=== PATIENT | female | born 1935 | race Caucasian/White ===

== ENCOUNTER → 2017-01-28 | Outpatient (CLI) | payer MEDICARE ==
[~2017-01-28] MED LIST: ALEN70TA39 PO; ASPI81 PO; COUM5TAB PO; CYAN1000P SQ; DILTCD120 PO; DUONSOL2 NEB; GLUCTAB PO; LIPI20TA PO; LISI-591 PO; METO50TA PO; MIRA33502 PO; MOBI7.5T PO; STOO100C PO; VENTAER INH; ZOLP5TAB3 PO
[2017-01-28 14:18] LABS: BLOOD GAS BASE EXCESS 1.3 mmol/L (-2-2); BLOOD GAS CARBOXYHEMOGLOBIN 1.7 % (0-4); BLOOD GAS HCO3 25 mmol/L (22-26); BLOOD GAS METHEMOGLOBIN 0.9 % (0-2); BLOOD GAS O2 HGB SATURATION 95 % (90-100); BLOOD GAS OXYGEN CONTENT 15.5 Vol % (12.0-20.0); BLOOD GAS PCO2 37 mmHg (38-42); BLOOD GAS PO2 93 mmHg (61-120); BLOOD GAS TOTAL HGB 11.5 G/DL (12.0-16.0); CRITICAL VALUE NO; DRAW SITE RT RADIAL; FIO2 21 %; NUMBER OF ARTERIAL PUNCTURES 1; STAT NO; TEMP CORR TO 98.6; ULNAR PULSE PRESENT
--- NOTE | 2017-01-29 09:50 | RSPPFT ---
DATE OF PROCEDURE: 01/28/17 COMMENTS: Spirometry shows FVC of 1.2 at 52% of predicted, FEV1 of 0.8 at 52%, FEV1/FVC ratio is decreased. Flow is decreased at FEF 25, FEF 50, FEF 75 and FEF 25-75. There is a mild response after bronchodilator treatment. Lung volumes show residual volume is increased. TLC is normal. Diffusion capacity is normal. Flow volume loop indicates an obstructive pattern. Blood gases show pH of 7.45, PCO2 of 37, PO2 of 93, BiCarb of 25 and O2 Saturation at 96%. 6-minute walk test shows no de-saturation. IMPRESSION: 1. Mild small airways obstructive lung disease. 2. Mild response after bronchodilator treatment. 3. Lung volumes show hyperinflation. 4. Diffusion capacity is normal. 5. Blood gases show normal oxygenation. 6. 6-minute walk test shows no-desaturation.
== END ==
LOC: HRSP 07:17
PROVIDERS: ATTEND Specialist
DX: R06.00 Dyspnea, unspecified (principal)
CPT/HCPCS: 36600; 82805; 94060; 94620; 94726; 94729

== ENCOUNTER 2017-05-09 17:30 | Inpatient (IN) | payer MEDICARE ==
[~2017-05-09] VITALS: Ht 160 cm; Wt 77.3 kg
[2017-05-09] VITALS (9 sets, daily range): BP systolic 92–114; BP diastolic 51–58; PULSE 48–72; RESP 17–24; TEMP 97.5; O2SAT 92–99
[2017-05-09] MEDS ORDERED: ATROPINE SULFATE 1 MG/ML VIAL IV PUSH ONE (18:15)
[2017-05-09] MEDS ORDERED: SODIUM CHLORIDE 0.9% FLUSH 10 ML FLUSH IVF PRN (18:15)
[2017-05-09] MEDS ORDERED: DOPamine INJ PREMIX 500 ML ONE (18:53)
[2017-05-09 18:54] LABS: AUTOMATED NEUTROPHIL # 13.7 TH/MM3 (1.8-7.7); BASOPHIL % 0.1 % (0.0-2.0); HEMATOCRIT 40.1 % (35.0-46.0); HEMO FLAGS DIFF FINAL; LYMPHOCYTE # 2.3 TH/MM3 (1.0-4.8); MEAN CELL VOLUME 88.8 FL (80.0-100.0); MEAN CORPUSCULAR HEMOGLOBIN 29.6 PG (27.0-34.0); MEAN CORPUSCULAR HGB CONC 33.3 % (32.0-36.0); MONO % 9.8 % (0.0-8.0); NEUT % 77.1 % (16.0-70.0); PLATELET COUNT 260 TH/MM3 (150-450); RED BLOOD COUNT 4.52 MIL/MM3 (4.00-5.30); RED CELL DISTRIBUTION WIDTH 19.8 % (11.6-17.2); WHITE BLOOD COUNT 17.8 TH/MM3 (4.0-11.0)
[2017-05-09] MEDS ORDERED: TERBUTALINE INJ 1 MG/ML AMP SQ PRN (19:00)
[2017-05-09] MEDS ORDERED: DOPamine INJ PREMIX 500 ML IV PRN (19:00)
--- NOTE | 2017-05-09 19:06 | PD ---
HPI Chief Complaint: Abnormal Results Time Seen by Provider: 17:54 Travel History International Travel<30 days: No Contact w/Intl Traveler<30days: No Traveled to known affect area: No History of Present Illness HPI 81-year-old female came to the emergency room with history of dizzy and not feeling good for past couple days. Patient got ready to go to eat some dinner with her sister and started feeling very dizzy at the restaurant. That's when her sister decided to take her to the urgent care. Urgent care did an INR since patient is on Coumadin and found out the DNR was 5 and hence decided to send her to the emergency room. ER patient was quite bradycardic. Blood pressure was 100 systolic. Patient is not complaining of any chest pain and she is awake and answering questions appropriately. She has history of atrial fibrillation and was admitted a month or 2 ago in this hospital for A. fib with RVR and to control her heart rate. No history of chest pain or syncopal episode. No history of GI bleed. [facility] Past Medical History Narrative Medical List of her past medical, surgical, social and family history is reviewed from the nursing note. Hx Anticoagulant Therapy: Yes Arthritis: Yes Cancer: No Cardiovascular Problems: Yes COPD: Yes Diabetes: Yes Patient Takes Glucophage: No Diminished Hearing: No Endocrine: Yes Genitourinary: No Hypertension: Yes Immune Disorder: No Implanted Vascular Access Dvce: Yes Musculoskeletal: Yes (OSTEOPOROSIS) Neurologic: No Psychiatric: No Reproductive: No Respiratory: Yes Immunizations Current: Yes Thyroid Disease: No Menopausal: Yes Past Surgical History AICD: No Arteriovenous Shunt: No Eye Surgery: Yes (BRET. CATARACT EXTRACT.) Genitourinary Surgery: Yes (BLADDER SUSP.) Hysterectomy: Yes Insulin Pump: No Joint Replacement: Yes Oral Surgery: Yes (T & A) Pacemaker: No Tonsillectomy: Yes (AND ADENOIDS ) Other Surgery: Yes (RIGHT LEG VEIN STRIPPING) Social History Alcohol Use: Yes (RARELY) Tobacco Use: No Substance Use: No Allergies-Medications (Allergen,Severity, Reaction): Coded Allergies: clarithromycin (Unverified Allergy, Severe, VOMITING, 03/30/17) Comments List of her allergies reviewed from the nursing note. Reported Meds & Prescriptions Reported Meds & Active Scripts Active Narrative Medication List of her home medications reviewed from the nursing note. Review of Systems Except as stated in HPI: all other systems reviewed are Neg Physical Exam Narrative GENERAL: Awake, alert, elderly, frail, mild distress SKIN: Focused skin assessment warm/dry. HEAD: Atraumatic. Normocephalic. EYES: Pupils equal and round. No scleral icterus. No injection or drainage. ENT: No nasal bleeding or discharge. Mucous membranes pink and moist. NECK: Trachea midline. No JVD. CARDIOVASCULAR: Regular rate and rhythm. Bradycardia. No murmur appreciated. RESPIRATORY: No accessory muscle use. Clear to auscultation. Breath sounds equal bilaterally. GASTROINTESTINAL: Abdomen soft, non-tender, nondistended. Hepatic and splenic margins not palpable. MUSCULOSKELETAL: No obvious deformities. No clubbing. No cyanosis. No edema. NEUROLOGICAL: Awake and alert. No obvious cranial nerve deficits. Motor grossly within normal limits. Normal speech. PSYCHIATRIC: Appropriate mood and affect; insight and judgment normal. Data Data Last Documented VS Orders Orders Electrocardiogram (05/09/17 18:13) Basic Metabolic Panel (Bmp) (05/09/17 18:13) B-Type Natriuretic Peptide (05/09/17 18:13) Ckmb (Isoenzyme) Profile (05/09/17 18:13) Complete Blood Count With Diff (05/09/17 18:13) Magnesium (Mg) (05/09/17 18:13) Prothrombin Time / Inr (Pt) (05/09/17 18:13) Act Partial Throm Time (Ptt) (05/09/17 18:13) Troponin I (05/09/17 18:13) Chest, Single Ap (05/09/17 18:13) Ecg Monitoring (05/09/17 18:13) Bilateral Bp Monitoring (05/09/17 18:13) Iv Access Insert/Monitor (05/09/17 18:13) Oximetry (05/09/17 18:13) Oxygen Administration (05/09/17 18:13) Sodium Chloride 0.9% Flush (Ns Flush) (05/09/17 18:15) Digoxin (05/09/17 18:13) Atropine Inj (Atropine Inj) (05/09/17 18:15) Dopamine Inj Premix (Dopamine Inj Premix (05/09/17 19:00) Terbutaline Inj (Brethine Inj) (05/09/17 19:00) Dopamine Inj Premix (Dopamine Inj Premix (05/09/17 18:53) Phosphorus (Po4) (05/09/17 19:00) Thyroid Stimulating Hormone (05/09/17 19:00) Admit Order (Ed Use Only) (05/09/17 19:07) Labs Laboratory Tests Test 05/09/17 18:23 White Blood Count 17.8 TH/MM3 Red Blood Count 4.52 MIL/MM3 Hemoglobin 13.4 GM/DL Hematocrit 40.1 % Mean Corpuscular Volume 88.8 FL Mean Corpuscular Hemoglobin 29.6 PG Mean Corpuscular Hemoglobin Concent 33.3 % Red Cell Distribution Width 19.8 % Platelet Count 260 TH/MM3 Mean Platelet Volume 9.2 FL Neutrophils (%) (Auto) 77.1 % Lymphocytes (%) (Auto) 13.0 % Monocytes (%) (Auto) 9.8 % Eosinophils (%) (Auto) 0.0 % Basophils (%) (Auto) 0.1 % Neutrophils # (Auto) 13.7 TH/MM3 Lymphocytes # (Auto) 2.3 TH/MM3 Monocytes # (Auto) 1.7 TH/MM3 Eosinophils # (Auto) 0.0 TH/MM3 Basophils # (Auto) 0.0 TH/MM3 CBC Comment DIFF FINAL Differential Comment Prothrombin Time 94.3 SEC Prothromb Time International Ratio 7.8 RATIO Activated Partial Thromboplast Time 52.7 SEC Blood Urea Nitrogen 38 MG/DL Creatinine 2.06 MG/DL Random Glucose 133 MG/DL Calcium Level 9.6 MG/DL Magnesium Level 1.5 MG/DL Sodium Level 135 MEQ/L Potassium Level 4.0 MEQ/L Chloride Level 97 MEQ/L Carbon Dioxide Level 27.0 MEQ/L Anion Gap 11 MEQ/L Estimat Glomerular Filtration Rate 23 ML/MIN Phosphorus Level 3.5 MG/DL Total Creatine Kinase 60 U/L Troponin I 0.03 NG/ML B-Type Natriuretic Peptide 371 PG/ML Thyroid Stimulating Hormone 3rd Gen 3.730 uIU/ML Digoxin Level 1.3 NG/ML [facility] Medical Decision Making Medical Screen Exam Complete: Yes Emergency Medical Condition: Yes Medical Record Reviewed: Yes Interpretation(s) Twelve-lead EKG was reviewed by me. Normal sinus rhythm, normal axis, left bundle branch block, bradycardia, first-degree AV block. EKG is unchanged from 02/2017. Heart rate of 48 bpm. Differential Diagnosis Medication related bradycardia, symptomatic bradycardia, electrolyte abnormality , questionable digitalis toxicity Narrative Course 7 PM patient does not recall any of her medications. I've ordered a digitalis level among other lab since the ST segment has depression typical for digitalis toxicity although it does not look much different from her old EKG. Patient was given 0.5 mg of atropine which has not changed the heart rate. I was just informed by the nurse that the blood pressure is down to 76 systolic. I have started her on dopamine drip. Patient is to be admitted to the [facility]. Awaiting for labs to come back. Chest x-rays within normal limits. Critical Care Narrative Aggregate critical care time was 45 minutes. Time to perform other separately billable procedures was not included in the critical care time. My time did not include minutes spent treating any other patients simultaneously or on activities that did not directly contribute to the patient's treatment. The services I provided to this patient were to treat and/or prevent clinically significant deterioration that could result in: Symptomatic bradycardia, dopamine drip I provided critical care services requiring my management, as noted below: Chart data review, documentation time, medication orders and management, vital sign assessments/reviewing monitor data, ordering and reviewing lab tests, ordering and interpreting/reviewing x-rays and diagnostic studies, care of the patient and discussion of the patient with the admitting physicians. Procedures EKG Prior to Arrival: No Physician Communication Physician Communication Dr. Guerra Diagnosis Primary Impression: Symptomatic bradycardia Additional Impressions: Hypotension Qualified Codes: I95.9 - Hypotension, unspecified Leukocytosis Qualified Codes: D72.829 - Elevated white blood cell count, unspecified Supratherapeutic INR Admitting Information Admitting Physician Requests: Admit Scripts Lisinopril (Lisinopril) 20 Mg Tab 20 MG PO Q12HR for htn, #60 TAB 0 Refills Prov: Jeb Funez DO 05/13/17 Metoprolol Tartrate (Metoprolol Tartrate) 50 Mg Tab 50 MG PO BID for afib, #60 TAB 0 Refills Prov: Jeb Funez DO 05/13/17 Temazepam (Temazepam) 15 Mg Cap 15 MG PO HS Y for INSOMNIA, #30 CAP 0 Refills Prov: Jeb Funez DO 05/13/17 Karol Suero MD May 09, 2017 19:06
[2017-05-09 19:07] LABS: APTT (PATIENT) 52.7 SEC (24.3-30.1); PROTHROMBIN TIME - PATIENT 94.3 SEC (9.8-11.6)
[2017-05-09 19:13] LABS: MAGNESIUM 1.5 MG/DL (1.5-2.5)
--- NOTE | 2017-05-09 19:20 | RADRPT ---
EXAM DATE/TIME: 05/09/2017 18:37 [facility] COMPARISON: CHEST SINGLE AP, March 13, 2016, 17:19. INDICATIONS : Chest pain. MEDICAL HISTORY : Chronic obstructive pulmonary disease. SURGICAL HISTORY : None. ENCOUNTER: Initial ACUITY: 1 day PAIN SCORE: 10 LOCATION: Bilateral chest FINDINGS: A single AP erect view of the chest was obtained and demonstrates mild thickening of the right minor fissure. The heart size remains enlarged with no new confluent infiltrates or effusions. The bony tho rax is intact. There are atherosclerotic changes in the aorta. Multiple overlying ctrocardiogram lead s are present. CONCLUSION: No acute disease. Judah Scott MD on May 09, 2017 at 19:17 Board Certified Radiologist. This report was verified electronically.
[2017-05-09 19:23] LABS: INTERNATIONAL NORMALIZED RATIO 7.8 RATIO
[2017-05-09 19:28] LABS: DIGOXIN 1.3 NG/ML (0.8-2.0)
[2017-05-09] MEDS ORDERED: SODIUM CHLOR 0.9% 1000 ML INJ 1,000 ML IV SCH (20:10)
--- NOTE | 2017-05-09 20:41 | HHI.HP ---
[facility] Service Critical Care Medicine Primary Care Physician Barrington Kruse MD Admission Diagnosis symptomatic bradycardia, hypotension Diagnosis: Travel History International Travel<30 Days: No Contact w/Intl Traveler <30 Da: No Traveled to Known Affected Are: No Sepsis Criteria SIRS Criteria (2 or more): Heart rate over 90 History of Present Illness 81-year-old female with past medical history of COPD, atrial fibrillation on chronic and regulation with warfarin, diabetes, hypertension who presents to [facility] emergency department with a 2 day history of dizziness. She states that about a week ago she was having a productive cough. She was diagnosed with COPD exacerbation and started on azithromycin and took about 4 doses. She has had a poor appetite, poor po intake, and some nausea. She says she has pain in her neck (trapezius) and low back. She feels unsteady when walking but has not fallen. She went out to dinner with her sister and began "feeling bad", dizzy and nauseated. She went to urgent care where her INR was 5 so she was referred to the ED. She vomited x1 at urgent care, nonbloody. When she arrived to the ED her heart rate was in the 40s with LBBB. (LBBB seen previously on EKG 03/14/16). She was given atropin 0.5 mg IV without much improvement. Then her systolic blood pressure was in the 70s that she was started on dopamine which is currently running at 8 g per KG per minute with heart rate 60-65 and blood pressure 97/52. She cannot recall any of the medications that she takes for hypertension or A. fib. She states she took all of her morning meds , not her nighttime meds. Her INR is 7.8. White blood cell count is 17.8. She is afebrile. Creatinine is 2 with baseline ~0.7-1. BUN is 38. Potassium is 4, digoxin level I.3. She denies chest pain or shortness of breath. She denies abdominal pain or dysuria. No hematemesis Last bowel movement was 3 days ago. She states that tonight she developed headache at the base of her skull. Denies head trauma. Remainder review of systems negative Review of Systems Gastrointestinal: COMPLAINS OF: Nausea, Vomiting Past Family Social History Allergies: Coded Allergies: clarithromycin (Unverified Allergy, Severe, VOMITING, 03/30/17) Past Medical History Atrial fibrillation on chronic adequate ventilation with warfarin COPD. She is not on home oxygen. Diabetes mellitus Hypertension Osteoporosis Past Surgical History Bilateral lens implants Ladder suspension Hysterectomy Tonsillectomy and adenoidectomy Left vein stripping Reported Medications Patient is not able to provide a a current medication list. She states that Dr. Adorno is her food assembler kitchen in that he will have access to her current list. Active Ordered Medications Dopamine drip Family History Her father had diabetes and lived to age 96 Mother of tuberculosis at age 29 Grandmother lived to 106 years of age Social History She is a lifetime nonsmoker. Rarely drinks alcohol. Denies illicit drug use She used to work with [employer] in [place]. 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 She has 3 daughters who live near her in [place]. Physical Exam Vital Signs Vital Signs Date Time Temp Pulse Resp B/P (MAP) Pulse Ox O2 Delivery O2 Flow Rate FiO2 05/09/17 19:45 69 20 101/58 (72) 99 Nasal Cannula 2.00 05/09/17 19:06 48 80/49 05/09/17 18:19 50 18 92/53 (66) 97 Nasal Cannula 2.00 05/09/17 18:19 50 18 92/53 (66) 99 Room Air 05/09/17 18:19 100 2.00 05/09/17 18:04 50 20 95 Nasal Cannula 2.00 05/09/17 17:35 97.5 48 24 96/51 (66) 92 Room Air Physical Exam GENERAL: Very pleasant female who is laying in ED [place] under numerous blankets stating that she is cold. SKIN: Warm and dry, adequately perfused. HEAD: Atraumatic. Normocephalic. EYES: Pupils equal and round, 3 mm and reactive bilaterally.. No scleral icterus. No injection or drainage. ENT: No nasal bleeding or discharge. Mucous membranes pink, dry.. NECK: Trachea midline. No JVD. CARDIOVASCULAR: Irregularly irregular with a 3/6 systolic murmur left sternal border. No rubs or gallops. RESPIRATORY: Breathing comfortably on 2 L nasal cannula without accessory muscle use. Clear to auscultation bilaterally without wheezes Rales or rhonchi. GASTROINTESTINAL: Abdomen soft, non-tender, nondistended. Bowel sounds are present. MUSCULOSKELETAL: Extremities without clubbing, cyanosis, or edema. No obvious deformities. NEUROLOGICAL: Awake and alert. Normal speech. Oriented to person, place, circumstances. 4 beat horizontal nystagmus, 3 beat vertical does nystagmus with upward gaze. Five out of 5 muscle strength in the arms and legs. Sensation intact. Normal [id number] nose and normal rapid alternating movements bilaterally.. Normal [id number] bilaterally. No pronator drift. No clonus Laboratory Laboratory Tests Test 05/09/17 18:23 White Blood Count 17.8 Red Blood Count 4.52 Hemoglobin 13.4 Hematocrit 40.1 Mean Corpuscular Volume 88.8 Mean Corpuscular Hemoglobin 29.6 Mean Corpuscular Hemoglobin Concent 33.3 Red Cell Distribution Width 19.8 Platelet Count 260 Mean Platelet Volume 9.2 Neutrophils (%) (Auto) 77.1 Lymphocytes (%) (Auto) 13.0 Monocytes (%) (Auto) 9.8 Eosinophils (%) (Auto) 0.0 Basophils (%) (Auto) 0.1 Neutrophils # (Auto) 13.7 Lymphocytes # (Auto) 2.3 Monocytes # (Auto) 1.7 Eosinophils # (Auto) 0.0 Basophils # (Auto) 0.0 CBC Comment DIFF FINAL Differential Comment Prothrombin Time 94.3 Prothromb Time International Ratio 7.8 Activated Partial Thromboplast Time 52.7 Blood Urea Nitrogen 38 Creatinine 2.06 Random Glucose 133 Calcium Level 9.6 Magnesium Level 1.5 Sodium Level 135 Potassium Level 4.0 Chloride Level 97 Carbon Dioxide Level 27.0 Anion Gap 11 Estimat Glomerular Filtration Rate 23 Total Creatine Kinase 60 Troponin I 0.03 B-Type Natriuretic Peptide 371 Digoxin Level 1.3 Result Diagram: 05/09/17182205/09/171822 Caprini VTE Risk Assessment Caprini VTE Risk Assessment: Mod/High Risk (score >= 2) Caprini Risk Assessment Model Point Value = 1 Point Value = 2 Point Value = 3 Point Value = 5 Age 41-60 Minor surgery BMI > 25 kg/m2 Swollen legs Varicose veins or History of unexplained or recurrent spontaneous Oral contraceptives or hormone replacement Sepsis (< 1 month) Serious lung disease, including pneumonia (< 1 month) Abnormal pulmonary function Acute myocardial infarction Congestive heart failure (< 1 month) History of inflammatory bowel disease Medical patient at bed rest Age 61-74 Arthroscopic surgery Major open surgery (> 45 min) Laparoscopic surgery (> 45 min) Malignancy Confined to bed (> 72 hours) Immobilizing plaster cast Central venous access Age >= 75 History of VTE Family history of VTE Factor V Leiden Prothrombin [id number] Lupus anticoagulant Anticardiolipin antibodies Elevated serum homocysteine Heparin-induced thrombocytopenia Other congenital or acquired thrombophilia Stroke (< 1 month) Elective arthroplasty Hip, pelvis, or leg fracture Acute spinal cord injury (< 1 month) Prophylaxis Regimen Total Risk Factor Score Risk Level Prophylaxis Regimen 0-1 Low Early ambulation 2 Moderate Order ONE of the following: *Sequential Compression Device (SCD) *Heparin 5000 units SQ BID 3-4 Higher Order ONE of the following medications: *Heparin 5000 units SQ TID *Enoxaparin/Lovenox 40 mg SQ daily (WT < 150 kg, CrCl > 30 mL/min) *Enoxaparin/Lovenox 30 mg SQ daily (WT < 150 kg, CrCl > 10-29 mL/min) *Enoxaparin/Lovenox 30 mg SQ BID (WT < 150 kg, CrCl > 30 mL/min) AND/OR *Sequential Compression Device (SCD) 5 or more Highest Order ONE of the following medications: *Heparin 5000 units SQ TID (Preferred with Epidurals) *Enoxaparin/Lovenox 40 mg SQ daily (WT < 150 kg, CrCl > 30 mL/min) *Enoxaparin/Lovenox 30 mg SQ daily (WT < 150 kg, CrCl > 10-29 mL/min) *Enoxaparin/Lovenox 30 mg SQ BID (WT < 150 kg, CrCl > 30 mL/min) AND *Sequential Compression Device (SCD) Assessment and Plan Problem List: (1) Headache ICD Code: R51 - Headache Status: Acute (2) COPD (chronic obstructive pulmonary disease) ICD Code: J44.9 - Chronic obstructive pulmonary disease, unspecified Status: Chronic (3) Dehydration ICD Code: E86.0 - Dehydration Status: Acute (4) Hyperlipidemia ICD Code: E78.5 - Hyperlipidemia, unspecified Status: Chronic (5) HTN (hypertension) ICD Code: I10 - Essential (primary) hypertension Status: Chronic (6) Atrial fibrillation with RVR ICD Code: I48.91 - Unspecified atrial fibrillation Status: Acute (7) Supratherapeutic INR ICD Code: R79.1 - Abnormal coagulation profile Status: Acute (8) Symptomatic bradycardia ICD Code: R00.1 - Bradycardia, unspecified Status: Acute Assessment and Plan NEURO: Headache CT brain 05/09no acute hemorrhage. Decreased attenuation right frontal lobe white matter, chronic small vessel ischemic changes. Tylenol/Lortab as needed for pain RESP: COPD Nasal cannula wean as tolerated CV: Atrial fibrillation Hypertension Unclear what meds patient was on for rate control but this is likely the cause of bradycardia. Now on dopamine to maintain a heart rate greater than 50 and mean arterial pressure greater than 65. Digoxin level 1.3. Hold dig. Cardiology consult, Dr. Adorno GI: Nausea/vomiting Nausea and vomiting may be secondary to medication effect from azithromycin. She has previously had that response to clarithromycin in the past. Nothing by mouth overnight. FEN/RENAL: Acute kidney injury She appears volume depleted with elevated BUN/creatinine. She has had very poor by mouth intake for couple of days. 0.9 NaCl with 20 mEq of KCl per liter at 100 mL per hour. ID: Leukocytosis Has completed about 4-5 days of azithromycin due to COPD. From the standpoint of her COPD she feels like she is back to baseline so I will hold off on further azithromycin at this time.. Chest x-ray is clear. We'll check UA and reflex culture. HEME: Coagulopathy secondary to warfarin INR is 7.8. She has been on recent antibiotics which may have contributed to her coagulopathy. She does not appear to have active GI bleeding and her hemoglobin is normal so will simply hold warfarin for now. ENDO: Diabetes mellitus Bedside glucose ac/hs with low-dose sliding scale as indicated. Follow-up TSH PROPH: Protonix 40 mg by mouth daily for stress ulcer prophylaxis. She is anticoagulated with warfarin which will provide DVT prophylaxis. ACCESS: Peripheral IV providing adequate access at this time. Will place central venous line if needed. Level III H&P Coral Guerra MD May 09, 2017 20:41
[2017-05-09] MEDS ORDERED: MORPHINE SULFATE 4 MG/ML INJ IV PUSH PRN (20:45)
[2017-05-09] MEDS ORDERED: MAGNESIUM HYDROXIDE SUSP 30 ML CUP PO PRN (20:45)
[2017-05-09] MEDS ORDERED: SODIUM CHLORIDE 0.9% FLUSH 10 ML FLUSH IV FLUSH PRN (20:45)
[2017-05-09] MEDS ORDERED: ACETAMINOPHEN 325 MG TAB PO PRN (20:45)
[2017-05-09] MEDS ORDERED: SENNOSIDES 8.6 MG TAB PO PRN (20:45)
[2017-05-09] MEDS ORDERED: BISACODYL 10 MG SUPP RECTAL PRN (20:45)
[2017-05-09] MEDS ORDERED: CHLORHEXIDINE GLUCONATE 2 % 1 PACK (2 CLOTHS) TOP PRN (20:45)
[2017-05-09] MEDS ORDERED: LACTULOSE SYRUP 20 GM/30 ML CUP PO PRN (20:45)
[2017-05-09] MEDS ORDERED: MISCELLANEOUS NURSING INFORMATION XX SCH (20:45)
[2017-05-09] MEDS ORDERED: RESP: ALBUTEROL 2.5 MG/3 ML NEB (PRN) INH (20:45)
[2017-05-09] MEDS ORDERED: ACETAMINOPHEN/HYDROcodone 325 MG/5 MG TAB PO PRN ×2 (20:45→21:00)
[2017-05-09] MEDS: SODIUM CHLORIDE 0.9% FLUSH 10 ML FLUSH IV FLUSH SCH (21:00)
[2017-05-09] MEDS: DOCUSATE SODIUM 50 MG/SENNA 8.6 MG TAB PO SCH (21:00)
[2017-05-09] MEDS ORDERED: MAGNESIUM SULFATE 1 GM PREMIX 100 ML IV ONE (21:00)
[2017-05-09] MEDS: NS + KCL 20 MEQ INJ 1,000 ML IV SCH (22:30)
[2017-05-09] MEDS: RESP: ALBUTEROL 2.5 MG/IPRATROPIUM 0.5 MG NEB (SCH) INH (22:46)
--- NOTE | 2017-05-09 22:46 | RADRPT ---
EXAM DATE/TIME: 05/09/2017 22:26 [facility] COMPARISON: No previous studies available for comparison. INDICATIONS : Dizziness. RADIATION DOSE: 56.35 CTDIvol (mGy) MEDICAL HISTORY : Cardiovascular disease. Hypertension. Diabetes. SURGICAL HISTORY : Hysterectomy. ENCOUNTER: Initial ACUITY: 1 day PAIN SCALE: 0/10 LOCATION: cranial TECHNIQUE: Multiple contiguous axial images were obtained of the head. Using automated exposure control and adj ustment of the mA and/or kV according to patient size, radiation dose was kept as low as reasonably a chievable to obtain optimal diagnostic quality images. DICOM format image data is available electro nically for review and comparison. FINDINGS: CEREBRUM: There's diffuse mild to moderate atrophic change with sulcal and ventricular prominence. Periventricu lar white matter lucencies are noted. There is a more focal area of decreased attenuation involving t he white matter of the right frontal lobe best seen on axial images #13 and 14. No evidence of midlin e shift, mass lesion, hemorrhage or acute infarction. No extra-axial fluid collections are seen. POSTERIOR FOSSA: The cerebellum and brainstem are intact. The 4th ventricle is midline. The cerebellopontine angle i s unremarkable. EXTRACRANIAL: The visualized portion of the orbits is intact. SKULL: The calvaria is intact. No evidence of skull fracture. There is an air-fluid level in left maxillary sinus. There is mucosal thickening in the right maxillary sinus. CONCLUSION: 1. No acute hemorrhage or mass effect. 2. Chronic small vessel ischemic changes as well as a more focal area of decreased attenuation involv ing the white matter of the right frontal lobe which is more nonspecific but likely related to prior insult. Judah Scott MD on May 09, 2017 at 22:42 Board Certified Radiologist. This report was verified electronically.
[2017-05-10] VITALS (28 sets, daily range): BP systolic 107–150; BP diastolic 51–68; PULSE 70–94; RESP 16–50; TEMP 97.5–98.8; O2SAT 90–100
[2017-05-10 02:17] LABS: AUTOMATED NEUTROPHIL # 9.6 TH/MM3 (1.8-7.7); BASOPHIL % 0.2 % (0.0-2.0); EOSINOPHIL % 0.2 % (0.0-4.0); HEMATOCRIT 38.4 % (35.0-46.0); HEMO FLAGS DIFF FINAL; LYMPH % 15.9 % (9.0-44.0); LYMPHOCYTE # 2.1 TH/MM3 (1.0-4.8); MEAN CELL VOLUME 87.9 FL (80.0-100.0); MEAN CORPUSCULAR HEMOGLOBIN 28.6 PG (27.0-34.0); MEAN CORPUSCULAR HGB CONC 32.6 % (32.0-36.0); MONO % 9.3 % (0.0-8.0); NEUT % 74.4 % (16.0-70.0); PLATELET COUNT 229 TH/MM3 (150-450); RED BLOOD COUNT 4.37 MIL/MM3 (4.00-5.30); RED CELL DISTRIBUTION WIDTH 19.9 % (11.6-17.2)
[2017-05-10] MEDS: CHLORHEXIDINE GLUCONATE 2 % 1 PACK (2 CLOTHS) TOP SCH (04:00)
[2017-05-10 04:05] LABS: BICARBONATE 24.9 MEQ/L (21.0-32.0); MAGNESIUM 1.8 MG/DL (1.5-2.5); POTASSIUM 3.4 MEQ/L (3.5-5.1)
[2017-05-10] MEDS: RESP: ALBUTEROL 2.5 MG/IPRATROPIUM 0.5 MG NEB (SCH) INH ×4 (05:30→19:32)
[2017-05-10 05:38] LABS: BLOOD, URINE TRACE (NEG); COMMENT (UR) CULT NOT INDICATED; CULTURE IF INDICATED CULT NOT INDICATED; GLUCOSE,URINE NEG (NEG); KETONE, URINE NEG (NEG); MUCUS URINE FEW /lpf (OCC); NITRITE,URINE NEG (NEG); SQUAMOUS EPITHELIAL CELL URINE <1 /hpf (0-5); URINE COLOR LIGHT-YELLOW (YELLW/STRAW)
[2017-05-10] MEDS: NS + KCL 20 MEQ INJ 1,000 ML IV SCH ×2 (05:56→11:57)
[2017-05-10] MEDS ORDERED: SODIUM CHLOR 0.9% 250 ML INJ 250 ML IV ONE (06:30)
[2017-05-10] MEDS ORDERED: DOPamine INJ PREMIX 500 ML IV PRN (06:30)
--- NOTE | 2017-05-10 08:13 | PD.CONS ---
HPI Service CV Consult Requested By Reason for Consult symptomatic bradycardia Primary Care Physician Barrington Kruse MD History of Present Illness Here with COPD, atrial fibrillation, diabetes, hypertension admitt for dizziness. She states that about a week ago she was having a productive cough. She recently experienced an exacerbation of her COPD and was placed on a Z markus. Then her INR became eleavated. She was experiencing intermittent dizziness. She eventually went to urgent care where her INR was 5. She was then sent to the ER and heart rate there was in the 40's she was given atropine. She was also hypotensive and placed on a dopamine drip. She denies chest pain or palpitation Review of Systems Consitutional: DENIES: Fatigue, Fever, Chills, Weight gain, Weight loss Eyes: DENIES: Amaurosis Fugax, Change in vision HEENT: COMPLAINS OF: Lightheadedness Respiratory: DENIES: See HPI, Cough, Snoring, Shortness of breath, Wheezing, Sputum production Cardiovascular: COMPLAINS OF: See HPI, DENIES: Chest pain, Palpitations, Syncope, Tachycardia Gastrointestinal: DENIES: Nausea, Vomiting, Change in bowel habits, Reflux, Bloody stools, Melena Genitourinary: DENIES: Urinary incontinence, Difficulty voiding Integumentary: DENIES: Rash Neurologic: DENIES: Tingling or numbness, Memory problems, Poor Balance, Stroke symptoms Musculoskeletal: DENIES: Joint pain, Muscle pain, Limited range of motion, Back pain Psychiatric: DENIES: Anxiety, Depression, Sleep disturbances Hematologic: DENIES: Bruising tendencies, Bleeding tendencies Endocrine: DENIES: Weight gain, Weight loss, Thyroid disease Past Family Social History Allergies: Coded Allergies: clarithromycin (Unverified Allergy, Severe, VOMITING, 03/30/17) Past Medical History see HPI Osteoporosis Past Surgical History Bilateral lens implants Ladder suspension Hysterectomy Tonsillectomy and adenoidectomy Left vein stripping Reported Medications Reported Meds & Active Scripts Active Active Ordered Medications Current Medications Medications (Trade) Dose Ordered Sig/Ozzie Route Start Time Stop Time Status Last Admin (Brethine Inj) 1 mg UNSCH PRN SQ 05/09/17 19:00 Potassium Chloride/Sodium Chloride 1,000 ml @ 100 mls/hr Q10H IV 05/09/17 21:00 05/10/17 05:56 (NS Flush) 2 ml UNSCH PRN IV FLUSH 05/09/17 20:45 (NS Flush) 2 ml BID IV FLUSH 05/09/17 21:00 (Tylenol) 650 mg Q6H PRN PO 05/09/17 20:45 ([place] 5-325 Mg) 1 tab Q4H PRN PO 05/09/17 20:45 (Protonix) 40 mg DAILY PO 05/10/17 09:00 (Zofran Inj) 4 mg Q6H PRN IV PUSH 05/09/17 20:45 (Duoneb Neb) 1 ampule Q6HR NEB INH 05/09/17 22:00 05/10/17 07:39 (Albuterol Neb) 2.5 mg Q2HR NEB PRN INH 05/09/17 20:45 Miscellaneous Information 1 Q361D XX 05/09/17 20:45 05/09/17 20:45 (Chlorhexidine 2% Cloth) 3 pack Taper DAILY@04 TOP 05/10/17 04:00 05/06/18 03:59 05/10/17 04:00 (Chlorhexidine 2% Cloth) 3 pack UNSCH PRN TOP 05/09/17 20:45 (Nadira-Colace) 1 tab BID PO 05/09/17 21:00 (Milk Of Magnesia Liq) 30 ml Q12H PRN PO 05/09/17 20:45 (Senokot) 17.2 mg Q12H PRN PO 05/09/17 20:45 (Dulcolax Supp) 10 mg DAILY PRN RECTAL 05/09/17 20:45 (Lactulose Liq) 30 ml DAILY PRN PO 05/09/17 20:45 ([place] 5-325 Mg) 2 tab Q6H PRN PO 05/09/17 21:00 Dopamine HCl/ Dextrose 500 ml @ 8.438 mls/ hr TITRATE PRN IV 05/10/17 06:30 Family History noncontributory Social History Never smoker. Rare EtOH. Denies illicit drug use Physical Exam Vital Signs Vital Signs Date Time Temp Pulse Resp B/P (MAP) Pulse Ox O2 Delivery O2 Flow Rate FiO2 05/10/17 07:40 97 Venturi Mask 6.00 35 05/10/17 06:20 96 Venturi Mask 3.00 28 05/10/17 06:00 98.5 79 17 114/56 (75) 92 05/10/17 05:00 98.4 79 18 114/57 (76) 98 05/10/17 04:00 98.7 74 20 107/52 (70) 98 05/10/17 03:00 98.1 75 16 121/58 (79) 93 05/10/17 02:00 98.2 73 18 108/52 (70) 90 05/10/17 01:00 98.0 70 20 113/52 (72) 95 05/10/17 00:56 98.0 70 20 113/52 (72) 95 05/10/17 00:19 68 16 108/55 (72) 97 Nasal Cannula 2.00 05/09/17 23:00 67 18 108/55 (72) 98 Nasal Cannula 2.00 05/09/17 22:15 72 18 111/56 (74) 98 Nasal Cannula 2.00 05/09/17 21:45 68 20 112/57 (75) 96 Nasal Cannula 2.00 05/09/17 21:15 70 18 113/55 (74) 97 Nasal Cannula 2.00 05/09/17 20:45 64 114/55 (74) 05/09/17 20:15 68 17 104/55 (71) 98 Nasal Cannula 2.00 05/09/17 19:45 69 20 101/58 (72) 99 Nasal Cannula 2.00 05/09/17 19:06 48 80/49 05/09/17 18:19 50 18 92/53 (66) 97 Nasal Cannula 2.00 05/09/17 18:19 50 18 92/53 (66) 99 Room Air 05/09/17 18:19 100 2.00 05/09/17 18:04 50 20 95 Nasal Cannula 2.00 05/09/17 17:35 97.5 48 24 96/51 (66) 92 Room Air Physical Exam GENERAL: Well-nourished, well-developed patient in no apparent distress. NECK: No JVD. No carotid bruit. CARDIOVASCULAR: IR IR S1/S2 no murmur, rub, or gallop. RESPIRATORY: No accessory muscle use. wheezing to auscultation. Breath sounds equal bilaterally. GASTROINTESTINAL: Abdomen soft, non-tender, nondistended. MUSCULOSKELETAL: Extremities without clubbing, cyanosis, or edema. Laboratory Laboratory Tests Test 05/09/17 18:23 05/10/17 00:20 05/10/17 01:52 05/10/17 05:22 White Blood Count 17.8 13.0 Red Blood Count 4.52 4.37 Hemoglobin 13.4 12.5 Hematocrit 40.1 38.4 Mean Corpuscular Volume 88.8 87.9 Mean Corpuscular Hemoglobin 29.6 28.6 Mean Corpuscular Hemoglobin Concent 33.3 32.6 Red Cell Distribution Width 19.8 19.9 Platelet Count 260 229 Mean Platelet Volume 9.2 8.4 Neutrophils (%) (Auto) 77.1 74.4 Lymphocytes (%) (Auto) 13.0 15.9 Monocytes (%) (Auto) 9.8 9.3 Eosinophils (%) (Auto) 0.0 0.2 Basophils (%) (Auto) 0.1 0.2 Neutrophils # (Auto) 13.7 9.6 Lymphocytes # (Auto) 2.3 2.1 Monocytes # (Auto) 1.7 1.2 Eosinophils # (Auto) 0.0 0.0 Basophils # (Auto) 0.0 0.0 CBC Comment DIFF FINAL DIFF FINAL Differential Comment Prothrombin Time 94.3 Prothromb Time International Ratio 7.8 Activated Partial Thromboplast Time 52.7 Blood Urea Nitrogen 38 43 Creatinine 2.06 2.04 Random Glucose 133 169 Calcium Level 9.6 8.5 Magnesium Level 1.5 1.8 Sodium Level 135 136 Potassium Level 4.0 3.4 Chloride Level 97 100 Carbon Dioxide Level 27.0 24.9 Anion Gap 11 11 Estimat Glomerular Filtration Rate 23 23 Phosphorus Level 3.5 Total Creatine Kinase 60 Troponin I 0.03 0.03 B-Type Natriuretic Peptide 371 Thyroid Stimulating Hormone 3rd Gen 3.730 Digoxin Level 1.3 Nasal Screen MRSA (PCR) MRSA NOT DETECTED Urine Color LIGHT-YELLOW Urine Turbidity CLEAR Urine pH 5.0 Urine Specific [place] 1.007 Urine Protein NEG Urine Glucose (UA) NEG Urine Ketones NEG Urine Occult Blood TRACE Urine Nitrite NEG Urine Bilirubin NEG Urine Urobilinogen LESS THAN 2.0 Urine Leukocyte Esterase NEG Urine RBC 2 Urine WBC 1 Urine Squamous Epithelial Cells <1 Urine Mucus FEW Microscopic Urinalysis Comment CULT NOT INDICATED Result Diagram: 05/10/1715105/10/17151 Assessment and Plan Problem List: (1) Supratherapeutic INR ICD Codes: R79.1 - Abnormal coagulation profile Status: Acute (2) Hypotension ICD Codes: I95.9 - Hypotension, unspecified Status: Acute (3) Atrial fibrillation with RVR ICD Codes: I48.91 - Unspecified atrial fibrillation Status: Acute Assessment and Plan HR and blood pressure much improved, will try to wean dopamine gtt. Okay to start feeding. Check daily INR Problem Qualifiers (1) Hypotension: Qualified Codes: I95.9 - Hypotension, unspecified Tushar Polk May 10, 2017 08:13
[2017-05-10] MEDS: DOCUSATE SODIUM 50 MG/SENNA 8.6 MG TAB PO SCH ×2 (09:38→20:53)
[2017-05-10] MEDS: PANTOPRAZOLE SOD 40 MG DELAYED RELEASE TAB PO SCH (09:38)
[2017-05-10] MEDS: SODIUM CHLORIDE 0.9% FLUSH 10 ML FLUSH IV FLUSH SCH ×2 (09:39→20:53)
--- NOTE | 2017-05-10 10:03 | HHI.CCPN ---
Subjective Remarks/Hospital Course 81-year-old female with past medical history of COPD, atrial fibrillation on chronic and regulation with warfarin, diabetes, hypertension who presents to [facility] emergency department with a 2 day history of dizziness. She states that about a week ago she was having a productive cough. She was diagnosed with COPD exacerbation and started on azithromycin and took about 4 doses. She has had a poor appetite, poor po intake, and some nausea. She says she has pain in her neck (trapezius) and low back. She feels unsteady when walking but has not fallen. She went out to dinner with her sister and began "feeling bad", dizzy and nauseated. She went to urgent care where her INR was 5 so she was referred to the ED. She vomited x1 at urgent care, nonbloody. When she arrived to the ED her heart rate was in the 40s with LBBB. (LBBB seen previously on EKG 03/14/16). She was given atropin 0.5 mg IV without much improvement. Then her systolic blood pressure was in the 70s that she was started on dopamine which is currently running at 8 g per KG per minute with heart rate 60-65 and blood pressure 97/52. She cannot recall any of the medications that she takes for hypertension or A. fib. She states she took all of her morning meds , not her nighttime meds. Her INR is 7.8. White blood cell count is 17.8. She is afebrile. Creatinine is 2 with baseline ~0.7-1. BUN is 38. Potassium is 4, digoxin level I.3. She denies chest pain or shortness of breath. She denies abdominal pain or dysuria. No hematemesis Last bowel movement was 3 days ago. She states that tonight she developed headache at the base of her skull. Denies head trauma. Remainder review of systems negative 05/10 Patient is awake and alert lying in bed in NAD. On Dopamine 3 mics. Afebrile requesting something to eat. Objective Vital Signs Date Time Temp Pulse Resp B/P (MAP) Pulse Ox O2 Delivery O2 Flow Rate FiO2 05/10/17 07:40 97 Venturi Mask 6.00 35 05/10/17 07:00 79 35 122/57 (78) 05/10/17 06:00 98.5 Intake and Output 05/10/17 05/10/17 05/11/17 08:00 16:00 00:00 Intake Total 250 ml Output Total 600 ml Balance -350 ml Result Diagram: 05/10/17 0152 05/10/17 0152 Other Results Laboratory Tests Test 05/09/17 18:23 05/10/17 00:20 05/10/17 01:52 05/10/17 05:22 White Blood Count 17.8 TH/MM3 13.0 TH/MM3 Red Blood Count 4.52 MIL/MM3 4.37 MIL/MM3 Hemoglobin 13.4 GM/DL 12.5 GM/DL Hematocrit 40.1 % 38.4 % Mean Corpuscular Volume 88.8 FL 87.9 FL Mean Corpuscular Hemoglobin 29.6 PG 28.6 PG Mean Corpuscular Hemoglobin Concent 33.3 % 32.6 % Red Cell Distribution Width 19.8 % 19.9 % Platelet Count 260 TH/MM3 229 TH/MM3 Mean Platelet Volume 9.2 FL 8.4 FL Neutrophils (%) (Auto) 77.1 % 74.4 % Lymphocytes (%) (Auto) 13.0 % 15.9 % Monocytes (%) (Auto) 9.8 % 9.3 % Eosinophils (%) (Auto) 0.0 % 0.2 % Basophils (%) (Auto) 0.1 % 0.2 % Neutrophils # (Auto) 13.7 TH/MM3 9.6 TH/MM3 Lymphocytes # (Auto) 2.3 TH/MM3 2.1 TH/MM3 Monocytes # (Auto) 1.7 TH/MM3 1.2 TH/MM3 Eosinophils # (Auto) 0.0 TH/MM3 0.0 TH/MM3 Basophils # (Auto) 0.0 TH/MM3 0.0 TH/MM3 CBC Comment DIFF FINAL DIFF FINAL Differential Comment Prothrombin Time 94.3 SEC Prothromb Time International Ratio 7.8 RATIO Activated Partial Thromboplast Time 52.7 SEC Blood Urea Nitrogen 38 MG/DL 43 MG/DL Creatinine 2.06 MG/DL 2.04 MG/DL Random Glucose 133 MG/DL 169 MG/DL Calcium Level 9.6 MG/DL 8.5 MG/DL Magnesium Level 1.5 MG/DL 1.8 MG/DL Sodium Level 135 MEQ/L 136 MEQ/L Potassium Level 4.0 MEQ/L 3.4 MEQ/L Chloride Level 97 MEQ/L 100 MEQ/L Carbon Dioxide Level 27.0 MEQ/L 24.9 MEQ/L Anion Gap 11 MEQ/L 11 MEQ/L Estimat Glomerular Filtration Rate 23 ML/MIN 23 ML/MIN Phosphorus Level 3.5 MG/DL Total Creatine Kinase 60 U/L Troponin I 0.03 NG/ML 0.03 NG/ML B-Type Natriuretic Peptide 371 PG/ML Thyroid Stimulating Hormone 3rd Gen 3.730 uIU/ML Digoxin Level 1.3 NG/ML Nasal Screen MRSA (PCR) MRSA NOT DETECTED Urine Color LIGHT-YELLOW Urine Turbidity CLEAR Urine pH 5.0 Urine Specific [place] 1.007 Urine Protein NEG mg/dL Urine Glucose (UA) NEG mg/dL Urine Ketones NEG mg/dL Urine Occult Blood TRACE Urine Nitrite NEG Urine Bilirubin NEG Urine Urobilinogen LESS THAN 2.0 MG/DL Urine Leukocyte Esterase NEG Urine RBC 2 /hpf Urine WBC 1 /hpf Urine Squamous Epithelial Cells <1 /hpf Urine Mucus FEW /lpf Microscopic Urinalysis Comment CULT NOT INDICATED Imaging Last Impressions Chest X-Ray 05/09/17 1813 Signed Impressions: Service Date/Time: Tuesday, May 09, 2017 18:37 - CONCLUSION: No acute disease. Judah Scott MD Head CT 05/09/17 0000 Signed Impressions: Service Date/Time: Tuesday, May 09, 2017 22:26 - CONCLUSION: 1. No acute hemorrhage or mass effect. 2. Chronic small vessel ischemic changes as well as a more focal area of decreased attenuation involving the white matter of the right frontal lobe which is more nonspecific but likely related to prior insult. Judah Scott MD Objective Remarks GENERAL: Very pleasant female who is laying in [employer] under numerous blankets stating that she is cold. SKIN: Warm and dry, adequately perfused. HEAD: Atraumatic. Normocephalic. EYES: Pupils equal and round, 3 mm and reactive bilaterally.. No scleral icterus. No injection or drainage. ENT: No nasal bleeding or discharge. Mucous membranes pink, dry.. NECK: Trachea midline. No JVD. CARDIOVASCULAR: Irregularly irregular with a 3/6 systolic murmur left sternal border. No rubs or gallops. RESPIRATORY: Breathing comfortably on 2 L nasal cannula without accessory muscle use. Clear to auscultation bilaterally without wheezes Rales or rhonchi. GASTROINTESTINAL: Abdomen soft, non-tender, nondistended. Bowel sounds are present. MUSCULOSKELETAL: Extremities without clubbing, cyanosis, or edema. No obvious deformities. NEUROLOGICAL: Awake and alert. Normal speech. Oriented to person, place, circumstances. 4 beat horizontal nystagmus, 3 beat vertical does nystagmus with upward gaze. Five out of 5 muscle strength in the arms and legs. Sensation intact. Normal [id number] nose and normal rapid alternating movements bilaterally.. Normal [id number] bilaterally. No pronator drift. No clonus A/P Problem List: (1) Headache ICD Code: R51 - Headache Status: Acute (2) COPD (chronic obstructive pulmonary disease) ICD Code: J44.9 - Chronic obstructive pulmonary disease, unspecified Status: Chronic (3) Dehydration ICD Code: E86.0 - Dehydration Status: Acute (4) Hyperlipidemia ICD Code: E78.5 - Hyperlipidemia, unspecified Status: Chronic (5) HTN (hypertension) ICD Code: I10 - Essential (primary) hypertension Status: Chronic (6) Atrial fibrillation with RVR ICD Code: I48.91 - Unspecified atrial fibrillation Status: Acute (7) Supratherapeutic INR ICD Code: R79.1 - Abnormal coagulation profile Status: Acute (8) Symptomatic bradycardia ICD Code: R00.1 - Bradycardia, unspecified Status: Acute Assessment and Plan NEURO: Headache Awake and alert. CT brain 05/09no acute hemorrhage. Decreased attenuation right frontal lobe white matter, chronic small vessel ischemic changes. Tylenol/Lortab as needed for pain RESP: COPD Continue with oxygen keep sat >92% Bronchodilators. CXR 05/09: No acute disease. CV: Atrial fibrillation Hypertension Wean off Dopamine maintain aHR> 50 and MAP>65mmHg. Digoxin level 1.3. Digoxin on hold. Seen by cards this morning-Dr. Adorno GI: Start PO heart healthy diet FEN/RENAL: Acute kidney injury On NS+20 mEq of KCl per liter at 100 mL per hour. Monitor renal function, I/O's, avoid nephrotoxins Check renal US ID: Leukocytosis...trending down Has completed about 4-5 days of azithromycin due to COPD. CXR: No acute disease, UA: neg for UTI HEME: Coagulopathy secondary to warfarin INR 7.8 05/09. Monitor INR/PT daily ENDO: Diabetes mellitus SSI with accuchecks TSH:3.7 PROPH: Protonix 40 mg by mouth daily for stress ulcer prophylaxis. She is anticoagulated with warfarin which will provide DVT prophylaxis. ACCESS: Peripheral IV providing adequate access at this time. Addendum: Patient is off Dopamine will sign off and transfer care to [facility] Level III Xochitl Eduardo MD May 10, 2017 10:03
[2017-05-10] MEDS ORDERED: GLUCAGON 1 MG/ML VIAL OTHER PRN (10:15)
[2017-05-10] MEDS ORDERED: DEXTROSE 50% IN WATER 50 ML VIAL(D50) IV PUSH PRN (10:15)
--- NOTE | 2017-05-10 11:32 | RADRPT ---
EXAM DATE/TIME: 05/10/2017 10:05 [place] COMPARISON: No previous studies available for comparison. INDICATIONS : Acute renal failure. MEDICAL HISTORY : Arthritis. Osteoporosis. HTN. COPD. Diabetes. SURGICAL HISTORY : Tonsillectomy. Hysterectomy. Bilateral cataract extraction with prosthesis. Adenoidectomy. Left kne e. Bladder suspension. Right leg vein stripping. Hip surgery. ENCOUNTER: Initial ACUITY: 1 day PAIN SCORE: 0/10 LOCATION: Bilateral flank MEASUREMENTS: RIGHT KIDNEY: 9.7 x 5.2 x 4.8 cm LEFT KIDNEY: 10.0 x 6.1 x 6.0 cm FINDINGS: RIGHT KIDNEY: Renal cortex is normal in thickness and echotexture. No hydronephrosis, stone, or mass. Small anech oic cyst in the midpole measuring 1.7 x 1.6 x 1.3 cm. LEFT KIDNEY: Renal cortex is normal in thickness and echotexture. No hydronephrosis, stone, or mass. Large anech oic simple appearing cyst measuring 6.6 x 7.0 x 7.2 cm. BLADDER: Within normal limits given the degree of distension. CONCLUSION: 1. No evidence for obstructive uropathy as questioned. 2. Bilateral renal cysts, as above. Jose Rodriguez MD on May 10, 2017 at 11:28 Board Certified Radiologist. This report was verified electronically.
[2017-05-10] MEDS: INSULIN NovoLIN REGULAR SUPPLEMENTAL SCALE SQ SCH ×3 (11:56→23:00)
[2017-05-10 12:40] LABS: INTERNATIONAL NORMALIZED RATIO 5.8 RATIO; PROTHROMBIN TIME - PATIENT 68.9 SEC (9.8-11.6)
--- NOTE | 2017-05-10 14:27 | EKG ---
Date Performed: 05/09/2017 Time Performed: 18:00:21 PTAGE: 81 years EKG: ECTOPIC ATRIAL BRADYCARDIA WITH FIRST DEGREE AV BLOCK WITH OCCASIONAL SUPRAVENTRICULAR KAYLYN ATURE COMPLEXES LEFT BUNDLE BRANCH BLOCK ABNORMAL ECG First degree heart block appears to be more pro nounced and rate has slowed, otherwise largely unchanged PREVIOUS TRACING : 03/14/2016 17.59 DOCTOR: Kevin Lara Interpretating Date/Time 05/10/2017 14:26:29
--- NOTE | 2017-05-10 14:29 | EKG ---
Date Performed: 05/10/2017 Time Performed: 03:56:10 PTAGE: 81 years EKG: Sinus rhythm with borderline 1st degree A-V block. Left bundle branch block Compared to previous tracing first de gree heart block is less pronounced, rate has increased. Abnormal ECG PREVIOUS TRACING : 05/09/2017 18.00 DOCTOR: Kevin Lara Interpretating Date/Time 05/10/2017 14:27:50
[2017-05-11] VITALS (18 sets, daily range): BP systolic 147–191; BP diastolic 66–102; PULSE 71–112; RESP 19–28; TEMP 97–98.9; O2SAT 94–99
[2017-05-11] MEDS: CHLORHEXIDINE GLUCONATE 2 % 1 PACK (2 CLOTHS) TOP SCH (04:00)
[2017-05-11] MEDS: RESP: ALBUTEROL 2.5 MG/IPRATROPIUM 0.5 MG NEB (SCH) INH ×4 (04:00→22:10)
[2017-05-11] MEDS: INSULIN NovoLIN REGULAR SUPPLEMENTAL SCALE SQ SCH ×4 (05:00→21:13)
[2017-05-11 06:06] LABS: INTERNATIONAL NORMALIZED RATIO 3.6 RATIO; PROTHROMBIN TIME - PATIENT 41.6 SEC (9.8-11.6)
[2017-05-11 06:07] LABS: AUTOMATED NEUTROPHIL # 7.8 TH/MM3 (1.8-7.7); BASOPHIL % 0.3 % (0.0-2.0); EOSINOPHIL # 0.1 TH/MM3 (0-0.4); EOSINOPHIL % 0.7 % (0.0-4.0); HEMATOCRIT 36.3 % (35.0-46.0); HEMO FLAGS DIFF FINAL; LYMPH % 12.3 % (9.0-44.0); LYMPHOCYTE # 1.2 TH/MM3 (1.0-4.8); MEAN CELL VOLUME 88.5 FL (80.0-100.0); MEAN CORPUSCULAR HEMOGLOBIN 29.7 PG (27.0-34.0); MEAN CORPUSCULAR HGB CONC 33.6 % (32.0-36.0); NEUT % 78.7 % (16.0-70.0); PLATELET COUNT 166 TH/MM3 (150-450); RED CELL DISTRIBUTION WIDTH 19.5 % (11.6-17.2); WHITE BLOOD COUNT 9.8 TH/MM3 (4.0-11.0)
[2017-05-11 06:26] LABS: BICARBONATE 26.2 MEQ/L (21.0-32.0); MAGNESIUM 1.4 MG/DL (1.5-2.5); POTASSIUM 4.1 MEQ/L (3.5-5.1)
[2017-05-11] MEDS: NS + KCL 20 MEQ INJ 1,000 ML IV SCH ×2 (07:15→21:45)
--- NOTE | 2017-05-11 07:49 | PD.CARD.PN ---
Subjective Subjective Remarks Denies CV complaints Objective Vital Signs / I&O Vital Signs Date Time Temp Pulse Resp B/P (MAP) Pulse Ox O2 Delivery O2 Flow Rate FiO2 05/11/17 07:00 96 28 178/79 (112) 97 05/11/17 06:00 96 05/11/17 06:00 98.0 96 22 178/92 (120) 97 05/11/17 05:00 98.2 100 22 157/102 (120) 97 05/11/17 04:00 100 05/11/17 04:00 97.0 100 22 176/80 (112) 98 05/11/17 03:00 97.0 98 28 164/75 (104) 96 05/11/17 02:00 102 05/11/17 02:00 97.5 102 24 166/76 (106) 94 05/11/17 01:00 97 27 157/79 (105) 98 05/11/17 00:00 96 05/11/17 00:00 97.5 96 22 151/67 (95) 98 05/10/17 23:00 98.8 93 20 145/65 (91) 96 05/10/17 22:00 97.5 94 20 150/68 (95) 97 05/10/17 22:00 94 05/10/17 21:00 97.6 88 18 138/63 (88) 98 05/10/17 20:00 87 05/10/17 20:00 97.6 87 50 137/65 (89) 97 05/10/17 19:34 98 Nasal Cannula 6.00 05/10/17 19:00 97.8 82 19 138/64 (88) 99 05/10/17 18:00 86 05/10/17 18:00 86 22 146/66 (92) 99 05/10/17 17:00 83 16 146/67 (93) 93 05/10/17 16:00 98.7 84 20 141/63 (89) 99 05/10/17 16:00 84 05/10/17 15:00 81 19 133/64 (87) 100 05/10/17 14:00 83 26 133/62 (85) 100 05/10/17 14:00 83 05/10/17 13:00 80 19 118/59 (78) 98 05/10/17 12:00 97.7 78 24 112/51 (71) 98 05/10/17 12:00 78 05/10/17 11:02 79 113/53 05/10/17 11:00 79 19 113/53 (73) 92 05/10/17 10:00 78 05/10/17 10:00 78 19 112/53 (72) 96 05/10/17 09:00 84 25 113/54 (73) 97 05/10/17 08:00 81 05/10/17 08:00 98.7 81 26 112/54 (73) 98 05/10/17 07:54 80 117/58 I/O 05/10/17 05/10/17 05/10/17 05/11/17 05/11/17 05/11/17 07:00 15:00 23:00 07:00 15:00 23:00 Intake Total 250 ml 375 ml 720 ml 1250 ml Output Total 600 ml 400 ml Balance -350 ml 375 ml 320 ml 1250 ml Intake Oral 0 ml 720 ml 250 ml IV Total 250 ml 375 ml 1000 ml Output Urine Total 600 ml 400 ml # Voids 3 5 # Bowel Movements 0 2 Physical Exam GENERAL: Well-nourished, well-developed patient in no apparent distress. NECK: No JVD. No carotid bruit. CARDIOVASCULAR: Regularly irregular S1/S2 no murmur, rub, or gallop. RESPIRATORY: No accessory muscle use. Clear to auscultation. Breath sounds equal bilaterally. GASTROINTESTINAL: Abdomen soft, non-tender, nondistended. MUSCULOSKELETAL: Extremities without clubbing, cyanosis, or edema. Laboratory Laboratory Tests Test 05/10/17 11:40 05/10/17 20:51 05/11/17 05:28 Prothrombin Time 68.9 SEC 41.6 SEC Prothromb Time International Ratio 5.8 RATIO 3.6 RATIO Troponin I 0.02 NG/ML Potassium Level 3.8 MEQ/L 4.1 MEQ/L White Blood Count 9.8 TH/MM3 Red Blood Count 4.10 MIL/MM3 Hemoglobin 12.2 GM/DL Hematocrit 36.3 % Mean Corpuscular Volume 88.5 FL Mean Corpuscular Hemoglobin 29.7 PG Mean Corpuscular Hemoglobin Concent 33.6 % Red Cell Distribution Width 19.5 % Platelet Count 166 TH/MM3 Mean Platelet Volume 8.7 FL Neutrophils (%) (Auto) 78.7 % Lymphocytes (%) (Auto) 12.3 % Monocytes (%) (Auto) 8.0 % Eosinophils (%) (Auto) 0.7 % Basophils (%) (Auto) 0.3 % Neutrophils # (Auto) 7.8 TH/MM3 Lymphocytes # (Auto) 1.2 TH/MM3 Monocytes # (Auto) 0.8 TH/MM3 Eosinophils # (Auto) 0.1 TH/MM3 Basophils # (Auto) 0.0 TH/MM3 CBC Comment DIFF FINAL Differential Comment Blood Urea Nitrogen 25 MG/DL Creatinine 1.09 MG/DL Random Glucose 192 MG/DL Calcium Level 8.9 MG/DL Phosphorus Level 2.6 MG/DL Magnesium Level 1.4 MG/DL Sodium Level 136 MEQ/L Chloride Level 102 MEQ/L Carbon Dioxide Level 26.2 MEQ/L Anion Gap 8 MEQ/L Estimat Glomerular Filtration Rate 48 ML/MIN Assessment and Plan Problem List: (1) Supratherapeutic INR ICD Codes: R79.1 - Abnormal coagulation profile Status: Acute (2) Hypotension ICD Codes: I95.9 - Hypotension, unspecified Status: Acute (3) Atrial fibrillation with RVR ICD Codes: I48.91 - Unspecified atrial fibrillation Status: Acute Assessment and Plan HR well controlled warfarin trending down BP elevated, start lisinopril 20 mg daily Renal function improved Problem Qualifiers (1) Hypotension: Qualified Codes: I95.9 - Hypotension, unspecified Tushar Polk May 11, 2017 07:49
[2017-05-11] MEDS: DOCUSATE SODIUM 50 MG/SENNA 8.6 MG TAB PO SCH ×2 (07:59→21:00)
[2017-05-11] MEDS: PANTOPRAZOLE SOD 40 MG DELAYED RELEASE TAB PO SCH (08:33)
[2017-05-11] MEDS: SODIUM CHLORIDE 0.9% FLUSH 10 ML FLUSH IV FLUSH SCH ×2 (08:34→21:12)
[2017-05-11] MEDS: ONDANSETRON HCL 4 MG/2 ML VIAL IV PUSH PRN ×2 (11:47→23:00)
[2017-05-11] MEDS ORDERED: ENALAPRILAT 1.25 MG/ML VIAL IV PRN (14:30)
[2017-05-11] MEDS ORDERED: cloNIDine HCL 0.2 MG TAB PO PRN (14:30)
[2017-05-11] MEDS ORDERED: IPRASOL INH (14:31)
[2017-05-11] MEDS ORDERED: ATOR20TA15 PO (14:31)
[2017-05-11] MEDS ORDERED: GABA100C4 PO (14:31)
[2017-05-11] MEDS ORDERED: DILT1TAB4 PO (14:31)
[2017-05-11] MEDS ORDERED: TEMA15CA PO (14:31)
[2017-05-11] MEDS ORDERED: MIRA3350 PO (14:31)
[2017-05-11] MEDS ORDERED: FURO40TA PO (14:31)
[2017-05-11] MEDS ORDERED: ASPI81CH CHEW (14:31)
[2017-05-11] MEDS ORDERED: WARF-23 PO (14:31)
[2017-05-11] MEDS ORDERED: METO100T PO (14:31)
[2017-05-11] MEDS ORDERED: POTA8TAB PO (14:31)
[2017-05-11] MEDS ORDERED: DIGO0.12 PO (14:31)
[2017-05-11] MEDS ORDERED: METF500T PO (14:31)
[2017-05-11] MEDS ORDERED: WARF-18 PO (14:31)
[2017-05-11] MEDS ORDERED: UMEC1INH INH (14:31)
[2017-05-11] MEDS ORDERED: VENTAER INH (14:31)
[2017-05-11] MEDS: DILTIAZEM-CD 240 MG CAP ER PO SCH (15:39)
--- NOTE | 2017-05-11 17:43 | HHI.PR ---
Subjective Remarks Pt admitted with copd exacerbation Pt was bradycardic on medications for Afib Pt was on dopamine gtt, now stopped. Objective Vitals Vital Signs Date Time Temp Pulse Resp B/P (MAP) Pulse Ox O2 Delivery O2 Flow Rate FiO2 05/11/17 16:00 112 05/11/17 16:00 98.7 112 26 183/95 (124) 97 05/11/17 14:00 103 05/11/17 12:00 95 05/11/17 12:00 98.7 95 19 176/83 (114) 99 05/11/17 10:00 101 05/11/17 08:12 99 Nasal Cannula 3.00 05/11/17 08:00 98 05/11/17 08:00 98.1 98 22 179/86 (117) 98 05/11/17 07:00 96 28 178/79 (112) 97 05/11/17 06:00 96 05/11/17 06:00 98.0 96 22 178/92 (120) 97 05/11/17 05:00 98.2 100 22 157/102 (120) 97 05/11/17 04:00 100 05/11/17 04:00 97.0 100 22 176/80 (112) 98 05/11/17 03:00 97.0 98 28 164/75 (104) 96 05/11/17 02:00 102 05/11/17 02:00 97.5 102 24 166/76 (106) 94 05/11/17 01:00 97 27 157/79 (105) 98 05/11/17 00:00 96 05/11/17 00:00 97.5 96 22 151/67 (95) 98 05/10/17 23:00 98.8 93 20 145/65 (91) 96 05/10/17 22:00 97.5 94 20 150/68 (95) 97 05/10/17 22:00 94 05/10/17 21:00 97.6 88 18 138/63 (88) 98 05/10/17 20:00 87 05/10/17 20:00 97.6 87 50 137/65 (89) 97 05/10/17 19:34 98 Nasal Cannula 6.00 05/10/17 19:00 97.8 82 19 138/64 (88) 99 05/10/17 18:00 86 05/10/17 18:00 86 22 146/66 (92) 99 Result Diagram: 05/11/17 0528 05/11/17 0528 Imaging Last Impressions Renal Ultrasound 05/10/17 0000 Signed Impressions: Service Date/Time: Wednesday, May 10, 2017 10:05 - CONCLUSION: 1. No evidence for obstructive uropathy as questioned. 2. Bilateral renal cysts, as above. Jose Rodriguez MD Chest X-Ray 05/09/171812 Signed Impressions: Service Date/Time: Tuesday, May 09, 2017 18:37 - CONCLUSION: No acute disease. Judah Scott MD Head CT 05/09/17 0000 Signed Impressions: Service Date/Time: Tuesday, May 09, 2017 22:26 - CONCLUSION: 1. No acute hemorrhage or mass effect. 2. Chronic small vessel ischemic changes as well as a more focal area of decreased attenuation involving the white matter of the right frontal lobe which is more nonspecific but likely related to prior insult. Judah Scott MD Objective Remarks GENERAL: This is a well-nourished, well-developed patient, in no apparent distress. CARDIOVASCULAR: Regular rate and rhythm without murmurs, gallops, or rubs. RESPIRATORY: Clear to auscultation. Breath sounds equal bilaterally. No wheezes , rales, or rhonchi. GASTROINTESTINAL: Abdomen soft, non-tender, nondistended. Normal active bowel sounds MUSCULOSKELETAL: Extremities without clubbing, cyanosis, or edema. NEURO: Alert & Oriented x4 to person, place, time, situation. Moves all ext x4 A/P Problem List: (1) Symptomatic bradycardia ICD Codes: R00.1 - Bradycardia, unspecified Status: Acute Plan: - dopamine gtt weaned to off (2) Atrial fibrillation, chronic ICD Codes: I48.2 - Chronic atrial fibrillation Plan: - cardizem 240mg daily resumed - resume metoprolol at 50mg BID (100mg BID at home) - digoxin stopped - observe (3) HTN (hypertension) ICD Codes: I10 - Essential (primary) hypertension Status: Chronic Plan: - cardizem resumed - start lisinopril - prn vasotec, prn Catapres (4) COPD (chronic obstructive pulmonary disease) ICD Codes: J44.9 - Chronic obstructive pulmonary disease, unspecified Status: [facility] Problem Qualifiers (1) HTN (hypertension): Qualified Codes: I10 - Essential (primary) hypertension (2) COPD (chronic obstructive pulmonary disease): Qualified Codes: J44.9 - Chronic obstructive pulmonary disease, unspecified Jeb Funez DO May 11, 2017 17:43
[2017-05-11] MEDS: METOPROLOL TARTRATE 50 MG TAB PO SCH (17:54)
[2017-05-11] MEDS: LISINOPRIL 20 MG TAB PO SCH (21:12)
[2017-05-11] MEDS ORDERED: MAGNESIUM SULFATE 1 GM PREMIX 100 ML IV ONE (21:45)
[2017-05-12] VITALS (14 sets, daily range): BP systolic 114–161; BP diastolic 55–65; PULSE 65–86; RESP 22–60; TEMP 97.9–98.9; O2SAT 92–98
[2017-05-12] MEDS: RESP: ALBUTEROL 2.5 MG/IPRATROPIUM 0.5 MG NEB (SCH) INH ×4 (03:34→19:59)
[2017-05-12] MEDS: CHLORHEXIDINE GLUCONATE 2 % 1 PACK (2 CLOTHS) TOP SCH (04:00)
[2017-05-12] MEDS: INSULIN NovoLIN REGULAR SUPPLEMENTAL SCALE SQ SCH ×4 (04:31→22:36)
[2017-05-12] MEDS: METOPROLOL TARTRATE 50 MG TAB PO SCH ×2 (04:31→17:47)
[2017-05-12] MEDS: SODIUM CHLORIDE 0.9% FLUSH 10 ML FLUSH IV FLUSH SCH ×2 (10:50→21:36)
[2017-05-12] MEDS: LISINOPRIL 20 MG TAB PO SCH ×2 (10:51→21:36)
[2017-05-12] MEDS: PANTOPRAZOLE SOD 40 MG DELAYED RELEASE TAB PO SCH (10:51)
[2017-05-12] MEDS: DOCUSATE SODIUM 50 MG/SENNA 8.6 MG TAB PO SCH ×2 (10:51→21:36)
[2017-05-12] MEDS: DILTIAZEM-CD 240 MG CAP ER PO SCH (10:51)
[2017-05-12] MEDS: NS + KCL 20 MEQ INJ 1,000 ML IV SCH ×2 (11:44→22:36)
--- NOTE | 2017-05-12 18:32 | HHI.PR ---
Subjective Remarks No new complaints. Objective Vitals Vital Signs Date Time Temp Pulse Resp B/P (MAP) Pulse Ox O2 Delivery O2 Flow Rate FiO2 05/12/17 16:00 98.3 73 60 114/55 (74) 95 05/12/17 16:00 73 05/12/17 14:00 80 05/12/17 12:00 98.3 77 31 138/65 (89) 98 05/12/17 12:00 77 05/12/17 10:00 83 05/12/17 08:17 98 Nasal Cannula 2.00 05/12/17 08:00 97.9 73 22 129/59 (82) 95 05/12/17 08:00 73 05/12/17 06:00 73 05/12/17 04:00 98.9 83 24 161/65 (97) 92 05/12/17 04:00 83 05/12/17 02:00 84 05/12/17 00:00 86 05/12/17 00:00 98.7 86 25 138/61 (86) 96 05/11/17 22:10 98 Nasal Cannula 1.50 05/11/17 22:00 77 05/11/17 20:00 98.9 71 25 147/66 (93) 96 05/11/17 20:00 71 05/12/17 05/12/17 05/13/17 14:59 22:59 06:59 Intake Total 1080 ml 500 ml Balance 1080 ml 500 ml Intake Oral 500 ml IV Total 1080 ml # Voids 2 # Bowel Movements 1 Result Diagram: 05/11/17 0528 05/11/17 05 Imaging Last Impressions Renal Ultrasound 05/10/17 0000 Signed Impressions: Service Date/Time: Wednesday, May 10, 2017 10:05 - CONCLUSION: 1. No evidence for obstructive uropathy as questioned. 2. Bilateral renal cysts, as above. Jose Rodriguez MD Chest X-Ray 05/09/173 Signed Impressions: Service Date/Time: Tuesday, May 09, 2017 18:37 - CONCLUSION: No acute disease. Judah Scott MD Head CT 05/09/17 0000 Signed Impressions: Service Date/Time: Tuesday, May 09, 2017 22:26 - CONCLUSION: 1. No acute hemorrhage or mass effect. 2. Chronic small vessel ischemic changes as well as a more focal area of decreased attenuation involving the white matter of the right frontal lobe which is more nonspecific but likely related to prior insult. Judah Scott MD Objective Remarks GENERAL: This is a well-nourished, well-developed patient, in no apparent distress. CARDIOVASCULAR: Regular rate and rhythm without murmurs, gallops, or rubs. RESPIRATORY: Clear to auscultation. Breath sounds equal bilaterally. No wheezes , rales, or rhonchi. GASTROINTESTINAL: Abdomen soft, non-tender, nondistended. Normal active bowel sounds MUSCULOSKELETAL: Extremities without clubbing, cyanosis, or edema. NEURO: Alert & Oriented x4 to person, place, time, situation. Moves all ext x4 A/P Problem List: (1) Symptomatic bradycardia ICD Codes: R00.1 - Bradycardia, unspecified Status: Acute Plan: - dopamine gtt weaned to off (2) Atrial fibrillation, chronic ICD Codes: I48.2 - Chronic atrial fibrillation Plan: - cardizem 240mg daily resumed - resume metoprolol at 50mg BID (100mg BID at home) - digoxin stopped - observe - continue current treatment plan as outlined above - transfer to general medical floor - anticipate d/c in next 1-2 days - request PT evaluation (3) HTN (hypertension) ICD Codes: I10 - Essential (primary) hypertension Status: Chronic Plan: - cardizem resumed - start lisinopril - prn vasotec, prn Catapres (4) COPD (chronic obstructive pulmonary disease) ICD Codes: J44.9 - Chronic obstructive pulmonary disease, unspecified Status: Chronic Plan: - duonebs Problem Qualifiers (1) HTN (hypertension): Qualified Codes: I10 - Essential (primary) hypertension (2) COPD (chronic obstructive pulmonary disease): Qualified Codes: J44.9 - Chronic obstructive pulmonary disease, unspecified Jeb Funez DO May 12, 2017 18:32
[2017-05-12] MEDS: BUDESONIDE-FORMOTEROL 160/4.5 MCG INHALER INH SCH (21:00)
[2017-05-12] MEDS ORDERED: METOPROLOL TARTRATE 25 MG TAB PO SCH (21:00)
[2017-05-13] VITALS (9 sets, daily range): BP systolic 119–158; BP diastolic 58–72; PULSE 56–85; RESP 24–59; TEMP 98.4–98.7; O2SAT 90–98
[2017-05-13] MEDS: RESP: ALBUTEROL 2.5 MG/IPRATROPIUM 0.5 MG NEB (SCH) INH ×3 (02:58→17:07)
[2017-05-13] MEDS: CHLORHEXIDINE GLUCONATE 2 % 1 PACK (2 CLOTHS) TOP SCH (04:00)
[2017-05-13] MEDS: INSULIN NovoLIN REGULAR SUPPLEMENTAL SCALE SQ SCH (05:00)
[2017-05-13 05:42] LABS: AUTOMATED NEUTROPHIL # 6.7 TH/MM3 (1.8-7.7); BASOPHIL # 0.1 TH/MM3 (0-0.2); BASOPHIL % 0.5 % (0.0-2.0); EOSINOPHIL # 0.3 TH/MM3 (0-0.4); EOSINOPHIL % 2.9 % (0.0-4.0); HEMATOCRIT 32.8 % (35.0-46.0); HEMO FLAGS DIFF FINAL; LYMPHOCYTE # 1.6 TH/MM3 (1.0-4.8); MEAN CELL VOLUME 88.8 FL (80.0-100.0); MEAN CORPUSCULAR HEMOGLOBIN 29.6 PG (27.0-34.0); MEAN CORPUSCULAR HGB CONC 33.4 % (32.0-36.0); MONO % 8.5 % (0.0-8.0); NEUT % 71.1 % (16.0-70.0); PLATELET COUNT 159 TH/MM3 (150-450); RED BLOOD COUNT 3.69 MIL/MM3 (4.00-5.30); RED CELL DISTRIBUTION WIDTH 18.7 % (11.6-17.2); WHITE BLOOD COUNT 9.4 TH/MM3 (4.0-11.0)
[2017-05-13] MEDS: METOPROLOL TARTRATE 50 MG TAB PO SCH ×2 (06:03→09:19)
[2017-05-13 06:24] LABS: ALKALINE PHOSPHATASE 46 U/L (45-117); ALT (GPT) LESS THAN 6 U/L (10-53); ANION GAP 6 MEQ/L (5-15); AST (GOT) 9 U/L (15-37); BICARBONATE 25.5 MEQ/L (21.0-32.0); BLOOD UREA NITROGEN 18 MG/DL (7-18); CHLORIDE 107 MEQ/L (98-107); GLOMERULAR FILTRATION RATE 71 ML/MIN (>89); SODIUM (NA) 138 MEQ/L (136-145); TOTAL BILIRUBIN ADULT 0.5 MG/DL (0.2-1.0)
--- NOTE | 2017-05-13 08:29 | PD.CARD.PN ---
Subjective Subjective Remarks denies CV complaints Objective Vital Signs / I&O Vital Signs Date Time Temp Pulse Resp B/P (MAP) Pulse Ox O2 Delivery O2 Flow Rate FiO2 05/13/17 06:00 85 05/13/17 04:00 78 05/13/17 04:00 98.5 78 59 119/59 (79) 90 05/13/17 02:00 78 05/13/17 00:00 80 05/13/17 00:00 98.6 80 27 125/58 (80) 93 05/12/17 22:00 74 05/12/17 20:01 98.8 65 31 135/63 (87) 95 05/12/17 20:00 98 05/12/17 20:00 66 05/12/17 18:00 79 05/12/17 16:00 98.3 73 60 114/55 (74) 95 05/12/17 16:00 73 05/12/17 14:00 80 05/12/17 12:00 98.3 77 31 138/65 (89) 98 05/12/17 12:00 77 05/12/17 10:00 83 I/O 05/12/17 05/12/17 05/12/17 05/13/17 05/13/17 05/13/17 07:00 15:00 23:00 07:00 15:00 23:00 Intake Total 500 ml 1080 ml 1500 ml 240 ml Output Total 950 ml Balance -450 ml 1080 ml 1500 ml 240 ml Intake Oral 500 ml 500 ml 240 ml IV Total 1080 ml 1000 ml Output Urine Total 950 ml # Voids 2 5 # Bowel Movements 0 1 1 Physical Exam GENERAL: Well-nourished, well-developed patient in no apparent distress. NECK: No JVD. No carotid bruit. CARDIOVASCULAR: Regularly irregular S1/S2 no murmur, rub, or gallop. RESPIRATORY: No accessory muscle use. Clear to auscultation. Breath sounds equal bilaterally. GASTROINTESTINAL: Abdomen soft, non-tender, nondistended. MUSCULOSKELETAL: Extremities without clubbing, cyanosis, or edema. Laboratory Laboratory Tests Test 05/13/17 05:00 White Blood Count 9.4 TH/MM3 Red Blood Count 3.69 MIL/MM3 Hemoglobin 11.0 GM/DL Hematocrit 32.8 % Mean Corpuscular Volume 88.8 FL Mean Corpuscular Hemoglobin 29.6 PG Mean Corpuscular Hemoglobin Concent 33.4 % Red Cell Distribution Width 18.7 % Platelet Count 159 TH/MM3 Mean Platelet Volume 8.5 FL Neutrophils (%) (Auto) 71.1 % Lymphocytes (%) (Auto) 17.0 % Monocytes (%) (Auto) 8.5 % Eosinophils (%) (Auto) 2.9 % Basophils (%) (Auto) 0.5 % Neutrophils # (Auto) 6.7 TH/MM3 Lymphocytes # (Auto) 1.6 TH/MM3 Monocytes # (Auto) 0.8 TH/MM3 Eosinophils # (Auto) 0.3 TH/MM3 Basophils # (Auto) 0.1 TH/MM3 CBC Comment DIFF FINAL Differential Comment Blood Urea Nitrogen 18 MG/DL Creatinine 0.78 MG/DL Random Glucose 121 MG/DL Total Protein 5.8 GM/DL Albumin 2.3 GM/DL Calcium Level 8.7 MG/DL Alkaline Phosphatase 46 U/L Aspartate Amino Transf (AST/SGOT) 9 U/L Alanine Aminotransferase (ALT/SGPT) LESS THAN 6 U/L Total Bilirubin 0.5 MG/DL Sodium Level 138 MEQ/L Potassium Level 5.0 MEQ/L Chloride Level 107 MEQ/L Carbon Dioxide Level 25.5 MEQ/L Anion Gap 6 MEQ/L Estimat Glomerular Filtration Rate 71 ML/MIN Assessment and Plan Problem List: (1) Supratherapeutic INR ICD Codes: R79.1 - Abnormal coagulation profile Status: Acute (2) Hypotension ICD Codes: I95.9 - Hypotension, unspecified Status: Acute (3) Atrial fibrillation with RVR ICD Codes: I48.91 - Unspecified atrial fibrillation Status: Acute Assessment and Plan HR well controlled warfarin trending down BP controlled Renal function normal sign off call with further questions Problem Qualifiers (1) Hypotension: Qualified Codes: I95.9 - Hypotension, unspecified Tushar Polk May 13, 2017 08:29
[2017-05-13] MEDS: BUDESONIDE-FORMOTEROL 160/4.5 MCG INHALER INH SCH (09:18)
[2017-05-13] MEDS: DOCUSATE SODIUM 50 MG/SENNA 8.6 MG TAB PO SCH (09:18)
[2017-05-13] MEDS: DILTIAZEM-CD 240 MG CAP ER PO SCH (09:18)
[2017-05-13] MEDS: LISINOPRIL 20 MG TAB PO SCH (09:19)
[2017-05-13] MEDS: SODIUM CHLORIDE 0.9% FLUSH 10 ML FLUSH IV FLUSH SCH (09:19)
[2017-05-13] MEDS: PANTOPRAZOLE SOD 40 MG DELAYED RELEASE TAB PO SCH (09:19)
[2017-05-13] MEDS ORDERED: TEMA15CA PO (13:19)
[2017-05-13] MEDS ORDERED: METO50TA PO (13:19)
[2017-05-13] MEDS ORDERED: LISI-515 PO (13:19)
--- NOTE | 2017-05-13 13:29 | HHI.DS ---
Discharge Summary Admission Date May 09, 2017 at 19:10 Discharge Date: May 13, 2017 Admitting Diagnosis symptomatic bradycardia, hypotension (1) Symptomatic bradycardia Diagnosis: Principal ICD Codes: R00.1 - Bradycardia, unspecified Status: Acute (2) Atrial fibrillation, chronic Diagnosis: Principal ICD Codes: I48.2 - Chronic atrial fibrillation (3) HTN (hypertension) Diagnosis: Secondary ICD Codes: I10 - Essential (primary) hypertension Status: Chronic (4) COPD (chronic obstructive pulmonary disease) Diagnosis: Secondary ICD Codes: J44.9 - Chronic obstructive pulmonary disease, unspecified Status: Chronic Consultants Dr. Mike Adorno, Cardiology Brief History 81-year-old female with past medical history of COPD, atrial fibrillation on chronic and regulation with warfarin, diabetes, hypertension who presents to [facility] emergency department with a 2 day history of dizziness. She states that about a week ago she was having a productive cough. She was diagnosed with COPD exacerbation and started on azithromycin and took about 4 doses. She has had a poor appetite, poor po intake, and some nausea. She says she has pain in her neck (trapezius) and low back. She feels unsteady when walking but has not fallen. She went out to dinner with her sister and began "feeling bad", dizzy and nauseated. She went to urgent care where her INR was 5 so she was referred to the ED. She vomited x1 at urgent care, nonbloody. When she arrived to the ED her heart rate was in the 40s with LBBB. (LBBB seen previously on EKG 03/14/16). She was given atropin 0.5 mg IV without much improvement. Then her systolic blood pressure was in the 70s that she was started on dopamine which is currently running at 8 g per KG per minute with heart rate 60-65 and blood pressure 97/52. She cannot recall any of the medications that she takes for hypertension or A. fib. She states she took all of her morning meds , not her nighttime meds. Her INR is 7.8. White blood cell count is 17.8. She is afebrile. Creatinine is 2 with baseline ~0.7-1. BUN is 38. Potassium is 4, digoxin level I.3. She denies chest pain or shortness of breath. She denies abdominal pain or dysuria. No hematemesis Last bowel movement was 3 days ago. She states that tonight she developed headache at the base of her skull. Denies head trauma. Remainder review of systems negative CBC/BMP: 05/13/17 0500 05/13/17 0500 Significant Findings Laboratory Tests Test 05/10/17 20:51 05/11/17 05:28 05/13/17 05:00 Red Cell Distribution Width 19.5 % (11.6-17.2) 18.7 % (11.6-17.2) Neutrophils (%) (Auto) 78.7 % (16.0-70.0) 71.1 % (16.0-70.0) Neutrophils # (Auto) 7.8 TH/MM3 (1.8-7.7) Prothrombin Time 41.6 SEC (9.8-11.6) Blood Urea Nitrogen 25 MG/DL (7-18) Creatinine 1.09 MG/DL (0.50-1.00) Random Glucose 192 MG/DL (74-106) 121 MG/DL (74-106) Magnesium Level 1.4 MG/DL (1.5-2.5) Estimat Glomerular Filtration Rate 48 ML/MIN (>89) 71 ML/MIN (>89) Red Blood Count 3.69 MIL/MM3 (4.00-5.30) Hemoglobin 11.0 GM/DL (11.6-15.3) Hematocrit 32.8 % (35.0-46.0) Monocytes (%) (Auto) 8.5 % (0.0-8.0) Total Protein 5.8 GM/DL (6.4-8.2) Albumin 2.3 GM/DL (3.4-5.0) Aspartate Amino Transf (AST/SGOT) 9 U/L (15-37) Alanine Aminotransferase (ALT/SGPT) LESS THAN 6 U/L (10-53) PE at Discharge GENERAL: This is a well-nourished, well-developed patient, in no apparent distress. CARDIOVASCULAR: Regular rate and rhythm without murmurs, gallops, or rubs. RESPIRATORY: Clear to auscultation. Breath sounds equal bilaterally. No wheezes , rales, or rhonchi. GASTROINTESTINAL: Abdomen soft, non-tender, nondistended. Normal active bowel sounds MUSCULOSKELETAL: Extremities without clubbing, cyanosis, or edema. NEURO: Alert & Oriented x4 to person, place, time, situation. Moves all ext x4 Hospital Course (1) Symptomatic bradycardia ICD Codes: R00.1 - Bradycardia, unspecified Status: Acute Plan: - dopamine gtt weaned to off (2) Atrial fibrillation, chronic ICD Codes: I48.2 - Chronic atrial fibrillation Plan: - cardizem 240mg daily resumed - resumed metoprolol at 50mg BID (100mg BID at home) - digoxin stopped - Pt with generalized weakness - Discharge to [facility], [place] for continued PT and Rehabilitation (3) HTN (hypertension) ICD Codes: I10 - Essential (primary) hypertension Status: Chronic Plan: - cardizem resumed - start lisinopril (4) COPD (chronic obstructive pulmonary disease) ICD Codes: J44.9 - Chronic obstructive pulmonary disease, unspecified Status: Chronic Plan: - duonebs Pt Condition on Discharge: Stable Discharge Disposition: Discharge to SNF Discharge Instructions DIET: Follow Instructions for: Heart Healthy Diet, Diabetic Diet Activities you can perform: Weight Bearing as Diya Activities to Avoid: Strenuous Activity Follow up Referrals: Cardiology - [address] Vincent Ruiz PCP Follow-up - [address] Barrington Kruse f/u with Dr. Barrington Kruse, 1 week after discharge from SNF New Medications: Metoprolol Tartrate (Metoprolol Tartrate) 50 Mg Tab 50 MG PO BID for afib, #60 TAB 0 Refills Lisinopril (Lisinopril) 20 Mg Tab 20 MG PO Q12HR for htn, #60 TAB 0 Refills Continued Medications: Albuterol 18 GM Inh (Ventolin Hfa 18 GM Inh) 90 Mcg/Act Aer 2 PUFF INH Q4-6H PRN for SHORTNESS OF BREATH, #1 INHALER 0 Refills Aspirin (Aspirin) 81 Mg Chew 81 MG CHEW DAILY, TAB 0 Refills Atorvastatin (Atorvastatin) 20 Mg Tab 20 MG PO HS for Cholesterol Management, #30 TAB 0 Refills Diltiazem ER 24 HR (Diltiazem ER 24 HR) 240 Mg Janae 240 MG PO DAILY, #30 TAB 0 Refills Gabapentin (Gabapentin) 100 Mg Cap 100 MG PO TID, #90 CAP 0 Refills Ipratropium-Albuterol Neb (Duoneb) 0.5-2.5 Mg/3 Ml Neb 1 NEBULE INH BID for Breathing Treatment, #30 NEBULE 0 Refills Metformin (Metformin) 500 Mg Tab 500 MG PO BIDPC for Blood Sugar Management, #60 TAB 0 Refills With meals Polyethylene Glycol 3350 Powder (Miralax Powder) 17 Gm Powd 17 GM PO DAILY for Constipation, #1 CAN 0 Refills Mix and dissolve one measuring cap-ful (17 grams) in water or juice. Temazepam (Temazepam) 15 Mg Cap 15 MG PO HS PRN for INSOMNIA, #30 CAP 0 Refills (This prescription has been renewed) Umeclidinium Welch Inh (Incruse Ellipta Inh) 0.0625 Mg/Act Inh 62.5 MCG INH DAILY for Treat COPD, #1 INHALER 0 Refills Discontinued Medications: Digoxin (Digoxin) 0.125 Mg Tab 0.125 MG PO DAILY for Regulate Heart Beat, #30 TAB 0 Refills Furosemide (Furosemide) 40 Mg Tab 40 MG PO DAILY, #30 TAB 0 Refills Metoprolol Tartrate (Metoprolol Tartrate) 100 Mg Tab 100 MG PO BID, #60 TAB 0 Refills Potassium Chloride ER (Potassium Chloride ER) 8 Meq Tab 8 MEQ PO DAILY for Electrolyte Replacement, #30 TAB 0 Refills Warfarin (Warfarin) 2.5 Mg Tab 2.5 MG PO ,,, for Blood Clot Prevention, #30 TAB 0 Refills Warfarin (Warfarin) 5 Mg Tab 5 MG PO for Blood Clot Prevention, #30 TAB 0 Refills Jeb Funez DO May 13, 2017 13:29
--- NOTE | 2017-05-13 13:29 | HHI.DCPOC ---
Discharge Care Plan Diagnosis: (1) Atrial fibrillation with RVR (2) HTN (hypertension) (3) COPD (chronic obstructive pulmonary disease) Goals to Promote Your Health * To prevent worsening of your condition and complications * To maintain your health at the optimal level Directions to Meet Your Goals Take your medications as prescribed Follow your dietary instruction Follow activity as directed Keep your appointments as scheduled Take your immunizations and boosters as scheduled If your symptoms worsen call your PCP, if no PCP go to Urgent Care Center or Emergency Room Smoking is Dangerous to Your Health. Avoid second hand smoke Call the 24-hour hour crisis hotline for domestic abuse at Jeb Funez DO May 13, 2017 13:29
[2017-05-18] MEDS ORDERED: ETOMIDATE 40 MG/20 ML VIAL ONE (16:02)
[2017-05-18] MEDS ORDERED: ROCURONIUM INJ 50 MG/5 ML VIAL ONE (16:03)
[2017-05-18] MEDS ORDERED: PROPOFOL 1000 MG/100 ML INJ 100 ML ONE (16:04)
== END 2017-05-13 17:25 | DRG 309 ==
LOC: NEPE 17:30 → NEDA 19:10 → HIMN 05-10 00:15
PROVIDERS: ADMIT Emergency Medicine; ATTEND Emergency Medicine
DX: R00.1 Bradycardia, unspecified (principal); J44.1 Chronic obstructive pulmonary disease with (acute) exacerbation; N17.9 Acute kidney failure, unspecified; E11.9 Type 2 diabetes mellitus without complications; E86.0 Dehydration; I10 Essential (primary) hypertension; I48.2 Chronic atrial fibrillation; E78.5 Hyperlipidemia, unspecified; I44.7 Left bundle-branch block, unspecified; M81.0 Age-related osteoporosis without current pathological fracture; T45.515A Adverse effect of anticoagulants, initial encounter; Z66 Do not resuscitate; Z79.01 Long term (current) use of anticoagulants; F32.9 Major depressive disorder, single episode, unspecified; M19.90 Unspecified osteoarthritis, unspecified site; Z90.710 Acquired absence of both cervix and uterus; T46.0X5A Adverse effect of cardiac-stimulant glycosides and drugs of similar action, initial encounter
CPT/HCPCS: 70450; 71010; 76775; 80048; 80053; 80162; 81001; 82550; 82948; 83735; 83880; 84100; 84132; 84443; 84484; 85025; 85610; 85730; 87641; 93005; 94640; 94664; 96374; 96375; J0461; J1265; J2405; J3475; J3480; J7050

== ENCOUNTER 2017-08-17 13:16 | Inpatient (IN) | payer MEDICARE ==
[~2017-08-17] VITALS: Ht 160 cm; Wt 76.0 kg
[2017-08-17] VITALS (7 sets, daily range): BP systolic 110–136; BP diastolic 64–92; PULSE 68–130; RESP 18–22; TEMP 97.6–97.7; O2SAT 95–97
[~2017-08-17 13:16] MED LIST changes: -ALEN70TA39 PO; +ASPI-516 CHEW; -ASPI81 PO; +ATOR20TA15 PO; -COUM5TAB PO; -CYAN1000P SQ; +DILT1TAB4 PO; -DILTCD120 PO; -DUONSOL2 NEB; +GABA100C4 PO; -GLUCTAB PO; +IPRASOL INH; -LIPI20TA PO; +LISI-515 PO; -LISI-591 PO; +METF500T PO; +MIRA3350 PO; -MIRA33502 PO; -MOBI7.5T PO; -STOO100C PO; +TEMA15CA PO; +UMEC1INH INH; -ZOLP5TAB3 PO
--- NOTE | 2017-08-17 13:42 | PD ---
HPI Chief Complaint: Respiratory Distress Time Seen by Provider: 13:40 Travel History International Travel<30 days: No Contact w/Intl Traveler<30days: No Traveled to known affect area: No History of Present Illness HPI C/O PALPITATIONS, WORSENING OVER PAST 2 DAYS, WORSENING SOB FOR PAST WEEK AND A HALF WELL. 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 ALL:BIAXIN PMHX: CHF, COPD, AFIB, DM PFSH Past Medical History Hx Anticoagulant Therapy: Yes Arthritis: Yes Asthma: No Anxiety: No Depression: No Heart Rhythm Problems: No Cancer: No Cardiovascular Problems: Yes (CHF, atrial fibrillation) Chest Pain: No Congestive Heart Failure: No COPD: Yes Cerebrovascular Accident: No Diabetes: Yes Diminished Hearing: No Endocrine: Yes Genitourinary: No Hypertension: Yes Immune Disorder: No Implanted Vascular Access Dvce: Yes Musculoskeletal: Yes (OSTEOPOROSIS) Neurologic: No Psychiatric: No Reproductive: No Respiratory: Yes (COPD) Immunizations Current: Yes Migraines: No Seizures: No Thyroid Disease: No Menopausal: Yes Past Surgical History Abdominal Surgery: No AICD: No Arteriovenous Shunt: No Cardiac Surgery: No Ear Surgery: No Endocrine Surgery: No Eye Surgery: Yes (BRET. CATARACT EXTRACT.) Genitourinary Surgery: Yes (BLADDER SUSP.) Gynecologic Surgery: Yes (hysterectomy) Hysterectomy: Yes Insulin Pump: No Joint Replacement: Yes Oral Surgery: Yes (T & A) Pacemaker: No Tonsillectomy: Yes (AND ADENOIDS ) Other Surgery: Yes (RIGHT LEG VEIN STRIPPING) Social History Alcohol Use: Yes (RARELY) Tobacco Use: No Substance Use: No Allergies-Medications (Allergen,Severity, Reaction): Coded Allergies: clarithromycin (Unverified Allergy, Severe, VOMITING, 03/30/17) Reported Meds & Prescriptions Reported Meds & Active Scripts Active Lisinopril 20 Mg Tab 20 Mg PO Q12HR Temazepam 15 Mg Cap 15 Mg PO HS PRN Reported Eliquis (Apixaban) 5 Mg Tab 5 Mg PO BID Ventolin Hfa 18 GM Inh (Albuterol Sulfate) 90 Mcg/Act Aer 2 Puff INH Q4-6H PRN Miralax Powder (Polyethylene Glycol 3350 Powder) 17 Gm Powd 17 Gm PO DAILY Mix and dissolve one measuring cap-ful (17 grams) in water or juice. Metformin (Metformin HCl) 500 Mg Tab 500 Mg PO BIDPC With meals Incruse Ellipta Inh (Umeclidinium [place] Inh) 0.0625 Mg/Act Inh 1 Puff INH DAILY Diltiazem ER 24 HR 240 Mg Janae 240 Mg PO DAILY Duoneb (Ipratropium-Albuterol Neb) 0.5-2.5 Mg/3 Ml Neb 1 Nebule INH BID Atorvastatin (Atorvastatin Calcium) 20 Mg Tab 20 Mg PO HS Aspirin 81 Mg Chew 81 Mg CHEW DAILY Review of Systems General / Constitutional: No: Fever Eyes: No: Visual changes HENT: No: Headaches Cardiovascular: Positive: Palpitations Respiratory: Positive: Shortness of Breath Gastrointestinal: No: Abdominal Pain Genitourinary: No: Dysuria Musculoskeletal: No: Pain Skin: No Rash Neurologic: No: Weakness Psychiatric: No: Depression Endocrine: No: Polydipsia Hematologic/Lymphatic: No: Easy Bruising Physical Exam Narrative GENERAL: SKIN: Warm and dry. HEAD: Atraumatic. Normocephalic. EYES: Pupils equal and round. No scleral icterus. No injection or drainage. ENT: No nasal bleeding or discharge. Mucous membranes pink and moist. NECK: Trachea midline. No JVD. CARDIOVASCULAR: IRREGULARLY IRREGULAR, TACHY RESPIRATORY: No accessory muscle use. BIBASILAR CRACKLES WITH GOOD TV GASTROINTESTINAL: Abdomen soft, non-tender, nondistended. Hepatic and splenic margins not palpable. MUSCULOSKELETAL: Extremities without clubbing, cyanosis, or edema. No obvious deformities. NEUROLOGICAL: Awake and alert. No obvious cranial nerve deficits. Motor grossly within normal limits. Five out of 5 muscle strength in the arms and legs. Normal speech. PSYCHIATRIC: Appropriate mood and affect; insight and judgment normal. Data Data Last Documented VS Vital Signs Date Time Temp Pulse Resp B/P (MAP) Pulse Ox O2 Delivery O2 Flow Rate FiO2 08/17/17 13:52 130 20 136/86 (103) 97 Nasal Cannula 2.00 Orders Orders Electrocardiogram (08/17/17 13:40) B-Type Natriuretic Peptide (08/17/17 13:40) Ckmb (Isoenzyme) Profile (08/17/17 13:40) Complete Blood Count With Diff (08/17/17 13:40) Comprehensive Metabolic Panel (08/17/17 13:40) Prothrombin Time / Inr (Pt) (08/17/17 13:40) Act Partial Throm Time (Ptt) (08/17/17 13:40) Troponin I (08/17/17 13:40) Lipase (08/17/17 13:40) Chest, Single Ap (08/17/17 13:40) Ecg Monitoring (08/17/17 13:40) Bilateral Bp Monitoring (08/17/17 13:40) Iv Access Insert/Monitor (08/17/17 13:40) Oximetry (08/17/17 13:40) Oxygen Administration (08/17/17 13:40) Sodium Chloride 0.9% Flush (Ns Flush) (08/17/17 13:45) Diltiazem Inj (Cardizem Inj) (08/17/17 13:45) Furosemide Inj (Lasix Inj) (08/17/17 14:15) Nitroglycerin 2% Oint (Nitroglycerin 2% (08/17/17 14:15) Admit Order (Ed Use Only) (08/17/17 14:16) Labs Laboratory Tests Test 08/17/17 13:45 White Blood Count 7.5 TH/MM3 Red Blood Count 3.64 MIL/MM3 Hemoglobin 10.9 GM/DL Hematocrit 33.3 % Mean Corpuscular Volume 91.5 FL Mean Corpuscular Hemoglobin 29.9 PG Mean Corpuscular Hemoglobin Concent 32.7 % Red Cell Distribution Width 14.9 % Platelet Count 279 TH/MM3 Mean Platelet Volume 8.6 FL Neutrophils (%) (Auto) 81.6 % Lymphocytes (%) (Auto) 11.0 % Monocytes (%) (Auto) 6.3 % Eosinophils (%) (Auto) 0.6 % Basophils (%) (Auto) 0.5 % Neutrophils # (Auto) 6.1 TH/MM3 Lymphocytes # (Auto) 0.8 TH/MM3 Monocytes # (Auto) 0.5 TH/MM3 Eosinophils # (Auto) 0.0 TH/MM3 Basophils # (Auto) 0.0 TH/MM3 CBC Comment DIFF FINAL Differential Comment Prothrombin Time 12.7 SEC Prothromb Time International Ratio 1.3 RATIO Activated Partial Thromboplast Time 25.5 SEC Blood Urea Nitrogen 15 MG/DL Creatinine 1.06 MG/DL Random Glucose 119 MG/DL Total Protein 6.9 GM/DL Albumin 3.5 GM/DL Calcium Level 9.0 MG/DL Alkaline Phosphatase 56 U/L Aspartate Amino Transf (AST/SGOT) 26 U/L Alanine Aminotransferase (ALT/SGPT) 44 U/L Total Bilirubin 0.5 MG/DL Sodium Level 139 MEQ/L Potassium Level 4.6 MEQ/L Chloride Level 105 MEQ/L Carbon Dioxide Level 24.9 MEQ/L Anion Gap 9 MEQ/L Estimat Glomerular Filtration Rate 50 ML/MIN Total Creatine Kinase 58 U/L Troponin I 0.04 NG/ML B-Type Natriuretic Peptide 1070 PG/ML Lipase 161 U/L MDM Medical Decision Making Medical Screen Exam Complete: Yes Emergency Medical Condition: Yes Medical Record Reviewed: Yes Interpretation(s) AFIB WITH RVR, Differential Diagnosis COPD EXAC V CHF EXAC V AFIB WITH RVR Critical Care Narrative CRITICAL CARE NOTE: With evaluation of the patient, labs, EKG, receipt of radiologic studies, administration of medications, reevaluation the patient and discussion of the patient with the admitting physicians, the total critical care time was [30] minutes. Time to perform other separately billable procedures was not included in the critical care time. Diagnosis Primary Impression: Acute decompensated heart failure Additional Impression: AFIB WITH RVR Admitting Information Admitting Physician Requests: Admit Higinio Rapp MD Aug 17, 2017 13:42
[2017-08-17] MEDS ORDERED: SODIUM CHLORIDE 0.9% FLUSH 10 ML FLUSH IVF PRN (13:45)
[2017-08-17] MEDS ORDERED: DILTIAZEM HCL 25 MG/5 ML VIAL IV PUSH ONE (13:45)
[2017-08-17 14:02] LABS: AUTOMATED NEUTROPHIL # 6.1 TH/MM3 (1.8-7.7); BASOPHIL % 0.5 % (0.0-2.0); EOSINOPHIL % 0.6 % (0.0-4.0); HEMATOCRIT 33.3 % (35.0-46.0); HEMOGLOBIN 10.9 GM/DL (11.6-15.3); LYMPHOCYTE # 0.8 TH/MM3 (1.0-4.8); MEAN CELL VOLUME 91.5 FL (80.0-100.0); MEAN CORPUSCULAR HEMOGLOBIN 29.9 PG (27.0-34.0); MEAN CORPUSCULAR HGB CONC 32.7 % (32.0-36.0); MEAN PLATELET VOLUME 8.6 FL (7.0-11.0); MONO % 6.3 % (0.0-8.0); MONOCYTE # 0.5 TH/MM3 (0-0.9); NEUT % 81.6 % (16.0-70.0); PLATELET COUNT 279 TH/MM3 (150-450); RED BLOOD COUNT 3.64 MIL/MM3 (4.00-5.30); RED CELL DISTRIBUTION WIDTH 14.9 % (11.6-17.2); WHITE BLOOD COUNT 7.5 TH/MM3 (4.0-11.0)
[2017-08-17 14:11] LABS: INTERNATIONAL NORMALIZED RATIO 1.3 RATIO; PROTHROMBIN TIME - PATIENT 12.7 SEC (9.8-11.6)
[2017-08-17] MEDS ORDERED: NITROGLYCERIN 2% OINT 1 GM PACKET TOP ONE (14:15)
[2017-08-17] MEDS ORDERED: FUROSEMIDE 40 MG/4 ML VIAL IVP ONE (14:15)
[2017-08-17] MEDS ORDERED: APIX5TAB PO (14:18)
[2017-08-17 14:24] LABS: ALBUMIN 3.5 GM/DL (3.4-5.0); ALT (GPT) 44 U/L (10-53); AST (GOT) 26 U/L (15-37); BICARBONATE 24.9 MEQ/L (21.0-32.0); BLOOD UREA NITROGEN 15 MG/DL (7-18); CHLORIDE 105 MEQ/L (98-107); CREATININE 1.06 MG/DL (0.50-1.00); GLOMERULAR FILTRATION RATE 50 ML/MIN (>89); GLUCOSE,RANDOM 119 MG/DL (74-106); LIPASE 161 U/L (73-393); SODIUM (NA) 139 MEQ/L (136-145)
[2017-08-17 14:29] LABS: ALKALINE PHOSPHATASE 56 U/L (45-117); TOTAL BILIRUBIN ADULT 0.5 MG/DL (0.2-1.0); TOTAL PROTEIN 6.9 GM/DL (6.4-8.2); TROPONIN I 0.04 NG/ML (0.02-0.05)
--- NOTE | 2017-08-17 14:33 | RADRPT ---
EXAM DATE/TIME: 08/17/2017 13:54 [place] COMPARISON: CHEST SINGLE AP, May 09, 2017, 18:37. INDICATIONS : Dyspnea. MEDICAL HISTORY : Arthritis. Osteoporosis. HTN. COPD. Diabetes. SURGICAL HISTORY : Tonsillectomy. Hysterectomy. Bilateral cataract extraction with prosthesis. Adenoidectomy. Left knee . Bladder suspension. Right leg vein stripping. Hip surgery. ENCOUNTER: Initial ACUITY: 1 day PAIN SCORE: 1/10 LOCATION: Bilateral chest FINDINGS: The heart is enlarged. Scattered atelectasis and/or scarring is again noted bilaterally. No acute foc al alveolar consolidation is noted. CONCLUSION: 1. Cardiomegaly. 2. Scattered atelectasis and/or scarring bilaterally. Álvaro Massey MD on August 17, 2017 at 14:29 Board Certified Radiologist. This report was verified electronically.
[2017-08-17] MEDS ORDERED: ONDANSETRON HCL 4 MG/2 ML VIAL IV PRN (14:45)
[2017-08-17] MEDS ORDERED: ACETAMINOPHEN 325 MG TAB PO PRN (14:45)
[2017-08-17] MEDS ORDERED: DEXTROSE 50% IN WATER 50 ML VIAL(D50) IV PUSH PRN (15:00)
[2017-08-17] MEDS ORDERED: GLUCAGON 1 MG/ML VIAL OTHER PRN (15:00)
[2017-08-17] MEDS: INSULIN ASPART SUPPLEMENTAL SCALE SQ SCH ×2 (17:00→20:39)
[2017-08-17] MEDS ORDERED: SODIUM CHLORIDE 0.9% FLUSH 10 ML FLUSH IV FLUSH PRN (17:45)
[2017-08-17] MEDS ORDERED: DILTIAZEM INJ 125 MG in SODIUM CHLORIDE 0.9% INJ 100 ML IV PRN (17:45)
--- NOTE | 2017-08-17 17:52 | HHI.HP ---
HPI Service [facility] Hospitalists Primary Care Physician Barrington Kruse MD Admission Diagnosis CHF EXACERBATION , AFIB WITH RVR Chief Complaint: SOB Travel History International Travel<30 Days: No Contact w/Intl Traveler <30 Da: No Traveled to Known Affected Are: No History of Present Illness Mrs. Evangelista is a pleasant 81 y/o WF with atrial fibrillation on chronic anticoagulation with Eliquis, diabetes, hypertension, and COPD who presented to [facility] emergency department with complaints of progressive SOB for about 10-14 days. Pt was seen as an outpt at [facility] on 07/31/17 with complaints of a cough. Pt was prescribed Doxycycline 100mg po BID x 10 days. She was seen in followup by her PCP, Dr. Barrington Kruse today and complained of continued intermittent cough, fatigue, SOB, and some LE edema. Pts EKG noted A. fib RVR with HR of 119. When the pt presented to the ED she was in A. fib RVR with HR in the 130's. Pt was given one dose of IV Cardizem with some improvement. CXR in the ED noted cardiomegaly and scattered atelectasis and/or scarring bilaterally. Pt admits that she has not been taking her Metoprolol at home since because "the medicine got lost in all the presents." When pt arrived to the floor her HR became elevated again into the 130's with very little exertion. Pt to be started on Cardizem gtt. She denies any chest pain, palpitations, dizziness, abd pain, nausea/vomiting, fevers or chills. Review of Systems Constitutional: DENIES: Fever, Chills Eyes: DENIES: Vision loss Ears, nose, mouth, throat: DENIES: Hearing loss Respiratory: COMPLAINS OF: Cough, Shortness of breath Cardiovascular: COMPLAINS OF: Palpitations, Lower Extremity Edema, DENIES: Chest pain Gastrointestinal: DENIES: Abdominal pain, Constipation, Diarrhea, Nausea, Vomiting Genitourinary: DENIES: Hematuria, Dysuria Musculoskeletal: DENIES: Neck pain Integumentary: DENIES: Rash Immunologic/allergic: DENIES: Urticaria Neurologic: DENIES: Headache Psychiatric: DENIES: Confusion Past Family Social History Past Medical History Atrial fibrillation on chronic anticoagulation with Eliquis COPD. She is not on home oxygen. No hx tob but had occupational chemical exposure. Diabetes mellitus, Hgb A1C 6.5% in 05/2017 Hypertension Osteoporosis Past Surgical History Bilateral cataract lens implants Ladder suspension Hysterectomy Tonsillectomy and adenoidectomy Left vein stripping Reported Medications Lisinopril 20 Mg Tab 20 Mg PO Q12HR Temazepam 15 Mg Cap 15 Mg PO HS PRN Eliquis (Apixaban) 5 Mg Tab 5 Mg PO BID Ventolin Hfa 18 GM Inh (Albuterol Sulfate) 90 Mcg/Act Aer 2 Puff INH Q4-6H PRN Miralax Powder (Polyethylene Glycol 3350 Powder) 17 Gm Powd 17 Gm PO DAILY Mix and dissolve one measuring cap-ful (17 grams) in water or juice. Metformin (Metformin HCl) 500 Mg Tab 500 Mg PO BIDPC With meals Incruse Ellipta Inh (Umeclidinium [place] Inh) 0.0625 Mg/Act Inh 1 Puff INH DAILY Diltiazem ER 24 HR 240 Mg Janae 240 Mg PO DAILY Duoneb (Ipratropium-Albuterol Neb) 0.5-2.5 Mg/3 Ml Neb 1 Nebule INH BID Atorvastatin (Atorvastatin Calcium) 20 Mg Tab 20 Mg PO HS Aspirin 81 Mg Chew 81 Mg CHEW DAILY Allergies: Coded Allergies: clarithromycin (Unverified Allergy, Severe, VOMITING, 03/30/17) Family History Her father had diabetes and lived to age 96 Mother of tuberculosis at age 29 Grandmother lived to 106 years of age Social History No hx of tobacco use. Rarely drinks alcohol. Denies illicit drug use She used to work with [employer] in [place]. 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 She has 3 daughters who live near her in [place]. Physical Exam Vital Signs Vital Signs Date Time Temp Pulse Resp B/P (MAP) Pulse Ox O2 Delivery O2 Flow Rate FiO2 08/17/17 16:00 104 08/17/17 15:42 08/17/17 13:52 130 20 136/86 (103) 97 Nasal Cannula 2.00 08/17/17 13:51 97 Nasal Cannula 2.00 08/17/17 13:35 20 98 Room Air Physical Exam GENERAL: This is a well-nourished, well-developed patient, in no apparent distress. HEENT: Atraumatic. Normocephalic. No temporal or scalp tenderness. No scleral icterus. Airway patent. NECK: Trachea midline. No JVD or lymphadenopathy. Supple, nontender, no meningeal signs. CARDIOVASCULAR: Regular rate and rhythm without murmurs, gallops, or rubs. RESPIRATORY: Clear to auscultation. Breath sounds equal bilaterally. No wheezes , rales, or rhonchi. GASTROINTESTINAL: Abdomen soft, non-tender, nondistended. No hepato-splenomegaly , or palpable masses. No guarding. MUSCULOSKELETAL: Extremities without clubbing, cyanosis, or edema. No joint tenderness, effusion, or edema noted. No calf tenderness. Negative Homans sign bilaterally. NEUROLOGICAL: Awake and alert. Cranial nerves II through XII intact. Motor and sensory grossly within normal limits. Five out of 5 muscle strength in all muscle groups. Normal speech. Laboratory Laboratory Tests Test 08/17/17 13:45 White Blood Count 7.5 Red Blood Count 3.64 Hemoglobin 10.9 Hematocrit 33.3 Mean Corpuscular Volume 91.5 Mean Corpuscular Hemoglobin 29.9 Mean Corpuscular Hemoglobin Concent 32.7 Red Cell Distribution Width 14.9 Platelet Count 279 Mean Platelet Volume 8.6 Neutrophils (%) (Auto) 81.6 Lymphocytes (%) (Auto) 11.0 Monocytes (%) (Auto) 6.3 Eosinophils (%) (Auto) 0.6 Basophils (%) (Auto) 0.5 Neutrophils # (Auto) 6.1 Lymphocytes # (Auto) 0.8 Monocytes # (Auto) 0.5 Eosinophils # (Auto) 0.0 Basophils # (Auto) 0.0 CBC Comment DIFF FINAL Differential Comment Prothrombin Time 12.7 Prothromb Time International Ratio 1.3 Activated Partial Thromboplast Time 25.5 Blood Urea Nitrogen 15 Creatinine 1.06 Random Glucose 119 Total Protein 6.9 Albumin 3.5 Calcium Level 9.0 Alkaline Phosphatase 56 Aspartate Amino Transf (AST/SGOT) 26 Alanine Aminotransferase (ALT/SGPT) 44 Total Bilirubin 0.5 Sodium Level 139 Potassium Level 4.6 Chloride Level 105 Carbon Dioxide Level 24.9 Anion Gap 9 Estimat Glomerular Filtration Rate 50 Total Creatine Kinase 58 Troponin I 0.04 B-Type Natriuretic Peptide 1070 Lipase 161 Result Diagram: 08/17/17 1345 08/17/17 1345 Imaging Last Impressions Chest X-Ray 08/17/17 1340 Signed Impressions: Service Date/Time: Thursday, August 17, 2017 13:54 - CONCLUSION: 1. Cardiomegaly. 2. Scattered atelectasis and/or scarring bilaterally. MD Sarkis Davison VTE Risk Assessment Caprini VTE Risk Assessment: Mod/High Risk (score >= 2) Caprini Risk Assessment Model Point Value = 1 Point Value = 2 Point Value = 3 Point Value = 5 Age 41-60 Minor surgery BMI > 25 kg/m2 Swollen legs Varicose veins or History of unexplained or recurrent spontaneous Oral contraceptives or hormone replacement Sepsis (< 1 month) Serious lung disease, including pneumonia (< 1 month) Abnormal pulmonary function Acute myocardial infarction Congestive heart failure (< 1 month) History of inflammatory bowel disease Medical patient at bed rest Age 61-74 Arthroscopic surgery Major open surgery (> 45 min) Laparoscopic surgery (> 45 min) Malignancy Confined to bed (> 72 hours) Immobilizing plaster cast Central venous access Age >= 75 History of VTE Family history of VTE Factor V Leiden Prothrombin [id number] Lupus anticoagulant Anticardiolipin antibodies Elevated serum homocysteine Heparin-induced thrombocytopenia Other congenital or acquired thrombophilia Stroke (< 1 month) Elective arthroplasty Hip, pelvis, or leg fracture Acute spinal cord injury (< 1 month) Prophylaxis Regimen Total Risk Factor Score Risk Level Prophylaxis Regimen 0-1 Low Early ambulation 2 Moderate Order ONE of the following: *Sequential Compression Device (SCD) *Heparin 5000 units SQ BID 3-4 Higher Order ONE of the following medications: *Heparin 5000 units SQ TID *Enoxaparin/Lovenox 40 mg SQ daily (WT < 150 kg, CrCl > 30 mL/min) *Enoxaparin/Lovenox 30 mg SQ daily (WT < 150 kg, CrCl > 10-29 mL/min) *Enoxaparin/Lovenox 30 mg SQ BID (WT < 150 kg, CrCl > 30 mL/min) AND/OR *Sequential Compression Device (SCD) 5 or more Highest Order ONE of the following medications: *Heparin 5000 units SQ TID (Preferred with Epidurals) *Enoxaparin/Lovenox 40 mg SQ daily (WT < 150 kg, CrCl > 30 mL/min) *Enoxaparin/Lovenox 30 mg SQ daily (WT < 150 kg, CrCl > 10-29 mL/min) *Enoxaparin/Lovenox 30 mg SQ BID (WT < 150 kg, CrCl > 30 mL/min) AND *Sequential Compression Device (SCD) Assessment and Plan Problem List: (1) Atrial fibrillation with RVR ICD Codes: I48.91 - Unspecified atrial fibrillation Status: Acute Plan: - Pt is an 81 y/o WF with atrial fibrillation on chronic anticoagulation with Eliquis, diabetes, hypertension, and COPD who presented to [facility] emergency department with complaints of progressive SOB for about 10-14 days. - Pt was seen as an outpt at [facility] on 07/31/17 with complaints of a cough. Pt was prescribed Doxycycline 100mg po BID x 10 days. - She was seen in followup by her PCP, Dr. Barrington Kruse, today and complained of continued intermittent cough, fatigue, SOB, and some LE edema. Pts EKG noted A. fib RVR with HR of 119. - When the pt presented to the ED she was in A. fib RVR with HR in the 130's. - Pt was given one dose of IV Cardizem with some improvement. - CXR in the ED noted cardiomegaly and scattered atelectasis and/or scarring bilaterally. - Pt admits that she has not been taking her Metoprolol at home since [place] - When pt arrived to the floor her HR became elevated again into the 130's with very little exertion. - Start Cardizem gtt and titrate off as HR improves. - Resume home meds, including Metoprolol 50mg po BID and Cardizem 240mg po daily - Telemetry - Supportive care - Pt resumed on Eliquis (2) HTN (hypertension) ICD Codes: I10 - Essential (primary) hypertension Status: Chronic Plan: - Home meds resumed - Monitor (3) Hyperlipidemia ICD Codes: E78.5 - Hyperlipidemia, unspecified Status: Chronic Plan: - Cont. home meds (4) COPD (chronic obstructive pulmonary disease) ICD Codes: J44.9 - Chronic obstructive pulmonary disease, unspecified Status: Acute Plan: - Duonebs BID and PRN Assessment and Plan Patient examined. Assessment and plan formulated with Camilla Edmonds PA-C. Nadja agree with the above. Physician Certification 2 Midnight Certification Type: Admission for Inpatient Services Order for Inpatient Services The services are ordered in accordance with Medicare regulations or non- Medicare payer requirements, as applicable. In the case of services not specified as inpatient-only, they are appropriately provided as inpatient services in accordance with the 2-midnight benchmark. Estimated LOS (days): 3 3 days is the estimated time the patient will need to remain in the hospital, assuming treatment plan goals are met and no additional complications. Post-Hospital Plan: Not yet determined Camilla Edmonds Aug 17, 2017 17:52 Jeb Funez DO Aug 25, 2017 23:26
[2017-08-17] MEDS: APIXABAN 5 MG TABLET PO SCH (20:39)
[2017-08-17] MEDS: SODIUM CHLORIDE 0.9% FLUSH 10 ML FLUSH IV FLUSH SCH (20:39)
[2017-08-17] MEDS: ATORVASTATIN 20 MG TAB PO SCH (20:39)
[2017-08-17] MEDS: METOPROLOL TARTRATE 50 MG TAB PO SCH (20:39)
[2017-08-17] MEDS: TEMAZEPAM 15 MG CAP PO PRN (20:46)
[2017-08-17] MEDS: RESP: ALBUTEROL 2.5 MG/IPRATROPIUM 0.5 MG NEB (SCH) INH (21:14)
[2017-08-18] VITALS (11 sets, daily range): BP systolic 100–125; BP diastolic 60–88; PULSE 54–141; RESP 18–22; TEMP 97.2–97.5; O2SAT 94–96
[2017-08-18 06:47] LABS: AUTOMATED NEUTROPHIL # 4.7 TH/MM3 (1.8-7.7); BASOPHIL # 0.1 TH/MM3 (0-0.2); BASOPHIL % 0.8 % (0.0-2.0); EOSINOPHIL # 0.2 TH/MM3 (0-0.4); EOSINOPHIL % 2.6 % (0.0-4.0); HEMATOCRIT 34.7 % (35.0-46.0); HEMOGLOBIN 11.5 GM/DL (11.6-15.3); LYMPH % 17.6 % (9.0-44.0); LYMPHOCYTE # 1.2 TH/MM3 (1.0-4.8); MEAN CELL VOLUME 91.7 FL (80.0-100.0); MEAN CORPUSCULAR HEMOGLOBIN 30.3 PG (27.0-34.0); MEAN PLATELET VOLUME 9.3 FL (7.0-11.0); MONO % 8.8 % (0.0-8.0); MONOCYTE # 0.6 TH/MM3 (0-0.9); NEUT % 70.2 % (16.0-70.0); PLATELET COUNT 275 TH/MM3 (150-450); RED BLOOD COUNT 3.78 MIL/MM3 (4.00-5.30); RED CELL DISTRIBUTION WIDTH 14.9 % (11.6-17.2); WHITE BLOOD COUNT 6.7 TH/MM3 (4.0-11.0)
[2017-08-18 07:07] LABS: BICARBONATE 29.2 MEQ/L (21.0-32.0); CALCIUM 9.7 MG/DL (8.5-10.1); CREATININE 1.08 MG/DL (0.50-1.00); MAGNESIUM 1.8 MG/DL (1.5-2.5)
[2017-08-18] MEDS: RESP: ALBUTEROL 2.5 MG/IPRATROPIUM 0.5 MG NEB (SCH) INH ×2 (07:52→19:20)
[2017-08-18] MEDS: INSULIN ASPART SUPPLEMENTAL SCALE SQ SCH ×3 (08:00→21:29)
[2017-08-18] MEDS: DILTIAZEM-CD 240 MG CAP ER PO SCH (08:44)
[2017-08-18] MEDS: ASPIRIN 81 MG CHEW TAB CHEW SCH (08:45)
[2017-08-18] MEDS: APIXABAN 5 MG TABLET PO SCH ×2 (08:45→21:27)
[2017-08-18] MEDS: METOPROLOL TARTRATE 50 MG TAB PO SCH ×2 (08:45→21:26)
[2017-08-18] MEDS: POLYETHYLENE GLYCOL 17 GM PKG PO SCH (08:45)
[2017-08-18] MEDS: SODIUM CHLORIDE 0.9% FLUSH 10 ML FLUSH IV FLUSH SCH ×2 (08:45→21:28)
[2017-08-18] MEDS ORDERED: UMECLIDINIUM BROMIDE INH SCH (09:00)
--- NOTE | 2017-08-18 12:35 | EKG ---
Date Performed: 08/17/2017 Time Performed: 13:36:51 PTAGE: 81 years EKG: ATRIAL FIBRILLATION WITH RAPID VENTRICULAR RESPONSE MARKED LEFT AXIS DEVIATION LEFT BUNDLE BRANCH BLOCK ABNORMAL ECG PREVIOUS TRACING : 05/10/2017 03.56 DOCTOR: Vincent Ruiz Interpretating Date/Time 08/18/2017 12:34:43
--- NOTE | 2017-08-18 17:42 | HHI.PR ---
Subjective Remarks No new complaints. No chest pain, palpitations, or SOB. Objective Vitals Vital Signs Date Time Temp Pulse Resp B/P (MAP) Pulse Ox O2 Delivery O2 Flow Rate FiO2 08/18/17 16:00 97.3 75 22 117/64 (81) 95 08/18/17 12:00 97.5 110 20 125/83 (97) 95 08/18/17 08:09 141 08/18/17 08:00 Room Air 08/18/17 08:00 97.3 113 20 125/73 (90) 94 08/18/17 04:15 90 08/18/17 04:00 Room Air 08/18/17 04:00 97.4 96 18 112/80 (91) 96 08/18/17 00:06 114 08/18/17 00:00 97.3 63 18 117/88 (98) 95 08/18/17 00:00 Room Air 08/17/17 20:05 110 08/17/17 20:00 97.7 68 18 110/64 (79) 95 08/17/17 18:30 110 08/17/17 18:17 122 158/91 08/17/17 17:49 112 08/18/17 08/18/17 08/19/17 15:00 23:00 07:00 Intake Total 960 ml Output Total 800 ml Balance 160 ml Intake Oral 960 ml Output Urine Total 800 ml # Bowel Movements 0 Result Diagram: 08/18/17 0438 08/18/17 0438 Imaging Last Impressions Chest X-Ray 08/17/17 1340 Signed Impressions: Service Date/Time: Thursday, August 17, 2017 13:54 - CONCLUSION: 1. Cardiomegaly. 2. Scattered atelectasis and/or scarring bilaterally. Álvaro Massey MD Objective Remarks GENERAL: This is a well-nourished, well-developed patient, in no apparent distress. CARDIOVASCULAR: irregular RESPIRATORY: Clear to auscultation. Breath sounds equal bilaterally. No wheezes , rales, or rhonchi. GASTROINTESTINAL: Abdomen soft, non-tender, nondistended. Normal active bowel sounds MUSCULOSKELETAL: Extremities without clubbing, cyanosis, or edema. NEURO: Alert & Oriented x4 to person, place, time, situation. Moves all ext x4 A/P Problem List: (1) Atrial fibrillation with RVR ICD Codes: I48.91 - Unspecified atrial fibrillation Status: Acute Plan: - Pt is an 81 y/o WF with atrial fibrillation on chronic anticoagulation with Eliquis, diabetes, hypertension, and COPD who presented to [facility] emergency department with complaints of progressive SOB for about 10-14 days. - Pt was seen as an out[facility] at [facility] on [facility]17 with complaints of a cough. Pt was prescribed Doxycycline 100mg po BID x 10 days. - She was seen in followup by her PCP, Dr. Barrington Kruse, today and complained of continued intermittent cough, fatigue, SOB, and some LE edema. Pts EKG noted A. fib RVR with HR of 119. - When the pt presented to the ED she was in A. fib RVR with HR in the 130's. - Pt was given one dose of IV Cardizem with some improvement. - CXR in the ED noted cardiomegaly and scattered atelectasis and/or scarring bilaterally. - Pt admits that she has not been taking her Metoprolol at home since - When pt arrived to the floor her HR became elevated again into the 130's with very little exertion. - Start Cardizem gtt and titrate off as HR improves. - Resume home meds, including Metoprolol 50mg po BID and Cardizem 240mg po daily - Telemetry - Supportive care - Pt resumed on Eliquis (2) HTN (hypertension) ICD Codes: I10 - Essential (primary) hypertension Status: Chronic Plan: - Home meds resumed - Monitor (3) Hyperlipidemia ICD Codes: E78.5 - Hyperlipidemia, unspecified Status: Chronic Plan: - Cont. home meds (4) COPD (chronic obstructive pulmonary disease) ICD Codes: J44.9 - Chronic obstructive pulmonary disease, unspecified Status: Acute Plan: - Duonebs BID and PRN Jeb Funez DO Aug 18, 2017 17:42
--- NOTE | 2017-08-18 18:16 | HHI.FF ---
Face to Face Verification Diagnosis: (1) Atrial fibrillation with RVR (2) HTN (hypertension) (3) COPD (chronic obstructive pulmonary disease) Physical Therapy Order: Evaluate and Treat, Strength and gait training Home Health Nursing Order: Medical education Signs/symptoms of disease process Medication education-adverse effect Nursing assessment with vital signs Paint Stockman Order: To Evaluate: Living conditions/environment Order: To Provide: Long range planning I have seen patient Juliana Evangelista on 08/18/17. My clinical findings support the need for the requested home health care services because: Med compliance is questionable Limited ability to care for self I certify that my clinical findings support that this patient is homebound because: Hx COPD- exertion dyspnea/weakness Need for psychosocial assistance Sharla Zapata Aug 18, 2017 18:16
[2017-08-18] MEDS ORDERED: RESP: ALBUTEROL 2.5 MG/IPRATROPIUM 0.5 MG NEB (PRN) NEB (20:00)
[2017-08-18] MEDS: TEMAZEPAM 15 MG CAP PO PRN (21:26)
[2017-08-18] MEDS: ATORVASTATIN 20 MG TAB PO SCH (21:27)
[2017-08-19] VITALS (7 sets, daily range): BP systolic 116–155; BP diastolic 73–83; PULSE 85–126; RESP 18–20; TEMP 97.1–97.9; O2SAT 95–96
[2017-08-19] MEDS: INSULIN ASPART SUPPLEMENTAL SCALE SQ SCH ×4 (08:00→21:22)
[2017-08-19] MEDS: SODIUM CHLORIDE 0.9% FLUSH 10 ML FLUSH IV FLUSH SCH ×2 (09:00→21:19)
[2017-08-19] MEDS: METOPROLOL TARTRATE 50 MG TAB PO SCH (09:17)
[2017-08-19] MEDS: APIXABAN 5 MG TABLET PO SCH ×2 (09:17→21:20)
[2017-08-19] MEDS: DILTIAZEM-CD 240 MG CAP ER PO SCH (09:17)
[2017-08-19] MEDS: POLYETHYLENE GLYCOL 17 GM PKG PO SCH (09:18)
[2017-08-19] MEDS: ASPIRIN 81 MG CHEW TAB CHEW SCH (09:18)
[2017-08-19] MEDS: RESP: ALBUTEROL 2.5 MG/IPRATROPIUM 0.5 MG NEB (SCH) INH ×2 (09:31→20:11)
--- NOTE | 2017-08-19 14:27 | MB ---
cc: KALEIGH SUMNER MD DATE OF CONSULTATION 08/19/2017 HISTORY OF PRESENT ILLNESS This is an 81-year-old woman who has a history of atrial fibrillation. She had formerly been well-controlled on diltiazem and metoprolol for rate control as well as Eliquis for thromboembolic protection. She notes that approximately a month ago she forgot to take her metoprolol and over the past 2-3 weeks has noted increasing fatigue, tiredness and dyspnea on exertion. No orthopnea or PND has been present. She has had no chest pain and no palpitations have been present. She came to her primary care doctor's office who found her to have atrial fibrillation and a rapid response. She was sent to the emergency room where she has subsequently been admitted. We have been asked to see her to help control rate. She has been restarted on her diltiazem at 300 mg daily and metoprolol 50 mg twice a day. Her heart rate still runs approximately 120-130. She is otherwise awake and alert and in no acute distress. Blood pressure has been well-maintained with systolic blood pressures of 150 over the last several days and 120 today. PHYSICAL EXAMINATION VITAL SIGNS: On physical exam her blood pressure is 120/70. CARDIOVASCULAR: Exam reveals an irregularly irregular rhythm. No murmur was present. LUNGS: Clear. EXTREMITIES: No edema. LABORATORY Laboratory examination is essentially unremarkable. IMAGING A chest x-ray reveals no evidence for congestive failure. ASSESSMENT AND RECOMMENDATIONS The patient has atrial fibrillation with a rapid response. Will increase her metoprolol to 100 mg twice a day to better control her heart rate. In view of her increased symptoms of dyspnea on exertion I will repeat her echocardiogram to rule out any decrease in LV function because of her rather prolonged episodes of medical noncompliance. Eliquis will be continued. MD LAUREEN Sofia/ANIBAL /1:25 PM /2:04 PM
--- NOTE | 2017-08-19 18:54 | HHI.PR ---
Subjective Remarks Patient endorses palpations this AM while ambulating to the bathroom Objective Vitals Vital Signs Date Time Temp Pulse Resp B/P (MAP) Pulse Ox O2 Delivery O2 Flow Rate FiO2 08/19/17 16:00 97.9 115 20 131/73 (92) 96 08/19/17 12:00 97.8 118 20 120/83 (95) 96 08/19/17 09:00 Room Air 08/19/17 08:00 97.1 121 18 150/82 (104) 96 08/19/17 04:00 97.2 99 18 155/75 (101) 96 08/19/17 04:00 96 08/19/17 00:00 97.2 94 18 116/74 (88) 95 08/19/17 00:00 85 08/18/17 21:30 Room Air 08/18/17 20:19 82 08/18/17 20:00 97.2 54 18 100/60 (73) 96 08/19/17 08/19/17 08/20/17 14:59 22:59 06:59 Intake Total 840 ml Output Total 600 ml Balance 240 ml Intake Oral 840 ml Output Urine Total 600 ml # Bowel Movements 0 Result Diagram: 08/18/17 0438 08/18/17 0438 Other Results Laboratory Tests Test 08/17/17 13:45 08/18/17 04:38 White Blood Count 7.5 TH/MM3 6.7 TH/MM3 Red Blood Count 3.64 MIL/MM3 3.78 MIL/MM3 Hemoglobin 10.9 GM/DL 11.5 GM/DL Hematocrit 33.3 % 34.7 % Mean Corpuscular Volume 91.5 FL 91.7 FL Mean Corpuscular Hemoglobin 29.9 PG 30.3 PG Mean Corpuscular Hemoglobin Concent 32.7 % 33.0 % Red Cell Distribution Width 14.9 % 14.9 % Platelet Count 279 TH/MM3 275 TH/MM3 Mean Platelet Volume 8.6 FL 9.3 FL Neutrophils (%) (Auto) 81.6 % 70.2 % Lymphocytes (%) (Auto) 11.0 % 17.6 % Monocytes (%) (Auto) 6.3 % 8.8 % Eosinophils (%) (Auto) 0.6 % 2.6 % Basophils (%) (Auto) 0.5 % 0.8 % Neutrophils # (Auto) 6.1 TH/MM3 4.7 TH/MM3 Lymphocytes # (Auto) 0.8 TH/MM3 1.2 TH/MM3 Monocytes # (Auto) 0.5 TH/MM3 0.6 TH/MM3 Eosinophils # (Auto) 0.0 TH/MM3 0.2 TH/MM3 Basophils # (Auto) 0.0 TH/MM3 0.1 TH/MM3 CBC Comment DIFF FINAL DIFF FINAL Differential Comment Prothrombin Time 12.7 SEC Prothromb Time International Ratio 1.3 RATIO Activated Partial Thromboplast Time 25.5 SEC Blood Urea Nitrogen 15 MG/DL 20 MG/DL Creatinine 1.06 MG/DL 1.08 MG/DL Random Glucose 119 MG/DL 88 MG/DL Total Protein 6.9 GM/DL Albumin 3.5 GM/DL Calcium Level 9.0 MG/DL 9.7 MG/DL Alkaline Phosphatase 56 U/L Aspartate Amino Transf (AST/SGOT) 26 U/L Alanine Aminotransferase (ALT/SGPT) 44 U/L Total Bilirubin 0.5 MG/DL Sodium Level 139 MEQ/L 138 MEQ/L Potassium Level 4.6 MEQ/L 4.0 MEQ/L Chloride Level 105 MEQ/L 100 MEQ/L Carbon Dioxide Level 24.9 MEQ/L 29.2 MEQ/L Anion Gap 9 MEQ/L 9 MEQ/L Estimat Glomerular Filtration Rate 50 ML/MIN 49 ML/MIN Total Creatine Kinase 58 U/L Troponin I 0.04 NG/ML B-Type Natriuretic Peptide 1070 PG/ML Lipase 161 U/L Magnesium Level 1.8 MG/DL Imaging Last Impressions Chest X-Ray 08/17/17 1340 Signed Impressions: Service Date/Time: Thursday, August 17, 2017 13:54 - CONCLUSION: 1. Cardiomegaly. 2. Scattered atelectasis and/or scarring bilaterally. Álvaro Massey MD Objective Remarks GENERAL: This is a well-nourished, well-developed patient, in no apparent distress. CARDIOVASCULAR: irregular RESPIRATORY: Clear to auscultation. Breath sounds equal bilaterally. No wheezes , rales, or rhonchi. GASTROINTESTINAL: Abdomen soft, non-tender, nondistended. Normal active bowel sounds MUSCULOSKELETAL: Extremities without clubbing, cyanosis, or edema. NEURO: Alert & Oriented x4 to person, place, time, situation. Moves all ext x4 A/P Problem List: (1) Atrial fibrillation with RVR ICD Codes: I48.91 - Unspecified atrial fibrillation Status: Acute Plan: - Pt is an 81 y/o WF with atrial fibrillation on chronic anticoagulation with Eliquis, diabetes, hypertension, and COPD who presented to [facility] emergency department with complaints of progressive SOB for about 10-14 days. - Pt was seen as an outpt at [facility] on 07/31/17 with complaints of a cough. Pt was prescribed Doxycycline 100mg po BID x 10 days. - She was seen in followup by her PCP, Dr. Barrington Kruse, today and complained of continued intermittent cough, fatigue, SOB, and some LE edema. Pts EKG noted A. fib RVR with HR of 119. - When the pt presented to the ED she was in A. fib RVR with HR in the 130's. - Pt was given one dose of IV Cardizem with some improvement. - CXR in the ED noted cardiomegaly and scattered atelectasis and/or scarring bilaterally. - Pt admits that she has not been taking her Metoprolol at home since - When pt arrived to the floor her HR became elevated again into the 130's with very little exertion. - Cardizem gtt initially then DC'd - Resume home meds, including Metoprolol 50mg po BID and Cardizem 240mg po daily - Telemetry - Supportive care - Pt resumed on Eliquis - cardiology consulted increase metoprolol 100 mg PO BID - echocardiogram pending (2) HTN (hypertension) ICD Codes: I10 - Essential (primary) hypertension Status: Chronic Plan: - Home meds resumed - Monitor (3) Hyperlipidemia ICD Codes: E78.5 - Hyperlipidemia, unspecified Status: Chronic Plan: - Cont. home meds (4) COPD (chronic obstructive pulmonary disease) ICD Codes: J44.9 - Chronic obstructive pulmonary disease, unspecified Status: Acute Plan: - Duonebs BID and PRN Assessment and Plan Patient examined. Assessment and plan formulated with Sharla Zapata PA-C. I agree with the above. Sharla Zapata Aug 19, 2017 18:54 Jeb Funez DO Aug 25, 2017 23:24
--- NOTE | 2017-08-19 19:01 | ECHRPT ---
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 Wall thickness is normal. The left ventricular systolic function is severely reduced with an estimated ejection fraction in th e range of 20%. There is global left ventricular dysfunction. The right ventricular systoilc function is moderately decreased. The left atrial size is mildly dilated. The right atrial size is kzlq-sd-nuyhiorssl dilated. Mitral annular calcification is present. Mild mitral valve regurgitation. Aortic valve sclerosis is present. Trace aortic valve regurgitation. There is adwb-mn-lyyxejpo tricuspid valve regurgitation. There is estimated evacoglh-fh-hwrcgm pulmonary hypertension present (60 mmHg). The inferior vena cava is dilated. BP: 125 / 83 HR: 110 Rhythm: MEASUREMENTS (Male / Female) Normal Values Technical Quality:Good 2D ECHO LV Diastolic Diameter PLAX 4.4 cm 4.2 - 5.9 / 3.9 - 5.3 cm LV Systolic Diameter PLAX 4.2 cm IVS Diastolic Thickness 1.0 cm 0.6 - 1.0 / 0.6 - 0.9 cm LVPW Diastolic Thickness 0.8 cm 0.6 - 1.0 / 0.6 - 0.9 cm LV Relative Wall Thickness 0.4 RV Internal Dim ED PLAX 2.6 cm LA Systolic Diameter LX 4.1 cm 3.0 - 4.0 / 2.7 - 3.8 cm DOPPLER MV Peak Velocity 117.0 cm/s MV Peak Gradient 5.5 mmHg MV Mean Velocity 57.9 cm/s MV Mean Gradient 2.0 mmHg MR Peak Velocity 496.0 cm/s MR Peak Gradient 98.4 mmHg Mitral E Point Velocity 90.3 cm/s Mitral A Point Velocity 28.1 cm/s Mitral E to A Ratio 3.2 TR Peak Velocity 316.0 cm/s TR Peak Gradient 39.9 mmHg Right Atrial Pressure 20.0 mmHg Pulmonary Artery Systolic Pressu 59.9 mmHg Right Ventricular Systolic Press 59.9 mmHg FINDINGS LEFT VENTRICLE Normal left ventricular size. Wall thickness is normal. The left ventricular systolic function is severely reduced with an estimated ejection fraction in th e range of 20%. There is global left ventricular dysfunction. RIGHT VENTRICLE The right ventricular systoilc function is moderately decreased. LEFT ATRIUM The left atrial size is mildly dilated. RIGHT ATRIUM The right atrial size is qjku-iq-djqlfxxdpc dilated. ATRIAL SEPTUM Normal atrial septal thickness without atrial level shunting by limited color doppler interrogation. AORTA The aortic root and proximal ascending aorta are normal in size on limited imaging. MITRAL VALVE Mitral annular calcification is present. Mild mitral valve regurgitation. AORTIC VALVE Aortic valve sclerosis is present. Trace aortic valve regurgitation. TRICUSPID VALVE There is kjit-dq-afjtcxwn tricuspid valve regurgitation. There is estimated yuzasmea-en-zuvvdq pulmonary hypertension present (60 mmHg). PULMONARY VALVE No pulmonary valve regurgitation or stenosis. VESSELS The inferior vena cava is dilated. PERICARDIUM No pericardial effusion. Devante Jackson MD (Electronically Signed) Final Date:19 August 2017 19:00
[2017-08-19] MEDS: METOPROLOL TARTRATE 100 MG TAB PO SCH (21:19)
[2017-08-19] MEDS: ATORVASTATIN 20 MG TAB PO SCH (21:20)
[2017-08-20] VITALS (11 sets, daily range): BP systolic 111–139; BP diastolic 83–96; PULSE 95–125; RESP 16–20; TEMP 97.3–97.9; O2SAT 93–97
[2017-08-20] MEDS: SODIUM CHLORIDE 0.9% FLUSH 10 ML FLUSH IV FLUSH SCH ×2 (07:54→21:30)
[2017-08-20] MEDS: INSULIN ASPART SUPPLEMENTAL SCALE SQ SCH ×4 (07:54→21:00)
[2017-08-20] MEDS: RESP: ALBUTEROL 2.5 MG/IPRATROPIUM 0.5 MG NEB (SCH) INH ×2 (08:00→20:37)
--- NOTE | 2017-08-20 08:10 | PD.CARD.PN ---
Subjective Subjective Remarks Patient remains in A. fib with RVR today. The patient states she feels more fatigued and tired today. She denies any chest pain, shortness of breath, palpitations. No new orthopnea. Objective Medications Current Medications Medications (Trade) Dose Ordered Sig/Ozzie Route Start Time Stop Time Status Last Admin (NS Flush) 2 ml UNSCH PRN IVF 08/17/17 13:45 (Eliquis) 5 mg BID PO 08/17/17 21:00 08/19/17 21:20 (Aspirin Chew) 81 mg DAILY CHEW 08/18/17 09:00 08/19/17 09:18 (Lipitor) 20 mg HS PO 08/17/17 21:00 08/19/17 21:20 (Duoneb Neb) 1 ampule BID NEB INH 08/17/17 21:00 08/19/17 20:11 (Miralax) 17 gm DAILY PO 08/18/17 09:00 08/19/17 09:18 (Restoril) 15 mg HS PRN PO 08/17/17 14:45 08/18/17 21:26 Patient Own Medication PT OWN MED: Umeclidinium Brom... DAILY INH 08/18/17 09:00 Future Hold (Tylenol) 650 mg Q4H PRN PO 08/17/17 14:45 (Zofran Inj) 4 mg Q6H PRN IV 08/17/17 14:45 (NovoLOG SUPPLEMENTAL SCALE) 1 ACHS SLIDING SCALE SQ 08/17/17 17:00 08/19/17 21:22 (D50w (Vial) Inj) 50 ml UNSCH PRN IV PUSH 08/17/17 15:00 (Glucagon Inj) 1 mg UNSCH PRN OTHER 08/17/17 15:00 (Cardizem Cd) 240 mg DAILY PO 08/18/17 09:00 08/19/17 09:17 (NS Flush) 2 ml UNSCH PRN IV FLUSH 08/17/17 17:45 (NS Flush) 2 ml BID IV FLUSH 08/17/17 21:00 08/20/17 07:54 (Duoneb Neb) 1 ampule Q4HR NEB PRN NEB 08/18/17 20:00 (Lopressor) 100 mg Q12HR PO 08/19/17 21:00 08/19/17 21:19 Vital Signs / I&O Vital Signs Date Time Temp Pulse Resp B/P (MAP) Pulse Ox O2 Delivery O2 Flow Rate FiO2 08/20/17 04:00 97.5 112 16 125/84 (98) 95 08/20/17 00:00 97.6 112 17 111/83 (92) 97 08/20/17 00:00 95 08/19/17 20:00 100 08/19/17 20:00 Room Air 08/19/17 20:00 97.3 122 20 125/82 (96) 95 08/19/17 16:00 97.9 115 20 131/73 (92) 96 08/19/17 12:04 126 08/19/17 12:00 97.8 118 20 120/83 (95) 96 08/19/17 09:00 Room Air I/O 08/19/17 08/19/17 08/19/17 08/20/17 08/20/17 08/20/17 07:00 15:00 23:00 07:00 15:00 23:00 Intake Total 240 ml 840 ml 400 ml Output Total 800 ml 600 ml 600 ml Balance -560 ml 240 ml -200 ml Intake Oral 240 ml 840 ml 400 ml Output Urine Total 800 ml 600 ml 600 ml # Bowel Movements 0 0 Physical Exam GENERAL: Well-developed well-nourished. In no acute distress. NECK: No carotid bruits. No JVD. CARDIOVASCULAR: Rapid irregular rate and irregular rhythm. No murmur appreciated. RESPIRATORY: No accessory muscle use. Clear to auscultation. Breath sounds equal bilaterally. MUSCULOSKELETAL: No clubbing or cyanosis. No edema. NEUROLOGICAL: Awake and alert. Normal speech. Imaging Last Impressions Chest X-Ray 08/17/17 1340 Signed Impressions: Service Date/Time: Thursday, August 17, 2017 13:54 - CONCLUSION: 1. Cardiomegaly. 2. Scattered atelectasis and/or scarring bilaterally. Álvaro Massey MD Assessment and Plan Assessment and Plan HEENT all female with a past medical history of atrial fibrillation who was sent by PCP for RVR Atrial fibrillation with rapid ventricular response: Metoprolol was increased from 50 mg to 100 mg twice daily. Her rate remains uncontrolled. Increase Cardizem to 300 mg daily. Continue Eliquis. Cardiomyopathy: Echo with reduced systolic function, EF 20%. Possibly rate related. No signs of exacerbation. Blaine Quiroz Aug 20, 2017 08:10
[2017-08-20] MEDS: DILTIAZEM-CD 300 MG CAP ER PO SCH (09:13)
[2017-08-20] MEDS: APIXABAN 5 MG TABLET PO SCH ×2 (09:14→21:32)
[2017-08-20] MEDS: METOPROLOL TARTRATE 100 MG TAB PO SCH ×2 (09:14→21:32)
[2017-08-20] MEDS: ASPIRIN 81 MG CHEW TAB CHEW SCH (09:14)
[2017-08-20] MEDS: POLYETHYLENE GLYCOL 17 GM PKG PO SCH (09:14)
--- NOTE | 2017-08-20 14:18 | PD.CARD.PN ---
Subjective Subjective Remarks Rate now controlled. Started Lisinopril 5mg daily due to low EF. Will check BMP tomorrow. Objective Medications Current Medications Medications (Trade) Dose Ordered Sig/Ozzie Route Start Time Stop Time Status Last Admin (NS Flush) 2 ml UNSCH PRN IVF 08/17/17 13:45 (Eliquis) 5 mg BID PO 08/17/17 21:00 08/20/17 09:14 (Aspirin Chew) 81 mg DAILY CHEW 08/18/17 09:00 08/20/17 09:14 (Lipitor) 20 mg HS PO 08/17/17 21:00 08/19/17 21:20 (Duoneb Neb) 1 ampule BID NEB INH 08/17/17 21:00 08/19/17 20:11 (Miralax) 17 gm DAILY PO 08/18/17 09:00 08/20/17 09:14 (Restoril) 15 mg HS PRN PO 08/17/17 14:45 08/18/17 21:26 Patient Own Medication PT OWN MED: Umeclidinium Brom... DAILY INH 08/18/17 09:00 Future Hold (Tylenol) 650 mg Q4H PRN PO 08/17/17 14:45 (Zofran Inj) 4 mg Q6H PRN IV 08/17/17 14:45 (NovoLOG SUPPLEMENTAL SCALE) 1 ACHS SLIDING SCALE SQ 08/17/17 17:00 08/19/17 21:22 (D50w (Vial) Inj) 50 ml UNSCH PRN IV PUSH 08/17/17 15:00 (Glucagon Inj) 1 mg UNSCH PRN OTHER 08/17/17 15:00 (NS Flush) 2 ml UNSCH PRN IV FLUSH 08/17/17 17:45 (NS Flush) 2 ml BID IV FLUSH 08/17/17 21:00 08/20/17 07:54 (Duoneb Neb) 1 ampule Q4HR NEB PRN NEB 08/18/17 20:00 (Lopressor) 100 mg Q12HR PO 08/19/17 21:00 08/20/17 09:14 (Cardizem Cd) 300 mg DAILY PO 08/20/17 09:00 08/20/17 09:13 Vital Signs / I&O Vital Signs Date Time Temp Pulse Resp B/P (MAP) Pulse Ox O2 Delivery O2 Flow Rate FiO2 08/20/17 12:32 97.3 119 19 124/92 (103) 97 08/20/17 08:24 97.9 97 20 133/96 (108) 96 08/20/17 04:00 97.5 112 16 125/84 (98) 95 08/20/17 00:00 97.6 112 17 111/83 (92) 97 08/20/17 00:00 95 08/19/17 20:00 100 08/19/17 20:00 Room Air 08/19/17 20:00 97.3 122 20 125/82 (96) 95 08/19/17 16:00 97.9 115 20 131/73 (92) 96 I/O 08/19/17 08/19/17 08/19/17 08/20/17 08/20/17 08/20/17 07:00 15:00 23:00 07:00 15:00 23:00 Intake Total 240 ml 840 ml 400 ml Output Total 800 ml 600 ml 600 ml Balance -560 ml 240 ml -200 ml Intake Oral 240 ml 840 ml 400 ml Output Urine Total 800 ml 600 ml 600 ml # Bowel Movements 0 0 Mike Adorno MD Aug 20, 2017 14:18
[2017-08-20] MEDS: LISINOPRIL 5 MG TAB PO SCH (14:46)
--- NOTE | 2017-08-20 18:26 | HHI.PR ---
Subjective Remarks Heart rate remains elevated high 1teen-120s Patient reports feeling fatigued Patient has cough Objective Vitals Vital Signs Date Time Temp Pulse Resp B/P (MAP) Pulse Ox O2 Delivery O2 Flow Rate FiO2 08/20/17 16:05 97.4 100 18 136/94 (108) 96 08/20/17 12:32 97.3 119 19 124/92 (103) 97 08/20/17 12:00 117 08/20/17 08:24 97.9 97 20 133/96 (108) 96 08/20/17 08:00 116 08/20/17 04:00 97.5 112 16 125/84 (98) 95 08/20/17 00:00 97.6 112 17 111/83 (92) 97 08/20/17 00:00 95 08/19/17 20:00 100 08/19/17 20:00 Room Air 08/19/17 20:00 97.3 122 20 125/82 (96) 95 08/20/17 08/20/17 08/21/17 15:00 23:00 07:00 Intake Total 360 ml Output Total 3 ml Balance 357 ml Intake Oral 360 ml Output Urine Total 3 ml # Bowel Movements 1 Result Diagram: 08/18/17 0438 08/18/17 0438 Other Results Laboratory Tests Test 08/18/17 04:38 White Blood Count 6.7 TH/MM3 Red Blood Count 3.78 MIL/MM3 Hemoglobin 11.5 GM/DL Hematocrit 34.7 % Mean Corpuscular Volume 91.7 FL Mean Corpuscular Hemoglobin 30.3 PG Mean Corpuscular Hemoglobin Concent 33.0 % Red Cell Distribution Width 14.9 % Platelet Count 275 TH/MM3 Mean Platelet Volume 9.3 FL Neutrophils (%) (Auto) 70.2 % Lymphocytes (%) (Auto) 17.6 % Monocytes (%) (Auto) 8.8 % Eosinophils (%) (Auto) 2.6 % Basophils (%) (Auto) 0.8 % Neutrophils # (Auto) 4.7 TH/MM3 Lymphocytes # (Auto) 1.2 TH/MM3 Monocytes # (Auto) 0.6 TH/MM3 Eosinophils # (Auto) 0.2 TH/MM3 Basophils # (Auto) 0.1 TH/MM3 CBC Comment DIFF FINAL Differential Comment Blood Urea Nitrogen 20 MG/DL Creatinine 1.08 MG/DL Random Glucose 88 MG/DL Calcium Level 9.7 MG/DL Magnesium Level 1.8 MG/DL Sodium Level 138 MEQ/L Potassium Level 4.0 MEQ/L Chloride Level 100 MEQ/L Carbon Dioxide Level 29.2 MEQ/L Anion Gap 9 MEQ/L Estimat Glomerular Filtration Rate 49 ML/MIN Imaging Last Impressions Chest X-Ray 08/17/17 1340 Signed Impressions: Service Date/Time: Thursday, August 17, 2017 13:54 - CONCLUSION: 1. Cardiomegaly. 2. Scattered atelectasis and/or scarring bilaterally. Álvaro Massey MD Objective Remarks GENERAL: This is a well-nourished, well-developed patient, in no apparent distress. CARDIOVASCULAR: irregularly irregular and tachycardic RESPIRATORY: Poor air entry with scattered wheezing GASTROINTESTINAL: Abdomen soft, non-tender, nondistended. Normal active bowel sounds MUSCULOSKELETAL: Extremities without clubbing, cyanosis, or edema. NEURO: Alert & Oriented x4 to person, place, time, situation. Moves all ext x4 A/P Problem List: (1) Atrial fibrillation with RVR ICD Codes: I48.91 - Unspecified atrial fibrillation Status: Acute Plan: - Pt is an 81 y/o WF with atrial fibrillation on chronic anticoagulation with Eliquis, diabetes, hypertension, and COPD who [place] [facility] [place] with complaints of progressive SOB for about 10-14 days. - Pt was seen as an outpt at [facility] on 07/31/17 with complaints of a cough. Pt was prescribed Doxycycline 100mg po BID x 10 days. - She was seen in followup by her PCP, Dr. Barrington Kruse, today and complained of continued intermittent cough, fatigue, SOB, and some LE edema. Pts EKG noted A. fib RVR with HR of 119. - When the pt presented to the ED she was in A. fib RVR with HR in the 130's. - Pt was given one dose of IV Cardizem with some improvement. - CXR in the ED noted cardiomegaly and scattered atelectasis and/or scarring bilaterally. - Pt admits that she has not been taking her Metoprolol at home since [place] - When pt arrived to the floor her HR became elevated again into the 130's with very little exertion. - Cardizem gtt initially then DC'd - Resume home meds, including Metoprolol 50mg po BID and Cardizem 240mg po daily , increased per cardiology to metoprolol 100 mg BID and Cardizem 300mg daily - 08/20/17 Dr. Funez discussed the case with Dr. Adorno, plan if rate remains uncontrolled to start digoxin - digoxin 0.5 mg IV now then digoxin 0.25 mg in 6 hours - dig level in AM - Telemetry - Supportive care - Pt resumed on Eliquis - echocardiogram 08/20/17 reviewed and reveals: Normal left ventricular size. Wall thickness is normal. The left ventricular systolic function is severely reduced with an estimated ejection fraction in the range of 20%. There is global left ventricular dysfunction. The right ventricular systolic function is moderately decreased. The left atrial size is mildly dilated. The right atrial size is axsw-sg-hpschtmfin dilated. Mitral annular calcification is present. Mild mitral valve regurgitation. Aortic valve sclerosis is present. Trace aortic valve regurgitation. There is qosq-rp-nkfaxpjz tricuspid valve regurgitation. There is estimated mnsuewxl-wf-qonyct pulmonary hypertension present (60 mmHg ). The inferior vena cava is dilated. - TSH (2) HTN (hypertension) ICD Codes: I10 - Essential (primary) hypertension Status: Chronic Plan: - Home meds resumed - Monitor (3) Hyperlipidemia ICD Codes: E78.5 - Hyperlipidemia, unspecified Status: Chronic Plan: - Cont. home meds (4) COPD (chronic obstructive pulmonary disease) ICD Codes: J44.9 - Chronic obstructive pulmonary disease, unspecified Status: Acute Plan: - Duonebs Q6H while awake and PRN Start solumedrol 60 mg IV BID (5) Cough ICD Codes: R05 - Cough Plan: cough since 05/02 hx of [employer] work CT chest in AM Assessment and Plan Patient examined. Assessment and plan formulated with Sharla Zapata PA-C. I agree with the above. Sharla Zapata Aug 20, 2017 18:26 Jeb Funez DO Aug 25, 2017 23:24
[2017-08-20] MEDS ORDERED: DIGOXIN 0.5 MG/2 ML VIAL IVS ONE (18:45)
[2017-08-20] MEDS ORDERED: RESP: ALBUTEROL 2.5 MG/IPRATROPIUM 0.5 MG NEB (PRN) NEB (19:15)
--- NOTE | 2017-08-20 19:15 | EKG ---
Date Performed: 08/19/2017 Time Performed: 07:37:36 PTAGE: 81 years EKG: Atrial fibrillation with rapid ventricular response. Left bundle branch block Abnormal ECG PREVIOUS TRACING : 08/17/2017 13.36 DOCTOR: Sophy Vigil Interpretating Date/Time 08/20/2017 19:14:59
[2017-08-20] MEDS: ATORVASTATIN 20 MG TAB PO SCH (21:32)
[2017-08-20] MEDS: methylPREDNISolone SOD SUCC 125 MG/2 ML VIAL IV PUSH SCH (21:32)
[2017-08-20] MEDS: TEMAZEPAM 15 MG CAP PO PRN (21:37)
[2017-08-21] VITALS (11 sets, daily range): BP systolic 117–149; BP diastolic 60–80; PULSE 62–117; RESP 18–20; TEMP 97.2–98.1; O2SAT 93–98
[2017-08-21] MEDS ORDERED: DIGOXIN 0.5 MG/2 ML VIAL IVS SCH (00:45)
[2017-08-21] MEDS: INSULIN ASPART SUPPLEMENTAL SCALE SQ SCH ×4 (08:00→20:10)
[2017-08-21] MEDS: POLYETHYLENE GLYCOL 17 GM PKG PO SCH (09:00)
--- NOTE | 2017-08-21 09:02 | PD.CARD.PN ---
Subjective Subjective Remarks Rate now controlled. Feels well. Objective Medications Current Medications Medications (Trade) Dose Ordered Sig/Ozzie Route Start Time Stop Time Status Last Admin (Eliquis) 5 mg BID PO 08/17/17 21:00 08/20/17 21:32 (Aspirin Chew) 81 mg DAILY CHEW 08/18/17 09:00 08/20/17 09:14 (Lipitor) 20 mg HS PO 08/17/17 21:00 08/20/17 21:32 (Miralax) 17 gm DAILY PO 08/18/17 09:00 08/20/17 09:14 (Restoril) 15 mg HS PRN PO 08/17/17 14:45 08/20/17 21:37 Patient Own Medication PT OWN MED: Umeclidinium Brom... DAILY INH 08/18/17 09:00 Future Hold (Tylenol) 650 mg Q4H PRN PO 08/17/17 14:45 (Zofran Inj) 4 mg Q6H PRN IV 08/17/17 14:45 08/20/17 18:57 (NovoLOG SUPPLEMENTAL SCALE) 1 ACHS SLIDING SCALE SQ 08/17/17 17:00 08/20/17 18:41 (D50w (Vial) Inj) 50 ml UNSCH PRN IV PUSH 08/17/17 15:00 (Glucagon Inj) 1 mg UNSCH PRN OTHER 08/17/17 15:00 (NS Flush) 2 ml UNSCH PRN IV FLUSH 08/17/17 17:45 (NS Flush) 2 ml BID IV FLUSH 08/17/17 21:00 08/20/17 21:30 (Lopressor) 100 mg Q12HR PO 08/19/17 21:00 08/20/17 21:32 (Cardizem Cd) 300 mg DAILY PO 08/20/17 09:00 08/20/17 09:13 (Prinivil) 5 mg DAILY PO 08/20/17 14:45 08/20/17 14:46 (Duoneb Neb) 1 ampule Q6HR WHILE AWAKE NEB INH 08/20/17 20:00 08/20/17 20:37 (Duoneb Neb) 1 ampule Q2HR NEB PRN NEB 08/20/17 19:15 (SoluMEDROL INJ) 60 mg Q12HR IV PUSH 08/20/17 21:00 08/20/17 21:32 Vital Signs / I&O Vital Signs Date Time Temp Pulse Resp B/P (MAP) Pulse Ox O2 Delivery O2 Flow Rate FiO2 08/21/17 04:00 98.1 83 18 117/67 (84) 93 08/20/17 23:54 97.8 106 18 139/96 (110) 94 08/20/17 20:48 97.6 125 18 131/91 (104) 93 08/20/17 20:00 125 08/20/17 16:05 97.4 100 18 136/94 (108) 96 08/20/17 16:00 110 08/20/17 12:32 97.3 119 19 124/92 (103) 97 08/20/17 12:00 117 I/O 08/20/17 08/20/17 08/20/17 08/21/17 08/21/17 08/21/17 07:00 15:00 23:00 07:00 15:00 23:00 Intake Total 400 ml 360 ml Output Total 600 ml 3 ml 600 ml Balance -200 ml 357 ml -600 ml Intake Oral 400 ml 360 ml Output Urine Total 600 ml 3 ml 600 ml # Voids 2 # Bowel Movements 1 Physical Exam Lungs clear irregular HR 70-80 Assessment and Plan Assessment and Plan Stable CV. OK to D/C home on present regimen. F/u 1 week in office Mike Adorno MD Aug 21, 2017 09:02
[2017-08-21 09:24] LABS: AUTOMATED NEUTROPHIL # 5.2 TH/MM3 (1.8-7.7); BASOPHIL % 0.1 % (0.0-2.0); EOSINOPHIL % 0.1 % (0.0-4.0); HEMATOCRIT 33.6 % (35.0-46.0); HEMOGLOBIN 11.1 GM/DL (11.6-15.3); LYMPH % 8.6 % (9.0-44.0); LYMPHOCYTE # 0.5 TH/MM3 (1.0-4.8); MEAN CELL VOLUME 91.5 FL (80.0-100.0); MEAN CORPUSCULAR HEMOGLOBIN 30.2 PG (27.0-34.0); MONO % 1.9 % (0.0-8.0); MONOCYTE # 0.1 TH/MM3 (0-0.9); NEUT % 89.3 % (16.0-70.0); PLATELET COUNT 253 TH/MM3 (150-450); RED BLOOD COUNT 3.67 MIL/MM3 (4.00-5.30); RED CELL DISTRIBUTION WIDTH 14.8 % (11.6-17.2); WHITE BLOOD COUNT 5.8 TH/MM3 (4.0-11.0)
[2017-08-21 09:47] LABS: BICARBONATE 26.8 MEQ/L (21.0-32.0); CALCIUM 9.2 MG/DL (8.5-10.1); CREATININE 0.92 MG/DL (0.50-1.00)
[2017-08-21 10:02] LABS: DIGOXIN 1.8 NG/ML (0.8-2.0); FREE T4 1.09 NG/DL (0.76-1.46)
[2017-08-21] MEDS: METOPROLOL TARTRATE 100 MG TAB PO SCH ×2 (10:19→20:09)
[2017-08-21] MEDS: LISINOPRIL 5 MG TAB PO SCH (10:19)
[2017-08-21] MEDS: DILTIAZEM-CD 300 MG CAP ER PO SCH (10:19)
[2017-08-21] MEDS: APIXABAN 5 MG TABLET PO SCH ×2 (10:20→20:09)
[2017-08-21] MEDS: ASPIRIN 81 MG CHEW TAB CHEW SCH (10:20)
[2017-08-21] MEDS: methylPREDNISolone SOD SUCC 125 MG/2 ML VIAL IV PUSH SCH ×2 (10:21→20:10)
--- NOTE | 2017-08-21 11:06 | RADRPT ---
EXAM DATE/TIME: 08/21/2017 09:59 [place] COMPARISON: No previous studies available for comparison. INDICATIONS : Shortness of breath, cough. RADIATION DOSE: 8.80 CTDIvol (mGy) MEDICAL HISTORY : Congestive hearrt failure. Chronic obstructive pulmonary disease. Cardiovascular disease diabetes SURGICAL HISTORY : Tonsillectomy. Hysterectomy. ENCOUNTER: Initial ACUITY: 1 day PAIN SCALE: 0/10 LOCATION: Bilateral chest TECHNIQUE: Volumetric scanning of the chest was performed. Using automated exposure control and adjustment of t he mA and/or kV according to patient size, radiation dose was kept as low as reasonably achievable to obtain optimal diagnostic quality images. DICOM format image data is available electronically for r eview and comparison. Follow-up recommendations for detected pulmonary nodules are based at a minimum on nodule size and pa tient risk factors according to Fleischner Society Guidelines. FINDINGS: LUNGS: There is no consolidation or pneumothorax. No concerning pulmonary nodule is visualized. Minimal sca ttered fibrotic scarring is noted bilaterally. PLEURAE: Tiny bilateral pleural effusions are noted. MEDIASTINUM: The heart and great vessels demonstrate no acute abnormality. There is no mediastinal or hilar lymph adenopathy. Cardiomegaly is noted. Coronary artery calcifications are noted. AXILLAE: Within normal limits. No lymphadenopathy. MUSCULOSKELETAL: Degenerative changes are noted throughout the thoracic spine. MISCELLANEOUS: The visualized upper abdominal organs demonstrate no acute abnormality. CONCLUSION: 1. Tiny bilateral pleural effusions. 2. Minimal scattered fibrotic scarring. 3. Cardiomegaly and coronary artery calcifications. Álvaro Massey MD on August 21, 2017 at 11:01 Board Certified Radiologist. This report was verified electronically.
[2017-08-21] MEDS: RESP: ALBUTEROL 2.5 MG/IPRATROPIUM 0.5 MG NEB (SCH) INH ×3 (12:58→20:00)
[2017-08-21] MEDS ORDERED: SODIUM CHLORIDE 0.9% FLUSH 10 ML FLUSH IVF PRN (14:00)
--- NOTE | 2017-08-21 14:23 | HHI.PR ---
Subjective Remarks Patient reports feeling well Denies palpitations Objective Vitals Vital Signs Date Time Temp Pulse Resp B/P (MAP) Pulse Ox O2 Delivery O2 Flow Rate FiO2 08/21/17 09:11 98 08/21/17 08:00 97.2 83 20 137/76 (96) 94 08/21/17 08:00 98 08/21/17 04:00 98.1 83 18 117/67 (84) 93 08/20/17 23:54 97.8 106 18 139/96 (110) 94 08/20/17 20:48 97.6 125 18 131/91 (104) 93 08/20/17 20:00 125 08/20/17 16:05 97.4 100 18 136/94 (108) 96 08/20/17 16:00 110 Result Diagram: 08/21/17 0858 08/21/17 0858 Other Results Laboratory Tests Test 08/21/17 08:58 White Blood Count 5.8 TH/MM3 Red Blood Count 3.67 MIL/MM3 Hemoglobin 11.1 GM/DL Hematocrit 33.6 % Mean Corpuscular Volume 91.5 FL Mean Corpuscular Hemoglobin 30.2 PG Mean Corpuscular Hemoglobin Concent 33.0 % Red Cell Distribution Width 14.8 % Platelet Count 253 TH/MM3 Mean Platelet Volume 9.0 FL Neutrophils (%) (Auto) 89.3 % Lymphocytes (%) (Auto) 8.6 % Monocytes (%) (Auto) 1.9 % Eosinophils (%) (Auto) 0.1 % Basophils (%) (Auto) 0.1 % Neutrophils # (Auto) 5.2 TH/MM3 Lymphocytes # (Auto) 0.5 TH/MM3 Monocytes # (Auto) 0.1 TH/MM3 Eosinophils # (Auto) 0.0 TH/MM3 Basophils # (Auto) 0.0 TH/MM3 CBC Comment DIFF FINAL Differential Comment Blood Urea Nitrogen 19 MG/DL Creatinine 0.92 MG/DL Random Glucose 177 MG/DL Calcium Level 9.2 MG/DL Sodium Level 136 MEQ/L Potassium Level 4.6 MEQ/L Chloride Level 102 MEQ/L Carbon Dioxide Level 26.8 MEQ/L Anion Gap 7 MEQ/L Estimat Glomerular Filtration Rate 58 ML/MIN Free Thyroxine 1.09 NG/DL Thyroid Stimulating Hormone 3rd Gen 0.401 uIU/ML Digoxin Level 1.8 NG/ML Imaging Last Impressions Chest X-Ray 1/2/18 1340 Signed Impressions: Service Date/Time: Thursday, August 17, 2017 13:54 - CONCLUSION: 1. Cardiomegaly. 2. Scattered atelectasis and/or scarring bilaterally. Álvaro Massey MD Objective Remarks GENERAL: This is a well-nourished, well-developed patient, in no apparent distress. CARDIOVASCULAR: irregularly irregular and tachycardic RESPIRATORY: few scattered wheezes GASTROINTESTINAL: Abdomen soft, non-tender, nondistended. Normal active bowel sounds MUSCULOSKELETAL: Extremities without clubbing, cyanosis, or edema. NEURO: Alert & Oriented x4 to person, place, time, situation. Moves all ext x4 A/P Problem List: (1) Atrial fibrillation with RVR ICD Codes: I48.91 - Unspecified atrial fibrillation Status: Acute Plan: - Pt is an 81 y/o WF with atrial fibrillation on chronic anticoagulation with Eliquis, diabetes, hypertension, and COPD who presented to [facility] emergency department with complaints of progressive SOB for about 10-14 days. - Pt was seen as an outpt at [facility] on 07/31/17 with complaints of a cough. Pt was prescribed Doxycycline 100mg po BID x 10 days. - She was seen in followup by her PCP, Dr. Barrington Kruse, today and complained of continued intermittent cough, fatigue, SOB, and some LE edema. Pts EKG noted A. fib RVR with HR of 119. - When the pt presented to the ED she was in A. fib RVR with HR in the 130's. - Pt was given one dose of IV Cardizem with some improvement. - CXR in the ED noted cardiomegaly and scattered atelectasis and/or scarring bilaterally. - Pt admits that she has not been taking her Metoprolol at home since [place] - When pt arrived to the floor her HR became elevated again into the 130's with very little exertion. - Cardizem gtt initially then DC'd - Resume home meds, including Metoprolol 50mg po BID and Cardizem 240mg po daily , increased per cardiology to metoprolol 100 mg BID and Cardizem 300mg daily - 08/20/17 Dr. Funez discussed the case with Dr. Adorno, plan if rate remains uncontrolled to start digoxin - 08/20/17 digoxin 0.5 mg IV now then digoxin 0.25 mg in 6 hours - dig level (08/21) - HR remains elevated 1teens to 120s. Dr. Funez discussed the case again with Dr. Adorno. - will start amiodarone IV per protocol 08/21/17 - Telemetry - Supportive care - Continue Eliquis - echocardiogram 08/20/17 reviewed and reveals: Normal left ventricular size. Wall thickness is normal. The left ventricular systolic function is severely reduced with an estimated ejection fraction in the range of 20%. There is global left ventricular dysfunction. The right ventricular systolic function is moderately decreased. The left atrial size is mildly dilated. The right atrial size is jbbt-ss-sapdouumss dilated. Mitral annular calcification is present. Mild mitral valve regurgitation. Aortic valve sclerosis is present. Trace aortic valve regurgitation. There is uchw-fn-caiavvfj tricuspid valve regurgitation. There is estimated gpwhfexm-hz-hikgja pulmonary hypertension present (60 mmHg ). The inferior vena cava is dilated. - TSH (2) HTN (hypertension) ICD Codes: I10 - Essential (primary) hypertension Status: Chronic Plan: - Home meds resumed - Monitor (3) Hyperlipidemia ICD Codes: E78.5 - Hyperlipidemia, unspecified Status: Chronic Plan: - Cont. home meds (4) COPD (chronic obstructive pulmonary disease) ICD Codes: J44.9 - Chronic obstructive pulmonary disease, unspecified Status: Acute Plan: - Duonebs Q6H while awake and PRN Continue solumedrol 60 mg IV BID (5) Cough ICD Codes: R05 - Cough Plan: cough since 05/02 hx of [employer] work CT chest 08/21/17 reveals tiny bilateral pleural effusions with scattered fibrosis , cardiomegaly and coronary artery calcifications Assessment and Plan Patient examined. Assessment and plan formulated with Sharla Zapata PA-C. I agree with the above. Sharla Zapata Aug 21, 2017 14:23 Jeb Funez DO Aug 25, 2017 23:25
[2017-08-21] MEDS: BENZONATATE 100 MG CAP PO PRN (15:00)
[2017-08-21] MEDS ORDERED: AMIODARONE INJ 150 MG in DEXTROSE 5% IN WATER 100ML INJ 97 ML IV ONE ×2 (15:00)
[2017-08-21] MEDS: SODIUM CHLORIDE 0.9% FLUSH 10 ML FLUSH IV FLUSH SCH ×2 (15:59→20:10)
[2017-08-21] MEDS: AMIODARONE INJ 450 MG in DEXTROSE 5% IN WATE(EXCEL) INJ 241 ML IV SCH ×2 (15:59)
[2017-08-21] MEDS: ATORVASTATIN 20 MG TAB PO SCH (20:09)
[2017-08-21] MEDS: TEMAZEPAM 15 MG CAP PO PRN (20:09)
[2017-08-22] VITALS (11 sets, daily range): BP systolic 121–135; BP diastolic 63–90; PULSE 56–106; RESP 18–20; TEMP 97.2–98.4; O2SAT 94–98
[2017-08-22] MEDS: AMIODARONE INJ 450 MG in DEXTROSE 5% IN WATE(EXCEL) INJ 241 ML IV SCH ×8 (00:19→21:20)
--- NOTE | 2017-08-22 08:06 | PD.CARD.PN ---
Subjective Subjective Remarks Rate now controlled. Feels well. Objective Medications Current Medications Medications (Trade) Dose Ordered Sig/Ozzie Route Start Time Stop Time Status Last Admin (Eliquis) 5 mg BID PO 08/17/17 21:00 08/21/17 20:09 (Aspirin Chew) 81 mg DAILY CHEW 08/18/17 09:00 08/21/17 10:20 (Lipitor) 20 mg HS PO 08/17/17 21:00 08/21/17 20:09 (Miralax) 17 gm DAILY PO 08/18/17 09:00 08/21/17 09:00 (Restoril) 15 mg HS PRN PO 08/17/17 14:45 08/21/17 20:09 Patient Own Medication PT OWN MED: Umeclidinium Brom... DAILY INH 08/18/17 09:00 Future Hold (Tylenol) 650 mg Q4H PRN PO 08/17/17 14:45 (Zofran Inj) 4 mg Q6H PRN IV 08/17/17 14:45 08/20/17 18:57 (NovoLOG SUPPLEMENTAL SCALE) 1 ACHS SLIDING SCALE SQ 08/17/17 17:00 08/21/17 20:10 (D50w (Vial) Inj) 50 ml UNSCH PRN IV PUSH 08/17/17 15:00 (Glucagon Inj) 1 mg UNSCH PRN OTHER 08/17/17 15:00 (NS Flush) 2 ml UNSCH PRN IV FLUSH 08/17/17 17:45 (NS Flush) 2 ml BID IV FLUSH 08/17/17 21:00 08/21/17 20:10 (Lopressor) 100 mg Q12HR PO 08/19/17 21:00 08/21/17 20:09 (Cardizem Cd) 300 mg DAILY PO 08/20/17 09:00 08/21/17 10:19 (Prinivil) 5 mg DAILY PO 08/20/17 14:45 08/21/17 10:19 (Duoneb Neb) 1 ampule Q6HR WHILE AWAKE NEB INH 08/20/17 20:00 08/21/17 20:00 (Duoneb Neb) 1 ampule Q2HR NEB PRN NEB 08/20/17 19:15 (SoluMEDROL INJ) 60 mg Q12HR IV PUSH 08/20/17 21:00 08/21/17 20:10 Amiodarone HCl 450 mg/Dextrose 250 ml @ 33 mls/hr Q7H35M IV 08/21/17 15:00 08/22/17 00:19 (NS Flush) 2 ml UNSCH PRN IVF 08/21/17 14:00 (Tessalon) 200 mg TID PRN PO 08/21/17 14:30 08/21/17 15:00 Vital Signs / I&O Vital Signs Date Time Temp Pulse Resp B/P (MAP) Pulse Ox O2 Delivery O2 Flow Rate FiO2 08/22/17 04:00 97.7 70 18 129/75 (93) 94 08/22/17 04:00 80 08/22/17 00:19 80 142/72 08/22/17 00:00 97.8 78 18 121/63 (82) 98 08/22/17 00:00 63 08/21/17 20:17 98 08/21/17 20:00 97.3 69 18 128/61 (83) 96 08/21/17 20:00 74 08/21/17 17:45 62 121/62 (81) 08/21/17 17:00 83 131/68 (89) 08/21/17 16:30 97.2 73 20 149/60 (89) 95 08/21/17 16:11 117 128/72 (90) 08/21/17 15:59 108 127/80 08/21/17 15:59 108 127/80 08/21/17 14:35 108 18 127/80 (96) 08/21/17 12:00 97.3 93 20 147/65 (92) 95 08/21/17 09:11 98 I/O 08/21/17 08/21/17 08/21/17 08/22/17 08/22/17 08/22/17 07:00 15:00 23:00 07:00 15:00 23:00 Intake Total 1200 ml Output Total 600 ml 400 ml Balance -600 ml 800 ml Intake Oral 1200 ml Output Urine Total 600 ml 400 ml # Voids 2 # Bowel Movements 1 Physical Exam Lungs clear irregular HR 70-80 Laboratory Laboratory Tests Test 08/21/17 08:58 White Blood Count 5.8 TH/MM3 Red Blood Count 3.67 MIL/MM3 Hemoglobin 11.1 GM/DL Hematocrit 33.6 % Mean Corpuscular Volume 91.5 FL Mean Corpuscular Hemoglobin 30.2 PG Mean Corpuscular Hemoglobin Concent 33.0 % Red Cell Distribution Width 14.8 % Platelet Count 253 TH/MM3 Mean Platelet Volume 9.0 FL Neutrophils (%) (Auto) 89.3 % Lymphocytes (%) (Auto) 8.6 % Monocytes (%) (Auto) 1.9 % Eosinophils (%) (Auto) 0.1 % Basophils (%) (Auto) 0.1 % Neutrophils # (Auto) 5.2 TH/MM3 Lymphocytes # (Auto) 0.5 TH/MM3 Monocytes # (Auto) 0.1 TH/MM3 Eosinophils # (Auto) 0.0 TH/MM3 Basophils # (Auto) 0.0 TH/MM3 CBC Comment DIFF FINAL Differential Comment Blood Urea Nitrogen 19 MG/DL Creatinine 0.92 MG/DL Random Glucose 177 MG/DL Calcium Level 9.2 MG/DL Sodium Level 136 MEQ/L Potassium Level 4.6 MEQ/L Chloride Level 102 MEQ/L Carbon Dioxide Level 26.8 MEQ/L Anion Gap 7 MEQ/L Estimat Glomerular Filtration Rate 58 ML/MIN Free Thyroxine 1.09 NG/DL Thyroid Stimulating Hormone 3rd Gen 0.401 uIU/ML Digoxin Level 1.8 NG/ML Assessment and Plan Assessment and Plan Stable CV. Switch to p.o. amio 200 mg daily once IV loading completed Mike Adorno MD Aug 22, 2017 08:06
[2017-08-22] MEDS: SODIUM CHLORIDE 0.9% FLUSH 10 ML FLUSH IV FLUSH SCH ×2 (08:29→21:35)
[2017-08-22] MEDS: INSULIN ASPART SUPPLEMENTAL SCALE SQ SCH ×4 (08:29→21:33)
[2017-08-22] MEDS: ASPIRIN 81 MG CHEW TAB CHEW SCH (08:29)
[2017-08-22] MEDS: POLYETHYLENE GLYCOL 17 GM PKG PO SCH (08:30)
[2017-08-22] MEDS: METOPROLOL TARTRATE 100 MG TAB PO SCH ×2 (08:30→21:34)
[2017-08-22] MEDS: APIXABAN 5 MG TABLET PO SCH ×2 (08:30→21:34)
[2017-08-22] MEDS: methylPREDNISolone SOD SUCC 125 MG/2 ML VIAL IV PUSH SCH (08:30)
[2017-08-22] MEDS: DILTIAZEM-CD 300 MG CAP ER PO SCH (08:30)
[2017-08-22] MEDS: LISINOPRIL 5 MG TAB PO SCH (08:30)
[2017-08-22] MEDS: BENZONATATE 100 MG CAP PO PRN ×2 (08:31→17:28)
[2017-08-22] MEDS: RESP: ALBUTEROL 2.5 MG/IPRATROPIUM 0.5 MG NEB (SCH) INH ×3 (08:41→21:30)
--- NOTE | 2017-08-22 16:16 | HHI.PR ---
Subjective Remarks Patient reports feeling well telemetry showed multiple 3 sec to 4 sec pauses between 1330 and 1430 Objective Vitals Vital Signs Date Time Temp Pulse Resp B/P (MAP) Pulse Ox O2 Delivery O2 Flow Rate FiO2 08/22/17 15:24 72 08/22/17 13:45 45 08/22/17 12:00 97.4 94 20 133/77 (95) 97 08/22/17 08:44 95 21 08/22/17 08:28 103 122/83 08/22/17 08:00 98.4 103 20 122/83 (96) 96 08/22/17 08:00 104 08/22/17 04:00 97.7 70 18 129/75 (93) 94 08/22/17 04:00 80 08/22/17 00:19 80 142/72 08/22/17 00:00 97.8 78 18 121/63 (82) 98 08/22/17 00:00 63 08/21/17 20:17 98 08/21/17 20:00 97.3 69 18 128/61 (83) 96 08/21/17 20:00 74 08/21/17 17:45 62 121/62 (81) 08/21/17 17:00 83 131/68 (89) 08/21/17 16:30 97.2 73 20 149/60 (89) 95 Result Diagram: 08/21/17 0858 08/21/17 0858 Other Results Laboratory Tests Test 08/21/17 08:58 White Blood Count 5.8 TH/MM3 Red Blood Count 3.67 MIL/MM3 Hemoglobin 11.1 GM/DL Hematocrit 33.6 % Mean Corpuscular Volume 91.5 FL Mean Corpuscular Hemoglobin 30.2 PG Mean Corpuscular Hemoglobin Concent 33.0 % Red Cell Distribution Width 14.8 % Platelet Count 253 TH/MM3 Mean Platelet Volume 9.0 FL Neutrophils (%) (Auto) 89.3 % Lymphocytes (%) (Auto) 8.6 % Monocytes (%) (Auto) 1.9 % Eosinophils (%) (Auto) 0.1 % Basophils (%) (Auto) 0.1 % Neutrophils # (Auto) 5.2 TH/MM3 Lymphocytes # (Auto) 0.5 TH/MM3 Monocytes # (Auto) 0.1 TH/MM3 Eosinophils # (Auto) 0.0 TH/MM3 Basophils # (Auto) 0.0 TH/MM3 CBC Comment DIFF FINAL Differential Comment Blood Urea Nitrogen 19 MG/DL Creatinine 0.92 MG/DL Random Glucose 177 MG/DL Calcium Level 9.2 MG/DL Sodium Level 136 MEQ/L Potassium Level 4.6 MEQ/L Chloride Level 102 MEQ/L Carbon Dioxide Level 26.8 MEQ/L Anion Gap 7 MEQ/L Estimat Glomerular Filtration Rate 58 ML/MIN Free Thyroxine 1.09 NG/DL Thyroid Stimulating Hormone 3rd Gen 0.401 uIU/ML Digoxin Level 1.8 NG/ML Imaging Last Impressions Chest X-Ray 08/17/17 1340 Signed Impressions: Service Date/Time: Thursday, August 17, 2017 13:54 - CONCLUSION: 1. Cardiomegaly. 2. Scattered atelectasis and/or scarring bilaterally. Álvaor Massey MD Objective Remarks GENERAL: This is a well-nourished, well-developed patient, in no apparent distress. CARDIOVASCULAR: irregularly irregular RESPIRATORY: Poor air entry with scattered wheezing GASTROINTESTINAL: Abdomen soft, non-tender, nondistended. Normal active bowel sounds MUSCULOSKELETAL: Extremities without clubbing, cyanosis, or edema. NEURO: Alert & Oriented x4 to person, place, time, situation. Moves all ext x4 A/P Problem List: (1) Atrial fibrillation with RVR ICD Codes: I48.91 - Unspecified atrial fibrillation Status: Acute Plan: - Pt is an 81 y/o WF with atrial fibrillation on chronic anticoagulation with Eliquis, diabetes, hypertension, and COPD who presented to [facility] emergency department with complaints of progressive SOB for about 10-14 days. - Pt was seen as an outpt at [facility] on 07/31/17 with complaints of a cough. Pt was prescribed Doxycycline 100mg po BID x 10 days. - She was seen in followup by her PCP, Dr. Barrington Kruse, today and complained of continued intermittent cough, fatigue, SOB, and some LE edema. Pts EKG noted A. fib RVR with HR of 119. - When the pt presented to the ED she was in A. fib RVR with HR in the 130's. - Pt was given one dose of IV Cardizem with some improvement. - CXR in the ED noted cardiomegaly and scattered atelectasis and/or scarring bilaterally. - Pt admits that she has not been taking her Metoprolol at home since - When pt arrived to the floor her HR became elevated again into the 130's with very little exertion. - Cardizem gtt initially then DC'd - Resume home meds, including Metoprolol 50mg po BID and Cardizem 240mg po daily , increased per cardiology to metoprolol 100 mg BID and Cardizem 300mg daily - 08/20/17 Dr. Funez discussed the case with Dr. Adorno, plan if rate remains uncontrolled to start digoxin - 08/20/17 digoxin 0.5 mg IV now then digoxin 0.25 mg in 6 hours - dig level (08/21) - HR remains elevated 1teens to 120s. Dr. Funez discussed the case again with Dr. Adorno. - amiodarone IV per protocol 08/21/17 - 08/22/17 patient has had 5 3 sec to 4 sec pauses between 1330 -1430. Patient asymptomatic Amiodarone stopped - Dr. Adorno notified - consult placed to Dr. Vigil - Telemetry - Supportive care - Continue Eliquis - echocardiogram 08/20/17 reviewed and reveals: Normal left ventricular size. Wall thickness is normal. The left ventricular systolic function is severely reduced with an estimated ejection fraction in the range of 20%. There is global left ventricular dysfunction. The right ventricular systolic function is moderately decreased. The left atrial size is mildly dilated. The right atrial size is glps-ke-qcmhaqjhid dilated. Mitral annular calcification is present. Mild mitral valve regurgitation. Aortic valve sclerosis is present. Trace aortic valve regurgitation. There is gbvi-zl-oblnmkbf tricuspid valve regurgitation. There is estimated pmpvwnec-di-fgmxyu pulmonary hypertension present (60 mmHg ). The inferior vena cava is dilated. - TSH 0.401 (2) HTN (hypertension) ICD Codes: I10 - Essential (primary) hypertension Status: Chronic Plan: - Home meds resumed - Monitor (3) Hyperlipidemia ICD Codes: E78.5 - Hyperlipidemia, unspecified Status: Chronic Plan: - Cont. home meds (4) COPD (chronic obstructive pulmonary disease) ICD Codes: J44.9 - Chronic obstructive pulmonary disease, unspecified Status: Acute Plan: - Duonebs Q6H while awake and PRN - Continue solumedrol 60 mg IV BID 08/20 - 08/22 - prednisone 30 mg PO BID 08/22 (5) Cough ICD Codes: R05 - Cough Plan: cough since 05/02 hx of [employer] work CT chest 08/21/17 reveals tiny bilateral pleural effusions with scattered fibrosis , cardiomegaly and coronary artery calcifications Assessment and Plan Patient examined. Assessment and plan formulated with Sharla Zapata PA-C. I agree with the above. Sharla Zapata Aug 22, 2017 16:15 Jeb Funez DO Aug 25, 2017 23:25
[2017-08-22] MEDS: ATORVASTATIN 20 MG TAB PO SCH (21:34)
[2017-08-22] MEDS: predniSONE 10 MG TAB PO SCH (21:34)
[2017-08-22] MEDS: TEMAZEPAM 15 MG CAP PO PRN (21:40)
[2017-08-23] VITALS (8 sets, daily range): BP systolic 127–149; BP diastolic 63–86; PULSE 58–105; RESP 16–20; TEMP 97.2–97.7; O2SAT 93–98
[2017-08-23] MEDS: AMIODARONE INJ 450 MG in DEXTROSE 5% IN WATE(EXCEL) INJ 241 ML IV SCH ×6 (04:55→20:05)
--- NOTE | 2017-08-23 07:53 | PD.CARD.PN ---
Subjective Subjective Remarks Rate controlled atrial fibrillation today. The patient had episode of pauses yesterday. With the episode she states it felt like a "twitch", and felt that if she wasn't lying down she might have passed out with these. Electrophysiology has been consulted. No chest pain or shortness of breath. Objective Medications Current Medications Medications (Trade) Dose Ordered Sig/Ozzie Route Start Time Stop Time Status Last Admin (Eliquis) 5 mg BID PO 08/17/17 21:00 08/22/17 21:34 (Aspirin Chew) 81 mg DAILY CHEW 08/18/17 09:00 08/22/17 08:29 (Lipitor) 20 mg HS PO 08/17/17 21:00 08/22/17 21:34 (Miralax) 17 gm DAILY PO 08/18/17 09:00 08/22/17 08:30 (Restoril) 15 mg HS PRN PO 08/17/17 14:45 08/22/17 21:40 Patient Own Medication PT OWN MED: Umeclidinium Brom... DAILY INH 08/18/17 09:00 Future Hold (Tylenol) 650 mg Q4H PRN PO 08/17/17 14:45 (Zofran Inj) 4 mg Q6H PRN IV 08/17/17 14:45 08/20/17 18:57 (NovoLOG SUPPLEMENTAL SCALE) 1 ACHS SLIDING SCALE SQ 08/17/17 17:00 08/22/17 21:33 (D50w (Vial) Inj) 50 ml UNSCH PRN IV PUSH 08/17/17 15:00 (Glucagon Inj) 1 mg UNSCH PRN OTHER 08/17/17 15:00 (NS Flush) 2 ml UNSCH PRN IV FLUSH 08/17/17 17:45 (NS Flush) 2 ml BID IV FLUSH 08/17/17 21:00 08/22/17 21:35 (Lopressor) 100 mg Q12HR PO 08/19/17 21:00 08/22/17 21:34 (Cardizem Cd) 300 mg DAILY PO 08/20/17 09:00 08/22/17 08:30 (Prinivil) 5 mg DAILY PO 08/20/17 14:45 08/22/17 08:30 (Duoneb Neb) 1 ampule Q6HR WHILE AWAKE NEB INH 08/20/17 20:00 08/22/17 21:30 (Duoneb Neb) 1 ampule Q2HR NEB PRN NEB 08/20/17 19:15 Amiodarone HCl 450 mg/Dextrose 250 ml @ 33 mls/hr Q7H35M IV 08/21/17 15:00 08/22/17 08:28 (NS Flush) 2 ml UNSCH PRN IVF 08/21/17 14:00 (Tessalon) 200 mg TID PRN PO 08/21/17 14:30 08/22/17 17:28 (Deltasone) 30 mg BID PO 08/22/17 21:00 08/22/17 21:34 Vital Signs / I&O Vital Signs Date Time Temp Pulse Resp B/P (MAP) Pulse Ox O2 Delivery O2 Flow Rate FiO2 08/23/17 04:00 97.2 105 18 131/86 (101) 96 08/23/17 04:00 74 08/23/17 00:00 97.4 77 16 131/82 (98) 96 08/23/17 00:00 81 08/22/17 21:32 97 08/22/17 20:45 85 08/22/17 20:18 97.4 106 18 135/90 (105) 97 08/22/17 19:25 56 08/22/17 16:00 97.2 58 20 125/72 (89) 98 08/22/17 15:24 72 08/22/17 13:45 45 08/22/17 12:00 97.4 94 20 133/77 (95) 97 08/22/17 08:44 95 21 08/22/17 08:28 103 122/83 08/22/17 08:00 98.4 103 20 122/83 (96) 96 08/22/17 08:00 104 I/O 08/22/17 08/22/17 08/22/17 08/23/17 08/23/17 08/23/17 07:00 15:00 23:00 07:00 15:00 23:00 Intake Total 2400 ml Output Total 700 ml Balance 1700 ml Intake Oral 2400 ml Output Urine Total 700 ml # Bowel Movements 1 Physical Exam GENERAL: Well-developed well-nourished. In no acute distress. NECK: No carotid bruits. No JVD. CARDIOVASCULAR: irregular rate and irregular rhythm. No murmur appreciated. RESPIRATORY: No accessory muscle use. Clear to auscultation. Breath sounds equal bilaterally. MUSCULOSKELETAL: No clubbing or cyanosis. No edema. NEUROLOGICAL: Awake and alert. Normal speech. Imaging Last Impressions Chest CT 08/21/17 0600 Signed Impressions: Service Date/Time: Monday, August 21, 2017 09:59 - CONCLUSION: 1. Tiny bilateral pleural effusions. 2. Minimal scattered fibrotic scarring. 3. Cardiomegaly and coronary artery calcifications. Álvaro Massey MD Chest X-Ray 08/17/17 1340 Signed Impressions: Service Date/Time: Thursday, August 17, 2017 13:54 - CONCLUSION: 1. Cardiomegaly. 2. Scattered atelectasis and/or scarring bilaterally. Álvaro Massey MD Assessment and Plan Assessment and Plan 81-year-old female with a past medical history of atrial fibrillation who was sent by PCP for RVR Atrial fibrillation with rapid ventricular response: Metoprolol 100 mg twice daily, Cardizem 300 mg daily. Loaded with amiodarone IV. Developed pauses. EP consulted. May need pacer, hold ASA/Eliquis. Cardiomyopathy: Echo with reduced systolic function, EF 20%. Possibly rate related. No signs of exacerbation. Lisinopril 5 mg. Blaine Quiroz Aug 23, 2017 07:53
[2017-08-23] MEDS: INSULIN ASPART SUPPLEMENTAL SCALE SQ SCH ×4 (08:00→22:50)
[2017-08-23] MEDS: RESP: ALBUTEROL 2.5 MG/IPRATROPIUM 0.5 MG NEB (SCH) INH ×3 (08:13→21:28)
[2017-08-23] MEDS ORDERED: AMIODARONE 200 MG TAB PO SCH (09:00)
[2017-08-23] MEDS: LISINOPRIL 5 MG TAB PO SCH (09:18)
[2017-08-23] MEDS: predniSONE 10 MG TAB PO SCH ×2 (09:18→22:49)
[2017-08-23] MEDS: DILTIAZEM-CD 300 MG CAP ER PO SCH (09:18)
[2017-08-23] MEDS: POLYETHYLENE GLYCOL 17 GM PKG PO SCH (09:18)
[2017-08-23] MEDS: METOPROLOL TARTRATE 100 MG TAB PO SCH ×2 (09:18→22:48)
[2017-08-23] MEDS: SODIUM CHLORIDE 0.9% FLUSH 10 ML FLUSH IV FLUSH SCH ×2 (09:24→22:47)
--- NOTE | 2017-08-23 09:27 | HHI.PR ---
Subjective Remarks doing ok no complaints Objective Vitals heart reg lungscattered wheeze abd s/nt ext no edema Vital Signs Date Time Temp Pulse Resp B/P (MAP) Pulse Ox O2 Delivery O2 Flow Rate FiO2 08/23/17 08:15 98 08/23/17 04:00 97.2 105 18 131/86 (101) 96 08/23/17 04:00 74 08/23/17 00:00 97.4 77 16 131/82 (98) 96 08/23/17 00:00 81 08/22/17 21:32 97 08/22/17 20:45 85 08/22/17 20:18 97.4 106 18 135/90 (105) 97 08/22/17 19:25 56 08/22/17 16:00 97.2 58 20 125/72 (89) 98 08/22/17 15:24 72 08/22/17 13:45 45 08/22/17 12:00 97.4 94 20 133/77 (95) 97 Result Diagram: 08/21/17 0858 08/21/17 0858 Imaging Last Impressions Chest X-Ray 08/17/17 1340 Signed Impressions: Service Date/Time: Thursday, August 17, 2017 13:54 - CONCLUSION: 1. Cardiomegaly. 2. Scattered atelectasis and/or scarring bilaterally. Álvaro Massey MD Objective Remarks G A/P Problem List: (1) Atrial fibrillation with RVR ICD Codes: I48.91 - Unspecified atrial fibrillation Status: Acute Plan: - Pt is an 81 y/o WF with atrial fibrillation on chronic anticoagulation with Eliquis, diabetes, hypertension, and COPD who presented to [facility] emergency department with complaints of progressive SOB for about 10-14 days. - Pt was seen as an outpt at [facility] on 07/31/17 with complaints of a cough. Pt was prescribed Doxycycline 100mg po BID x 10 days. - She was seen in followup by her PCP, Dr. Barrington Kruse, today and complained of continued intermittent cough, fatigue, SOB, and some LE edema. Pts EKG noted A. fib RVR with HR of 119. - When the pt presented to the ED she was in A. fib RVR with HR in the 130's. - Pt was given one dose of IV Cardizem with some improvement. - CXR in the ED noted cardiomegaly and scattered atelectasis and/or scarring bilaterally. - Pt admits that she has not been taking her Metoprolol at home since - When pt arrived to the floor her HR became elevated again into the 130's with very little exertion. - echocardiogram 08/20/17 reviewed and reveals: Normal left ventricular size. Wall thickness is normal. The left ventricular systolic function is severely reduced with an estimated ejection fraction in the range of 20%. There is global left ventricular dysfunction. The right ventricular systolic function is moderately decreased. The left atrial size is mildly dilated. The right atrial size is xxdm-mh-roqnhixrxv dilated. Mitral annular calcification is present. Mild mitral valve regurgitation. Aortic valve sclerosis is present. Trace aortic valve regurgitation. There is wdbf-ri-wdkgsyyr tricuspid valve regurgitation. There is estimated qqrszabg-eg-sdbiam pulmonary hypertension present (60 mmHg ). The inferior vena cava is dilated. - TSH 0.401 - Cardizem gtt initially then DC'd - Resume home meds, including Metoprolol 50mg po BID and Cardizem 240mg po daily , increased per cardiology to metoprolol 100 mg BID and Cardizem 300mg daily - 08/20/17 Dr. Funez discussed the case with Dr. Adorno, plan if rate remains uncontrolled to start digoxin - 08/20/17 digoxin 0.5 mg IV now then digoxin 0.25 mg in 6 hours - dig level (08/21) - HR remains elevated 1teens to 120s. Dr. Funez discussed the case again with Dr. Adorno. - amiodarone IV per protocol 08/21/17 - 08/22/17 patient has had 5 3 sec to 4 sec pauses between 1330 -1430 - Dr. Adorno notified- consult placed to Dr. Vigil - Await possible ablation per Dr Vigil (2) COPD (chronic obstructive pulmonary disease) ICD Codes: J44.9 - Chronic obstructive pulmonary disease, unspecified Status: Acute Plan: - Duonebs Q6H while awake and PRN - Continue solumedrol 60 mg IV BID 08/20 - 08/22 - prednisone 30 mg PO BID 08/22 (3) HTN (hypertension) ICD Codes: I10 - Essential (primary) hypertension Status: Chronic Plan: - Home meds resumed - Monitor (4) Hyperlipidemia ICD Codes: E78.5 - Hyperlipidemia, unspecified Status: Chronic Plan: - Cont. home meds (5) Cough ICD Codes: R05 - Cough Plan: cough since 05/02 hx of fiberg[employer] work CT chest 08/21/17 reveals tiny bilateral pleural effusions with scattered fibrosis , cardiomegaly and coronary artery calcifications Jimenez Cuellar MD Aug 23, 2017 09:27
[2017-08-23] MEDS: ATORVASTATIN 20 MG TAB PO SCH (22:49)
[2017-08-23] MEDS: TEMAZEPAM 15 MG CAP PO PRN (23:00)
[2017-08-24] VITALS: BP 140/70; PULSE 58; PULSE 74; RESP 18; TEMP 97.3; O2SAT 94
[2017-08-24 04:00] VITALS: PULSE 74
[2017-08-24 04:53] VITALS: BP 133/67; PULSE 84; RESP 18; TEMP 97.8; O2SAT 96
[2017-08-24] MEDS: RESP: ALBUTEROL 2.5 MG/IPRATROPIUM 0.5 MG NEB (SCH) INH (08:00)
[2017-08-24] MEDS: INSULIN ASPART SUPPLEMENTAL SCALE SQ SCH (08:00)
--- NOTE | 2017-08-24 08:14 | PD.CARD.PN ---
Subjective Subjective Remarks Rate now controlled. Feels well. Objective Medications Current Medications Medications (Trade) Dose Ordered Sig/Ozzie Route Start Time Stop Time Status Last Admin (Eliquis) 5 mg BID PO 08/17/17 21:00 Future Hold 08/22/17 21:34 (Aspirin Chew) 81 mg DAILY CHEW 08/18/17 09:00 Future Hold 08/22/17 08:29 (Lipitor) 20 mg HS PO 08/17/17 21:00 08/23/17 22:49 (Miralax) 17 gm DAILY PO 08/18/17 09:00 08/23/17 09:18 (Restoril) 15 mg HS PRN PO 08/17/17 14:45 08/23/17 23:00 Patient Own Medication PT OWN MED: Umeclidinium Brom... DAILY INH 08/18/17 09:00 Future Hold (Tylenol) 650 mg Q4H PRN PO 08/17/17 14:45 (Zofran Inj) 4 mg Q6H PRN IV 08/17/17 14:45 08/20/17 18:57 (NovoLOG SUPPLEMENTAL SCALE) 1 ACHS SLIDING SCALE SQ 08/17/17 17:00 08/23/17 22:50 (D50w (Vial) Inj) 50 ml UNSCH PRN IV PUSH 08/17/17 15:00 (Glucagon Inj) 1 mg UNSCH PRN OTHER 08/17/17 15:00 (NS Flush) 2 ml UNSCH PRN IV FLUSH 08/17/17 17:45 (NS Flush) 2 ml BID IV FLUSH 08/17/17 21:00 08/23/17 22:47 (Lopressor) 100 mg Q12HR PO 08/19/17 21:00 08/23/17 22:48 (Cardizem Cd) 300 mg DAILY PO 08/20/17 09:00 08/23/17 09:18 (Prinivil) 5 mg DAILY PO 08/20/17 14:45 08/23/17 09:18 (Duoneb Neb) 1 ampule Q6HR WHILE AWAKE NEB INH 08/20/17 20:00 08/23/17 21:28 (Duoneb Neb) 1 ampule Q2HR NEB PRN NEB 08/20/17 19:15 Amiodarone HCl 450 mg/Dextrose 250 ml @ 33 mls/hr Q7H35M IV 08/21/17 15:00 08/22/17 08:28 (NS Flush) 2 ml UNSCH PRN IVF 08/21/17 14:00 (Tessalon) 200 mg TID PRN PO 08/21/17 14:30 08/22/17 17:28 (Deltasone) 30 mg BID PO 08/22/17 21:00 08/23/17 22:49 Vital Signs / I&O Vital Signs Date Time Temp Pulse Resp B/P (MAP) Pulse Ox O2 Delivery O2 Flow Rate FiO2 08/24/17 04:53 97.8 84 18 133/67 (89) 96 08/24/17 04:00 74 08/24/17 00:00 58 08/24/17 00:00 97.3 74 18 140/70 (93) 94 08/23/17 21:29 96 21 08/23/17 20:05 61 132/63 08/23/17 20:00 97.5 61 18 132/63 (86) 93 08/23/17 20:00 58 08/23/17 16:00 97.4 63 18 127/73 (91) 95 08/23/17 12:00 97.3 83 20 138/75 (96) 95 08/23/17 08:15 98 I/O 08/23/17 08/23/17 08/23/17 08/24/17 08/24/17 08/24/17 07:00 15:00 23:00 07:00 15:00 23:00 Intake Total 1800 ml 360 ml Output Total 500 ml Balance 1300 ml 360 ml Intake Oral 1800 ml 360 ml Output Urine Total 500 ml # Voids 1 # Bowel Movements 1 0 Physical Exam Lungs clear irregular HR 70-80 Assessment and Plan Assessment and Plan Stable CV. HR well controlled. OK to go home Mike Adorno MD Aug 24, 2017 08:14
[2017-08-24] MEDS: SODIUM CHLORIDE 0.9% FLUSH 10 ML FLUSH IV FLUSH SCH (08:25)
[2017-08-24 08:29] VITALS: BP 156/109; PULSE 99; RESP 20; TEMP 98.1; O2SAT 97
[2017-08-24] MEDS: DILTIAZEM-CD 300 MG CAP ER PO SCH (08:48)
[2017-08-24] MEDS: METOPROLOL TARTRATE 100 MG TAB PO SCH (08:49)
[2017-08-24] MEDS: POLYETHYLENE GLYCOL 17 GM PKG PO SCH (08:49)
[2017-08-24] MEDS: predniSONE 10 MG TAB PO SCH (08:49)
[2017-08-24] MEDS: LISINOPRIL 5 MG TAB PO SCH (08:49)
--- NOTE | 2017-08-24 09:04 | MB ---
cc: MIKE ADORNO MD, HANSCY M.D. DATE OF CONSULTATION 08/24/2017 REASON FOR CONSULTATION Atrial fibrillation unable to control with medication. M HISTORY OF PRESENT ILLNESS Mrs. Evangelista is an 81-year-old female with history of atrial fibrillation. She has had multiple hospitalization, the last one was in June. She came to the emergency room due to atrial fibrillation and fast ventricular response. Heart rate very difficult to control. She is on Cardizem, metoprolol, digoxin. Rate still high. I was consulted for further evaluation and management. The chart was reviewed. The patient was evaluated. ALLERGIES ERYTHROMYCIN. SOCIAL HISTORY Negative for smoking and drinking. FAMILY HISTORY Noncontributory to her current medical condition. MEDICATIONS Mrs. Evangelista is on - 1. amiodarone. 2. Eliquis 500 mg twice a day. 3. Aspirin. 4. Lipitor 20 mg at bedtime. 5. Cardizem 200 mg a day. 6. Prinivil. 7. Metoprolol 100 mg q.8 hours. 8. Prednisone. 9. Temazepam. REVIEW OF SYSTEMS Currently the patient refers no chest pain. Shortness of breath and palpitations with minimal activity. No fever. PHYSICAL EXAMINATION GENERAL: On physical exam, alert, fully oriented. VITAL SIGNS: Blood pressure on evaluation was 127/73, pulse 63, respiratory rate 18. LUNGS: Ventilated. CARDIOVASCULAR: S1-S2, irregular. No gallop. ABDOMEN: Soft. No mass. No bruit. EXTREMITIES: No edema. ELECTROCARDIOGRAM Atrial fibrillation and left bundle-branch block. TELEMETRY Atrial fibrillation with controlled rate at this point. LABORATORY DATA Hemoglobin 11.1, white blood cell 5.8. Potassium 4.6, creatinine 0.92. INR 1.3. ASSESSMENT AND RECOMMENDATIONS Mrs. Evangelista has atrial fibrillation. She has multiple hospitalizations. She is on amiodarone. She is on Cardizem. She is on metoprolol. Despite that on movement she has tachyarrhythmia and shortness of breath. She is on anticoagulation. She was previously on Coumadin that was very difficult to control. Apparently that was switched to Eliquis. I had a long conversation with her. Electrophysiology study and ablation were discussed with her. The risks, the nature and the benefit of the procedure are clearly stated to her. The risks include pneumothorax, cardiac perforation, stroke and even . The patient understood and agreed to proceed. The procedure will be performed during hospitalization. ADDENDUM TO THE CONSULT This morning I got a call from Dr. Mike Adorno. Heart rate controlled. He believes at this point the best approach is to send the patient home and if the heart rate cannot be controlled again I will be consulted again for ablation. I will follow the patient if necessary. Sophy Vigil MD HS/SSB /8:26 AM /8:38 AM
[2017-08-24] MEDS ORDERED: METO-338 PO (09:52)
[2017-08-24] MEDS ORDERED: LISI-519 PO (09:52)
[2017-08-24] MEDS ORDERED: DILT300C3 PO (09:52)
[2017-08-24] MEDS ORDERED: PRED10 PO (09:54)
[2017-08-24] MEDS ORDERED: BENZ100 PO (09:54)
--- NOTE | 2017-08-24 09:55 | HHI.DCPOC ---
Discharge Care Plan Diagnosis: (1) Atrial fibrillation with RVR (2) COPD (chronic obstructive pulmonary disease) Goals to Promote Your Health * To prevent worsening of your condition and complications * To maintain your health at the optimal level Directions to Meet Your Goals Take your medications as prescribed Follow your dietary instruction Follow activity as directed Keep your appointments as scheduled Take your immunizations and boosters as scheduled If your symptoms worsen call your PCP, if no PCP go to Urgent Care Center or Emergency Room Smoking is Dangerous to Your Health. Avoid second hand smoke Call the 24-hour hour crisis hotline for domestic abuse at Jimenez Cuellar MD Aug 24, 2017 09:55
--- NOTE | 2017-08-24 09:58 | HHI.DS ---
Discharge Summary Admission Date Aug 17, 2017 at 14:34 Discharge Date: Aug 24, 2017 Admitting Diagnosis CHF EXACERBATION , AFIB WITH RVR (1) Atrial fibrillation with RVR Diagnosis: Principal ICD Codes: I48.91 - Unspecified atrial fibrillation Status: Acute (2) COPD (chronic obstructive pulmonary disease) Diagnosis: Principal ICD Codes: J44.9 - Chronic obstructive pulmonary disease, unspecified Status: Acute (3) HTN (hypertension) Diagnosis: Secondary ICD Codes: I10 - Essential (primary) hypertension Status: Chronic (4) Hyperlipidemia Diagnosis: Secondary ICD Codes: E78.5 - Hyperlipidemia, unspecified Status: Chronic (5) Cough Diagnosis: Secondary ICD Codes: R05 - Cough Brief History Mrs. Evangelista is a pleasant 81 y/o WF with atrial fibrillation on chronic anticoagulation with Eliquis, diabetes, hypertension, and COPD who presented to [facility] emergency department with complaints of progressive SOB for about 10-14 days. Pt was seen as an outpt at [facility] on 07/31/17 with complaints of a cough. Pt was prescribed Doxycycline 100mg po BID x 10 days. She was seen in followup by her PCP, Dr. Barrington Kruse today and complained of continued intermittent cough, fatigue, SOB, and some LE edema. Pts EKG noted A. fib RVR with HR of 119. When the pt presented to the ED she was in A. fib RVR with HR in the 130's. Pt was given one dose of IV Cardizem with some improvement. CXR in the ED noted cardiomegaly and scattered atelectasis and/or scarring bilaterally. Pt admits that she has not been taking her Metoprolol at home since because "the medicine got lost in all the presents." When pt arrived to the floor her HR became elevated again into the 130's with very little exertion. Pt to be started on Cardizem gtt. She denies any chest pain, palpitations, dizziness, abd pain, nausea/vomiting, fevers or chills. CBC/BMP: 08/21/17 0858 08/21/17 0858 PE at Discharge G Hospital Course (1) Atrial fibrillation with RVR - Pt is an 81 y/o WF with atrial fibrillation on chronic anticoagulation with Eliquis, diabetes, hypertension, and COPD who presented to [facility] emergency department with complaints of progressive SOB for about 10-14 days. - Pt was seen as an outpt at [facility] on 07/31/17 with complaints of a cough. Pt was prescribed Doxycycline 100mg po BID x 10 days. - She was seen in followup by her PCP, Dr. Barrington Kruse, today and complained of continued intermittent cough, fatigue, SOB, and some LE edema. Pts EKG noted A. fib RVR with HR of 119. - When the pt presented to the ED she was in A. fib RVR with HR in the 130's. - Pt was given one dose of IV Cardizem with some improvement. - CXR in the ED noted cardiomegaly and scattered atelectasis and/or scarring bilaterally. - Pt admits that she has not been taking her Metoprolol at home since [place] - When pt arrived to the floor her HR became elevated again into the 130's with very little exertion. - echocardiogram 08/20/17 reviewed and reveals: Normal left ventricular size. Wall thickness is normal. The left ventricular systolic function is severely reduced with an estimated ejection fraction in the range of 20%. There is global left ventricular dysfunction. The right ventricular systolic function is moderately decreased. The left atrial size is mildly dilated. The right atrial size is jahv-nh-iksgatocpx dilated. Mitral annular calcification is present. Mild mitral valve regurgitation. Aortic valve sclerosis is present. Trace aortic valve regurgitation. There is capu-tn-yuslfngd tricuspid valve regurgitation. There is estimated tpilwabj-ja-vvaspl pulmonary hypertension present (60 mmHg ). The inferior vena cava is dilated. - TSH 0.401 - Cardizem gtt initially then DC'd - Resume home meds, including Metoprolol 50mg po BID and Cardizem 240mg po daily , increased per cardiology to metoprolol 100 mg BID and Cardizem 300mg daily - 08/20/17 Dr. Funez discussed the case with Dr. Adorno, plan if rate remains uncontrolled to start digoxin - 08/20/17 digoxin 0.5 mg IV now then digoxin 0.25 mg in 6 hours - dig level (08/21) - HR remains elevated 1teens to 120s. Dr. Funez discussed the case again with Dr. Adorno. - amiodarone IV per protocol 08/21/17 - 08/22/17 patient has had 5 3 sec to 4 sec pauses between 1330 -1430 - Dr. Adorno notified- consult placed to Dr. Vigil. EPS with ablation contemplated today I saw pt with dr Adorno. HR controlled and he advised hold off on ablation and d/c home with close f/u. (2) COPD (chronic obstructive pulmonary disease) - Duonebs Q6H while awake and PRN -steroid taper (3) HTN (hypertension) -sara lowered (4) Hyperlipidemia - Cont. home meds ( Pt Condition on Discharge: Stable Discharge Disposition: Disch w/ Home Health Serv Discharge Instructions DIET: Follow Instructions for: Diabetic Diet Activities you can perform: Regular-No Restrictions Follow up Referrals: Cardiology - [address] Adorno PCP Follow-up - [address] Kruse New Medications: Prednisone (Prednisone) 10 Mg Tab 10 MG PO DIRECTED for COPD for 10 Days, TAB 0 Refills 20MG PO BID X 3 DAYS, 10MG PO BID X 3 DAYS, 10MG PO DAILY X 4 DAYS Benzonatate (Tessalon Perles) 100 Mg Cap 200 MG PO TID PRN for COUGH, #20 CAP Diltiazem CD 24 HR (Diltiazem CD 24 HR) 300 Mg Caper 300 MG PO DAILY for AFIB, #30 CAP Lisinopril (Lisinopril) 5 Mg Tab 5 MG PO DAILY for HTN, #30 TAB Metoprolol Tartrate (Lopressor) 100 Mg Tab 100 MG PO Q12HR for AFIB, #60 TAB Continued Medications: Albuterol 18 GM Inh (Ventolin Hfa 18 GM Inh) 90 Mcg/Act Aer 2 PUFF INH Q4-6H PRN for SHORTNESS OF BREATH, #1 INHALER 0 Refills Apixaban (Eliquis) 5 Mg Tab 5 MG PO BID for Blood Clot Prevention, #60 TAB 0 Refills Aspirin (Aspirin) 81 Mg Chew 81 MG CHEW DAILY, TAB 0 Refills Atorvastatin (Atorvastatin) 20 Mg Tab 20 MG PO HS for Cholesterol Management, #30 TAB 0 Refills Ipratropium-Albuterol Neb (Duoneb) 0.5-2.5 Mg/3 Ml Neb 1 NEBULE INH BID for Breathing Treatment, #30 NEBULE 0 Refills Metformin (Metformin) 500 Mg Tab 500 MG PO BIDPC for Blood Sugar Management, #60 TAB 0 Refills With meals Polyethylene Glycol 3350 Powder (Miralax Powder) 17 Gm Powd 17 GM PO DAILY for Constipation, #1 CAN 0 Refills Mix and dissolve one measuring cap-ful (17 grams) in water or juice. Temazepam (Temazepam) 15 Mg Cap 15 MG PO HS PRN for INSOMNIA, #30 CAP 0 Refills Umeclidinium [place] Inh (Incruse Ellipta Inh) 0.0625 Mg/Act Inh 1 PUFF INH DAILY for Treat COPD, #1 INHALER 0 Refills Discontinued Medications: Diltiazem ER 24 HR (Diltiazem ER 24 HR) 240 Mg Janae 240 MG PO DAILY, #30 TAB 0 Refills Lisinopril (Lisinopril) 20 Mg Tab 20 MG PO Q12HR for htn, #60 TAB 0 Refills Jimenez Cuellar MD Aug 24, 2017 09:58
[2017-08-24 12:03] VITALS: BP 138/102; PULSE 100; RESP 20; TEMP 97.9; O2SAT 95
[2017-08-24 14:00] VITALS: BP 138/63; PULSE 70; RESP 20; TEMP 98.7; O2SAT 98
== END 2017-08-24 13:50 | disposition home health service (06) | DRG 310 ==
LOC: NEPE 13:16 → NEDA 14:17 → OBSVTOIN 14:34 → N04B 15:10
PROVIDERS: ADMIT Hospitalist; ATTEND Hospitalist
DX: I48.91 Unspecified atrial fibrillation (principal); R06.09 Other forms of dyspnea; I11.0 Hypertensive heart disease with heart failure; I42.9 Cardiomyopathy, unspecified; I27.20 Pulmonary hypertension, unspecified; I50.9 Heart failure, unspecified; J44.9 Chronic obstructive pulmonary disease, unspecified; E11.9 Type 2 diabetes mellitus without complications; M81.0 Age-related osteoporosis without current pathological fracture; E78.5 Hyperlipidemia, unspecified; I08.3 Combined rheumatic disorders of mitral, aortic and tricuspid valves; M19.90 Unspecified osteoarthritis, unspecified site; Z91.14 Patient's other noncompliance with medication regimen; Z79.84 Long term (current) use of oral hypoglycemic drugs; Z79.01 Long term (current) use of anticoagulants
CPT/HCPCS: 71045; 71250; 80048; 80053; 80162; 82550; 82948; 83690; 83735; 83880; 84439; 84443; 84484; 85025; 85610; 85730; 93005; 93306; 94640; 94664; 96374; J0282; J1160; J1815; J1940; J2405; J2930; J7060; J7512

== ENCOUNTER 2017-08-31 16:45 | Inpatient (IN) | payer MEDICARE ==
[~2017-08-31] VITALS: Ht 160 cm; Wt 74.8 kg
[2017-08-31] VITALS (10 sets, daily range): BP systolic 132–178; BP diastolic 69–85; PULSE 47–90; RESP 16–20; TEMP 98.1–98.4; O2SAT 97–100
[~2017-08-31 16:45] MED LIST changes: +APIX5TAB PO; +BENZ100 PO; -DILT1TAB4 PO; +DILT300C3 PO; -GABA100C4 PO; -LISI-515 PO; +LISI-519 PO; +METO-338 PO; -METO50TA PO; +PRED10 PO
[2017-08-31] MEDS ORDERED: SODIUM CHLORIDE 0.9% FLUSH 10 ML FLUSH IVF PRN (17:15)
--- NOTE | 2017-08-31 17:17 | PD ---
HPI Chief Complaint: Syncope/Near-Syncope Time Seen by Provider: 17:00 Travel History International Travel<30 days: No Contact w/Intl Traveler<30days: No Traveled to known affect area: No History of Present Illness HPI This was an 81-year-old female with a history of atrial fibrillation who presents to the emergency department having multiple episodes of syncope today. She was at a [employer] restaurant when she felt lightheaded in loss consciousness in went down to her knees. She is not sure if she hit her head but she was found on the ground. She went to her daughter's house where her daughter witnessed her slumping over multiple times in not responding to her lasting for several seconds, with no associated bowel or bladder incontinence, no associated chest pain or trouble breathing, in no preceding illness. Patient was recently hospitalized in the setting of rate control problems with atrial fibrillation. She was noted during that hospitalization to have long pauses in she was evaluated by Dr. Vigil but ultimately no intervention was warranted in the patient heart rate was thought to be controlled on medication. PFSH Past Medical History Hx Anticoagulant Therapy: Yes Arthritis: Yes Asthma: No Atrial Fibrillation: Yes Anxiety: No Depression: No Heart Rhythm Problems: No Cancer: Yes (Left eye tumor removal (skin cancer)) Cardiovascular Problems: No Chemotherapy: No Chest Pain: No Congestive Heart Failure: No COPD: Yes Cerebrovascular Accident: No Diabetes: Yes Patient Takes Glucophage: Yes Diminished Hearing: No Endocrine: Yes Gastrointestinal Disorders: Yes (Takes mirilax everyday for chronic constipation ) Genitourinary: No Hypertension: Yes Immune Disorder: No Implanted Vascular Access Dvce: Yes Musculoskeletal: Yes Neurologic: No Psychiatric: No Reproductive: No Respiratory: Yes Immunizations Current: Yes Migraines: No Radiation Therapy: No Seizures: No Thyroid Disease: No Tetanus Vaccination: > 5 Years Influenza Vaccination: Yes Menopausal: Yes Past Surgical History Abdominal Surgery: No AICD: No Arteriovenous Shunt: No Cardiac Surgery: No Ear Surgery: No Endocrine Surgery: No Eye Surgery: Yes (Cancer surgery removal of tumor, left eye ) Genitourinary Surgery: Yes (BLADDER SUSP.) Gynecologic Surgery: Yes (Historectomy) Hysterectomy: Yes Insulin Pump: No Joint Replacement: Yes Oral Surgery: Yes (Tonsillectomy) Pacemaker: No Thoracic Surgery: No Tonsillectomy: Yes (AND ADENOIDS ) Other Surgery: Yes (RIGHT LEG VEIN STRIPPING) Social History Alcohol Use: Yes (RARELY) Tobacco Use: No Substance Use: No Allergies-Medications (Allergen,Severity, Reaction): Coded Allergies: clarithromycin (Unverified Allergy, Severe, VOMITING, 08/31/17) Reported Meds & Prescriptions Reported Meds & Active Scripts Active Prednisone 10 Mg Tab 10 Mg PO DIRECTED 10 Days 20MG PO BID X 3 DAYS, 10MG PO BID X 3 DAYS, 10MG PO DAILY X 4 DAYS Tessalon Perles (Benzonatate) 100 Mg Cap 200 Mg PO TID PRN Lisinopril 5 Mg Tab 5 Mg PO DAILY Diltiazem CD 24 HR 300 Mg Caper 300 Mg PO DAILY Lopressor (Metoprolol Tartrate) 100 Mg Tab 100 Mg PO Q12HR Temazepam 15 Mg Cap 15 Mg PO HS PRN Reported Eliquis (Apixaban) 5 Mg Tab 5 Mg PO BID Ventolin Hfa 18 GM Inh (Albuterol Sulfate) 90 Mcg/Act Aer 2 Puff INH Q4-6H PRN Miralax Powder (Polyethylene Glycol 3350 Powder) 17 Gm Powd 17 Gm PO DAILY Mix and dissolve one measuring cap-ful (17 grams) in water or juice. Metformin (Metformin HCl) 500 Mg Tab 500 Mg PO BIDPC With meals Incruse Ellipta Inh (Umeclidinium Nixon Inh) 0.0625 Mg/Act Inh 1 Puff INH DAILY Duoneb (Ipratropium-Albuterol Neb) 0.5-2.5 Mg/3 Ml Neb 1 Nebule INH BID Atorvastatin (Atorvastatin Calcium) 20 Mg Tab 20 Mg PO HS Aspirin 81 Mg Chew 81 Mg CHEW DAILY Review of Systems Except as stated in HPI: all other systems reviewed are Neg Physical Exam Narrative GENERAL:Frail elderly female in no acute distress SKIN: Focused skin assessment warm and dry. HEAD: Atraumatic. Normocephalic. EYES: Pupils equal and round. No injection or drainage. ENT: Moist mucous membranes NECK: Trachea midline. CARDIOVASCULAR: Regular rate and rhythm. No murmur appreciated. RESPIRATORY: Clear to auscultation. Breath sounds equal bilaterally. GASTROINTESTINAL: Abdomen soft, non-tender, nondistended. MUSCULOSKELETAL: No obvious deformities. NEUROLOGICAL: Awake and alert. No obvious cranial nerve deficits. Moving all extremities. PSYCHIATRIC: Appropriate mood and affect; insight and judgment normal. Data Data Last Documented VS Vital Signs Date Time Temp Pulse Resp B/P (MAP) Pulse Ox O2 Delivery O2 Flow Rate FiO2 08/31/17 17:20 83 18 178/70 (106) 97 Room Air 08/31/17 16:59 2.00 08/31/17 16:54 98.2 Orders Orders Complete Blood Count With Diff (08/31/17 17:07) Comprehensive Metabolic Panel (08/31/17 17:07) Troponin I (08/31/17 17:07) Act Partial Throm Time (Ptt) (08/31/17 17:07) Prothrombin Time / Inr (Pt) (08/31/17 17:07) Ct Brain W/O Iv Contrast(Rout) (08/31/17 17:07) Ecg Monitoring (08/31/17 17:07) Iv Access Insert/Monitor (08/31/17 17:07) Oximetry (08/31/17 17:07) Sodium Chloride 0.9% Flush (Ns Flush) (08/31/17 17:15) Electrocardiogram (08/31/17 ) Admit Order (Ed Use Only) (08/31/17 18:28) Labs Laboratory Tests Test 08/31/17 17:15 White Blood Count 8.8 TH/MM3 Red Blood Count 3.99 MIL/MM3 Hemoglobin 11.8 GM/DL Hematocrit 36.8 % Mean Corpuscular Volume 92.4 FL Mean Corpuscular Hemoglobin 29.5 PG Mean Corpuscular Hemoglobin Concent 31.9 % Red Cell Distribution Width 15.6 % Platelet Count 220 TH/MM3 Mean Platelet Volume 8.3 FL Neutrophils (%) (Auto) 75.7 % Lymphocytes (%) (Auto) 13.9 % Monocytes (%) (Auto) 8.3 % Eosinophils (%) (Auto) 1.5 % Basophils (%) (Auto) 0.6 % Neutrophils # (Auto) 6.7 TH/MM3 Lymphocytes # (Auto) 1.2 TH/MM3 Monocytes # (Auto) 0.7 TH/MM3 Eosinophils # (Auto) 0.1 TH/MM3 Basophils # (Auto) 0.1 TH/MM3 CBC Comment DIFF FINAL Differential Comment Prothrombin Time 11.1 SEC Prothromb Time International Ratio 1.1 RATIO Activated Partial Thromboplast Time 24.2 SEC Total Protein 6.4 GM/DL Alkaline Phosphatase 52 U/L Alanine Aminotransferase (ALT/SGPT) 31 U/L Total Bilirubin 0.3 MG/DL Troponin I 0.02 NG/ML MDM Medical Decision Making Medical Screen Exam Complete: Yes Emergency Medical Condition: Yes Interpretation(s) EKG: atrial fibrillation, lbbb no leukocytosis troponin normal ct head: no acute process EKG strips from EMS demonstrate multiple 2-3 second pauses. Differential Diagnosis Symptomatic bradycardia, atrial fibrillation, intracranial hemorrhage, myocardial infarction Narrative Course This ends an 81-year-old female who presents to the emergency department with several episodes of syncope today. On EVAC monitor they noted multiple 2-3 second pauses. While she was admitted in early August similar pauses were noted. She was placed on a monitor here in an IV was established. Labs were obtained which were reassuring. I think she requires admission for evaluation for possible pacemaker placement or further medication titration in the setting of symptomatic bradycardia. Physician Communication Physician Communication Discussed with Dr. dover Diagnosis Primary Impression: Symptomatic bradycardia Admitting Information Admitting Physician Requests: Admit Tarsha Summers MD Aug 31, 2017 17:16
[2017-08-31 17:35] LABS: AUTOMATED NEUTROPHIL # 6.7 TH/MM3 (1.8-7.7); BASOPHIL # 0.1 TH/MM3 (0-0.2); BASOPHIL % 0.6 % (0.0-2.0); EOSINOPHIL # 0.1 TH/MM3 (0-0.4); EOSINOPHIL % 1.5 % (0.0-4.0); HEMATOCRIT 36.8 % (35.0-46.0); HEMOGLOBIN 11.8 GM/DL (11.6-15.3); LYMPH % 13.9 % (9.0-44.0); LYMPHOCYTE # 1.2 TH/MM3 (1.0-4.8); MEAN CELL VOLUME 92.4 FL (80.0-100.0); MEAN CORPUSCULAR HEMOGLOBIN 29.5 PG (27.0-34.0); MEAN CORPUSCULAR HGB CONC 31.9 % (32.0-36.0); MEAN PLATELET VOLUME 8.3 FL (7.0-11.0); MONO % 8.3 % (0.0-8.0); MONOCYTE # 0.7 TH/MM3 (0-0.9); NEUT % 75.7 % (16.0-70.0); PLATELET COUNT 220 TH/MM3 (150-450); RED BLOOD COUNT 3.99 MIL/MM3 (4.00-5.30); RED CELL DISTRIBUTION WIDTH 15.6 % (11.6-17.2); WHITE BLOOD COUNT 8.8 TH/MM3 (4.0-11.0)
[2017-08-31 17:52] LABS: INTERNATIONAL NORMALIZED RATIO 1.1 RATIO; PROTHROMBIN TIME - PATIENT 11.1 SEC (9.8-11.6)
--- NOTE | 2017-08-31 17:54 | RADRPT ---
EXAM DATE/TIME: 08/31/2017 17:41 [facility] COMPARISON: CT BRAIN W/O CONTRAST, May 09, 2017, 22:26. INDICATIONS : Dizziness and mulitple syncopal episodes for one day. RADIATION DOSE: 33.92 CTDIvol (mGy) MEDICAL HISTORY : Diabetes mellitus type 2. Hypertension. Cardiovascular disease SURGICAL HISTORY : Hysterectomy. Left eye removed ENCOUNTER: Initial ACUITY: 1 day PAIN SCALE: 3/10 LOCATION: Bilateral cranial TECHNIQUE: Multiple contiguous axial images were obtained of the head. Using automated exposure control and adj ustment of the mA and/or kV according to patient size, radiation dose was kept as low as reasonably a chievable to obtain optimal diagnostic quality images. DICOM format image data is available electro nically for review and comparison. FINDINGS: CEREBRUM: The ventricles are normal for age. No evidence of midline shift, mass lesion, hemorrhage or acute in farction. No extra-axial fluid collections are seen. There is stable persistent chronic small vessel microvascular ischemic change and deep white matter more prominent in the right frontal region which is unchanged. POSTERIOR FOSSA: The cerebellum and brainstem are intact. The 4th ventricle is midline. The cerebellopontine angle i s unremarkable. EXTRACRANIAL: The visualized portion of the orbits is intact. SKULL: The calvaria is intact. No evidence of skull fracture. CONCLUSION: Stable CT brain scan. No acute intracranial abnormality. Valentino Wilson MD on August 31, 2017 at 17:47 Board Certified Radiologist. This report was verified electronically.
[2017-08-31 18:10] LABS: ALKALINE PHOSPHATASE 52 U/L (45-117); ALT (GPT) 31 U/L (10-53); TOTAL BILIRUBIN ADULT 0.3 MG/DL (0.2-1.0); TOTAL PROTEIN 6.4 GM/DL (6.4-8.2); TROPONIN I 0.02 NG/ML (0.02-0.05)
[2017-08-31 19:02] LABS: ALBUMIN 3.3 GM/DL (3.4-5.0); AST (GOT) 18 U/L (15-37); BICARBONATE 26.5 MEQ/L (21.0-32.0); BLOOD UREA NITROGEN 19 MG/DL (7-18); CHLORIDE 107 MEQ/L (98-107); CREATININE 1.02 MG/DL (0.50-1.00); GLOMERULAR FILTRATION RATE 52 ML/MIN (>89); GLUCOSE,RANDOM 125 MG/DL (74-106); SODIUM (NA) 140 MEQ/L (136-145)
[2017-08-31] MEDS ORDERED: RESP: ALBUTEROL 2.5 MG/IPRATROPIUM 0.5 MG NEB (PRN) NEB (20:15)
[2017-08-31] MEDS ORDERED: PILL SPLITTER OTHER PRN (20:15)
--- NOTE | 2017-08-31 20:53 | HHI.HP ---
HPI Service [facility] Hospitalists Primary Care Physician Barrington Kruse MD Admission Diagnosis symptomatic bradycardia Chief Complaint: syncope Travel History International Travel<30 Days: No Contact w/Intl Traveler <30 Da: No Traveled to Known Affected Are: No History of Present Illness This was an 81-year-old female with a history of atrial fibrillation and COPD who presents to the emergency department having multiple episodes of syncope today. 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 She is not sure if she hit her head but she was found on the ground. She subsequently drove to her daughter's shop and reported that she had been dizzy and may have passed out. Her daughter was going to transport patient to the ER but witnessed her slumping over multiple times and slowly responding to her lasting for several seconds, with no associated bowel or bladder incontinence, no associated chest pain or trouble breathing, in no preceding illness. No palpitations. [facility] was notified and transported patient to the hospital. Portably her rhythm had remained stable in transport. ER provider notes that she's had a few pauses but that seems to have stabilized well.. Patient was recently hospitalized in the setting of rate control problems with atrial fibrillation and possible failure with EF around 20%. She was noted during that hospitalization to have long pauses and she was evaluated by Dr. Vigil but ultimately medical intervention was entertained and thought to be controlling her rate. Ablation and possible pacer placement were discussed with the patient at that time, but again medical management was elected as heart rate seems controlled. 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 Her monitor was planned. Repeat echo was planned in 3 months but given her current symptomatology, we'll have Dr. Vigil see the patient again. Review of Systems Constitutional: COMPLAINS OF: Dizziness Eyes: DENIES: Blurred vision, Diplopia, Eye inflammation, Eye pain, Vision loss , Photosensitivity, Double Vision Ears, nose, mouth, throat: DENIES: Tinnitus, Hearing loss, Vertigo, Nasal discharge, Oral lesions, Throat pain, Hoarseness, Ear Pain, Running Nose, Epistaxis, Sinus Pain, Toothache, Odynophagia Respiratory: COMPLAINS OF: Shortness of breath, DENIES: Apneas, Cough, Snoring , Wheezing, Hemoptysis, Sputum production Cardiovascular: COMPLAINS OF: Dyspnea on Exertion, DENIES: Chest pain, Palpitations, Syncope, PND, Lower Extremity Edema, Orthopnea, Claudication Gastrointestinal: DENIES: Abdominal pain, Black stools, Bloody stools, BRB per rectum, Constipation, Diarrhea, GERD, Nausea, Reflux, Vomiting, Difficulty Swallowing, Anorexia, See HPI Musculoskeletal: COMPLAINS OF: Joint pain Hematologic/lymphatic: COMPLAINS OF: Bruising Neurologic: DENIES: Abnormal gait, Headache, Localized weakness, Paresthesias, Seizures, Speech Problems, Tremor, Poor Balance Psychiatric: COMPLAINS OF: Anxiety Other Loss of consciousness Past Family Social History Past Medical History Atrial fibrillation on chronic anticoagulation with Eliquis COPD. She is not on home oxygen. No hx tob but had occupational chemical exposure. Diabetes mellitus, Hgb A1C 6.5% in 05/2017 Hypertension Osteoporosis CHF with EF of 20% on recent echo Past Surgical History Bilateral cataract lens implants Ladder suspension Hysterectomy Tonsillectomy and adenoidectomy Left vein stripping Reported Medications Prednisone 10 Mg Tab 10 Mg PO DIRECTED 10 Days 20MG PO BID X 3 DAYS, 10MG PO BID X 3 DAYS, 10MG PO DAILY X 4 DAYS Tessalon Perles (Benzonatate) 100 Mg Cap 200 Mg PO TID PRN Lisinopril 5 Mg Tab 5 Mg PO DAILY Diltiazem CD 24 HR 300 Mg Caper 300 Mg PO DAILY Lopressor (Metoprolol Tartrate) 100 Mg Tab 100 Mg PO Q12HR Temazepam 15 Mg Cap 15 Mg PO HS PRN Eliquis (Apixaban) 5 Mg Tab 5 Mg PO BID Ventolin Hfa 18 GM Inh (Albuterol Sulfate) 90 Mcg/Act Aer 2 Puff INH Q4-6H PRN Miralax Powder (Polyethylene Glycol 3350 Powder) 17 Gm Powd 17 Gm PO DAILY Mix and dissolve one measuring cap-ful (17 grams) in water or juice. Metformin (Metformin HCl) 500 Mg Tab 500 Mg PO BIDPC With meals Incruse Ellipta Inh (Umeclidinium Mutual Inh) 0.0625 Mg/Act Inh 1 Puff INH DAILY Duoneb (Ipratropium-Albuterol Neb) 0.5-2.5 Mg/3 Ml Neb 1 Nebule INH BID Atorvastatin (Atorvastatin Calcium) 20 Mg Tab 20 Mg PO HS Aspirin 81 Mg Chew 81 Mg CHEW DAILY Allergies: Coded Allergies: clarithromycin (Unverified Allergy, Severe, VOMITING, 08/31/17) Family History [place] Social History No hx of tobacco use. Rarely drinks alcohol. Denies illicit drug use She used to work with [employer]. 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 She has 3 daughters who live near her in [place]. Physical Exam Vital Signs Vital Signs Date Time Temp Pulse Resp B/P (MAP) Pulse Ox O2 Delivery O2 Flow Rate FiO2 08/31/17 20:31 82 18 161/77 (105) 97 08/31/17 19:35 73 18 143/69 (93) 98 Room Air 08/31/17 18:38 71 18 147/70 (95) 100 Room Air 08/31/17 17:20 83 18 178/70 (106) 97 Room Air 08/31/17 16:59 65 20 97 Nasal Cannula 2.00 08/31/17 16:54 98.2 47 20 132/85 (101) 97 Physical Exam GENERAL: This is a well-nourished, well-developed patient, in no apparent distress. SKIN: Right knee would surface abrasion. Cool and dry. HEAD: Atraumatic. Normocephalic. No temporal or scalp tenderness. EYES: Pupils equal round and reactive. Extraocular motions intact. No scleral icterus. No injection or drainage. ENT: Nose without bleeding, purulent drainage or septal hematoma.. Airway patent. NECK: Trachea midline. No JVD or lymphadenopathy. Supple, nontender, no meningeal signs. CARDIOVASCULAR: Irregularly irregular, rate in 70s to 80s on my exam. Did not appreciate significant murmur. RESPIRATORY: Clear to auscultation. Breath sounds equal bilaterally. No wheezes , rales, or rhonchi. GASTROINTESTINAL: Abdomen soft, non-tender, nondistended. No hepato-splenomegaly , or palpable masses. No guarding. MUSCULOSKELETAL: Extremities without clubbing, cyanosis, or edema. Slight tenderness over right knee, but no effusion or significant deformity. Full range of motion.. No calf tenderness. NEUROLOGICAL: Awake and alert. Cranial nerves II through XII intact. Motor and sensory grossly within normal limits. Five out of 5 muscle strength in all muscle groups. Normal speech. Laboratory Laboratory Tests Test 08/31/17 17:15 White Blood Count 8.8 Red Blood Count 3.99 Hemoglobin 11.8 Hematocrit 36.8 Mean Corpuscular Volume 92.4 Mean Corpuscular Hemoglobin 29.5 Mean Corpuscular Hemoglobin Concent 31.9 Red Cell Distribution Width 15.6 Platelet Count 220 Mean Platelet Volume 8.3 Neutrophils (%) (Auto) 75.7 Lymphocytes (%) (Auto) 13.9 Monocytes (%) (Auto) 8.3 Eosinophils (%) (Auto) 1.5 Basophils (%) (Auto) 0.6 Neutrophils # (Auto) 6.7 Lymphocytes # (Auto) 1.2 Monocytes # (Auto) 0.7 Eosinophils # (Auto) 0.1 Basophils # (Auto) 0.1 CBC Comment DIFF FINAL Differential Comment Prothrombin Time 11.1 Prothromb Time International Ratio 1.1 Activated Partial Thromboplast Time 24.2 Blood Urea Nitrogen 19 Creatinine 1.02 Random Glucose 125 Total Protein 6.4 Albumin 3.3 Calcium Level 9.0 Alkaline Phosphatase 52 Aspartate Amino Transf (AST/SGOT) 18 Alanine Aminotransferase (ALT/SGPT) 31 Total Bilirubin 0.3 Sodium Level 140 Potassium Level 4.6 Chloride Level 107 Carbon Dioxide Level 26.5 Anion Gap 7 Estimat Glomerular Filtration Rate 52 Troponin I 0.02 Result Diagram: 08/31/175 08/31/17 171 Imaging Last [address] 08/31/17 170 Signed Impressions: Service Date/Time: Thursday, August 31, 2017 17:41 - CONCLUSION: Stable CT brain scan. No acute intracranial abnormality. Valentino Wilson MD Caprini VTE Risk Assessment Caprini VTE Risk Assessment: Mod/High Risk (score >= 2) Caprini Risk Assessment Model Point Value = 1 Point Value = 2 Point Value = 3 Point Value = 5 Age 41-60 Minor surgery BMI > 25 kg/m2 Swollen legs Varicose veins or History of unexplained or recurrent spontaneous Oral contraceptives or hormone replacement Sepsis (< 1 month) Serious lung disease, including pneumonia (< 1 month) Abnormal pulmonary function Acute myocardial infarction Congestive heart failure (< 1 month) History of inflammatory bowel disease Medical patient at bed rest Age 61-74 Arthroscopic surgery Major open surgery (> 45 min) Laparoscopic surgery (> 45 min) Malignancy Confined to bed (> 72 hours) Immobilizing plaster cast Central venous access Age >= 75 History of VTE Family history of VTE Factor V Leiden Prothrombin [id number] Lupus anticoagulant Anticardiolipin antibodies Elevated serum homocysteine Heparin-induced thrombocytopenia Other congenital or acquired thrombophilia Stroke (< 1 month) Elective arthroplasty Hip, pelvis, or leg fracture Acute spinal cord injury (< 1 month) Prophylaxis Regimen Total Risk Factor Score Risk Level Prophylaxis Regimen 0-1 Low Early ambulation 2 Moderate Order ONE of the following: *Sequential Compression Device (SCD) *Heparin 5000 units SQ BID 3-4 Higher Order ONE of the following medications: *Heparin 5000 units SQ TID *Enoxaparin/Lovenox 40 mg SQ daily (WT < 150 kg, CrCl > 30 mL/min) *Enoxaparin/Lovenox 30 mg SQ daily (WT < 150 kg, CrCl > 10-29 mL/min) *Enoxaparin/Lovenox 30 mg SQ BID (WT < 150 kg, CrCl > 30 mL/min) AND/OR *Sequential Compression Device (SCD) 5 or more Highest Order ONE of the following medications: *Heparin 5000 units SQ TID (Preferred with Epidurals) *Enoxaparin/Lovenox 40 mg SQ daily (WT < 150 kg, CrCl > 30 mL/min) *Enoxaparin/Lovenox 30 mg SQ daily (WT < 150 kg, CrCl > 10-29 mL/min) *Enoxaparin/Lovenox 30 mg SQ BID (WT < 150 kg, CrCl > 30 mL/min) AND *Sequential Compression Device (SCD) Assessment and Plan Problem List: (1) Syncope ICD Codes: R55 - Syncope and collapse Status: Acute Plan: Possible cardiac mediated given her ejection fraction and arrhythmia. We'll have cardiology evaluation. We'll not repeat echocardiogram at this point. We'll have topical wound care to the right knee. (2) Atrial fibrillation, chronic ICD Codes: I48.2 - Chronic atrial fibrillation Status: Chronic Plan: As noted above. (3) HTN (hypertension) ICD Codes: I10 - Essential (primary) hypertension Status: Chronic Plan: Continue medication at modified doses. We will hold off on the diltiazem and use lower dose of beta eduard given the occasional pause noted. (4) Hyperlipidemia ICD Codes: E78.5 - Hyperlipidemia, unspecified Status: Chronic Plan: Continue statin (5) COPD (chronic obstructive pulmonary disease) ICD Codes: J44.9 - Chronic obstructive pulmonary disease, unspecified Status: Chronic Plan: DuoNeb as needed. (6) DM2 (diabetes mellitus, type 2) ICD Codes: E11.9 - Type 2 diabetes mellitus without complications Status: Chronic Plan: Accu-Cheks and sliding scale insulin will be used. A1c was 6.5 in May 2017 and has been relatively well controlled in the preceding few years. Code Status Full Discussed Condition With Patient, her 3 daughters and ER provider Physician Certification 2 Midnight Certification Type: Admission for Inpatient Services Order for Inpatient Services The services are ordered in accordance with Medicare regulations or non- Medicare payer requirements, as applicable. In the case of services not specified as inpatient-only, they are appropriately provided as inpatient services in accordance with the 2-midnight benchmark. Estimated LOS (days): 2 days is the estimated time the patient will need to remain in the hospital, assuming treatment plan goals are met and no additional complications. Post-Hospital Plan: Home Problem Qualifiers (1) HTN (hypertension): Qualified Codes: I10 - Essential (primary) hypertension (2) Hyperlipidemia: Qualified Codes: E78.00 - Pure hypercholesterolemia, unspecified Montana Davis MD PhD Aug 31, 2017 20:53
[2017-08-31] MEDS: INSULIN ASPART SUPPLEMENTAL SCALE SQ SCH (21:00)
[2017-08-31] MEDS: METOPROLOL TARTRATE 25 MG TAB PO SCH (21:46)
[2017-08-31] MEDS: APIXABAN 5 MG TABLET PO SCH (21:46)
[2017-08-31] MEDS: ATORVASTATIN 20 MG TAB PO SCH (21:46)
[2017-08-31] MEDS: TEMAZEPAM 15 MG CAP PO PRN (23:51)
[2017-09-01] VITALS (28 sets, daily range): BP systolic 99–145; BP diastolic 60–81; PULSE 78–126; RESP 16–18; TEMP 97.7–98.3; O2SAT 94–98
[2017-09-01] MEDS: INSULIN ASPART SUPPLEMENTAL SCALE SQ SCH ×4 (08:00→22:06)
[2017-09-01] MEDS: LISINOPRIL 5 MG TAB PO SCH (09:00)
[2017-09-01] MEDS: APIXABAN 5 MG TABLET PO SCH ×2 (09:00→19:58)
[2017-09-01] MEDS: METOPROLOL TARTRATE 25 MG TAB PO SCH ×2 (09:00→19:58)
[2017-09-01] MEDS: ASPIRIN 81 MG CHEW TAB CHEW SCH (09:00)
--- NOTE | 2017-09-01 10:13 | EKG ---
Date Performed: 08/31/2017 Time Performed: 17:12:21 PTAGE: 81 years EKG: ATRIAL FIBRILLATION WITH ABERRANT CONDUCTION OR VENTRICULAR PREMATURE COMPLEXES LEFT BUNDLE BRANCH BLOCK ABNORMAL ECG PREVIOUS TRACING : 08/19/2017 07.37 DOCTOR: Vincent Ruiz Interpretating Date/Time 09/01/2017 10:11:57
--- NOTE | 2017-09-01 17:24 | HHI.PR ---
Subjective Remarks Patient frustrated that she is back in the hospital Objective Vitals Vital Signs Date Time Temp Pulse Resp B/P (MAP) Pulse Ox O2 Delivery O2 Flow Rate FiO2 09/01/17 17:05 111 09/01/17 16:00 107 09/01/17 15:00 97 09/01/17 15:00 114 16 110/78 (89) 98 09/01/17 14:06 111 09/01/17 13:00 103 09/01/17 12:23 101 09/01/17 11:00 93 09/01/17 11:00 97.8 105 17 112/77 (89) 98 09/01/17 10:00 91 09/01/17 09:00 115 09/01/17 08:59 109/81 (90) 09/01/17 08:00 116 09/01/17 07:15 90 09/01/17 07:15 98.0 104 17 99/67 (78) 98 09/01/17 06:00 90 09/01/17 05:00 90 09/01/17 04:00 90 09/01/17 03:30 97.7 97 16 145/75 (98) 97 09/01/17 03:00 85 09/01/17 02:00 85 09/01/17 01:00 80 09/01/17 00:00 78 08/31/17 23:00 84 08/31/17 23:00 98.4 74 16 146/69 (94) 97 08/31/17 22:00 82 08/31/17 21:30 84 148/72 (97) 08/31/17 21:02 98 21 08/31/17 21:00 98.1 69 16 173/84 (113) 97 08/31/17 21:00 90 08/31/17 20:31 82 18 161/77 (105) 97 08/31/17 19:35 73 18 143/69 (93) 98 Room Air 08/31/17 18:38 71 18 147/70 (95) 100 Room Air 08/31/17 17:20 83 18 178/70 (106) 97 Room Air 09/01/17 09/01/17 09/02/17 15:00 23:00 07:00 Output Total 400 ml Balance -400 ml Output Urine Total 400 ml # Voids 3 Result Diagram: 08/31/17 1715 08/31/17 1715 Other Results Laboratory Tests Test 08/31/17 17:15 White Blood Count 8.8 TH/MM3 Red Blood Count 3.99 MIL/MM3 Hemoglobin 11.8 GM/DL Hematocrit 36.8 % Mean Corpuscular Volume 92.4 FL Mean Corpuscular Hemoglobin 29.5 PG Mean Corpuscular Hemoglobin Concent 31.9 % Red Cell Distribution Width 15.6 % Platelet Count 220 TH/MM3 Mean Platelet Volume 8.3 FL Neutrophils (%) (Auto) 75.7 % Lymphocytes (%) (Auto) 13.9 % Monocytes (%) (Auto) 8.3 % Eosinophils (%) (Auto) 1.5 % Basophils (%) (Auto) 0.6 % Neutrophils # (Auto) 6.7 TH/MM3 Lymphocytes # (Auto) 1.2 TH/MM3 Monocytes # (Auto) 0.7 TH/MM3 Eosinophils # (Auto) 0.1 TH/MM3 Basophils # (Auto) 0.1 TH/MM3 CBC Comment DIFF FINAL Differential Comment Prothrombin Time 11.1 SEC Prothromb Time International Ratio 1.1 RATIO Activated Partial Thromboplast Time 24.2 SEC Blood Urea Nitrogen 19 MG/DL Creatinine 1.02 MG/DL Random Glucose 125 MG/DL Total Protein 6.4 GM/DL Albumin 3.3 GM/DL Calcium Level 9.0 MG/DL Alkaline Phosphatase 52 U/L Aspartate Amino Transf (AST/SGOT) 18 U/L Alanine Aminotransferase (ALT/SGPT) 31 U/L Total Bilirubin 0.3 MG/DL Sodium Level 140 MEQ/L Potassium Level 4.6 MEQ/L Chloride Level 107 MEQ/L Carbon Dioxide Level 26.5 MEQ/L Anion Gap 7 MEQ/L Estimat Glomerular Filtration Rate 52 ML/MIN Troponin I 0.02 NG/ML Imaging Last [address] 08/31/17 1707 Signed Impressions: Service Date/Time: Thursday, August 31, 2017 17:41 - CONCLUSION: Stable CT brain scan. No acute intracranial abnormality. Valentino Wilson MD Objective Remarks GENERAL: This is a well-nourished, well-developed patient, in no apparent distress. CARDIOVASCULAR: Irregularly irregular tachycardia RESPIRATORY: Clear to auscultation. Breath sounds equal bilaterally. GASTROINTESTINAL: Abdomen soft, non-tender, nondistended. Normal active bowel sounds MUSCULOSKELETAL: Extremities without clubbing, cyanosis, or edema. NEURO: Alert & Oriented. Moves all ext x4 A/P Problem List: (1) Syncope ICD Codes: R55 - Syncope and collapse Status: Acute Plan: Possible cardiac mediated given her ejection fraction and arrhythmia. cardiology consulted, Dr Vigil We'll not repeat echocardiogram at this point. right knee abrasion, Bactroban topically BID with wound care consult (2) Atrial fibrillation, chronic ICD Codes: I48.2 - Chronic atrial fibrillation Status: Chronic Plan: -As noted above - Patient has been previously hospitalized x 2 recently for A fib RVR. Patient was DC on metoprolol 100 mg PO BID and Cardizem 300 mg PO daily. She returned after having syncopal episodes -Patient currently tachycardic -will start Cardizem 60 mg PO Q6H -continue Eliquis 5 mg PO BID -continuous telemetry -consult placed to Dr. Vigil who has seen this patient on previous hospitalization - echocardiogram 08/20/17 reviewed and reveals: Normal left ventricular size. Wall thickness is normal. The left ventricular systolic function is severely reduced with an estimated ejection fraction in the range of 20%. There is global left ventricular dysfunction. The right ventricular systolic function is moderately decreased. The left atrial size is mildly dilated. The right atrial size is wnhk-jh-wrssxrkexg dilated. Mitral annular calcification is present. Mild mitral valve regurgitation. Aortic valve sclerosis is present. Trace aortic valve regurgitation. There is mcxy-dt-afwrvxun tricuspid valve regurgitation. There is estimated xjjyjxlj-zn-jcmaxr pulmonary hypertension present (60 mmHg ). The inferior vena cava is dilated. - TSH 0.401 (3) HTN (hypertension) ICD Codes: I10 - Essential (primary) hypertension Status: Chronic Plan: Continue medication at modified doses. We will resume diltiazem at 60 mg PO Q6H and use lower dose of beta eduard given the occasional pause noted. (4) Hyperlipidemia ICD Codes: E78.5 - Hyperlipidemia, unspecified Status: Chronic Plan: Continue statin (5) COPD (chronic obstructive pulmonary disease) ICD Codes: J44.9 - Chronic obstructive pulmonary disease, unspecified Status: Chronic Plan: DuoNeb as needed. (6) DM2 (diabetes mellitus, type 2) ICD Codes: E11.9 - Type 2 diabetes mellitus without complications Status: Chronic Plan: Accu-Cheks and sliding scale insulin will be used. A1c was 6.5 in May 2017 and has been relatively well controlled in the preceding few years. Assessment and Plan Patient examined. Assessment and plan formulated with Sharla Zapata PA-C. I agree with the above. Problem Qualifiers (1) HTN (hypertension): Qualified Codes: I10 - Essential (primary) hypertension (2) Hyperlipidemia: Qualified Codes: E78.00 - Pure hypercholesterolemia, unspecified Sharla Zapata Sep 01, 2017 17:24 Jeb Funez DO Sep 02, 2017 23:15
[2017-09-01] MEDS: DILTIAZEM HCL 60 MG TAB PO SCH ×2 (17:48→23:11)
[2017-09-01] MEDS: MUPIROCIN 2% OINT 22 GM TUBE TOPICAL SCH ×2 (17:49→19:58)
[2017-09-01] MEDS: ATORVASTATIN 20 MG TAB PO SCH (19:58)
[2017-09-01] MEDS: TEMAZEPAM 15 MG CAP PO PRN (22:03)
[2017-09-02] VITALS (25 sets, daily range): BP systolic 124–149; BP diastolic 62–84; PULSE 63–136; RESP 16–18; TEMP 97.5–98.1; O2SAT 94–100
[2017-09-02] MEDS: DILTIAZEM HCL 60 MG TAB PO SCH ×2 (05:40→12:59)
--- NOTE | 2017-09-02 07:59 | MB ---
cc: MELLO ALEXIS HANSCY M.D. SCHWARTZ,RICHA COLUNGA DATE OF CONSULTATION 09/02/2017 REASON FOR CONSULTATION Syncopal episode, atrial fibrillation with fast ventricular response. HISTORY OF PRESENT ILLNESS Mrs. Evangelista is an 81-year-old female with a history of atrial fibrillation, congestive heart failure, cardiomyopathy, ejection around 20%, previous hospitalization due to atrial fibrillation unable to control with medication. The patient is on multiple medications, was at [facility] and passed out. She was brought to the emergency room. Heart rate was high. I was consulted for evaluation and management. The chart was reviewed. The patient was evaluated. ALLERGIES CLARITHROMYCIN SOCIAL HISTORY Negative for smoking and drinking. FAMILY HISTORY Noncontributory to her current medical condition. MEDICATIONS She is on: 1. Prednisone 2. Lisinopril 3. Cardizem 4. Lopressor 5. Eliquis 6. Ventolin 7. MiraLax 8. Metformin 9. Atorvastatin 10. Aspirin REVIEW OF SYSTEMS The patient refers no chest pain, dizziness, and shortness of breath, or fever. PHYSICAL EXAM Alert, fully oriented. VITAL SIGNS: Blood pressure is 110/78, pulse around 120, respiratory rate 18. LUNGS: Ventilated. CARDIOVASCULAR: S1-S2, irregular, tachycardia. ABDOMEN: Soft. No mass. No bruit. EXTREMITIES: With no edema. Electrocardiogram shows atrial fibrillation, left bundle-branch block, diffuse ST changes. LABORATORY DATA Hemoglobin is 11.8, white blood cell 8.8, potassium is 4.6, creatinine 1.02, troponin 0.02, INR 1.1. ASSESSMENT AND RECOMMENDATIONS Mr. Evangelista has atrial fibrillation with a fast ventricular response. She has previous hospitalization. She is on multiple medications. She had a syncopal episode. She has heart failure. 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 I had a long conversation with her. The last hospitalization apparently heart rate was controlled. She was discharged home. Electrophysiology study and ablation discussed again with her. The risks, the nature and the benefit of the procedure are clearly stated to her. These risks include pneumothorax, cardiac perforation, stroke and even . She and her daughter understand and agreed to proceed. I did answer all their questions to the best of my knowledge. MD MICHELE Cruz/WILLY /11:57 PM /7:47 AM
[2017-09-02] MEDS: INSULIN ASPART SUPPLEMENTAL SCALE SQ SCH ×4 (08:00→20:17)
[2017-09-02] MEDS: LISINOPRIL 5 MG TAB PO SCH (08:31)
[2017-09-02] MEDS: ASPIRIN 81 MG CHEW TAB CHEW SCH (08:31)
[2017-09-02] MEDS: METOPROLOL TARTRATE 25 MG TAB PO SCH (08:32)
[2017-09-02] MEDS ORDERED: GLYCOPYRROLATE 1 MG/5 ML SYRINGE IV PUSH ONE (12:00)
[2017-09-02] MEDS ORDERED: PROPOFOL 200 MG/20 ML AMP IV ONE (12:00)
[2017-09-02] MEDS ORDERED: ESMOLOL HCL 100 MG/10 ML VIAL IV ONE (12:00)
[2017-09-02] MEDS ORDERED: NEOSTIGMINE 5 MG/5 ML SYRINGE IV PUSH ONE (12:00)
[2017-09-02] MEDS ORDERED: ROCURONIUM INJ 50 MG/5 ML SYRINGE IV PUSH ONE (12:00)
[2017-09-02] MEDS ORDERED: PHENYLEPH/NS 1000 MCG/10 ML SYR IV ONE (12:00)
--- NOTE | 2017-09-02 12:52 | HHI.PR ---
Subjective Remarks patient offers no specific complaints at this time plan for EP study with Dr. Vigil this afternoon Objective Vitals Vital Signs Date Time Temp Pulse Resp B/P (MAP) Pulse Ox O2 Delivery O2 Flow Rate FiO2 09/02/17 08:15 97.9 81 18 133/80 (97) 99 09/02/17 07:01 68 09/02/17 06:00 108 09/02/17 05:00 72 09/02/17 04:00 77 09/02/17 03:20 97.7 73 18 124/62 (82) 97 09/02/17 03:00 90 09/02/17 02:00 79 09/02/17 01:00 94 09/02/17 00:00 87 09/01/17 23:10 98.3 96 18 108/61 (77) 94 09/01/17 23:00 83 09/01/17 22:00 84 09/01/17 21:00 80 09/01/17 20:00 108 09/01/17 19:30 97.9 110 18 99/60 (73) 97 09/01/17 19:00 126 09/01/17 18:00 117 09/01/17 17:05 111 09/01/17 16:00 107 09/01/17 15:00 97 09/01/17 15:00 114 16 110/78 (89) 98 09/01/17 14:06 111 09/01/17 13:00 103 Result Diagram: 08/31/17 1715 08/31/17 1715 Other Results Laboratory Tests Test 08/31/17 17:15 White Blood Count 8.8 TH/MM3 Red Blood Count 3.99 MIL/MM3 Hemoglobin 11.8 GM/DL Hematocrit 36.8 % Mean Corpuscular Volume 92.4 FL Mean Corpuscular Hemoglobin 29.5 PG Mean Corpuscular Hemoglobin Concent 31.9 % Red Cell Distribution Width 15.6 % Platelet Count 220 TH/MM3 Mean Platelet Volume 8.3 FL Neutrophils (%) (Auto) 75.7 % Lymphocytes (%) (Auto) 13.9 % Monocytes (%) (Auto) 8.3 % Eosinophils (%) (Auto) 1.5 % Basophils (%) (Auto) 0.6 % Neutrophils # (Auto) 6.7 TH/MM3 Lymphocytes # (Auto) 1.2 TH/MM3 Monocytes # (Auto) 0.7 TH/MM3 Eosinophils # (Auto) 0.1 TH/MM3 Basophils # (Auto) 0.1 TH/MM3 CBC Comment DIFF FINAL Differential Comment Prothrombin Time 11.1 SEC Prothromb Time International Ratio 1.1 RATIO Activated Partial Thromboplast Time 24.2 SEC Blood Urea Nitrogen 19 MG/DL Creatinine 1.02 MG/DL Random Glucose 125 MG/DL Total Protein 6.4 GM/DL Albumin 3.3 GM/DL Calcium Level 9.0 MG/DL Alkaline Phosphatase 52 U/L Aspartate Amino Transf (AST/SGOT) 18 U/L Alanine Aminotransferase (ALT/SGPT) 31 U/L Total Bilirubin 0.3 MG/DL Sodium Level 140 MEQ/L Potassium Level 4.6 MEQ/L Chloride Level 107 MEQ/L Carbon Dioxide Level 26.5 MEQ/L Anion Gap 7 MEQ/L Estimat Glomerular Filtration Rate 52 ML/MIN Troponin I 0.02 NG/ML Imaging Last [address] 08/31/17 1707 Signed Impressions: Service Date/Time: Thursday, August 31, 2017 17:41 - CONCLUSION: Stable CT brain scan. No acute intracranial abnormality. Valentino Wilson MD Objective Remarks GENERAL: This is a well-nourished, well-developed patient, in no apparent distress. SKIN: abrasion right elbow and right knee CARDIOVASCULAR: Irregularly irregular RESPIRATORY: Clear to auscultation. Breath sounds equal bilaterally. GASTROINTESTINAL: Abdomen soft, non-tender, nondistended. Normal active bowel sounds MUSCULOSKELETAL: Extremities without clubbing, cyanosis, or edema. NEURO: Alert & Oriented. Moves all ext x4 A/P Problem List: (1) Syncope ICD Codes: R55 - Syncope and collapse Status: Acute Plan: Possible cardiac mediated given her ejection fraction and arrhythmia. cardiology consulted, Dr Vigil plan for EP study/ablation this afternoon 09/02/17 We'll not repeat echocardiogram at this point. right knee abrasion, Bactroban topically BID with wound care consult (2) Atrial fibrillation, chronic ICD Codes: I48.2 - Chronic atrial fibrillation Status: Chronic Plan: -As noted above - Patient has been previously hospitalized x 2 recently for A fib RVR. Patient was DC on metoprolol 100 mg PO BID and Cardizem 300 mg PO daily. She returned after having syncopal episodes -Patient currently tachycardic -will start Cardizem 60 mg PO Q6H -continue Eliquis 5 mg PO BID -continuous telemetry -consult placed to Dr. Vigil who has seen this patient on previous hospitalization - echocardiogram 08/20/17 reviewed and reveals: Normal left ventricular size. Wall thickness is normal. The left ventricular systolic function is severely reduced with an estimated ejection fraction in the range of 20%. There is global left ventricular dysfunction. The right ventricular systolic function is moderately decreased. The left atrial size is mildly dilated. The right atrial size is ynou-iq-qirrpyprkc dilated. Mitral annular calcification is present. Mild mitral valve regurgitation. Aortic valve sclerosis is present. Trace aortic valve regurgitation. There is varf-nd-igaxwcgd tricuspid valve regurgitation. There is estimated bivjhggk-lo-sdqmso pulmonary hypertension present (60 mmHg ). The inferior vena cava is dilated. - TSH 0.401 (3) HTN (hypertension) ICD Codes: I10 - Essential (primary) hypertension Status: Chronic Plan: Continue medication at modified doses. We will resume diltiazem at 60 mg PO Q6H and use lower dose of beta eduard given the occasional pause noted. (4) Hyperlipidemia ICD Codes: E78.5 - Hyperlipidemia, unspecified Status: Chronic Plan: Continue statin (5) COPD (chronic obstructive pulmonary disease) ICD Codes: J44.9 - Chronic obstructive pulmonary disease, unspecified Status: Chronic Plan: DuoNeb as needed. (6) DM2 (diabetes mellitus, type 2) ICD Codes: E11.9 - Type 2 diabetes mellitus without complications Status: Chronic Plan: Accu-Cheks and sliding scale insulin will be used. A1c was 6.5 in May 2017 and has been relatively well controlled in the preceding few years. Assessment and Plan Patient examined. Assessment and plan formulated with Sharla Zapata PA-C. I agree with the above. - Pt underwent EPS study with ablation - observe on telemetry - PT to evaluate - anticipate d/c in 1-2 days Problem Qualifiers (1) HTN (hypertension): Qualified Codes: I10 - Essential (primary) hypertension (2) Hyperlipidemia: Qualified Codes: E78.00 - Pure hypercholesterolemia, unspecified Sharla Zapata Sep 02, 2017 12:52 Jeb Funez DO Sep 02, 2017 23:17
[2017-09-02] MEDS ORDERED: LORazepam 1 MG TAB SL SCH (15:15)
[2017-09-02] MEDS ORDERED: LEVOFLOXACIN 500 MG PREMIX INJ 100 ML IV ONE (16:30)
[2017-09-02] MEDS ORDERED: HEPARIN-NS/PF INJ 1,000 ML ONE (16:46)
[2017-09-02] MEDS ORDERED: HEPARIN SODIUM - IV 10,000 UNITS/10 ML VIAL ONE (17:47)
[2017-09-02] MEDS ORDERED: ISOPROTERENOL HCL 1 MG/5 ML AMP ONE (17:47)
[2017-09-02] MEDS ORDERED: HEPARIN-D5W 25,000 U/250 ML 250 ML ONE (17:47)
[2017-09-02] MEDS ORDERED: PROTAMINE SULFATE 50 MG/5 ML VIAL ONE (17:47)
[2017-09-02] MEDS ORDERED: SODIUM CHLOR 0.9% 250 ML INJ 250 ML IV PRN (19:30)
[2017-09-02] MEDS ORDERED: oxyCODONE/ACETAMINOPHEN 5 MG/325 MG TAB PO PRN ×2 (19:30)
[2017-09-02] MEDS ORDERED: LIDOCAINE HCL 1% 30 ML VIAL INFIL PRN (19:30)
[2017-09-02] MEDS ORDERED: LORazepam 2 MG/ML VIAL IV PUSH PRN (19:30)
[2017-09-02] MEDS ORDERED: BACITRACIN OINT 0.9 GM PKT TOP ONE (19:30)
[2017-09-02] MEDS ORDERED: ONDANSETRON HCL 4 MG/2 ML VIAL IV PUSH PRN (19:30)
[2017-09-02] MEDS ORDERED: ATROPINE SULFATE 1 MG/ML VIAL IV PUSH PRN (19:30)
--- NOTE | 2017-09-02 20:05 | CATHPROC ---
Patient Name: COSME BASURTO Study #: [id number] Initial MD: Sophy Vigil Date of : 1935 Study Date: 09/02/2017 Cardiac Catheterization Report 09/02/2017 8:05:35 PM Financial #: [id number] 1 of 10 Patient Name: COSME BASURTO Study #: [id number] Initial MD: Sophy Vigil Date of : 1935 Study Date: 09/02/2017 Entire Case Report Patient Information Patient Name COSME BASURTO Date of 1935 Age 81 years Financial # [id number] Gender F AlternateID Lab Number 2 Room Number 460 Height (in) 63.0 Height (cm) 160.0 BSA 1.79 Weight (lbs) 165.9 Weight (kg) 75.4 Patient Address/Phone Number Home Address [facility] Home Phone Number [phone] [phone] Study Information Study Number Admission Scheduled Start Study Start [id number] Aug 31 2017 6:30PM 09/02/2017 Sep 02 2017 4:46PM [place] Service Electrophysiology Study Admit Source Facility Department Other [facility] Physician and Clinical Staff Initial Sophy Acosta Mail Processor Fernando Mckeon,RT(R) Other Anesthesia, CAD PROGRAMMER Recorder Laverne Galvez,RN Recorder Kylee Bella,LAYA Scrub Nemo Cantrell,PAINT TINTER Procedures Performed Procedure Location (Site) Vessel Name Cardioversion ICE CATHETER INSERT RA Atruim 09/02/2017 8:05:35 PM Financial #: [id number] 2 of 10 Patient Name: COSME BASURTO Study #: [id number] Initial MD: Sophy Vigil Date of : 1935 Study Date: 09/02/2017 Equipment Time 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 [employer] Used 65 BUNDLE *[id number]- BUNDLE [id number] CATHETER, FR7 OPTIMA SPIRAL 17:05 B[employer] FR7 *[id number]- Used BUNDLE BUNDLE [id number] 17:05 BUN[employer] CATHETER, JSN, QUAD BUNDLE FR 5 *[id number]- Used BUNDLE [id number] 17:05 BUND[employer] CATHETER, JSN, QUAD BUNDLE FR 5 *[id number]- Used BUNDLE [id number]-FXLZUM SET, COOL POINT TUBING 17:05 BUNDLE-[employer] *[id number]- Used BUNDLE BUNDLE SHEATH, FR8.5 STEERABLE SM 17:05 BUNDLE-[employer] 71CM [id number] Used 71CM BUNDLE COVER, TRANSDUCER CABLE 612-113 17:05 [employer] Used ACUNAV *[id number] 17:05 CORDIS/PACER SHEATH, FR10 AMAYA 11CM FR 10 Used *[id number] 17:05 CORDIS/PACER SHEATH, FR9 AMAYA 11CM FR 9 [id number] Used [id number] 17:05 [employer] INDUSTRIES PACK, CCL CUSTOM * Used *[id number] 17:05 [employer] PACER HOLDEN, LIMB * 2530 *[id number] Used [id number] 17:05 [employer] MEDICAL SHEATH, FR4.5 PRELUDE 11CM FR 4.5 Used [id number] 17:05 NAMIC TUBING, HIGH PRESSURE 48" 48" Used *[id number] 17:05 NAMIC TUBING, HIGH PRESSURE 48" 48" Used *[id number] 17:05 [employer] MEDICAL BLANKET,WARM AIR CCL * Used *[id number] 17:05 [facility] MEDICAL ELECTRODE KIT, CONRAD X SURFACE * Used *[id number] [id number] 17:05 [employer] MEDICAL SHEATH, EPS, FR6 FAST CATH FR 6 Used *[id number] 17:05 [employer] MEDICAL SHEATH, EPS, FR7 FAST CATH FR 7 [id number] Used [id number] 17:05 [employer] MEDICAL SHEATH, EPS, FR8 FAST CATH FR 8 Used *[id number] [facility] PAD, ELECTROSURGICAL 17:05 * [id number] *[id number] Used SURGICAL GROUNDING (BLUE) 09/02/2017 8:05:35 PM Financial #: [id number] 3 of 10 Patient Name: COSME BASURTO Study #: [id number] Initial MD: Sophy Vigil Date of : 1935 Study Date: 09/02/2017 Insurance Information Insurance Payor Private Health Insurance Third Green Party Third Green Party Number [facility] MCR O [id number] History: Allergies Allergy Reaction clarithromycin VOMITING History: Risk Factors Hypertension Dyslipidemia Yes Yes Chronic Lung Disease Labs Hgb (g/dl) Hct (%) RBC (MIL/MM3) WBC (l/cumm) Platelets (thousands) 11.60-17.00 35.00-51.00 4.00-5.90 4.00-11.00 150.00-450.00 11.0 36 4 8.8 220 Glucose (mg/dl) BUN (mg/dl) Creatinine (mg/dl) BUN:Creatinine (1:x) 74.00-106.00 7.00-18.00 0.50-1.30 10.00-20.00 125 19 1.0 19 Na (meq/l) K (meq/l) 136.00-145.00 3.50-5.10 140 4.6 INR (PTT:PT) 0.90-1.10 1.1 Medication Medication Total Dose (Bolus/Oral) Medication Total Dosage/Unit 1% XYLOCAINE 40 mL HEPARIN 52205 units PROTAMINE 40 mg 09/02/2017 8:05:35 PM Financial #: [id number] 4 of 10 Patient Name: COSME BASURTO Study #: [id number] Initial MD: Sophy Vigil Date of : 1935 Study Date: 09/02/2017 Medications (Bolus/Oral) Medication Time Given Dosage/Unit Administered By Reason 1% XYLOCAINE 09/02/2017 5:50:34 PM 20 mL Sophy Vigil 20 mL 1% XYLOCAINE given in lab by Sophy Vigil in Left Groin via Subcutaneous. 1% XYLOCAINE 09/02/2017 5:53:45 PM 20 mL Sophy Vigil 20 mL 1% XYLOCAINE given in lab by Sophy Vigil in Right Groin via Subcutaneous. HEPARIN 09/02/2017 6:01:57 PM 48506 units Anesthesia, CAD PROGRAMMER As per physicians v erbal order 65846 units HEPARIN given in lab by Anesthesia, CAD PROGRAMMER via Peripheral IV. Ordered by Sophy Vgiil. Betzy son: As per physicians verbal order. HEPARIN 09/02/2017 6:56:00 PM 1000 units Anesthesia, CAD PROGRAMMER As per physicians ve rbal order 1000 units HEPARIN given in lab by Anesthesia, CAD PROGRAMMER via Peripheral IV. Ordered by Sophy Vigil. Reas on: As per physicians verbal order. PROTAMINE 09/02/2017 7:23:09 PM 40 mg Anesthesia, CAD PROGRAMMER As per physicians ofe bal order 40 mg PROTAMINE given in lab by Anesthesia, CAD PROGRAMMER via Peripheral IV. Ordered by Sophy Vigil. Reason: As per physicians verbal order. Medication (Drip) Medication Time Given Dosage/Unit Concentration/Unit Diluent (ml) Solution HEPARIN DRIP 09/02/2017 6:11:50 PM 1000 units/hr 00634 units 250 D5W 1000 units/hr HEPARIN DRIP given in lab by Anesthesia, CAD PROGRAMMER via Peripheral IV. Pump/Drip Flow = 10 ml /hr [place] [address] units in 250 ml. Ordered by Sophy Vigil. Reason: As per physicians verbal order. ISUPREL 09/02/2017 7:10:22 PM 10 mcg/min 1 mg 250 NaCl .9 10 mcg/min ISUPREL given in lab by Anesthesia, CAD PROGRAMMER via Peripheral IV. Pump/Drip Flow = 150 ml/hr usi ng NaCl .9 with a concentration of 1 mg in 250 ml. Ordered by Sophy Vigil. Reason: As per physicians verbal order. 09/02/2017 8:05:35 PM Financial #: [id number] 5 of 10 Patient Name: COSME BASURTO Study #: [id number] Initial MD: Sophy Vigil Date of : 1935 Study Date: 09/02/2017 Initial Case Assessment Cardiovascular HR Rhythm NIBP Chest Pain 77 afib 137/95 0 Edema Present Skin color Skin None Normal Warm Dry Circulatory - Right Pulses Dorsalis Pedis 2 Scale (0,1,2,3,4,d) Circulatory - Left Pulses Dorsalis Pedis 2 Scale (0,1,2,3,4,d) Neurological State Oriented to time-place- Alert Moves all extremities person Respiration - General Respiration Rate SpO2 (%) (B/min) 18 98 09/02/2017 8:05:35 PM Financial #: [id number] 6 of 10 Patient Name: COSME BASURTO Study #: [id number] Initial MD: Sophy Vigil Date of : 1935 Study Date: 09/02/2017 Final Case Assessment Cardiovascular HR Rhythm NIBP 78 sr 99/56 Edema Present Skin color Skin None Normal Warm Dry Circulatory - Right Pulses Dorsalis Pedis 2 Scale (0,1,2,3,4,d) Circulatory - Left Pulses Dorsalis Pedis 2 Scale (0,1,2,3,4,d) Circulatory - Lower Extremities Color Lower Right Color Lower Left Normal Normal Neurological State Drowsy Respiration - General SpO2 (%) 100 Chronological Log Time Study Chronological Log 17:02:41 Patient arrived via Bed. 17:02:41 Patient Name, D.O.B, / Armband Verified By R.N. 17:02:42 Consent signed by the physician and the patient and verified by the [facility] staff. 17:02:51 Pre-op and post- op instructions given; patient acknowledges understanding of instructions. 17:03:12 Verbal Stimulation=2 Physical Stimulation=2 Airway=2 Respiration=2 TOTAL=8. (0=absent, 1=li mited, 2=present) 17:05:06 Patient has been NPO for More than 6Hrs. 17:05:07 Skin Breakdown-Generalized bruising, right knee w drsg c/d/i and r elbow w scab 17:05:22 Anesthesia at bedside. Assumes care of patient. see records for all meds and vitals during procedure 17:05:53 Patient Warmer Placed on the Table. 17:05:54 Disposable Defibrillator Pads Placed On Patient. 09/02/2017 8:05:35 PM Financial #: [id number] 7 of 10 Patient Name: COSME BASURTO Study #: [id number] Initial MD: Sophy Vigil Date of : 1935 Study Date: 09/02/2017 17:05:55 Binh Prominences Protected 17:05:56 A # 20 IV was noted in the Antecubital (left). Grade = 0 0.9ns kvo 17:05:57 A # 20 IV was noted in the Hand (right). Grade = 0 0.9ns kvo 17:06:26 History and physical on the chart. Assessment: Initial Case, HR=77 BPM, Rhythm=afib, ECIA=360/95 mmhg, Chest Pain=0, Edema=None, Color=Normal, Skin = Warm, Dry Right Pulses: Homer Ped=2 17:20:29 Left Pulses: Homer Ped=2 Neurological: State=Alert, Ox3, THOMPSON Respiration: Resp=18 B/min, SpO2=98 % 17:20:32 Table restraints applied according to hospital policy 17:20:41 Bilateral groins prepped with 2% chlorhexidine, and draped after a 3 minute waiting time. 17:30:34 Anesthesiologist present for intubation. 17:34:19 Reference ECG taken 17:42:34 MD arrived. Time Out. Correct patient, procedure, procedure equipment, site and side verified with physicia n present. Time 17:45:06 concurred by MD, individual staff and CAD PROGRAMMER. Time Out #2 - Consents verified, patient in correct position, all results are labled and displa yed, safety precautions 17:45:30 taken, antibiotics administered. Time out concurred by MD, individual staff and CAD PROGRAMMER in procedu re 17:45:49 Case Start 17:45:50 Lamonte in progress. 17:48:43 Lamonte complete 17:50:00 Lamonte complete. 17:50:34 20 mL 1% XYLOCAINE given in lab by Sophy Vigil in Left Groin via Subcutaneous. 17:51:45 Vascular access was obtained in the Fem Art (left). A SHEATH, FR4.5 PRELUDE 11CM FR 4.5 was advanced into the Fem Art (left) using the Modified Nasrin miya technique. 17:51:56 0.9ns presure bag connected. 17:52:24 Vascular access was obtained in the Fem Vein (left). 17:52:26 Vascular access was obtained in the Fem Vein (left). 17:52:29 Vascular access was obtained in the Fem Vein (left). 17:52:34 Vascular access was obtained in the Fem Vein (left). 17:52:36 A SHEATH, EPS, FR7 FAST CATH FR 7 was advanced into the Fem Vein (left) using the Modified Seldinger technique. 17:52:49 A SHEATH, FR10 AMAYA 11CM FR 10 was advanced into the Fem Vein (left) using the Modified S eldinger technique. 17:53:45 20 mL 1% XYLOCAINE given in lab by Sophy Vigil in Right Groin via Subcutaneous. 17:53:53 Vascular access was obtained in the Fem Vein (right). 17:54:00 A SHEATH, EPS, FR8 FAST CATH FR 8 was advanced into the Fem Art (right) using the Modified Seldinger technique. A CATHETER, JSN, QUAD BUNDLE FR 5 was advanced vis Fem Vein (right) and placed in the CS. Place ment was 17:56:00 visually confirmed under fluoroscopy. A CATHETER, JSN, QUAD BUNDLE FR 5 was advanced vis Fem Vein (right) and placed in the HIS. Plac ement was 17:56:34 visually confirmed under fluoroscopy. 17:56:55 Ice catheter Was Postioned. 17:58:29 Beginning of case Body Temp 35.9. A SHEATH, FR8.5 STEERABLE SM 71CM BUNDLE 71CM was exchanged in the Fem Vein (right). This was n ecessary in 17:58:58 order for catheter support. 09/02/2017 8:05:35 PM Financial #: [id number] 8 of 10 Patient Name: COSME BASURTO Study #: [id number] Initial MD: Sophy Vigil Date of : 1935 Study Date: 09/02/2017 17:59:14 [place] in. 18:01:00 A eps was advanced to the right atrium and passed through the septal wall to the left atriu m. 18:01:12 [place] out A CATHETER, FR7 OPTIMA SPIRAL BUNDLE FR7 was advanced vis Fem Vein (right) and placed in the LA . Placement 18:01:45 was visually confirmed under fluoroscopy. Mapping in progress. 54093 units HEPARIN given in lab by Anesthesia, CAD PROGRAMMER via Peripheral IV. Ordered by Nnamdi Vigil Reason: As per 18:01:57 physicians verbal order. 18:07:00 Activated Clotting Time Drawn 18:11:40 ACT (Normal Range 90-180) = 351 1000 units/hr HEPARIN DRIP given in lab by Anesthesia, CAD PROGRAMMER via Peripheral IV. Pump/Drip Flow = 10 ml/hr using 18:11:50 D[place] [address] units in 250 ml. Ordered by Sophy Vigil. Reason: As per manuel trammell verbal order. 18:13:54 Mapping complete. Catheter was removed A CATHETER, TACTICATH ABLAT 65 BUNDLE was advanced vis Fem Vein (right) and placed in the LA. P lacement was 18:14:04 visually confirmed under fluoroscopy. ablation in progress 18:34:03 18:49:00 Activated Clotting Time Drawn 18:55:17 ACT (Normal Range 90-180) = 339 1000 units HEPARIN given in lab by Anesthesia, CAD PROGRAMMER via Peripheral IV. Ordered by Sophy Vigil . Reason: As per 18:56:00 physicians verbal order. 19:04:50 ECG rhythm of AF noted. Patient cardioverted at 200 joules. Success synch 19:05:19 Sr noted on monitor. 19:05:30 Ablation catheter removed without difficulty. 10 mcg/min ISUPREL given in lab by Anesthesia, CAD PROGRAMMER via Peripheral IV. Pump/Drip Flow = 150 ml/ hr using NaCl .9 19:10:22 with a concentration of 1 mg in 250 ml. Ordered by Sophy Vigil. Reason: As per physicians ofe bal order. 19:12:17 Activated Clotting Time Drawn 19:18:34 ACT (Normal Range 90-180) = 323 19:19:00 Isuprel and heparin off. 19:19:28 All catheter(s) removed without difficulty. A SHEATH, FR9 AMAYA 11CM FR 9 was exchanged in the Fem Vein (right). This was necessary in ord er to minimize 19:19:50 site leakage. 19:22:59 PACU called. Spoke to Oziel. 40 mg PROTAMINE given in lab by Anesthesia, CAD PROGRAMMER via Peripheral IV. Ordered by Sophy Vigil. R odin: As per 19:23:09 physicians verbal order. 19:23:13 Bedside Report will be given. 19:23:25 Defibrillator and ground pads removed. Skin intact. 19:30:00 Activated Clotting Time Drawn 19:31:25 Sheath removed; pressure applied to access site.9fr rfv by nemo titus 19:31:59 ACT (Normal Range 90-180) = 134 19:33:53 Sheath removed; pressure applied to access site. 4fr lfa by angelia 19:45:34 Sheath removed; pressure applied to access site.6, 7, and 10fr lfv pullled otng wilson 20:02:46 patient exhaubated by kailyn 09/02/2017 8:05:35 PM Financial #: [id number] Patient Name: COSME BASURTO Study #: [id number] Initial MD: Sophy Vigil Date of : 1935 Study Date: 09/02/2017 Assessment: Final Case, HR=78 BPM, Rhythm=sr, NIBP=99/56 mmhg, Edema=None, Color=Normal, Skin = Warm, Dry Right Pulses: Homer Ped=2 Left Pulses: Homer Ped=2 20:03:10 Lower Right Extremities: Color=Normal Lower Left Extremities: Color=Normal Neurological: State=Drowsy Respiration: JnC7=513 % 20:03:57 Case End 20:04:33 Sterile dressing applied to site 20:04:36 No case complications noted. 20:05:21 PACU called. Spoke to 20:05:29 Patient moved to stretcher End Study - Contrast Media Used In Study Contrast Total Opened (mL) Total Used (mL) Total Wasted (mL) Unspecified 0 0 0 End Study - Maximum Contrast Load Max Contrast Load (mL) 377.0 End Study - Radiation Exposure Fluoro Time (minutes) 2.4 End Study - Patient Disposition Complications Transferred To Interventional Outcome No Telemetry Bed successful 09/02/2017 8:05:35 PM Financial #: [id number]
[2017-09-02] MEDS ORDERED: MIDAZOLAM HCL 2 MG/2 ML VIAL ONE (20:22)
[2017-09-02] MEDS: MUPIROCIN 2% OINT 22 GM TUBE TOPICAL SCH (21:00)
[2017-09-02] MEDS: METOPROLOL TARTRATE 50 MG TAB PO SCH (21:39)
[2017-09-02] MEDS: AMIODARONE 200 MG TAB PO SCH (21:39)
[2017-09-02] MEDS: ATORVASTATIN 20 MG TAB PO SCH (21:39)
--- NOTE | 2017-09-02 21:42 | EKG ---
Date Performed: 09/02/2017 Time Performed: 20:35:58 PTAGE: 81 years EKG: Sinus rhythm WITH FIRST DEGREE AV BLOCK INTRAVENTRICULAR CONDUCTION DELAY SEPTAL MYOCARDIAL INFARCTION , OF INDET ERMINATE AGE ABNORMAL ECG Compared to prior electrocardiogram, Normal sinus rhythm has replaced atri al fibrillation PREVIOUS TRACING : 08/31/2017 17.12 DOCTOR: Hari Perkins Interpretating Date/Time 09/02/2017 21:42:05
[2017-09-02] MEDS ORDERED: DO NOT ADM ANY ANTICOAGULANT DRUGS PRN (22:00)
[2017-09-03] VITALS (13 sets, daily range): BP systolic 109–130; BP diastolic 64–70; PULSE 64–82; RESP 16–20; TEMP 97.8–98.8; O2SAT 95–98
[2017-09-03 05:05] LABS: AUTOMATED NEUTROPHIL # 5.7 TH/MM3 (1.8-7.7); BASOPHIL % 0.7 % (0.0-2.0); EOSINOPHIL # 0.1 TH/MM3 (0-0.4); EOSINOPHIL % 1.1 % (0.0-4.0); LYMPH % 12.9 % (9.0-44.0); LYMPHOCYTE # 0.9 TH/MM3 (1.0-4.8); MEAN CELL VOLUME 90.8 FL (80.0-100.0); MEAN CORPUSCULAR HEMOGLOBIN 30.2 PG (27.0-34.0); MEAN CORPUSCULAR HGB CONC 33.3 % (32.0-36.0); MEAN PLATELET VOLUME 8.6 FL (7.0-11.0); MONO % 7.4 % (0.0-8.0); MONOCYTE # 0.5 TH/MM3 (0-0.9); NEUT % 77.9 % (16.0-70.0); PLATELET COUNT 170 TH/MM3 (150-450); RED BLOOD COUNT 3.64 MIL/MM3 (4.00-5.30); RED CELL DISTRIBUTION WIDTH 15.3 % (11.6-17.2); WHITE BLOOD COUNT 7.3 TH/MM3 (4.0-11.0)
[2017-09-03 05:09] LABS: INTERNATIONAL NORMALIZED RATIO 1.1 RATIO; PROTHROMBIN TIME - PATIENT 11.6 SEC (9.8-11.6)
[2017-09-03 05:32] LABS: BICARBONATE 27.7 MEQ/L (21.0-32.0); CALCIUM 8.3 MG/DL (8.5-10.1); CREATININE 0.98 MG/DL (0.50-1.00)
[2017-09-03] MEDS: INSULIN ASPART SUPPLEMENTAL SCALE SQ SCH (08:00)
[2017-09-03] MEDS: MUPIROCIN 2% OINT 22 GM TUBE TOPICAL SCH (08:28)
[2017-09-03] MEDS: ASPIRIN 81 MG CHEW TAB CHEW SCH (08:28)
[2017-09-03] MEDS: METOPROLOL TARTRATE 50 MG TAB PO SCH (08:29)
[2017-09-03] MEDS: LISINOPRIL 5 MG TAB PO SCH (08:29)
[2017-09-03] MEDS: AMIODARONE 200 MG TAB PO SCH (08:29)
[2017-09-03] MEDS ORDERED: APIXABAN 5 MG TABLET PO SCH ×2 (09:00)
[2017-09-03] MEDS ORDERED: AMIO200T PO ×2 (09:02)
[2017-09-03] MEDS ORDERED: METO-309 PO (09:02)
--- NOTE | 2017-09-03 09:11 | HHI.DS ---
Discharge Summary Admission Date Aug 31, 2017 at 18:30 Discharge Date: Sep 03, 2017 Admitting Diagnosis symptomatic bradycardia (1) Syncope Diagnosis: Principal ICD Codes: R55 - Syncope and collapse Status: Acute (2) Atrial fibrillation, chronic Diagnosis: Principal ICD Codes: I48.2 - Chronic atrial fibrillation Status: Acute (3) HTN (hypertension) Diagnosis: Secondary ICD Codes: I10 - Essential (primary) hypertension Status: Chronic (4) Hyperlipidemia Diagnosis: Secondary ICD Codes: E78.5 - Hyperlipidemia, unspecified Status: Chronic (5) COPD (chronic obstructive pulmonary disease) Diagnosis: Secondary ICD Codes: J44.9 - Chronic obstructive pulmonary disease, unspecified Status: Chronic (6) DM2 (diabetes mellitus, type 2) Diagnosis: Secondary ICD Codes: E11.9 - Type 2 diabetes mellitus without complications Status: Chronic Consultants Dr. Vigil Procedures 09/03/[address] Vigil Brief History This was an 81-year-old female with a history of atrial fibrillation and COPD who presents to the emergency department having multiple episodes of syncope today. 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 She is not sure if she hit her head but she was found on the ground. She subsequently drove to her daughter's shop and reported that she had been dizzy and may have passed out. Her daughter was going to transport patient to the ER but witnessed her slumping over multiple times and slowly responding to her lasting for several seconds, with no associated bowel or bladder incontinence, no associated chest pain or trouble breathing, in no preceding illness. No palpitations. [facility] was notified and transported patient to the hospital. Portably her rhythm had remained stable in transport. ER provider notes that she's had a few pauses but that seems to have stabilized well.. Patient was recently hospitalized in the setting of rate control problems with atrial fibrillation and possible failure with EF around 20%. She was noted during that hospitalization to have long pauses and she was evaluated by Dr. Vigil but ultimately medical intervention was entertained and thought to be controlling her rate. Ablation and possible pacer placement were discussed with the patient at that time, but again medical management was elected as heart rate seems controlled. 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 Her monitor was planned. Repeat echo was planned in 3 months but given her current symptomatology, we'll have Dr. Vigil see the patient again. CBC/BMP: 09/03/17 0439 09/03/17 0439 Significant Findings Laboratory Tests Test 08/31/17 17:15 09/03/17 04:39 Red Blood Count 3.99 MIL/MM3 (4.00-5.30) 3.64 MIL/MM3 (4.00-5.30) Mean Corpuscular Hemoglobin Concent 31.9 % (32.0-36.0) Neutrophils (%) (Auto) 75.7 % (16.0-70.0) 77.9 % (16.0-70.0) Monocytes (%) (Auto) 8.3 % (0.0-8.0) Activated Partial Thromboplast Time 24.2 SEC (24.3-30.1) Blood Urea Nitrogen 19 MG/DL (7-18) Creatinine 1.02 MG/DL (0.50-1.00) Random Glucose 125 MG/DL (74-106) 146 MG/DL (74-106) Albumin 3.3 GM/DL (3.4-5.0) Estimat Glomerular Filtration Rate 52 ML/MIN (>89) 54 ML/MIN (>89) Hemoglobin 11.0 GM/DL (11.6-15.3) Hematocrit 33.0 % (35.0-46.0) Lymphocytes # (Auto) 0.9 TH/MM3 (1.0-4.8) Calcium Level 8.3 MG/DL (8.5-10.1) Imaging Last Impressions Head CT 08/31/17 1707 Signed Impressions: Service Date/Time: Thursday, August 31, 2017 17:41 - CONCLUSION: Stable CT brain scan. No acute intracranial abnormality. Valentino Wilson MD PE at Discharge GENERAL: This is a well-nourished, well-developed patient, in no apparent distress. SKIN: abrasion right elbow and right knee CARDIOVASCULAR: Irregularly irregular RESPIRATORY: Clear to auscultation. Breath sounds equal bilaterally. GASTROINTESTINAL: Abdomen soft, non-tender, nondistended. Normal active bowel sounds MUSCULOSKELETAL: Extremities without clubbing, cyanosis, or edema. NEURO: Alert & Oriented. Moves all ext x4 Hospital Course Syncope Possible cardiac mediated given her ejection fraction and arrhythmia. cardiology consulted, Dr Vigil s/p EP cardiac ablation 09/02/[address] Vigil We'll not repeat echocardiogram at this point. right knee abrasion, Bactroban topically BID with wound care consult Atrial fibrillation, chronic -As noted above - Patient has been previously hospitalized x 2 recently for A fib RVR. Patient was DC on metoprolol 100 mg PO BID and Cardizem 300 mg PO daily. She returned after having syncopal episodes -Patient currently tachycardic -will start Cardizem 60 mg PO Q6H -continue Eliquis 5 mg PO BID -continuous telemetry -consult placed to Dr. Vigil who has seen this patient on previous hospitalization - echocardiogram 08/20/17 reviewed and reveals: Normal left ventricular size. Wall thickness is normal. The left ventricular systolic function is severely reduced with an estimated ejection fraction in the range of 20%. There is global left ventricular dysfunction. The right ventricular systolic function is moderately decreased. The left atrial size is mildly dilated. The right atrial size is bmra-ko-ezcermcgya dilated. Mitral annular calcification is present. Mild mitral valve regurgitation. Aortic valve sclerosis is present. Trace aortic valve regurgitation. There is wyhr-oh-ammkdqld tricuspid valve regurgitation. There is estimated erjkuijb-qh-sorums pulmonary hypertension present (60 mmHg ). The inferior vena cava is dilated. - TSH 0.401 - s/p EP cardiac ablation 09/02/[address] Vigil. Per cardiology recommending Amiodarone 400 mg PO BID for total of 7 days then Amiodarone 200 mg PO daily, metoprolol 50 mg PO BID and Eliquis 5 mg PO BID - discussed case with Dr. Vigil patient cleared for DC with lifevest in place - patient to wear lifevest at all times HTN (hypertension) Lisinopril 5 mg PO daily and metoprolol 50 mg PO BID Hyperlipidemia Continue statin COPD (chronic obstructive pulmonary disease) DuoNeb as needed. DM2 (diabetes mellitus, type 2) Accu-Cheks and sliding scale insulin will be used. A1c was 6.5 in May 2017 and has been relatively well controlled in the preceding few years. Pt Condition on Discharge: Stable Discharge Instructions DIET: Follow Instructions for: Heart Healthy Diet, Diabetic Diet Activities you can perform: See Additionl Instruction Other Activity Instructions: activity and wound care per Dr. Vigil instructions Follow up Referrals: Cardiology - [address] Vigil PCP Follow-up - [address] Kruse New Medications: Amiodarone (Amiodarone) 200 Mg Tab 400 MG PO BID for heart rate/Rhythm, #24 TAB 0 Refills Stop date 09/09/17 Amiodarone (Amiodarone) 200 Mg Tab 200 MG PO DAILY for Heart rate/rhythm, #30 TAB 0 Refills Start date 09/10/17 Metoprolol Tartrate (Lopressor) 50 Mg Tab 50 MG PO Q12HR for blood pressure/heart rate, #60 TAB 0 Refills Continued Medications: Albuterol 18 GM Inh (Ventolin Hfa 18 GM Inh) 90 Mcg/Act Aer 2 PUFF INH Q4-6H PRN for SHORTNESS OF BREATH, #1 INHALER 0 Refills Apixaban (Eliquis) 5 Mg Tab 5 MG PO BID for Blood Clot Prevention, #60 TAB 0 Refills Aspirin (Aspirin) 81 Mg Chew 81 MG CHEW DAILY, TAB 0 Refills Atorvastatin (Atorvastatin) 20 Mg Tab 20 MG PO HS for Cholesterol Management, #30 TAB 0 Refills Ipratropium-Albuterol Neb (Duoneb) 0.5-2.5 Mg/3 Ml Neb 1 NEBULE INH BID for Breathing Treatment, #30 NEBULE 0 Refills Lisinopril (Lisinopril) 5 Mg Tab 5 MG PO DAILY for HTN, #30 TAB Metformin (Metformin) 500 Mg Tab 500 MG PO BIDPC for Blood Sugar Management, #60 TAB 0 Refills With meals Polyethylene Glycol 3350 Powder (Miralax Powder) 17 Gm Powd 17 GM PO DAILY for Constipation, #1 CAN 0 Refills Mix and dissolve one measuring cap-ful (17 grams) in water or juice. Temazepam (Temazepam) 15 Mg Cap 15 MG PO HS PRN for INSOMNIA, #30 CAP 0 Refills Umeclidinium [place] Inh (Incruse Ellipta Inh) 0.0625 Mg/Act Inh 1 PUFF INH DAILY for Treat COPD, #1 INHALER 0 Refills Discontinued Medications: Diltiazem CD 24 HR (Diltiazem CD 24 HR) 300 Mg Caper 300 MG PO DAILY for AFIB, #30 CAP Metoprolol Tartrate (Lopressor) 100 Mg Tab 100 MG PO Q12HR for AFIB, #60 TAB Additional Information Patient examined. Assessment and plan formulated with Sharla Zapata PA-C. I agree with the above. Sharla Zapata Sep 03, 2017 09:11 Jeb Funez DO Sep 07, 2017 22:39
[2017-09-03] MEDS ORDERED: DEFIB EXTERNAL (11:20)
--- NOTE | 2017-09-03 11:23 | HHI.FF ---
Face to Face Verification Diagnosis: (1) Atrial fibrillation with RVR (2) Symptomatic bradycardia (3) Syncope (4) CHF (congestive heart failure) Home Health Nursing Order: Medical education Signs/symptoms of disease process Diabetic education CHF education Medication education-adverse effect Nursing assessment with vital signs I have seen patient Juliana Evangelista on 09/03/17. My clinical findings support the need for the requested home health care services because: Med compliance is questionable I certify that my clinical findings support that this patient is homebound because: Poor cardiac reserve Sharla Zapata Sep 03, 2017 11:23
--- NOTE | 2017-09-03 11:24 | EKG ---
Date Performed: 09/03/2017 Time Performed: 05:35:48 PTAGE: 81 years EKG: Baseline artifact present Normal Sinus rhythm With first degree A-V block Left bundle branch block Abnormal ECG No significant change from prior e lectrocardiogram. PREVIOUS TRACING : 09/02/2017 20.35 DOCTOR: Hari Perkins Interpretating Date/Time 09/03/2017 11:23:26
--- NOTE | 2017-09-03 16:30 | HHI.PR ---
Subjective Remarks Patient feeling well looking forward to going home Objective Vitals Vital Signs Date Time Temp Pulse Resp B/P (MAP) Pulse Ox O2 Delivery O2 Flow Rate FiO2 09/03/17 11:00 98.5 82 20 109/70 (83) 95 09/03/17 11:00 70 09/03/17 10:00 70 09/03/17 09:00 78 09/03/17 08:00 67 09/03/17 07:30 98.8 70 20 126/68 (87) 97 09/03/17 07:30 65 09/03/17 06:00 65 09/03/17 05:00 64 09/03/17 04:00 67 09/03/17 03:20 97.8 67 16 130/64 (86) 98 09/03/17 03:20 98 Room Air 09/03/17 03:00 68 09/03/17 02:00 69 09/03/17 01:00 66 09/03/17 00:00 64 09/02/17 23:40 97 Room Air 09/02/17 23:20 Nasal Cannula 09/02/17 23:20 97.5 63 16 126/62 (83) 100 09/02/17 23:00 66 09/02/17 22:00 70 09/02/17 21:04 71 14 142/73 (96) 97 Nasal Cannula 2 09/02/17 21:00 98 Nasal Cannula 2.00 09/02/17 21:00 70 09/02/17 21:00 97.6 71 16 144/72 (96) 98 09/02/17 20:45 70 14 134/70 (91) 98 Nasal Cannula 2 09/02/17 20:30 77 16 133/70 (91) 99 Nasal Cannula 2 09/02/17 20:15 98.0 75 18 136/66 (89) 96 Nasal Cannula 2 Result Diagram: 09/03/1743809/03/17438 Other Results Laboratory Tests Test 08/31/17 17:15 09/03/17 04:39 White Blood Count 8.8 TH/MM3 7.3 TH/MM3 Red Blood Count 3.99 MIL/MM3 3.64 MIL/MM3 Hemoglobin 11.8 GM/DL 11.0 GM/DL Hematocrit 36.8 % 33.0 % Mean Corpuscular Volume 92.4 FL 90.8 FL Mean Corpuscular Hemoglobin 29.5 PG 30.2 PG Mean Corpuscular Hemoglobin Concent 31.9 % 33.3 % Red Cell Distribution Width 15.6 % 15.3 % Platelet Count 220 TH/MM3 170 TH/MM3 Mean Platelet Volume 8.3 FL 8.6 FL Neutrophils (%) (Auto) 75.7 % 77.9 % Lymphocytes (%) (Auto) 13.9 % 12.9 % Monocytes (%) (Auto) 8.3 % 7.4 % Eosinophils (%) (Auto) 1.5 % 1.1 % Basophils (%) (Auto) 0.6 % 0.7 % Neutrophils # (Auto) 6.7 TH/MM3 5.7 TH/MM3 Lymphocytes # (Auto) 1.2 TH/MM3 0.9 TH/MM3 Monocytes # (Auto) 0.7 TH/MM3 0.5 TH/MM3 Eosinophils # (Auto) 0.1 TH/MM3 0.1 TH/MM3 Basophils # (Auto) 0.1 TH/MM3 0.0 TH/MM3 CBC Comment DIFF FINAL DIFF FINAL Differential Comment Prothrombin Time 11.1 SEC 11.6 SEC Prothromb Time International Ratio 1.1 RATIO 1.1 RATIO Activated Partial Thromboplast Time 24.2 SEC 25.2 SEC Blood Urea Nitrogen 19 MG/DL 15 MG/DL Creatinine 1.02 MG/DL 0.98 MG/DL Random Glucose 125 MG/DL 146 MG/DL Total Protein 6.4 GM/DL Albumin 3.3 GM/DL Calcium Level 9.0 MG/DL 8.3 MG/DL Alkaline Phosphatase 52 U/L Aspartate Amino Transf (AST/SGOT) 18 U/L Alanine Aminotransferase (ALT/SGPT) 31 U/L Total Bilirubin 0.3 MG/DL Sodium Level 140 MEQ/L 140 MEQ/L Potassium Level 4.6 MEQ/L 4.3 MEQ/L Chloride Level 107 MEQ/L 105 MEQ/L Carbon Dioxide Level 26.5 MEQ/L 27.7 MEQ/L Anion Gap 7 MEQ/L 7 MEQ/L Estimat Glomerular Filtration Rate 52 ML/MIN 54 ML/MIN Troponin I 0.02 NG/ML Imaging Last [address] 08/31/17 1707 Signed Impressions: Service Date/Time: Thursday, August 31, 2017 17:41 - CONCLUSION: Stable CT brain scan. No acute intracranial abnormality. Valentino Wilson MD Objective Remarks GENERAL: This is a well-nourished, well-developed patient, in no apparent distress. SKIN: abrasion right elbow and right knee CARDIOVASCULAR: REgular RESPIRATORY: Clear to auscultation. Breath sounds equal bilaterally. GASTROINTESTINAL: Abdomen soft, non-tender, nondistended. Normal active bowel sounds MUSCULOSKELETAL: Extremities without clubbing, cyanosis, or edema. NEURO: Alert & Oriented. Moves all ext x4 Procedures 09/03/[address] Vigil A/P Problem List: (1) Syncope ICD Codes: R55 - Syncope and collapse Status: Acute Plan: Syncope Possible cardiac mediated given her ejection fraction and arrhythmia. cardiology consulted, Dr Vigil s/p EP cardiac ablation 09/02/[address] Vigil We'll not repeat echocardiogram at this point. right knee abrasion, Bactroban topically BID with wound care consult Atrial fibrillation, chronic -As noted above - Patient has been previously hospitalized x 2 recently for A fib RVR. Patient was DC on metoprolol 100 mg PO BID and Cardizem 300 mg PO daily. She returned after having syncopal episodes -Patient currently tachycardic -will start Cardizem 60 mg PO Q6H -continue Eliquis 5 mg PO BID -continuous telemetry -consult placed to Dr. Vigil who has seen this patient on previous hospitalization - echocardiogram 08/20/17 reviewed and reveals: Normal left ventricular size. Wall thickness is normal. The left ventricular systolic function is severely reduced with an estimated ejection fraction in the range of 20%. There is global left ventricular dysfunction. The right ventricular systolic function is moderately decreased. The left atrial size is mildly dilated. The right atrial size is qzsx-fg-lrceubynmd dilated. Mitral annular calcification is present. Mild mitral valve regurgitation. Aortic valve sclerosis is present. Trace aortic valve regurgitation. There is swtw-zh-hrqyqcla tricuspid valve regurgitation. There is estimated vfunkkxc-dx-vbrhet pulmonary hypertension present (60 mmHg ). The inferior vena cava is dilated. - TSH 0.401 - s/p EP cardiac ablation 09/02/[address] Vigil. Per cardiology recommending Amiodarone 400 mg PO BID for total of 7 days then Amiodarone 200 mg PO daily, metoprolol 50 mg PO BID and Eliquis 5 mg PO BID - discussed case with Dr. Vigil patient cleared for DC with lifevest in place - patient to wear lifevest at all times. Awaiting Lifevest HTN (hypertension) Lisinopril 5 mg PO daily and metoprolol 50 mg PO BID Hyperlipidemia Continue statin COPD (chronic obstructive pulmonary disease) DuoNeb as needed. DM2 (diabetes mellitus, type 2) Accu-Cheks and sliding scale insulin will be used. A1c was 6.5 in May 2017 and has been relatively well controlled in the preceding few years. (2) Atrial fibrillation, chronic ICD Codes: I48.2 - Chronic atrial fibrillation Status: Acute (3) HTN (hypertension) ICD Codes: I10 - Essential (primary) hypertension Status: Chronic (4) Hyperlipidemia ICD Codes: E78.5 - Hyperlipidemia, unspecified Status: Chronic (5) COPD (chronic obstructive pulmonary disease) ICD Codes: J44.9 - Chronic obstructive pulmonary disease, unspecified Status: Chronic (6) DM2 (diabetes mellitus, type 2) ICD Codes: E11.9 - Type 2 diabetes mellitus without complications Status: Chronic Assessment and Plan Patient examined. Assessment and plan formulated with Sharla Zapata PA-C. I agree with the above. Problem Qualifiers (1) HTN (hypertension): Qualified Codes: I10 - Essential (primary) hypertension (2) Hyperlipidemia: Qualified Codes: E78.00 - Pure hypercholesterolemia, unspecified Sharla Zapata Sep 03, 2017 16:30 Jeb Funez DO Sep 07, 2017 22:38
--- NOTE | 2017-09-03 17:39 | HHI.PR ---
Subjective Remarks Feeling better Objective Vital Signs Date Time Temp Pulse Resp B/P (MAP) Pulse Ox O2 Delivery O2 Flow Rate FiO2 09/03/17 11:00 98.5 82 20 109/70 (83) 95 09/03/17 11:00 70 09/03/17 10:00 70 09/03/17 09:00 78 09/03/17 08:00 67 09/03/17 07:30 98.8 70 20 126/68 (87) 97 09/03/17 07:30 65 09/03/17 06:00 65 09/03/17 05:00 64 09/03/17 04:00 67 09/03/17 03:20 97.8 67 16 130/64 (86) 98 09/03/17 03:20 98 Room Air 09/03/17 03:00 68 09/03/17 02:00 69 09/03/17 01:00 66 09/03/17 00:00 64 09/02/17 23:40 97 Room Air 09/02/17 23:20 Nasal Cannula 09/02/17 23:20 97.5 63 16 126/62 (83) 100 09/02/17 23:00 66 09/02/17 22:00 70 09/02/17 21:04 71 14 142/73 (96) 97 Nasal Cannula 2 09/02/17 21:00 98 Nasal Cannula 2.00 09/02/17 21:00 70 09/02/17 21:00 97.6 71 16 144/72 (96) 98 09/02/17 20:45 70 14 134/70 (91) 98 Nasal Cannula 2 09/02/17 20:30 77 16 133/70 (91) 99 Nasal Cannula 2 09/02/17 20:15 98.0 75 18 136/66 (89) 96 Nasal Cannula 2 I/O 09/02/17 09/02/17 09/02/17 09/03/17 09/03/17 09/03/17 07:00 15:00 23:00 07:00 15:00 23:00 Intake Total 720 ml 840 ml 720 ml Output Total 800 ml 1100 ml 300 ml Balance -80 ml -260 ml 420 ml Intake Oral 720 ml 240 ml 720 ml IV Total 600 ml Output Urine Total 800 ml 1100 ml 300 ml # Voids 1 4 # Bowel Movements 1 0 0 Result Diagram: 09/03/179 09/03/179 Imaging Alert, fully oriented Lungs: ventilated Heart: S1, S2 regular, no gallop Abdomen: soft, no mass Ext: no edema Last Impressions Head CT 08/31/177 Signed Impressions: Service Date/Time: Thursday, August 31, 2017 17:41 - CONCLUSION: Stable CT brain scan. No acute intracranial abnormality. Valentino Wilson MD Current Medications Medications (Trade) Dose Ordered Sig/Ozzie Route Start Time Stop Time Status Last Admin (NS Flush) 2 ml UNSCH PRN IVF 08/31/17 17:15 (Aspirin Chew) 81 mg DAILY CHEW 09/01/17 09:00 09/03/17 08:28 (Lipitor) 20 mg HS PO 08/31/17 21:00 09/02/17 21:39 (Prinivil) 5 mg DAILY PO 09/01/17 09:00 09/03/17 08:29 (Restoril) 15 mg HS PRN PO 08/31/17 20:15 09/01/17 22:03 (NovoLOG SUPPLEMENTAL SCALE) 1 ACHS SLIDING SCALE SQ 08/31/17 21:00 09/01/17 22:06 (Duoneb Neb) 1 ampule Q6HR NEB PRN NEB 08/31/17 20:15 (Pill Splitter) 1 ea UNSCH PRN OTHER 08/31/17 20:15 (Bactroban 2% Oint) 1 applic Q12HR TOPICAL 09/01/17 17:30 09/03/17 08:28 (Ativan) 1 mg WELDING PANTOGRAPH MACHINE OPERATOR SL 09/02/17 15:15 09/06/17 15:14 (Lopressor) 50 mg Q12HR PO 09/02/17 21:00 09/03/17 08:29 (Cordarone) 400 mg BID PO 09/02/17 21:00 09/09/17 09:01 09/03/17 08:29 (Eliquis) 5 mg BID PO 09/03/17 09:00 09/03/17 08:29 (Percocet 5-325 Mg) 1 tab Q4H PRN PO 09/02/17 19:30 (Percocet 5-325 Mg) 2 tab Q4H PRN PO 09/02/17 19:30 09/02/17 23:41 (Ativan Inj) 0.5 mg UNSCH PRN IV PUSH 09/02/17 19:30 09/03/17 19:29 (Atropine Inj) 0.5 mg UNSCH PRN IV PUSH 09/02/17 19:30 Sodium Chloride 250 ml @ 500 mls/hr ONCE PRN IV 09/02/17 19:30 09/03/17 19:29 (Zofran Inj) 4 mg Q4H PRN IV PUSH 09/02/17 19:30 (Xylocaine 1% Inj) 10 ml UNSCH PRN INFIL 09/02/17 19:30 09/03/17 19:29 (Cordarone) 200 mg DAILY PO 09/10/17 09:00 Miscellaneous Information ALL NURSING DEPARTME... UNSCH PRN .XX 09/02/17 22:00 09/03/17 21:59 Assessment and Plan Problem List: (1) Atrial fibrillation with RVR ICD Codes: I48.91 - Unspecified atrial fibrillation Status: Acute Plan: SP ablation In sinus rhythm Doing well Feeling better can be DH. Follow up in 3 weeks. (2) HTN (hypertension) ICD Codes: I10 - Essential (primary) hypertension Status: Chronic Plan: SBP 109 Problem Qualifiers (1) HTN (hypertension): Qualified Codes: I10 - Essential (primary) hypertension Sophy Vigil MD Sep 03, 2017 17:39
--- NOTE | 2017-09-05 07:30 | PQ ---
Physician Query Response Document PATIENT: COSME BASURTO : 1935 ADMIT DATE: 08/31/2017 6:30 PM DISCH DATE: 09/03/2017 7:30 PM RESPONDING PROVIDER #: [email or web address] QUERY TEXT: CHF Acuity and Type Congestive Heart Failure is documented in the Medical Record. Please document the type and acuity (in cludes probable or suspected) Such as: Type: -- Systolic -- Diastolic -- Combined -- Other, please specify Acuity: -- Acute -- Chronic -- Acute on chronic -- Other, please specify Please call [facility] @ ext [phone] for assistance The patient's Clinical Indicators include: Per Cardiology Consult: congestive heart failure, cardiomyopathy, ejection around 20%, Per Progress note: The left ventricular systolic function is severely reduced with an estimated eject ion fraction in the range of 20%. There is global left ventricular dysfunction. The right ventricular systolic function is moderately decreased. The left atrial size is mildly dilated. The right atrial size is flbv-rk-aiuqsotnhd dilated. No BNP on chart Current cardiac meds include Lisinopril, Metoprolol Tartrate, Cardizem Query created by: Faith Delgado on 09/02/2017 10:04 AM RESPONSE TEXT: I added clarification re: CHF to my H Chronic, systolic Electronically signed by: Montana Hickey MD 09/05/2017 7:26 AM
[2017-09-08] MEDS ORDERED: ACET1TAB94 PO (07:40)
[2017-09-09] MEDS ORDERED: LISI10TA3 PO (14:23)
[2017-09-09] MEDS ORDERED: AMIO200T PO ×2 (14:26)
[2017-09-09] MEDS ORDERED: AMIO400T PO (14:30)
--- NOTE | 2017-09-09 18:05 | PD.CARD ---
Atrial Fibrillation Ablation PROCEDURE DATE: Sep 02, 2017 PROCEDURES PERFORMED: 1. Electrophysiology study on Isuprel infusion 2. CS cannulation 3. 3-D mapping 4. Transseptal approach 5. Right and left heart catheterization 6. Intracardiac echo 7. Radiofrequency ablation of atrial fibrillation 8. Pulmonary vein isolation 9. Posterior wall ablation 10. Mitral valve isolation 11. Mitral line creation 12. Left atrial tachycardia ablation 13. Roof line creation 14. Floor line creation 15. Anterior wall ablation 16. Left appendage isolation 17. Cardioversion INDICATIONS FOR THE PROCEDURE Ms. Evangelista is a 81-year-old female with atrial fibrillation, very symptomatic, on multiple medications, on anticoagulation, multiple hospitalizations referred for electrophysiology study and ablation. The risks, the nature and the benefits of the procedure were clearly stated to her. The risks include pneumothorax, cardiac perforation, stroke, need for open heart surgery and even . The patient understood and agreed to proceed. DESCRIPTION OF THE PROCEDURE IN DETAIL As written informed consent was obtained prior to esophageal echocardiogram, the patient was kept on the table where she was prepped and draped in the usual sterile fashion. Conscious sedation was initiated and maintained throughout the procedure by the anesthesiologist. Once sedation was verified, the right and left inguinal areas were anesthetized with 2% Xylocaine. Using modified Seldinger technique, the left femoral vein was cannulated on three occasions, three guidewires were advanced. Over the wire a 6, 7 and a 10-Ukrainian Hemaquet were advanced. Then the left femoral artery was cannulated on one occasion, one guidewire was advanced. Over the wire a 4-Ukrainian Hemaquet was advanced. Then the right femoral vein was cannulated on one occasion, one guidewire was advanced. Over the wire a 8-Ukrainian Hemaquet was advanced. Then under fluoroscopic guidance through the 6 and 7-Ukrainian Hemaquet, two 5-Ukrainian Jacobo curved quadripolar electrophysiology catheters were advanced and placed around the His as well as coronary sinus. Basic interval was measured. The patient was in atrial fibrillation. Through the 10-Ukrainian Hemaquet, a Cordis Jacobsen AcuNav intracardiac echo catheter was advanced and placed at the right atrium. Multiple view was obtained. There was no pericardial effusion, pulmonary vein was seen, atrial septal was visualized. Then the 8-Ukrainian Hemaquet in the right femoral vein was exchanged for Agilis transseptal sheath that was placed all the way to the superior vena cava. Through the sheath a Yobani needle was advanced, then the sheath, the dilator and the needle were progressed until foci engaged. Once engaged, the needle was advanced. RF was delivered for 2 seconds. I was able to cross into the left atrium. Once the needle crossed, the dilator was advanced. Once the dilator crossed, the sheath was advanced. Once the sheath crossed, the dilator and the needle were removed. At this point I did flood the system and fluid movement was seen in the left atrium the indicates the sheath is in good position. The patient already received 10,000 units of heparin. The goal is to keep an ACT around 350 during ablation. Then through the sheath a [place] 20 pulse circumferential catheter was advanced. Using Lagotek endocardial solution mapping system, a two-dimensional configuration of the left atrium was obtained. Points were taken at the left superior and inferior veins, right superior and inferior veins, mitral valve, and appendages. Then through the sheath a [place] [place] TactiCath 65cm 3.5mm irrigated tipped mapping and radiofrequency ablation catheter was advanced. Esophageal probe was placed temperature monitoring during ablation. When it increased to 0.5 degrees Celsius above baseline, I moved to a different area of the atrium. First I did isolate the left superior and inferior vein. I did make a tat[place]k around the veins. Posterior was ablated. Then a roof line was created, a floor line was created, a mitral line was isolated, then the mitral valve was isolated. The patient was at this point in left atrial tachycardia. I did create a line from the floor to the roof area, passing by the left atrial appendage. Then the right superior and inferior veins were isolated. I did remap the atrium. Lateral wall was ablated. I did isolate the left atrial appendage. The arrhythmia was very well organized. HR control. After remapping again the left atrium, I decided to proceed with cardioversion. A 200 sync biphasic joule was delivered that converted the patient into sinus rhythm. At that point I did advance the circumferential catheter again into the vein. There was no signal into the vein, pacing from the vein showed no conduction to the atrium. Isuprel infusion was initiated at 20 mcg for over 10 minutes. No tachyarrhythmia was induced, post Isuprel no tachyarrhythmia was induced. At that point the procedure was complete. All catheters were removed, atrial septal sheath was exchanged for 9-Ukrainian Hemaquet, intracardiac echo showed no pericardial effusion. There is still good flow in the pulmonary vein. The patient is going to be transferred to the recovery room. No incident report. The patient tolerated the procedure. Blood loss was minimal. FINDINGS 1. Electrocardiogram: At baseline the patient was in atrial fibrillation, post procedure the patient was in sinus rhythm. 2. Basic interval: Base cycle length was around 420ms. Post ablation she was around 980 milliseconds. AH at 220 and HV at 90 milliseconds. 3. Tachyarrhythmia: Atrial fibrillation was mapped and ablated. Atrial tachycardia was ablated. The ablation was successful. CONCLUSION Successful electrophysiology study, mapping, radiofrequency ablation of atrial fibrillation, left atrial tachycardia, pulmonary vein isolation, posterior ablation, mitral valve isolation, mitral line creation, roof line creation, floor line creation, left atrial appendage isolation, left atrial tachycardia, and cardioversion. COMMENTS AND RECOMMENDATIONS The patient is going to be transferred to the telemetry unit. Will be observed and when stable can be discharged home. Left ventricular Ejection fraction is 20% or less., Patient will need a defib vest and echo will be repeated in 60 days. Sophy Vigil MD Sep 09, 2017 18:05
[2017-09-10] MEDS ORDERED: AMIODARONE 200 MG TAB PO SCH (09:00)
== END 2017-09-03 19:30 | disposition home health service (06) | DRG 274 ==
LOC: NEPC 16:45 → NEDA 18:30 → HCPC 20:50 → HCIS 09-03 11:50
PROVIDERS: ADMIT Hospitalist; ATTEND Hospitalist
PROC: 4A0234Z Measurement of Cardiac Electrical Activity, Percutaneous Approach (ICD-10-PCS; 2017-09-02)
PROC: 02K83ZZ Map Conduction Mechanism, Percutaneous Approach (ICD-10-PCS; 2017-09-02)
PROC: 02573ZK Destruction of Left Atrial Appendage, Percutaneous Approach (ICD-10-PCS; 2017-09-02)
PROC: 4A023FZ Measurement of Cardiac Rhythm, Percutaneous Approach (ICD-10-PCS; 2017-09-02)
PROC: 4A023N8 Measurement of Cardiac Sampling and Pressure, Bilateral, Percutaneous Approach (ICD-10-PCS; 2017-09-02)
PROC: 5A2204Z Restoration of Cardiac Rhythm, Single (ICD-10-PCS; 2017-09-02)
PROC: 02583ZZ Destruction of Conduction Mechanism, Percutaneous Approach (ICD-10-PCS; principal; 2017-09-02 17:45)
DX: I48.2 Chronic atrial fibrillation (principal); I50.22 Chronic systolic (congestive) heart failure; I11.0 Hypertensive heart disease with heart failure; I42.9 Cardiomyopathy, unspecified; J44.9 Chronic obstructive pulmonary disease, unspecified; R55 Syncope and collapse; E78.5 Hyperlipidemia, unspecified; I47.1 Supraventricular tachycardia; E11.9 Type 2 diabetes mellitus without complications; Z79.01 Long term (current) use of anticoagulants; M81.0 Age-related osteoporosis without current pathological fracture; Z85.828 Personal history of other malignant neoplasm of skin; Z57.5 Occupational exposure to toxic agents in other industries; I27.20 Pulmonary hypertension, unspecified; I08.3 Combined rheumatic disorders of mitral, aortic and tricuspid valves; Z79.84 Long term (current) use of oral hypoglycemic drugs
CPT/HCPCS: 70450; 80048; 80053; 82948; 84484; 85002; 85025; 85610; 85730; 92960; 93005; 93312; 93320; 93325; 93613; 93623; 93656; 93662; C1730; C1731; C1732; C1759; C1766; C2630; J1644; J1815; J1956; J2250; J2370; J2710; J2720; J3010

== ENCOUNTER 2017-09-05 20:39 | Inpatient (IN) | payer MEDICARE ==
[2017-09-05] MEDS: SODIUM CHLORID 0.9% 500 ML INJ 500 ML IV (21:07)
[2017-09-05 21:23] LABS: AUTOMATED NEUTROPHIL # 6.5 TH/MM3 (1.8-7.7); BASOPHIL % 0.5 % (0.0-2.0); EOSINOPHIL # 0.2 TH/MM3 (0-0.4); EOSINOPHIL % 2.2 % (0.0-4.0); HEMATOCRIT 32.2 % (35.0-46.0); HEMO FLAGS DIFF FINAL; HEMOGLOBIN 10.6 GM/DL (11.6-15.3); LYMPH % 18.2 % (9.0-44.0); LYMPHOCYTE # 1.7 TH/MM3 (1.0-4.8); MEAN CELL VOLUME 89.9 FL (80.0-100.0); MEAN CORPUSCULAR HEMOGLOBIN 29.6 PG (27.0-34.0); MEAN CORPUSCULAR HGB CONC 32.9 % (32.0-36.0); MEAN PLATELET VOLUME 9.7 FL (7.0-11.0); MONO % 7.9 % (0.0-8.0); MONOCYTE # 0.7 TH/MM3 (0-0.9); NEUT % 71.2 % (16.0-70.0); PLATELET COUNT 172 TH/MM3 (150-450); RED BLOOD COUNT 3.58 MIL/MM3 (4.00-5.30); RED CELL DISTRIBUTION WIDTH 15.6 % (11.6-17.2); WHITE BLOOD COUNT 9.1 TH/MM3 (4.0-11.0)
[2017-09-05 21:28] LABS: APTT (PATIENT) 29.7 SEC (24.3-30.1); INTERNATIONAL NORMALIZED RATIO 1.2 RATIO
[2017-09-05 21:40] LABS: ALT (GPT) 29 U/L (10-53)
[2017-09-05 21:43] LABS: ANION GAP 6 MEQ/L (5-15)
[2017-09-05 21:56] LABS: ALBUMIN 3.4 GM/DL (3.4-5.0); ALKALINE PHOSPHATASE 59 U/L (45-117); AST (GOT) 36 U/L (15-37); BICARBONATE 24.6 MEQ/L (21.0-32.0); BLOOD UREA NITROGEN 18 MG/DL (7-18); CHLORIDE 104 MEQ/L (98-107); CREATINE KINASE 85 U/L (26-192); CREATININE 1.06 MG/DL (0.50-1.00); GLOMERULAR FILTRATION RATE 50 ML/MIN (>89); GLUCOSE,RANDOM 144 MG/DL (74-106); LIPASE 110 U/L (73-393); POTASSIUM 4.5 MEQ/L (3.5-5.1); SODIUM (NA) 135 MEQ/L (136-145); TOTAL BILIRUBIN ADULT 0.5 MG/DL (0.2-1.0); TROPONIN I 0.55 NG/ML (0.02-0.05)
[2017-09-05 21:59] LABS: B-TYPE NATRIURETIC PEPTIDE 531 PG/ML (0-100)
[2017-09-06 04:27] LABS: TROPONIN I 0.49 NG/ML (0.02-0.05)
[2017-09-06] MEDS: INSULIN ASPART SUPPLEMENTAL SCALE SQ ×4 (08:00→20:41)
[2017-09-06] MEDS ORDERED: LISINOPRIL 5 MG TAB PO (09:00)
[2017-09-06] MEDS ORDERED: UMECLIDINIUM BROMIDE INH (09:00)
[2017-09-06] MEDS: METOPROLOL TARTRATE 50 MG TAB PO ×2 (09:10→20:41)
[2017-09-06] MEDS: LISINOPRIL 10 MG TAB PO (09:10)
[2017-09-06] MEDS: ASPIRIN 81 MG CHEW TAB CHEW (09:10)
[2017-09-06 10:49] LABS: TROPONIN I 0.41 NG/ML (0.02-0.05)
[2017-09-06] MEDS: TEMAZEPAM 15 MG CAP PO (20:41)
[2017-09-06] MEDS: ATORVASTATIN 20 MG TAB PO (20:41)
[2017-09-07] MEDS ORDERED: POVIDONE IODINE 5% (ANTISEPSIS KIT) 4 APPLICATIONS EACH NARE (02:30)
[2017-09-07] MEDS ORDERED: CHLORHEXIDINE GLUCONATE 2 % 1 PACK (2 CLOTHS) TOPICAL (02:30)
[2017-09-07] MEDS ORDERED: LACTATED RINGER'S 1000 ML IV (02:30)
[2017-09-07] MEDS ORDERED: SODIUM CHLORID 0.9% 500 ML IV (02:30)
[2017-09-07] MEDS: INSULIN ASPART SUPPLEMENTAL SCALE SQ ×4 (07:57→20:07)
[2017-09-07] MEDS: LISINOPRIL 10 MG TAB PO (08:29)
[2017-09-07] MEDS: METOPROLOL TARTRATE 50 MG TAB PO ×2 (08:29→20:10)
[2017-09-07] MEDS: ASPIRIN 81 MG CHEW TAB CHEW (08:30)
[2017-09-07] MEDS ORDERED: MIDAZOLAM HCL 2 MG/2 ML VIAL (17:07)
[2017-09-07] MEDS: VANCOMYCIN 500 MG VIAL (17:24)
[2017-09-07] MEDS: LIDOCAINE HCL 2% 50 ML VIAL (17:25)
[2017-09-07] MEDS: SODIUM CHLOR 0.9% 250 ML INJ 250 ML (17:30)
[2017-09-07] MEDS: VANCOMYCIN HCL 1000 MG VIAL (17:30)
[2017-09-07] MEDS: ceFAZolin INJ 1,000 MG VIAL (17:30)
[2017-09-07] MEDS ORDERED: BACITRACIN OINT 0.9 GM PKT TOP (18:45)
[2017-09-07] MEDS ORDERED: ONDANSETRON HCL 4 MG/2 ML VIAL IV PUSH (18:45)
[2017-09-07] MEDS ORDERED: SODIUM CHLORIDE 0.9% FLUSH 10 ML FLUSH IV FLUSH (18:45)
[2017-09-07] MEDS ORDERED: ACETAMINOPHEN/CODEINE 300 MG/30 MG TAB PO (18:45)
[2017-09-07] MEDS: APIXABAN 5 MG TABLET PO (20:10)
[2017-09-07] MEDS: AMIODARONE 200 MG TAB PO (20:10)
[2017-09-07] MEDS: ATORVASTATIN 20 MG TAB PO (20:10)
[2017-09-07] MEDS: SODIUM CHLORIDE 0.9% FLUSH 10 ML FLUSH IV FLUSH (20:11)
[2017-09-07] MEDS ORDERED: METOPROLOL TARTRATE 50 MG TAB PO (21:00)
[2017-09-08] MEDS: ACETAMINOPHEN/CODEINE 300 MG/30 MG TAB PO ×2 (00:31→08:37)
[2017-09-08] MEDS: ceFAZolin 2 GM PREMIX 50 ML IV ×3 (02:26→18:13)
[2017-09-08] MEDS: METOPROLOL TARTRATE 50 MG TAB PO ×2 (08:35→21:01)
[2017-09-08] MEDS: APIXABAN 5 MG TABLET PO ×2 (08:35→21:01)
[2017-09-08] MEDS: ASPIRIN 81 MG CHEW TAB CHEW (08:36)
[2017-09-08] MEDS: LISINOPRIL 10 MG TAB PO (08:36)
[2017-09-08] MEDS: AMIODARONE 200 MG TAB PO ×2 (08:37→21:01)
[2017-09-08] MEDS: INSULIN ASPART SUPPLEMENTAL SCALE SQ ×4 (08:38→21:56)
[2017-09-08] MEDS: SODIUM CHLORIDE 0.9% FLUSH 10 ML FLUSH IV FLUSH ×2 (08:39→21:01)
[2017-09-08] MEDS ORDERED: AMIODARONE 200 MG TAB PO (09:00)
[2017-09-08] MEDS ORDERED: IOHEXOL 350 MG/ML 50 ML BTL (for Cath Lab) OTHER (09:11)
[2017-09-08] MEDS: ATORVASTATIN 20 MG TAB PO (21:01)
[2017-09-08] MEDS: TEMAZEPAM 15 MG CAP PO (21:56)
[2017-09-09] MEDS: CEPHALEXIN MONOHYDRATE 500 MG CAP PO ×2 (02:00→10:08)
[2017-09-09] MEDS: INSULIN ASPART SUPPLEMENTAL SCALE SQ ×2 (10:06→12:00)
[2017-09-09] MEDS: ACETAMINOPHEN/CODEINE 300 MG/30 MG TAB PO (10:07)
[2017-09-09] MEDS: AMIODARONE 200 MG TAB PO (10:07)
[2017-09-09] MEDS: LISINOPRIL 10 MG TAB PO (10:08)
[2017-09-09] MEDS: METOPROLOL TARTRATE 50 MG TAB PO (10:08)
[2017-09-09] MEDS: ASPIRIN 81 MG CHEW TAB CHEW (10:08)
[2017-09-09] MEDS: APIXABAN 5 MG TABLET PO (10:08)
[2017-09-09] MEDS: SODIUM CHLORIDE 0.9% FLUSH 10 ML FLUSH IV FLUSH (10:09)
[2017-09-09] MEDS: HEPARIN-NS/PF INJ 1,000 ML (11:35)
[2017-09-09] MEDS: MIDAZOLAM HCL 2 MG/2 ML VIAL (11:52)
[2017-09-09] MEDS ORDERED: ONDANSETRON HCL 4 MG/2 ML VIAL IV PUSH (12:30)
[2017-09-09] MEDS ORDERED: SODIUM CHLOR 0.9% 250 ML INJ 250 ML IV (12:30)
[2017-09-09] MEDS ORDERED: MISC INFORMATION XX (12:30)
[2017-09-09] MEDS ORDERED: ATROPINE SULFATE 1 MG/ML VIAL IV PUSH (12:30)
[2017-09-09] MEDS ORDERED: IOHEXOL 350 MG/ML 50 ML BTL (for Cath Lab) OTHER (12:48)
== END 2017-09-09 16:50 | disposition home or self-care (01) | DRG 225 ==
LOC: NEPE 20:39 → NEDA 22:15 → HCPC 23:15
PROC: 0JH609Z Insertion of Cardiac Resynchronization Defibrillator Pulse Generator into Chest Subcutaneous Tissue and Fascia, Open Approach (ICD-10-PCS; principal; 2017-09-07 14:45)
PROC: 02HK3KZ Insertion of Defibrillator Lead into Right Ventricle, Percutaneous Approach (ICD-10-PCS; 2017-09-07 14:45)
PROC: 02HL3KZ Insertion of Defibrillator Lead into Left Ventricle, Percutaneous Approach (ICD-10-PCS; 2017-09-07 14:45)
PROC: B2111ZZ Fluoroscopy of Multiple Coronary Arteries using Low Osmolar Contrast (ICD-10-PCS; 2017-09-07 17:09)
PROC: 4A023N7 Measurement of Cardiac Sampling and Pressure, Left Heart, Percutaneous Approach (ICD-10-PCS; 2017-09-07 17:09)
DX: R00.1 Bradycardia, unspecified (principal); I50.22 Chronic systolic (congestive) heart failure; I44.2 Atrioventricular block, complete; I11.0 Hypertensive heart disease with heart failure; I42.9 Cardiomyopathy, unspecified; J44.9 Chronic obstructive pulmonary disease, unspecified; I48.2 Chronic atrial fibrillation; E11.9 Type 2 diabetes mellitus without complications; K59.09 Other constipation; Z79.84 Long term (current) use of oral hypoglycemic drugs; E78.00 Pure hypercholesterolemia, unspecified; M19.90 Unspecified osteoarthritis, unspecified site; Z79.01 Long term (current) use of anticoagulants; Z85.828 Personal history of other malignant neoplasm of skin; R55 Syncope and collapse; M81.0 Age-related osteoporosis without current pathological fracture
CPT/HCPCS: 33225; 33249; 70450; 71045; 80053; 82550; 82948; 83690; 83880; 84484; 85025; 85610; 85730; 93005; 93454; 93971; 96360; 99285-25

== ENCOUNTER 2017-11-17 13:23 | Day surgery (SDC) | payer MEDICARE ==
[~2017-11-17 13:23] MED LIST changes: +ACET1TAB94 PO; +AMIO200T PO; +AMIO400T PO; -BENZ100 PO; +DEFIB EXTERNAL; -DILT300C3 PO; -LISI-519 PO; +LISI10TA3 PO; +METO-309 PO; -METO-338 PO; -PRED10 PO
[2017-11-17] MEDS ORDERED: SODIUM CHLORID 0.9% 500 ML IV PRN (14:15)
[2017-11-17] MEDS ORDERED: METOPROLOL TARTRATE 25 MG TAB PO PRN (14:15)
[2017-11-17] MEDS ORDERED: POVIDONE IODINE 5% (ANTISEPSIS KIT) 4 APPLICATIONS EACH NARE PRN (14:15)
[2017-11-17] MEDS ORDERED: CHLORHEXIDINE GLUCONATE 2 % 1 PACK (2 CLOTHS) TOPICAL PRN (14:15)
[2017-11-17] MEDS ORDERED: LACTATED RINGER'S 1000 ML IV PRN (14:15)
--- NOTE | 2017-11-19 09:50 | EKG ---
Date Performed: 11/17/2017 Time Performed: 14:12:24 PTAGE: 82 years EKG: Ventricular pacing. Pacemaker rhythm - no further analysis Abnormal ECG PREVIOUS TRACING : 09/08/2017 05.45 Since the prior tracing, the pacer is no longer appropriate ly tracking the underlying atrial activity. This may be a mode switch issue as the underlying atrial rate is about 160 beats per minute, but clinical correlation to assess the atrial sensing would be ap propriate. DOCTOR: Ingrid Butcher Interpretating Date/Time 11/19/2017 09:50:18
--- NOTE | 2017-11-19 09:53 | EKG ---
Date Performed: 11/17/2017 Time Performed: 16:24:48 PTAGE: 82 years EKG: A-V sequential pacemaker. Pacemaker rhythm - no further analysis Abnormal ECG PREVIOUS TRACING : 11/17/2017 14.12 Since the previous tracing, the underlying supraventricular tachycardia has resolved. The patient is now showing AV sequential pacing. DOCTOR: Ingrid Butcher Interpretating Date/Time 11/19/2017 09:50:59
== END 2017-11-17 16:54 | disposition home or self-care (01) ==
LOC: HDOC 13:23 → HDIC 13:27 → HDOC 16:54
PROVIDERS: ATTEND Internal Medicine Cardiovascular Disease
DX: I48.91 Unspecified atrial fibrillation (principal); I50.9 Heart failure, unspecified; I10 Essential (primary) hypertension; E78.5 Hyperlipidemia, unspecified; Z79.01 Long term (current) use of anticoagulants; Z95.810 Presence of automatic (implantable) cardiac defibrillator
CPT/HCPCS: 92960; 93005

== ENCOUNTER 2018-01-06 14:57 | Emergency (ER) | payer MEDICARE ==
[~2018-01-06] VITALS: Ht 160 cm; Wt 71.0 kg
[~2018-01-06 14:57] MED LIST changes: -ACET1TAB94 PO; +ALBU0.08 NEB; -AMIO400T PO; -ASPI-516 CHEW; +BENZ1CAP54 PO; -DEFIB EXTERNAL; +LISI-515 PO; -LISI10TA3 PO
[2018-01-06 15:12] VITALS: BP 183/82; PULSE 74; RESP 18; TEMP 98.5; O2SAT 97
[2018-01-06 16:35] LABS: AUTOMATED NEUTROPHIL # 4.9 TH/MM3 (1.8-7.7); BASOPHIL % 0.7 % (0.0-2.0); EOSINOPHIL # 0.1 TH/MM3 (0-0.4); EOSINOPHIL % 0.9 % (0.0-4.0); HEMATOCRIT 36.6 % (35.0-46.0); HEMOGLOBIN 11.8 GM/DL (11.6-15.3); LYMPH % 20.2 % (9.0-44.0); LYMPHOCYTE # 1.4 TH/MM3 (1.0-4.8); MEAN CELL VOLUME 88.1 FL (80.0-100.0); MEAN CORPUSCULAR HEMOGLOBIN 28.4 PG (27.0-34.0); MEAN CORPUSCULAR HGB CONC 32.3 % (32.0-36.0); MEAN PLATELET VOLUME 8.1 FL (7.0-11.0); MONO % 8.2 % (0.0-8.0); MONOCYTE # 0.6 TH/MM3 (0-0.9); PLATELET COUNT 284 TH/MM3 (150-450); RED BLOOD COUNT 4.16 MIL/MM3 (4.00-5.30); RED CELL DISTRIBUTION WIDTH 18.6 % (11.6-17.2); WHITE BLOOD COUNT 6.9 TH/MM3 (4.0-11.0)
[2018-01-06 16:53] LABS: ALKALINE PHOSPHATASE 57 U/L (45-117); TOTAL BILIRUBIN ADULT 0.4 MG/DL (0.2-1.0); TOTAL PROTEIN 7.2 GM/DL (6.4-8.2)
--- NOTE | 2018-01-06 17:04 | PD ---
HPI Chief Complaint: Edema Time Seen by Provider: 16:01 Travel History International Travel<30 days: No Contact w/Intl Traveler<30days: No Traveled to known affect area: No History of Present Illness HPI This is an 82-year-old female who presents to the emergency department having had an ablation performed by Dr. Vigil on December 16 with increasing pain, bruising and swelling in her left lower extremity, constant, severe, with no associated numbness, weakness or coolness of the leg. 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 PFSH Past Medical History Hx Anticoagulant Therapy: Yes Arthritis: Yes Asthma: No Atrial Fibrillation: Yes Anxiety: No Depression: No Heart Rhythm Problems: Yes (chronic afib) Cancer: Yes (skin) Cardiovascular Problems: Yes High Cholesterol: Yes Chemotherapy: No Chest Pain: No Congestive Heart Failure: No COPD: Yes Cerebrovascular Accident: No Diabetes: Yes Patient Takes Glucophage: No Diminished Hearing: No Endocrine: Yes Gastrointestinal Disorders: Yes (Takes mirilax everyday for chronic constipation ) Genitourinary: No Hypertension: Yes Immune Disorder: No Implanted Vascular Access Dvce: Yes Musculoskeletal: Yes Neurologic: No Psychiatric: No Reproductive: No Respiratory: Yes Immunizations Current: Yes Migraines: No Radiation Therapy: No Seizures: No Thyroid Disease: No Influenza Vaccination: Yes Menopausal: Yes Past Surgical History Abdominal Surgery: No AICD: No Arteriovenous Shunt: No Cardiac Surgery: No Ear Surgery: No Endocrine Surgery: No Eye Surgery: Yes (Cancer surgery removal of tumor, left eye ) Genitourinary Surgery: Yes (BLADDER SUSP.) Gynecologic Surgery: Yes (Historectomy) Hysterectomy: Yes Insulin Pump: No Joint Replacement: Yes Oral Surgery: Yes (Tonsillectomy) Pacemaker: No Thoracic Surgery: Yes (cardiac ablation 09/02/2017) Tonsillectomy: Yes (AND ADENOIDS ) Other Surgery: Yes (RIGHT LEG VEIN STRIPPING) Social History Alcohol Use: Yes (RARELY) Tobacco Use: No Substance Use: No Allergies-Medications (Allergen,Severity, Reaction): Coded Allergies: clarithromycin (Unverified Allergy, Severe, VOMITING, 01/06/18) Reported Meds & Prescriptions Reported Meds & Active Scripts Active Amiodarone (Amiodarone HCl) 200 Mg Tab 200 Mg PO DAILY begin after completion of 400mg po bid x 7days Lopressor (Metoprolol Tartrate) 50 Mg Tab 50 Mg PO Q12HR Temazepam 15 Mg Cap 15 Mg PO HS PRN Reported Albuterol Neb (Albuterol Sulfate) 2.5 Mg/3 Ml Neb 2.5 Mg NEB Q4HR NEB While awake Benzonatate 100 Mg Cap 200 Mg PO TID PRN Lisinopril 20 Mg Tab 20 Mg PO DAILY Eliquis (Apixaban) 5 Mg Tab 5 Mg PO BID Ventolin Hfa 18 GM Inh (Albuterol Sulfate) 90 Mcg/Act Aer 2 Puff INH Q4-6H PRN Miralax Powder (Polyethylene Glycol 3350 Powder) 17 Gm Powd 17 Gm PO DAILY Mix and dissolve one measuring cap-ful (17 grams) in water or juice. Metformin (Metformin HCl) 500 Mg Tab 500 Mg PO BIDPC With meals Incruse Ellipta Inh (Umeclidinium [place] Inh) 0.0625 Mg/Act Inh 1 Puff INH DAILY Duoneb (Ipratropium-Albuterol Neb) 0.5-2.5 Mg/3 Ml Neb 1 Nebule INH BID Atorvastatin (Atorvastatin Calcium) 20 Mg Tab 20 Mg PO HS Review of Systems Except as stated in HPI: all other systems reviewed are Neg Physical Exam Narrative GENERAL:Well appearing, no acute distress SKIN: Focused skin assessment warm and dry. HEAD: Atraumatic. Normocephalic. EYES: Pupils equal and round. No injection or drainage. ENT: Moist mucous membranes NECK: Trachea midline. CARDIOVASCULAR: Regular rate and rhythm. No murmur appreciated. Large palpable pseudoaneurysm in the left groin. 2+ d.p. pulses bilaterally. RESPIRATORY: Clear to auscultation. Breath sounds equal bilaterally. GASTROINTESTINAL: Abdomen soft, non-tender, nondistended. MUSCULOSKELETAL: No obvious deformities. NEUROLOGICAL: Awake and alert. No obvious cranial nerve deficits. Moving all extremities. PSYCHIATRIC: Appropriate mood and affect; insight and judgment normal. Data Data Last Documented VS Vital Signs Date Time Temp Pulse Resp B/P (MAP) Pulse Ox O2 Delivery O2 Flow Rate FiO2 01/06/18 15:12 98.5 74 18 183/82 (115) 97 Orders Orders Complete Blood Count With Diff (01/06/18 16:08) Comprehensive Metabolic Panel (01/06/18 16:08) ^ Insert Iv (01/06/18 16:08) (Hub Use Only)Inp Phy Cons/Ref (01/06/18 ) Consult Vascular Surgery (01/06/18 17:52) Labs Laboratory Tests Test 01/06/18 16:21 White Blood Count 6.9 TH/MM3 Red Blood Count 4.16 MIL/MM3 Hemoglobin 11.8 GM/DL Hematocrit 36.6 % Mean Corpuscular Volume 88.1 FL Mean Corpuscular Hemoglobin 28.4 PG Mean Corpuscular Hemoglobin Concent 32.3 % Red Cell Distribution Width 18.6 % Platelet Count 284 TH/MM3 Mean Platelet Volume 8.1 FL Neutrophils (%) (Auto) 70.0 % Lymphocytes (%) (Auto) 20.2 % Monocytes (%) (Auto) 8.2 % Eosinophils (%) (Auto) 0.9 % Basophils (%) (Auto) 0.7 % Neutrophils # (Auto) 4.9 TH/MM3 Lymphocytes # (Auto) 1.4 TH/MM3 Monocytes # (Auto) 0.6 TH/MM3 Eosinophils # (Auto) 0.1 TH/MM3 Basophils # (Auto) 0.0 TH/MM3 CBC Comment DIFF FINAL Differential Comment Blood Urea Nitrogen 23 MG/DL Creatinine 1.06 MG/DL Random Glucose 96 MG/DL Total Protein 7.2 GM/DL Albumin 3.5 GM/DL Calcium Level 9.5 MG/DL Alkaline Phosphatase 57 U/L Aspartate Amino Transf (AST/SGOT) 29 U/L Alanine Aminotransferase (ALT/SGPT) 20 U/L Total Bilirubin 0.4 MG/DL Sodium Level 141 MEQ/L Potassium Level 4.7 MEQ/L Chloride Level 104 MEQ/L Carbon Dioxide Level 27.3 MEQ/L Anion Gap 10 MEQ/L Estimat Glomerular Filtration Rate 50 ML/MIN [facility] Medical Decision Making Medical Screen Exam Complete: Yes Emergency Medical Condition: Yes Interpretation(s) no leukocytosis electrolytes within normal limits Differential Diagnosis pseudoaneurysm, skin necrosis, vascular compromise Narrative Course This is an 82-year-old female who presents to the emergency department having been diagnosed at an outpatient radiology center with a large pseudoaneurysm measuring 7.6 x 6.8 x 3.8 cm in size. She has a normal neurovascular exam. She has no skin changes or discoloration over the pseudoaneurysm. I spoke to Dr. Wilkinson and he wants to see her in clinic tomorrow. I also discussed the case with Dr. Vigil. Patient will be discharged home. Diagnosis Primary Impression: Pseudoaneurysm Referrals: Álvaro Wilkinson MD Patient Instructions: General Instructions Additional Instructions: If you develop severe pain, numbness, coolness or weakness of your leg return to the emergency department immediately. Follow-up tomorrow without fail at Dr. Wilkinson's clinic in the [facility]. The phone number is [phone]. Med/Other Pt SpecificInfo: No Change to Meds Disposition: 01 DISCHARGE HOME Condition: Stable Tarsha Summers MD January 06, 2018 17:04
[2018-01-06 17:21] LABS: ALBUMIN 3.5 GM/DL (3.4-5.0); ALT (GPT) 20 U/L (10-53); AST (GOT) 29 U/L (15-37); BICARBONATE 27.3 MEQ/L (21.0-32.0); BLOOD UREA NITROGEN 23 MG/DL (7-18); CALCIUM 9.5 MG/DL (8.5-10.1); CHLORIDE 104 MEQ/L (98-107); CREATININE 1.06 MG/DL (0.50-1.00); GLOMERULAR FILTRATION RATE 50 ML/MIN (>89); GLUCOSE,RANDOM 96 MG/DL (74-106); SODIUM (NA) 141 MEQ/L (136-145)
[2018-01-06] MEDS ORDERED: ADENOSINE IV SOLN 3 MG/ML 2 ML VIAL ONE (18:38)
== END 2018-01-06 18:45 | disposition home or self-care (01) ==
LOC: NEPC 14:57
DX: I72.4 Aneurysm of artery of lower extremity (principal); I48.2 Chronic atrial fibrillation; E78.00 Pure hypercholesterolemia, unspecified; E11.9 Type 2 diabetes mellitus without complications; I10 Essential (primary) hypertension; Z79.84 Long term (current) use of oral hypoglycemic drugs; Z79.01 Long term (current) use of anticoagulants
CPT/HCPCS: 80053; 85025; 99283; J0153

== ENCOUNTER → 2018-01-19 | Outpatient (CLI) | payer MEDICARE ==
[~2018-01-19] MED LIST changes: +ASPI81CH6 CHEW; +CART300C PO; +METO50TA PO
[2018-01-19 12:55] LABS: HEMATOCRIT 34.6 % (35.0-46.0); HEMOGLOBIN 11.4 GM/DL (11.6-15.3); MEAN CELL VOLUME 87.8 FL (80.0-100.0); MEAN CORPUSCULAR HEMOGLOBIN 28.9 PG (27.0-34.0); MEAN CORPUSCULAR HGB CONC 32.9 % (32.0-36.0); MEAN PLATELET VOLUME 8.6 FL (7.0-11.0); PLATELET COUNT 291 TH/MM3 (150-450); RED BLOOD COUNT 3.94 MIL/MM3 (4.00-5.30); RED CELL DISTRIBUTION WIDTH 18.1 % (11.6-17.2); WHITE BLOOD COUNT 7.4 TH/MM3 (4.0-11.0)
[2018-01-19 13:03] LABS: INTERNATIONAL NORMALIZED RATIO 1.1 RATIO; PROTHROMBIN TIME - PATIENT 10.9 SEC (9.8-11.6)
[2018-01-19 13:20] LABS: BICARBONATE 24.7 MEQ/L (21.0-32.0); CALCIUM 9.8 MG/DL (8.5-10.1); CREATININE 1.15 MG/DL (0.50-1.00)
== END ==
LOC: CPRE 11:12
PROVIDERS: ATTEND Surgery
DX: Z01.812 Encounter for preprocedural laboratory examination (principal); I97.89 Other postprocedural complications and disorders of the circulatory system, not elsewhere classified; I72.4 Aneurysm of artery of lower extremity; R19.09 Other intra-abdominal and pelvic swelling, mass and lump; R10.32 Left lower quadrant pain
CPT/HCPCS: 36415; 80048; 85027; 85610; 86850; 86900; 86901

== ENCOUNTER 2018-01-20 10:56 | Inpatient (IN) | payer MEDICARE ==
[~2018-01-20] VITALS: Ht 160 cm; Wt 79.5 kg
[~2018-01-20 10:56] MED LIST changes: -ASPI81CH6 CHEW; -CART300C PO; -METO-309 PO; -METO50TA PO
[2018-01-20] MEDS ORDERED: SODIUM CHLORIDE 0.9% 10 ML VIAL IV FLUSH ONE (11:23)
[2018-01-20] MEDS ORDERED: ePHEDrine/NS 25 MG/5 ML SYRINGE IV ONE (11:23)
[2018-01-20] MEDS ORDERED: ONDANSETRON HCL 4 MG/2 ML VIAL IV PUSH ONE (11:23)
[2018-01-20] MEDS ORDERED: NEOSTIGMINE 5 MG/5 ML SYRINGE IV PUSH ONE (11:23)
[2018-01-20] MEDS ORDERED: LIDOCAINE HCL 1% PF 5 ML SYRINGE OTHER ONE (11:23)
[2018-01-20] MEDS ORDERED: PROPOFOL 200 MG/20 ML AMP IV ONE (11:23)
[2018-01-20] MEDS ORDERED: ROCURONIUM INJ 50 MG/5 ML SYRINGE IV PUSH ONE (11:23)
[2018-01-20] MEDS ORDERED: DEXAMETHASONE SOD PHOS 4 MG/ML VIAL IV ONE (11:23)
[2018-01-20] MEDS ORDERED: PHENYLEPH/NS 1000 MCG/10 ML SYR IV ONE (11:23)
[2018-01-20] MEDS ORDERED: GLYCOPYRROLATE 1 MG/5 ML SYRINGE IV PUSH ONE (11:23)
--- NOTE | 2018-01-20 11:44 | PD.VS.PN ---
Pre-operative Note Pre-operative diagnosis: LEFT femoral pseudoaneurysm Planned procedure: Repair of LEFT femoral pseudoaneurysm Interval History: Pt has been feeling well; no F/C/N/V or other symptoms that would preclude OR. Labs: Hct 35 plt 291 cr 1.1 INR 1.1 Blood: T&S Imaging: CTA (CHAVEZ) reviewed Orders: NPO Ancef 2g IV OCTOR Post-operative destination: PACU then CPCU Operative site marked: Yes Consent: Informed consent has been obtained from Juliana Evangelista. I have explained the procedure in detail and discussed the risks, benefits, and potential complications. All questions have been answered. Patient contact information: Sister [phone] Álvaro Wilkinson MD Jan 20, 2018 11:43
[2018-01-20] MEDS ORDERED: ASPI81CH6 CHEW (11:53)
[2018-01-20] MEDS ORDERED: CART300C PO (11:53)
[2018-01-20] MEDS ORDERED: METO50TA PO (11:53)
[2018-01-20] MEDS ORDERED: HEPARIN-NS/PF INJ 500 ML ONE (11:54)
[2018-01-20] MEDS ORDERED: HEPARIN SODIUM - IV 10,000 UNITS/10 ML VIAL ONE (11:54)
[2018-01-20] MEDS ORDERED: BUPIVACAINE HCL PF 0.5% 10 ML VIAL ONE (11:54)
[2018-01-20] MEDS ORDERED: PROTAMINE SULFATE 50 MG/5 ML VIAL ONE (11:54)
[2018-01-20] MEDS ORDERED: ceFAZolin 2 GM PREMIX 50 ML ONE (11:54)
[2018-01-20] MEDS ORDERED: THROMBIN (TOPICAL) 20,000 UNIT SPRAY KIT ONE (11:54)
[2018-01-20] MEDS ORDERED: LACTATED RINGER'S 1000 ML IV PRN (12:00)
[2018-01-20] MEDS ORDERED: CHLORHEXIDINE GLUCONATE 2 % 1 PACK (2 CLOTHS) TOPICAL PRN (12:00)
[2018-01-20] MEDS ORDERED: METOPROLOL TARTRATE 25 MG TAB PO PRN (12:00)
[2018-01-20] MEDS ORDERED: SODIUM CHLORID 0.9% 500 ML IV PRN (12:00)
[2018-01-20] MEDS ORDERED: POVIDONE IODINE 5% (ANTISEPSIS KIT) 4 APPLICATIONS EACH NARE PRN (12:00)
[2018-01-20] MEDS ORDERED: ACETAMINOPHEN 1000 MG/100 ML 100 ML IV ONE (12:35)
--- NOTE | 2018-01-20 14:19 | HHI.PR ---
cc: Álvaro Wilkinson MD; Sophy Vigil MD Immediate Post Op Note Procedure Date: Jan 20, 2018 Pre Op Diagnosis: L femoral pseudoaneurysm Post Op Diagnosis: L femoral pseudoaneurysm Surgeon: Álvaro Wilkinson Local Operator(s): Jessica Martinez Procedure: L SFA pseudoaneurysm repair with bovine pericardial patch Findings: SFA pseudoaneurysm, chronic Additional Information: good DP signals at the end of case Complications: none Specimen(s) removed: none for pathology Estimated blood loss: 50mL Anesthesia: General Drains: None Fluids: 1200mL IVF Urinary Output (mLs): 350 Patient to: PACU Patient Condition: Good Implant/Devices: SEE IMPLANT LOG (if applicable) Date/Time of Procedure: SEE SURGICAL CARE RECORD Álvaro Wilkinson MD Jan 20, 2018 14:19
[2018-01-20] MEDS ORDERED: LACTULOSE SYRUP 20 GM/30 ML CUP PO PRN (14:30)
[2018-01-20] MEDS ORDERED: TEMAZEPAM 15 MG CAP PO PRN (14:30)
[2018-01-20] MEDS ORDERED: SENNOSIDES 8.6 MG TAB PO PRN (14:30)
[2018-01-20] MEDS ORDERED: MAGNESIUM HYDROXIDE SUSP 30 ML CUP PO PRN (14:30)
[2018-01-20] MEDS ORDERED: BISACODYL 10 MG SUPP RECTAL PRN (14:30)
[2018-01-20] MEDS ORDERED: UMECLIDINIUM BROMIDE INH SCH (15:00)
[2018-01-20] MEDS ORDERED: MIDAZOLAM HCL 2 MG/2 ML VIAL ONE (15:00)
[2018-01-20] MEDS ORDERED: DO NOT ADM ANY ANTICOAGULANT DRUGS PRN (16:00)
[2018-01-20] MEDS: metFORMIN HCL 500 MG TAB PO SCH (18:00)
[2018-01-20 18:15] VITALS: BP 158/82; PULSE 94; RESP 16; TEMP 98.1; O2SAT 100
--- NOTE | 2018-01-20 18:26 | MP ---
cc: Álvaro Wilkinson MD DATE OF OPERATION: 01/20/2018 PREOPERATIVE DIAGNOSIS: Left femoral pseudoaneurysm. POSTOPERATIVE DIAGNOSIS: Left femoral pseudoaneurysm. PROCEDURE PERFORMED: Surgical repair of left SFA pseudoaneurysm with a patch angioplasty. ATTENDING SURGEON: Chapito Wilkinson MD ALLIANCES CONSULTANT SURGEON: Kelsie Martinez. ANESTHESIA: General. INDICATIONS FOR PROCEDURE: Ms. Evangelista is an 82-year-old female who had a cardiac ablation through a left groin access. Several weeks later, she developed groin swelling and a CT scan suggested she had a large pseudoaneurysm and she was taken to the operating room for surgical repair. DESCRIPTION OF PROCEDURE: Informed consent was obtained from the patient. She was taken to the operating room and placed supine on the operating room table. An appropriate timeout was taken to ensure the patient's identity, the operative site and planned procedure. The administration of 2 grams of Ancef was initiated prior to skin incision and will be discontinued after a single preoperative dose. Everyone in the room agreed with the timeout and we proceeded. She was prepped from her nipples to her toes. Vertical incision was made in the patient's left groin and carried down through subcutaneous tissue with electrocautery. The common femoral artery was identified and encircled with a vessel loop. We dissected tediously down to the proximal SFA and profunda and the SFA was encircled with a vessel loop. We then incised around the pseudoaneurysm capsule as this was noted to be somewhat chronic. The pseudoaneurysm was then opened and the patient was systemically heparinized with 6000 units of IV heparin. Proximal control of the SFA was obtained with a profunda clamp and the distal SFA was dissected free within the groin and also controlled with a profunda clamp. The pseudoaneurysm capsule and all of the thrombus was evacuated without difficulty. The anterior portion of the artery appeared to be somewhat traumatized and it was felt to not be amenable to direct repair. As such, a longitudinal arteriotomy was made with an 11 blade and the edges of the anterior wall of the artery were resected and a 1 x 6 pericardial patch was brought up onto the field and sewn on as a patch angioplasty using running 5-0 Prolene suture. At the completion, the clamps were released. There was a nice Doppler signal in the foot. The heparin was reversed with protamine. The wound was made hemostatic and closed with 2-0 Polysorb, 3-0 Polysorb and 4-0 Monocryl. The sponge and needle counts were correct at the end of the case. I was present, scrubbed, and performed the entire procedure. MD EKTA Barker/JANAE , 05:57 PM , 06:24 PM
[2018-01-20 19:40] VITALS: BP 132/74; PULSE 95; PULSE 96; RESP 19; TEMP 98.1; O2SAT 98
[2018-01-20 20:30] VITALS: PULSE 92
[2018-01-20] MEDS: FAMOTIDINE 20 MG TAB PO SCH (21:10)
[2018-01-20] MEDS: BENZONATATE 100 MG CAP PO PRN (21:11)
[2018-01-20] MEDS: METOPROLOL TARTRATE 50 MG TAB PO SCH (21:11)
[2018-01-20] MEDS: DOCUSATE SODIUM 50 MG/SENNA 8.6 MG TAB PO SCH (21:11)
[2018-01-20] MEDS: ATORVASTATIN 20 MG TAB PO SCH (21:11)
[2018-01-20 21:30] VITALS: PULSE 94
[2018-01-20 22:09] VITALS: PULSE 94
[2018-01-20 23:32] VITALS: BP 141/82; PULSE 92; PULSE 94; RESP 20; TEMP 98.3; O2SAT 100
[2018-01-21] VITALS (24 sets, daily range): BP systolic 141–161; BP diastolic 67–83; PULSE 68–94; RESP 14–19; TEMP 97.6–98.5; O2SAT 97–99
[2018-01-21] MEDS: RESP: ALBUTEROL 2.5 MG/3 ML NEB (SCH) NEB ×6 (00:13→22:50)
[2018-01-21 04:26] LABS: HEMATOCRIT 32.5 % (35.0-46.0); HEMOGLOBIN 10.8 GM/DL (11.6-15.3); MEAN CELL VOLUME 87.8 FL (80.0-100.0); MEAN CORPUSCULAR HEMOGLOBIN 29.1 PG (27.0-34.0); MEAN CORPUSCULAR HGB CONC 33.1 % (32.0-36.0); MEAN PLATELET VOLUME 8.1 FL (7.0-11.0); PLATELET COUNT 257 TH/MM3 (150-450); RED CELL DISTRIBUTION WIDTH 18.2 % (11.6-17.2); WHITE BLOOD COUNT 8.6 TH/MM3 (4.0-11.0)
[2018-01-21 05:09] LABS: BICARBONATE 23.4 MEQ/L (21.0-32.0); CREATININE 1.1 MG/DL (0.50-1.00)
--- NOTE | 2018-01-21 07:40 | PD.VS.PN ---
Subjective POD #: 1 Procedure(s): LEFT femoral pseudoaneursym repair Subjective/Hospital Course pain controlled; foot feels ok. rashid po Objective Vitals/I&O Date Time Temp Pulse Resp B/P (MAP) Pulse Ox O2 Delivery O2 Flow Rate FiO2 01/21/18 07:00 69 01/21/18 06:42 69 01/21/18 05:45 94 01/21/18 04:19 88 01/21/18 03:20 98.2 90 19 147/77 (100) 97 01/21/18 03:20 91 01/21/18 02:28 90 01/21/18 01:20 91 01/21/18 00:05 88 01/20/18 23:32 92 01/20/18 23:32 98.3 94 20 141/82 (101) 100 01/20/18 22:09 94 01/20/18 21:30 94 01/20/18 20:30 92 01/20/18 19:40 98.1 95 19 132/74 (93) 98 01/20/18 19:40 96 01/20/18 18:15 98.1 94 16 158/82 (107) 100 01/20/18 18:00 97.8 93 12 144/89 (107) 100 Nasal Cannula 2 01/20/18 17:00 93 19 146/88 (107) 100 01/20/18 16:00 92 19 147/89 (108) 99 01/20/18 15:45 92 18 149/88 (108) 98 01/20/18 15:30 92 18 152/89 (110) 98 01/20/18 15:15 92 18 155/91 (112) 98 01/20/18 15:00 92 17 153/89 (110) 100 01/20/18 14:49 97.8 91 19 158/96 (116) 96 Nasal Cannula 2 01/20/18 11:41 97.8 111 20 184/97 (126) 99 01/21/18 01/21/18 01/21/18 07:00 15:00 23:00 Intake Total 720 ml Output Total 1780 ml Balance -1060 ml Exam: slightly full in space from evacuated aneurysm Pulses: palpable DP Incisions: Prevena intact Laboratory Laboratory Tests Test 01/21/18 03:53 White Blood Count 8.6 Red Blood Count 3.70 Hemoglobin 10.8 Hematocrit 32.5 Mean Corpuscular Volume 87.8 Mean Corpuscular Hemoglobin 29.1 Mean Corpuscular Hemoglobin Concent 33.1 Red Cell Distribution Width 18.2 Platelet Count 257 Mean Platelet Volume 8.1 Blood Urea Nitrogen 21 Creatinine 1.10 Random Glucose 133 Calcium Level 9.0 Sodium Level 136 Potassium Level 5.2 Chloride Level 102 Carbon Dioxide Level 23.4 Anion Gap 11 Estimat Glomerular Filtration Rate 47 Assessment and Plan Plan POD#1 s/p L SFA PSA repair looks great 1. Normalize, including Sandoval out; watch for UOP 2. Restart Eliquis tomorrow (POD#2) Discharge Planning likely tomorrow (POD#2) and RTC Wed for Prevena removal Álvaro Wilkinson MD Jan 21, 2018 07:40
[2018-01-21] MEDS: LISINOPRIL 20 MG TAB PO SCH (08:39)
[2018-01-21] MEDS: metFORMIN HCL 500 MG TAB PO SCH ×2 (08:39→17:14)
[2018-01-21] MEDS: POLYETHYLENE GLYCOL 17 GM PKG PO SCH (08:39)
[2018-01-21] MEDS: AMIODARONE 200 MG TAB PO SCH (08:39)
[2018-01-21] MEDS: DOCUSATE SODIUM 50 MG/SENNA 8.6 MG TAB PO SCH ×2 (08:39→21:33)
[2018-01-21] MEDS: ASPIRIN 81 MG CHEW TAB PO SCH (08:39)
[2018-01-21] MEDS: METOPROLOL TARTRATE 50 MG TAB PO SCH ×2 (08:39→21:33)
[2018-01-21] MEDS: FAMOTIDINE 20 MG TAB PO SCH ×2 (08:39→21:33)
--- NOTE | 2018-01-21 08:49 | MB ---
cc: Mike Adorno MD DATE: 01/21/2018 HISTORY OF PRESENT ILLNESS: This is an 82-year-old woman who was admitted to the hospital for repair of pseudoaneurysm. This apparently occurred following atrial fibrillation ablation. She has a history of atrial fibrillation when she was seen in the hospital this past August with atrial fibrillation and a rapid response. This was felt to be secondary to medical noncompliance. 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 Cardiac catheterization at that time revealed normal coronaries. She subsequently had a LifeVest, but was readmitted with symptomatic bradycardia and ventricular tachycardia and an AICD pacemaker was inserted. She later underwent atrial fibrillation ablation. Because of her significant cardiomyopathy. She has actually been doing well from a cardiovascular standpoint except for pain in her left groin. No shortness of breath, lightheadedness or dizziness has been present. We have been asked to see because postoperatively, it was noted that she had a paced rhythm in the 90s. In reviewing her rhythm strips, we note that she does have P waves, which her pacemaker was following yielding a heart rate of 90. Subsequently, her metoprolol has been restarted. Heart rates are now in the 60s. No evidence for runaway pacemaker or inappropriate pacing has been present. PHYSICAL EXAMINATION: VITAL SIGNS: Blood pressure is 140/80, pulse is 69 and regular. NECK: There is no neck vein distention. Carotids are normal. LUNGS: Clear. CARDIOVASCULAR: Reveals a regular rate and rhythm. No murmur or gallop is noted. ABDOMEN: She does have a wound VAC in her left groin, which appears to be clean. EXTREMITIES: Peripheral pulses are intact. ASSESSMENT AND PLAN: The patient has essentially normal pacer function, is doing well from a cardiovascular standpoint. We will be happy to see her on an as-needed basis and will certainly follow her up as an outpatient when she is discharged from the hospital. MD LAUREEN Sofia/HOLDEN , 07:57 AM , 08:48 AM
[2018-01-21] MEDS: DILTIAZEM-CD 300 MG CAP ER PO SCH (09:36)
[2018-01-21] MEDS ORDERED: ENOXAPARIN SODIUM 40 MG/0.4 ML SYRINGE SQ SCH (14:00)
[2018-01-21] MEDS: HYDROmorphone HCL 2 MG TAB PO PRN (19:43)
[2018-01-21] MEDS: BENZONATATE 100 MG CAP PO PRN (21:33)
[2018-01-21] MEDS: ATORVASTATIN 20 MG TAB PO SCH (21:33)
[2018-01-22] VITALS (14 sets, daily range): BP systolic 139–147; BP diastolic 64–85; PULSE 69–70; RESP 17–18; TEMP 97.5–98; O2SAT 95–100
[2018-01-22] MEDS: RESP: ALBUTEROL 2.5 MG/3 ML NEB (SCH) NEB ×3 (00:59→08:15)
[2018-01-22] MEDS: HYDROmorphone HCL 2 MG TAB PO PRN (03:56)
--- NOTE | 2018-01-22 09:19 | PD.VS.PN ---
Subjective POD #: 2 Procedure(s): LEFT femoral pseudoaneursym repair Subjective/Hospital Course pain controlled; foot feels ok. rashid po Objective Vitals/I&O Date Time Temp Pulse Resp B/P (MAP) Pulse Ox O2 Delivery O2 Flow Rate FiO2 01/22/18 09:00 69 01/22/18 08:17 97 21 01/22/18 08:00 69 01/22/18 07:15 69 01/22/18 07:00 97.6 70 17 144/68 (93) 95 01/22/18 06:05 69 01/22/18 05:37 69 01/22/18 04:17 69 01/22/18 03:50 98.0 70 18 139/64 (89) 98 01/22/18 03:50 69 01/22/18 02:00 69 01/22/18 01:47 70 01/22/18 00:20 69 01/21/18 23:35 69 01/21/18 23:35 97.6 70 19 155/71 (99) 98 01/21/18 22:30 70 01/21/18 21:58 70 01/21/18 20:20 69 01/21/18 19:40 98.1 78 18 151/70 (97) 99 01/21/18 19:40 69 01/21/18 18:00 70 01/21/18 17:00 69 01/21/18 16:00 69 01/21/18 15:00 69 01/21/18 15:00 98.1 71 17 141/67 (91) 99 01/21/18 14:00 72 01/21/18 13:00 73 01/21/18 12:00 76 01/21/18 11:00 97.6 76 16 144/78 (100) 99 01/21/18 11:00 77 01/21/18 10:00 78 01/22/18 01/22/18 01/22/18 07:00 15:00 23:00 Intake Total 720 ml Output Total 1700 ml Balance -980 ml Exam: Resting comfortably groin ok palpable DP Assessment and Plan Plan POD#2 s/p L SFA PSA repair looks great 1. D/c today 2. Restart Eliquis today (POD#2) Discharge Planning likely tomorrow (POD#2) and RTC Wed for Prevena removal Álvaro Wilkinson MD Jan 22, 2018 09:19
[2018-01-22] MEDS: POLYETHYLENE GLYCOL 17 GM PKG PO SCH (09:22)
[2018-01-22] MEDS: FAMOTIDINE 20 MG TAB PO SCH (09:23)
[2018-01-22] MEDS: DILTIAZEM-CD 300 MG CAP ER PO SCH (09:23)
[2018-01-22] MEDS: METOPROLOL TARTRATE 50 MG TAB PO SCH (09:23)
[2018-01-22] MEDS: metFORMIN HCL 500 MG TAB PO SCH (09:23)
[2018-01-22] MEDS: DOCUSATE SODIUM 50 MG/SENNA 8.6 MG TAB PO SCH (09:23)
[2018-01-22] MEDS: LISINOPRIL 20 MG TAB PO SCH (09:23)
[2018-01-22] MEDS: ASPIRIN 81 MG CHEW TAB PO SCH (09:23)
[2018-01-22] MEDS: AMIODARONE 200 MG TAB PO SCH (09:23)
--- NOTE | 2018-01-22 09:25 | PD.VS.DC ---
cc: Álvaro Wilkinson MD; Elenita Metzger; Sophy Vigil MD Discharge Summary Admission Date: Jan 20, 2018 at 10:56 Discharge Date: Jan 22, 2018 Admission Diagnosis: (1) Femoral artery pseudo-aneurysm, left Discharge Diagnosis: (1) Femoral artery pseudo-aneurysm, left ICD Codes: I72.4 - Aneurysm of artery of lower extremity Brief History from admission The patient underwent a cardiac ablation and developed a L femoral pseudoaneurysm that was causing local discomfort. Because of the size of the pseudoaneurysm, she was offered surgical repair. Procedure(s): LEFT femoral pseudoaneursym repair Significant Findings Laboratory Tests Test 01/21/18 03:53 Red Blood Count 3.70 MIL/MM3 (4.00-5.30) Hemoglobin 10.8 GM/DL (11.6-15.3) Hematocrit 32.5 % (35.0-46.0) Red Cell Distribution Width 18.2 % (11.6-17.2) Blood Urea Nitrogen 21 MG/DL (7-18) Creatinine 1.10 MG/DL (0.50-1.00) Random Glucose 133 MG/DL (74-106) Potassium Level 5.2 MEQ/L (3.5-5.1) Estimat Glomerular Filtration Rate 47 ML/MIN (>89) Hospital Course: The patient underwent repair and intraoperatively was noted to have a SFA-based pseudoaneurysm that was repaired with a patch angioplasty. She tolerated the procedure well and upon the time of discharge, was tolerating a regular diet, pain was controlled with pain medications and she was ambulating without difficulty. Cardiology was consulted and felt her pacer was functioning normally. Upon discharge, she was prescribed post-operative narcotics for approximately 4 days. Because of the extensive groin surgery, she has acute pain exception. According to the [facility] database, she has not been prescribed narcotics since August. Discharge Condition: Good Discharge Disposition: Discharge Home Any questions or concerns: Call [facility] at [facility] [phone] Our office will call you WEDNESDAY to set up a discharge appointment for FRIDAY 01/26. Álvaro Wilkinson MD Jan 22, 2018 09:25
[2018-01-22] MEDS ORDERED: PILL SPLITTER OTHER PRN (09:30)
[2018-01-22] MEDS ORDERED: FAMOTIDINE 20 MG TAB PO SCH (21:00)
== END 2018-01-22 11:24 | disposition home or self-care (01) | DRG 253 ==
LOC: HSDI 10:56 → HCPC 18:40
PROVIDERS: ADMIT Surgery; ATTEND Surgery
PROC: 04CL0ZZ Extirpation of Matter from Left Femoral Artery, Open Approach (ICD-10-PCS; principal; 2018-01-20 12:40)
PROC: 04UL0KZ Supplement Left Femoral Artery with Nonautologous Tissue Substitute, Open Approach (ICD-10-PCS; 2018-01-20 12:40)
DX: I97.89 Other postprocedural complications and disorders of the circulatory system, not elsewhere classified (principal); I74.3 Embolism and thrombosis of arteries of the lower extremities; I42.9 Cardiomyopathy, unspecified; I10 Essential (primary) hypertension; I72.4 Aneurysm of artery of lower extremity; E78.5 Hyperlipidemia, unspecified; Y83.8 Other surgical procedures as the cause of abnormal reaction of the patient, or of later complication, without mention of misadventure at the time of the procedure; Z79.01 Long term (current) use of anticoagulants; Z79.84 Long term (current) use of oral hypoglycemic drugs; Z85.828 Personal history of other malignant neoplasm of skin; Z88.1 Allergy status to other antibiotic agents; Z88.5 Allergy status to narcotic agent; Z95.810 Presence of automatic (implantable) cardiac defibrillator
CPT/HCPCS: 36415; 80048; 85027; 85610; 86850; 86900; 86901; 94640; 94664; J0131; J0690; J1100; J1644; J1650; J2250; J2370; J2405; J2710; J2720; J3010; J7120; J7613

== ENCOUNTER 2018-04-28 16:55 | Inpatient (IN) ==
[2018-04-28] MEDS ORDERED: Ibuprofen 600 MG Tablet PO ONE (19:36)
[2018-04-28] MEDS ORDERED: Sod Chloride 0.9% Inj 1,000 ML IV.SIG SCH (19:45)
--- NOTE | 2018-04-28 19:54 | ED ---
HPI General Chief complaint: Weakness Stated complaint: trouble walking Time Seen by Provider: 04/28/18 19:19 Source: patient Limitations: no limitations History of Present Illness HPI Narrative: Patient is an 82-year-old female, past medical history significant for atrial fibrillation on Eliquis, who presents with complaint of generalized weakness over the last several days. She states that she has also had chills with a subjective fever. No chest pain, dyspnea, back pain, abdominal pain. She has had pain and swelling to the left lower extremity over the last several days with erythema that she noticed today. She had an ablation of her heart done several months ago that went through the left femoral but states it has been healing well since then. Complaint: generalized weakness Onset (ago): day(s) Duration: constant Location: generalized Migration: none Severity: moderate Relieving factors: none Exacerbating factors: none Associated symptoms: fever/chills Related Data Home Medications Medication Instructions Recorded Confirmed amiodarone 200 mg PO DAILY 04/28/18 04/28/18 aspirin [Aspir-81] 81 mg PO DAILY 04/28/18 04/28/18 atorvastatin 20 mg PO HS 04/28/18 04/28/18 benzonatate 04/28/18 04/28/18 diltiazem HCl [Cartia XT] 300 mg PO DAILY 04/28/18 04/28/18 lisinopril 20 mg PO DAILY 04/28/18 04/28/18 metformin 500 mg PO BID 04/28/18 04/28/18 temazepam 15 mg PO HS 04/28/18 04/28/18 Previous Rx's Medication Instructions Recorded tramadol 50 mg PO Q8H PRN #12 tab 03/17/18 Allergies Allergy/AdvReac Type Severity Reaction Status Date / Time clarithromycin Allergy Severe VOMITING Verified 01/20/18 11:19 acetaminophen Allergy Intermediate passed out Verified 01/20/18 11:46 hydrocodone Allergy Intermediate passed out Verified 01/20/18 11:46 Review of Systems ROS: all other systems reviewed are negative [facility] Medical History Medical History Atrial fibrillation with RVR (Acute) COPD (chronic obstructive pulmonary disease) (Acute) Diabetes (Acute) History of hysterectomy (Acute) Osteoporosis (Acute) Presence of combination internal cardiac defibrillator (ICD) and pacemaker ( Acute) Pseudoaneurysm (Acute) Syncope (Acute) Surgical History Surgical History History of adenoidectomy (Acute) History of cardiac radiofrequency ablation (Acute) History of left knee replacement (Acute) Hx of tonsillectomy (Acute) Social History Social History Substance History: No History of Abuse Second Hand Smoke Exposure: No Smoking Status: Never smoker How Often Do You Have a Drink Containing Alcohol: Monthly or less Recent Travel in [facility] within the Last 8 Weeks: No Recent Out of Country Travel within the Last 8 Weeks: No Exam Narrative Exam Narrative: GENERAL: Well-appearing female in no acute distress SKIN: Focused skin assessment warm/dry. Erythema and warmth to most of the left lower extremity with swelling. No crepitus nor bulla. HEAD: Atraumatic. Normocephalic. EYES: Pupils equal and round. No scleral icterus. No injection or drainage. ENT: No nasal bleeding or discharge. Mucous membranes pink and moist. NECK: Trachea midline. No JVD. CARDIOVASCULAR: Regular rate and rhythm. No murmur appreciated. Intact and equal peripheral pulses. RESPIRATORY: No accessory muscle use. Clear to auscultation. Breath sounds equal bilaterally. GASTROINTESTINAL: Abdomen soft, non-tender, nondistended. Hepatic and splenic margins not palpable. MUSCULOSKELETAL: No obvious deformities. No clubbing. No cyanosis. No edema. NEUROLOGICAL: Awake and alert. No obvious cranial nerve deficits. Motor grossly within normal limits. Normal sensation. Normal speech. PSYCHIATRIC: Appropriate mood and affect; insight and judgment normal. Course Initial Documented Vital Signs Temperature 101.5 F H 04/28/18 17:15 Pulse Rate 70 04/28/18 17:15 Respiratory Rate 20 04/28/18 17:15 Blood Pressure 143/68 H 04/28/18 17:15 Pulse Oximetry 93 L 04/28/18 17:15 Last Documented Vital Signs Temperature 98.5 F 04/28/18 17:17 Pulse Rate 69 04/28/18 19:31 Respiratory Rate 20 04/28/18 19:31 Blood Pressure 139/66 04/28/18 19:31 Pulse Oximetry 96 04/28/18 19:31 Sign Out Sign Out Data: Patient Sign Out occurred on 04/28/18 at 20:26. Patient's care was discussed, and care was transferred from Penny Copeland MD to Vincent Venegas MD. Sign Out Comment: Labs pending. Plan for admit. Last updated by Penny Copeland MD at 04/28/18 20:21 Post-Handoff Eval: Is an 82-year-old woman with a left lower extremity cellulitis likely from a focal point of the repaired pseudoaneurysm that appears to still be draining. This apparently was repaired by Dr. Wilkinson couple weeks ago. She was septic. Fever 102. Diffuse cellulitis. No DVT. No recurrent pseudoaneurysm. Given IV antibiotics. She will be admitted to medicine. Medical Decision Making MDM Narrative Medical decision making narrative: Patient is an 82-year-old female who presents with complaint of generalized weakness over the last several days with chills and subjective fevers into addition to left lower extremity erythema, warmth, swelling. She is hemodynamically stable but is febrile on arrival. Labs have been ordered (showing leukocytosis) and x-rays including the chest, left lower extremity and left lower extremity ultrasound to rule out DVT have been ordered and are pending. Blood cultures were drawn and she has been given rocephin and vancomycin. Medical Screen Exam Complete: Yes Emergency Medical Condition: Yes Differential Diagnosis Differential Diagnosis: Differential diagnosis includes but is not limited to sepsis, electrolyte abnormality, anemia. Medical Records Medical records reviewed: Yes I reviewed the patient's medical records. Lab Data Result diagrams: 04/28/18 19:47 04/28/18 19:47 Lab Results 04/28/18 04/28/18 04/28/18 Range/Units 19:47 19:47 19:47 WBC 13.3 H (4.0-11.0) th/mm3 RBC 4.11 (4.00-5.30) mil/mm3 Hgb 11.8 (11.6-15.3) gm/dL Hct 36.7 (35.0-46.0) % MCV 89.4 (80.0-100.0) fL MCH 28.7 (27.0-34.0) pg MCHC 32.1 (32.0-36.0) % RDW 16.6 (11.6-17.2) % Plt Count 186 (150-450) th/mm3 MPV 8.7 (7.0-11.0) fL Neut % (Auto) 89.6 H (16.0-70.0) % Lymph % (Auto) 4.7 L (9.0-44.0) % [place] % (Auto) 5.4 (0.0-8.0) % Eos % (Auto) 0.0 (0.0-4.0) % Baso % (Auto) 0.3 (0.0-2.0) % Neut # (Auto) 11.9 H (1.8-7.7) th/mm3 Lymph # (Auto) 0.6 L (1.0-4.8) th/mm3 [place] # (Auto) 0.7 (0.0-0.9) th/mm3 Eos # (Auto) 0.0 (0.0-0.4) th/mm3 Baso # (Auto) 0.0 (0.0-0.2) th/mm3 WBC Differential . Differential Comment Auto diff final D-Dimer Quant (PE/DVT) 0.63 H (0.00-0.50) mg/L FEU Sodium 132 L (136-145) meq/L Potassium 4.3 (3.5-5.1) meq/L Chloride 97 L (98-107) meq/L Carbon Dioxide 26.1 (21.0-32.0) meq/L Anion Gap 9 (5-15) meq/L BUN 19 H (7-18) mg/dL Creatinine 1.17 H (0.50-1.00) mg/dL Estimated GFR 44 L (>89) mL/min Random Glucose 154 H (74-106) mg/dL Lactic Acid (0.4-2.0) mmol/L Calcium 9.4 (8.5-10.1) mg/dL Total Bilirubin 0.6 (0.2-1.0) mg/dL AST 19 (15-37) U/L ALT 30 (10-53) U/L Alkaline Phosphatase 67 (45-117) U/L Troponin I Less than 0.02 L (0.02-0.05) ng/mL Total Protein 7.6 (6.4-8.2) g/dL Albumin 3.2 L (3.4-5.0) g/dL 04/28/18 Range/Units 20:16 WBC (4.0-11.0) th/mm3 RBC (4.00-5.30) mil/mm3 Hgb (11.6-15.3) gm/dL Hct (35.0-46.0) % MCV (80.0-100.0) fL MCH (27.0-34.0) pg MCHC (32.0-36.0) % RDW (11.6-17.2) % Plt Count (150-450) th/mm3 MPV (7.0-11.0) fL Neut % (Auto) (16.0-70.0) % Lymph % (Auto) (9.0-44.0) % [place] % (Auto) (0.0-8.0) % Eos % (Auto) (0.0-4.0) % Baso % (Auto) (0.0-2.0) % Neut # (Auto) (1.8-7.7) th/mm3 Lymph # (Auto) (1.0-4.8) th/mm3 [place] # (Auto) (0.0-0.9) th/mm3 Eos # (Auto) (0.0-0.4) th/mm3 Baso # (Auto) (0.0-0.2) th/mm3 WBC Differential Differential Comment D-Dimer Quant (PE/DVT) (0.00-0.50) mg/L FEU Sodium (136-145) meq/L Potassium (3.5-5.1) meq/L Chloride (98-107) meq/L Carbon Dioxide (21.0-32.0) meq/L Anion Gap (5-15) meq/L BUN (7-18) mg/dL Creatinine (0.50-1.00) mg/dL Estimated GFR (>89) mL/min Random Glucose (74-106) mg/dL Lactic Acid 1.5 (0.4-2.0) mmol/L Calcium (8.5-10.1) mg/dL Total Bilirubin (0.2-1.0) mg/dL AST (15-37) U/L ALT (10-53) U/L Alkaline Phosphatase (45-117) U/L Troponin I (0.02-0.05) ng/mL Total Protein (6.4-8.2) g/dL Albumin (3.4-5.0) g/dL Imaging Data Radiologist's impression: Chest X-Ray 04/28/18 19:33 CONCLUSION: No pneumonia or other acute cardiopulmonary disease demonstrated. Venous Doppler Study 04/28/18 19:33 CONCLUSION: 1. No venous thrombosis of either lower extremity. 2. 6 cm fluid collection in the left inguinal region, probably an old hematoma. Patient does have a history of left femoral artery pseudoaneurysm but there is no abnormal flow in this fluid collection today. Femur X-Ray 04/28/18 19:37 CONCLUSION: Intact left femur. Discharge Plan Discharge Disposition Patient Disposition: 30 Still Patient Discharge Condition Condition: Stable Discharge Details Diagnosis: Cellulitis, Sepsis Physicians Team ED Provider: Vincent Venegas Primary Care Provider: Barrington Kruse Rxs /Orders / Referrals /Forms Prescriptions: No Action tramadol 50 mg tablet 50 mg PO Q8H PRN (Reason: pain) Qty: 12 RF: 0 metformin 500 mg Tablet 500 mg PO BID RF: 0 atorvastatin 20 mg Tablet 20 mg PO HS RF: 0 amiodarone 200 mg Tablet 200 mg PO DAILY RF: 0 lisinopril 20 mg Tablet 20 mg PO DAILY RF: 0 aspirin [Aspir-81] 81 mg Tablet,Delayed Release (Dr/Ec) 81 mg PO DAILY RF: 0 temazepam 15 mg Capsule 15 mg PO HS RF: 0 diltiazem HCl [Cartia XT] 300 mg Capsule,Extended Release 24hr 300 mg PO DAILY RF: 0 benzonatate RF: 0 Discharge Interventions Interventions: Vital Signs Last Done: 04/28/18 19:31 Status ED Status: With Doctor
[2018-04-28 20:05] LABS: Baso % (Auto) 0.3 % (0.0-2.0); Hematocrit 36.7 % (35.0-46.0); Hemoglobin 11.8 gm/dL (11.6-15.3); Lymph # (Auto) 0.6 th/mm3 (1.0-4.8); Lymph % (Auto) 4.7 % (9.0-44.0); Mean Corpuscular HGB Conc 32.1 % (32.0-36.0); Mean Corpuscular Hemoglobin 28.7 pg (27.0-34.0); Mean Corpuscular Volume 89.4 fL (80.0-100.0); Mean Platelet Volume 8.7 fL (7.0-11.0); Mono # (Auto) 0.7 th/mm3 (0.0-0.9); Mono % (Auto) 5.4 % (0.0-8.0); Neut # (Auto) 11.9 th/mm3 (1.8-7.7); Neut % (Auto) 89.6 % (16.0-70.0); Platelet Count 186 th/mm3 (150-450); Red Blood Count 4.11 mil/mm3 (4.00-5.30); Red Cell Distribution Width 16.6 % (11.6-17.2); White Blood Count 13.3 th/mm3 (4.0-11.0)
[2018-04-28] MEDS ORDERED: Vancomycin Inj 1 GM/200 ML PIGGYBACK IV.SIG STA (20:13)
[2018-04-28] MEDS ORDERED: Vancomycin Inj 1,000 MG in Sodium Chlor 0.9% Inj 250 ML IV.SIG STA (20:16)
[2018-04-28 20:29] LABS: Alanine Aminotransferase 30 U/L (10-53); Albumin 3.2 g/dL (3.4-5.0); Anion Gap 9 meq/L (5-15); Aspartate Aminotransferase 19 U/L (15-37); Blood Urea Nitrogen 19 mg/dL (7-18); Calcium 9.4 mg/dL (8.5-10.1); Carbon Dioxide 26.1 meq/L (21.0-32.0); Chloride 97 meq/L (98-107); Glomerular Filtration Rate 44 mL/min (>89); Glucose,Random 154 mg/dL (74-106); Potassium 4.3 meq/L (3.5-5.1); Sodium 132 meq/L (136-145)
[2018-04-28 20:34] LABS: Alkaline Phosphatase 67 U/L (45-117); Total Protein 7.6 g/dL (6.4-8.2)
[2018-04-28] MEDS ORDERED: Vancomycin Consult Pharmacy OTHER PRN (22:36)
[2018-04-28 22:37] LABS: Bacteria,Urine Rare /hpf; Bilirubin,Urine Negative (Negative); Clarity,Urine Hazy (Clear); Color,Urine Yellow (Yellw/Straw); Glucose,Urine (UA) Negative (Negative); Leukocyte Esterase,Urine Trace (Negative); Nitrite,Urine Negative (Negative); Specific Gravity,Urine 1.012 (1.002-1.035); Squamous Epithelial Cell,Urine 8 /hpf (0-5)
[2018-04-28] MEDS ORDERED: Dextrose 50% in Water 50 ML Vial IV.PUSH PRN (22:44)
[2018-04-28] MEDS: Piperacil/Tazo 3.375 GM Premix 50 ML IV.SIG SCH (23:05)
[2018-04-29] MEDS: Sod Chloride 0.9% Inj 1,000 ML IV.CONT SCH ×4 (01:27→23:00)
[2018-04-29] MEDS: Insulin NovoLOG Aspart Correctional Sugar Inj SQ SCH ×5 (04:20→23:17)
[2018-04-29 04:57] LABS: Baso % (Auto) 0.2 % (0.0-2.0); Eos % (Auto) 0.4 % (0.0-4.0); Lymph # (Auto) 0.8 th/mm3 (1.0-4.8); Lymph % (Auto) 9.3 % (9.0-44.0); Mean Corpuscular HGB Conc 33.2 % (32.0-36.0); Mean Corpuscular Hemoglobin 29.2 pg (27.0-34.0); Mean Corpuscular Volume 88.1 fL (80.0-100.0); Mean Platelet Volume 8.7 fL (7.0-11.0); Mono # (Auto) 0.6 th/mm3 (0.0-0.9); Mono % (Auto) 7.4 % (0.0-8.0); Neut # (Auto) 6.9 th/mm3 (1.8-7.7); Neut % (Auto) 82.7 % (16.0-70.0); Platelet Count 150 th/mm3 (150-450); Red Blood Count 3.41 mil/mm3 (4.00-5.30); Red Cell Distribution Width 16.2 % (11.6-17.2); White Blood Count 8.3 th/mm3 (4.0-11.0)
[2018-04-29 05:22] LABS: Calcium 8.3 mg/dL (8.5-10.1); Carbon Dioxide 25.9 meq/L (21.0-32.0); Potassium 3.9 meq/L (3.5-5.1)
[2018-04-29] MEDS: Piperacil/Tazo 3.375 GM Premix 50 ML IV.SIG SCH ×3 (06:15→20:28)
--- NOTE | 2018-04-29 07:58 | ECG ---
Date Performed: 04/28/2018 Time Performed: 19:27:09 PTAGE: 82 years EKG: ELECTRONIC ATRIAL PACEMAKER ELECTRONIC VENTRICULAR PACEMAKER ST DEPRESSION, CONSIDER SUBEND OCARDIAL INJURY ABNORMAL ECG Since the PREVIOUS TRACING , no significant change noted PREVIOUS TRACIN03/17/2018 11.24 DOCTOR: Arthur Vigil Interpretating Date/Time 04/29/2018 07:55:16
[2018-04-29] MEDS: Amiodarone 200 MG Tablet PO SCH (08:53)
[2018-04-29] MEDS: dilTIAZem CD 300 MG Capsule PO SCH (08:59)
[2018-04-29] MEDS: Metoprolol Tartrate 100 MG Tablet PO SCH ×2 (08:59→21:17)
[2018-04-29] MEDS: Lisinopril 20 MG Tablet PO SCH (09:00)
[2018-04-29] MEDS: Vancomycin Inj 1,000 MG in Sodium Chlor 0.9% Inj 250 ML IV.SIG SCH (18:00)
[2018-04-29] MEDS: Acetaminophen 500 MG Tablet PO PRN (18:08)
[2018-04-29] MEDS: Temazepam 15 MG Capsule PO SCH (21:17)
[2018-04-30] MEDS: Insulin NovoLOG Aspart Correctional Sugar Inj SQ SCH ×5 (04:33→21:56)
[2018-04-30] MEDS: Piperacil/Tazo 3.375 GM Premix 50 ML IV.SIG SCH ×4 (05:39→18:03)
[2018-04-30] MEDS: Acetaminophen 500 MG Tablet PO PRN ×3 (05:47→18:02)
[2018-04-30] MEDS: Sod Chloride 0.9% Inj 1,000 ML IV.CONT SCH (06:46)
[2018-04-30] MEDS: dilTIAZem CD 300 MG Capsule PO SCH (09:34)
[2018-04-30] MEDS: Amiodarone 200 MG Tablet PO SCH (09:34)
[2018-04-30] MEDS: Lisinopril 20 MG Tablet PO SCH (09:35)
[2018-04-30] MEDS: Metoprolol Tartrate 100 MG Tablet PO SCH ×2 (09:35→20:20)
[2018-04-30] MEDS: MethylPREDNISolone Sod Succinate Inj 40 MG/ML Vial IV.PUSH SCH ×2 (09:35→20:20)
[2018-04-30] MEDS: Vancomycin Inj 1,000 MG in Sodium Chlor 0.9% Inj 250 ML IV.SIG SCH (18:40)
[2018-04-30] MEDS: Temazepam 15 MG Capsule PO SCH (20:20)
[2018-05-01] MEDS: Acetaminophen 500 MG Tablet PO PRN ×4 (00:18→18:50)
[2018-05-01] MEDS: Piperacil/Tazo 3.375 GM Premix 50 ML IV.SIG SCH ×4 (00:19→19:08)
[2018-05-01] MEDS: Insulin NovoLOG Aspart Correctional Sugar Inj SQ SCH ×5 (04:37→21:56)
[2018-05-01 06:16] LABS: Hematocrit 30.5 % (35.0-46.0); Hemoglobin 10.3 gm/dL (11.6-15.3); Mean Corpuscular HGB Conc 33.7 % (32.0-36.0); Mean Corpuscular Hemoglobin 29.3 pg (27.0-34.0); Mean Corpuscular Volume 86.8 fL (80.0-100.0); Mean Platelet Volume 8.5 fL (7.0-11.0); Platelet Count 197 th/mm3 (150-450); Red Blood Count 3.52 mil/mm3 (4.00-5.30); Red Cell Distribution Width 15.7 % (11.6-17.2)
[2018-05-01 06:37] LABS: Calcium 8.8 mg/dL (8.5-10.1); Carbon Dioxide 25.6 meq/L (21.0-32.0); Potassium 3.8 meq/L (3.5-5.1)
[2018-05-01] MEDS: dilTIAZem CD 300 MG Capsule PO SCH (08:31)
[2018-05-01] MEDS: Amiodarone 200 MG Tablet PO SCH (08:31)
[2018-05-01] MEDS: MethylPREDNISolone Sod Succinate Inj 40 MG/ML Vial IV.PUSH SCH ×2 (08:32→20:29)
[2018-05-01] MEDS: Lisinopril 20 MG Tablet PO SCH (08:32)
[2018-05-01] MEDS: Metoprolol Tartrate 100 MG Tablet PO SCH ×2 (08:32→20:30)
[2018-05-01] MEDS ORDERED: Pharmacy Ordered Lab Info OTHER ONE (17:45)
[2018-05-01] MEDS: Vancomycin Inj 1,000 MG in Sodium Chlor 0.9% Inj 250 ML IV.SIG SCH (18:06)
[2018-05-01] MEDS: Temazepam 15 MG Capsule PO SCH (20:30)
[2018-05-02] MEDS: Piperacil/Tazo 3.375 GM Premix 50 ML IV.SIG SCH ×5 (00:21→23:45)
[2018-05-02] MEDS: Insulin NovoLOG Aspart Correctional Sugar Inj SQ SCH ×5 (03:49→22:30)
[2018-05-02] MEDS: dilTIAZem CD 300 MG Capsule PO SCH (08:54)
[2018-05-02] MEDS: Amiodarone 200 MG Tablet PO SCH (08:54)
[2018-05-02] MEDS: Metoprolol Tartrate 100 MG Tablet PO SCH ×2 (08:54→21:52)
[2018-05-02] MEDS: MethylPREDNISolone Sod Succinate Inj 40 MG/ML Vial IV.PUSH SCH ×2 (08:54→21:52)
[2018-05-02] MEDS: Lisinopril 20 MG Tablet PO SCH (08:55)
[2018-05-02] MEDS: Vancomycin Inj 1,000 MG in Sodium Chlor 0.9% Inj 250 ML IV.SIG SCH (17:20)
[2018-05-02] MEDS: amLODIPine 5 MG Tablet PO SCH (17:25)
[2018-05-02] MEDS: Acetaminophen 500 MG Tablet PO PRN ×2 (17:44→23:45)
[2018-05-02] MEDS: Temazepam 15 MG Capsule PO SCH (21:52)
[2018-05-03] MEDS: Insulin NovoLOG Aspart Correctional Sugar Inj SQ SCH ×5 (03:52→20:22)
[2018-05-03] MEDS: Piperacil/Tazo 3.375 GM Premix 50 ML IV.SIG SCH ×4 (06:29→23:27)
[2018-05-03] MEDS: Acetaminophen 500 MG Tablet PO PRN (06:30)
[2018-05-03] MEDS: Metoprolol Tartrate 100 MG Tablet PO SCH ×2 (10:23→20:22)
[2018-05-03] MEDS: amLODIPine 5 MG Tablet PO SCH (10:24)
[2018-05-03] MEDS: dilTIAZem CD 300 MG Capsule PO SCH (10:24)
[2018-05-03] MEDS: Lisinopril 20 MG Tablet PO SCH (10:24)
[2018-05-03] MEDS: Amiodarone 200 MG Tablet PO SCH (10:24)
[2018-05-03] MEDS: MethylPREDNISolone Sod Succinate Inj 40 MG/ML Vial IV.PUSH SCH ×2 (10:25→20:21)
[2018-05-03] MEDS ORDERED: Pharmacy Ordered Lab Info OTHER ONE (17:45)
[2018-05-03] MEDS: Vancomycin Inj 1,000 MG in Sodium Chlor 0.9% Inj 250 ML IV.SIG SCH (18:00)
[2018-05-03] MEDS: Temazepam 15 MG Capsule PO SCH (20:22)
[2018-05-04] MEDS: Insulin NovoLOG Aspart Correctional Sugar Inj SQ SCH ×5 (03:46→20:11)
[2018-05-04] MEDS: Piperacil/Tazo 3.375 GM Premix 50 ML IV.SIG SCH ×4 (05:30→23:13)
[2018-05-04] MEDS: Metoprolol Tartrate 100 MG Tablet PO SCH ×2 (09:00→20:10)
[2018-05-04] MEDS: dilTIAZem CD 300 MG Capsule PO SCH (09:00)
[2018-05-04] MEDS: MethylPREDNISolone Sod Succinate Inj 40 MG/ML Vial IV.PUSH SCH ×2 (09:00→20:09)
[2018-05-04] MEDS: Lisinopril 20 MG Tablet PO SCH (09:01)
[2018-05-04] MEDS: Amiodarone 200 MG Tablet PO SCH (09:01)
[2018-05-04] MEDS: amLODIPine 5 MG Tablet PO SCH (09:01)
[2018-05-04] MEDS: Acetaminophen 500 MG Tablet PO PRN (09:03)
[2018-05-04] MEDS: hydrALAZINE 25 MG Tablet PO SCH ×2 (09:38→20:10)
[2018-05-04] MEDS: Benzocaine/Menthol 15 MG/3.6 MG SF Lozenge BUCCAL PRN ×2 (12:53→20:25)
[2018-05-04] MEDS: Vancomycin Inj 1,000 MG in Sodium Chlor 0.9% Inj 250 ML IV.SIG SCH (13:30)
[2018-05-04] MEDS: Temazepam 15 MG Capsule PO SCH (20:12)
[2018-05-05] MEDS: Insulin NovoLOG Aspart Correctional Sugar Inj SQ SCH ×5 (04:42→21:17)
[2018-05-05] MEDS: Vancomycin Inj 1,000 MG in Sodium Chlor 0.9% Inj 250 ML IV.SIG SCH (05:00)
[2018-05-05] MEDS ORDERED: Pharmacy Ordered Lab Info OTHER ONE (05:45)
[2018-05-05] MEDS: Piperacil/Tazo 3.375 GM Premix 50 ML IV.SIG SCH (06:03)
[2018-05-05 07:04] LABS: Baso % (Auto) 0.1 % (0.0-2.0); Hematocrit 34.1 % (35.0-46.0); Hemoglobin 11.5 gm/dL (11.6-15.3); Lymph # (Auto) 0.6 th/mm3 (1.0-4.8); Lymph % (Auto) 6.1 % (9.0-44.0); Mean Corpuscular HGB Conc 33.7 % (32.0-36.0); Mean Corpuscular Hemoglobin 29.2 pg (27.0-34.0); Mean Corpuscular Volume 86.8 fL (80.0-100.0); Mono # (Auto) 0.3 th/mm3 (0.0-0.9); Mono % (Auto) 2.7 % (0.0-8.0); Neut # (Auto) 8.6 th/mm3 (1.8-7.7); Neut % (Auto) 91.1 % (16.0-70.0); Platelet Count 364 th/mm3 (150-450); Red Blood Count 3.94 mil/mm3 (4.00-5.30); Red Cell Distribution Width 15.9 % (11.6-17.2); White Blood Count 9.4 th/mm3 (4.0-11.0)
[2018-05-05 07:20] LABS: Calcium 8.9 mg/dL (8.5-10.1); Carbon Dioxide 30.6 meq/L (21.0-32.0); Potassium 4.1 meq/L (3.5-5.1)
[2018-05-05 08:43] LABS: Lymphocytes 3 % (9-44); Metamyelocytes 1 % (0-1); Monocytes 2 % (0-8); Myelocytes 1 % (0-0); Ovalocytes 1+; Platelet Estimate Normal (Normal); Platelet Morphology Normal (Normal); Tallied Nucleated RBC 1 (0-0)
[2018-05-05 08:44] LABS: Burr Cells 1+
[2018-05-05] MEDS: predniSONE 10 MG Tablet PO SCH ×2 (09:48→20:26)
[2018-05-05] MEDS: dilTIAZem CD 180 MG Capsule PO SCH (09:48)
[2018-05-05] MEDS: amLODIPine 5 MG Tablet PO SCH (09:50)
[2018-05-05] MEDS: Lisinopril 20 MG Tablet PO SCH (09:50)
[2018-05-05] MEDS: Metoprolol Tartrate 100 MG Tablet PO SCH ×2 (09:50→20:25)
[2018-05-05] MEDS: Amiodarone 200 MG Tablet PO SCH (09:50)
[2018-05-05] MEDS: hydrALAZINE 25 MG Tablet PO SCH ×3 (11:47→17:47)
[2018-05-05] MEDS: MethylPREDNISolone Sod Succinate Inj 40 MG/ML Vial IV.PUSH SCH (11:47)
[2018-05-05] MEDS: dilTIAZem CD 300 MG Capsule PO SCH (11:47)
[2018-05-05] MEDS: Temazepam 15 MG Capsule PO SCH (20:25)
[2018-05-06] MEDS: Insulin NovoLOG Aspart Correctional Sugar Inj SQ SCH ×2 (03:51→08:58)
[2018-05-06] MEDS: Amiodarone 200 MG Tablet PO SCH (08:53)
[2018-05-06] MEDS: dilTIAZem CD 180 MG Capsule PO SCH (08:54)
[2018-05-06] MEDS: amLODIPine 5 MG Tablet PO SCH (08:56)
[2018-05-06] MEDS: hydrALAZINE 25 MG Tablet PO SCH (08:56)
[2018-05-06] MEDS: Metoprolol Tartrate 100 MG Tablet PO SCH (08:57)
[2018-05-06] MEDS: predniSONE 10 MG Tablet PO SCH (08:58)
[2018-05-06] MEDS ORDERED: dilTIAZem CD 180 MG Capsule PO SCH (09:00)
[2018-05-06] MEDS: Lisinopril 20 MG Tablet PO SCH (09:02)
== END 2018-05-06 11:53 | disposition home health service (06) ==
LOC: NEPC 16:55 → NEDA 21:51 → N04 23:21
PROVIDERS: ADMIT Internal Medicine; ATTEND Internal Medicine